=== PATIENT | female | born 1990 | race Caucasian/White ===

== ENCOUNTER 2017-01-16 13:59 | Emergency (ER) | payer SELFPAY ==
[2017-01-16] MEDS ORDERED: NORMAL SALINE 1000 ML 1,000 ML IV PRN (14:22)
--- NOTE | 2017-01-16 14:24 | ER Document Report ---
ED Medical Screen (RME) - General Chief Complaint: Abdominal Pain Stated Complaint: ABDOMINAL PAIN,VOMITING Time Seen by Provider: 01/16/17 14:22 Notes: Patient has 3-4 days of right lower quadrant pain. She states she has had ovarian cyst and kidney stones before but this pain is not like those pains. She states she has had to have multiple lithotripsies and ureteral stents for her kidney stones. She also states she has had a colonoscopy in the past and was diagnosed with Crohn's but this is now in remission. She states she is not currently on any Crohn's medications. Patient states she has had decreased appetite and vomiting. She states she is noticed some blood in her urine. However she has no dysuria or frequency. No vaginal bleeding or discharge. TRAVEL OUTSIDE OF THE [place] IN LAST 30 DAYS: No - Related Data Allergies/Adverse Reactions: acetaminophen [From Fioricet] Allergy (Verified 01/16/17 14:21) butalbital [From Fioricet] Allergy (Verified 01/16/17 14:21) caffeine [From Fioricet] Allergy (Verified 01/16/17 14:21) codeine [Codeine] Allergy (Verified 01/16/17 14:05) Difficulty breathing haloperidol [From Haldol] Allergy (Verified 01/16/17 14:05) haloperidol lactate [From Haldol] Allergy (Verified 01/16/17 14:05) magnesium sulfate [Magnesium Sulfate] Allergy (Verified 01/16/17 14:05) hydromorphone HCl [From Dilaudid] Adverse Reaction (Verified 01/16/17 14:05) Renal failure ketorolac tromethamine [From Toradol] Adverse Reaction (Verified 01/16/17 14:05) metoclopramide HCl [From Reglan] Adverse Reaction (Verified 01/16/17 14:05) Anxiety tramadol [Tramadol] Adverse Reaction (Verified 01/16/17 14:05) Past Medical History - Past Medical History Cardiac Medical History: Reports: Hx Hypertension - PRECLAMPSIA Denies: Hx Coronary Artery Disease, Hx Heart Attack Pulmonary Medical History: Denies: Hx Asthma, Hx Bronchitis, Hx COPD, Hx Pneumonia, Hx Tuberculosis Neurological Medical History: Reports: Hx Migraine. Denies: Hx Cerebrovascular Accident, Hx Seizures Renal/ Medical History: Reports: Hx Kidney Stones, Hx Renal Insufficiency. Denies: Hx Peritoneal Dialysis GI Medical History: Reports: Hx Crohn's Disease, Hx Irritable Bowel Musculoskeltal Medical History: Reports Hx Arthritis Past Surgical History: Reports: Hx Cholecystectomy, Hx Dilation and Curettage - x2, Hx Gynecologic Surgery - D&C x's2, Hx Kidney (Renal Surgery) - Ureteral stent, lithotripsy x7. Denies: Hx Hysterectomy, Hx Pacemaker - Immunizations Immunizations up to date: Yes Hx Diphtheria, Pertussis, Tetanus Vaccination: Yes Physical Exam - Vital signs Vitals: Temp Pulse Resp BP Pulse Ox 98.6 F 89 16 145/94 H 98 01/16/17 14:03 01/16/17 14:03 01/16/17 14:03 01/16/17 14:03 01/16/17 14:03 Course - Vital Signs Vital signs: Temp Pulse Resp BP Pulse Ox 98.6 F 89 16 145/94 H 98 01/16/17 14:03 01/16/17 14:03 01/16/17 14:03 01/16/17 14:03 01/16/17 14:03
[2017-01-16 14:52] LABS: APPEARANCE,URINE CLEAR; BILIRUBIN,URINE NEGATIVE (NEGATIVE); GLUCOSE, URINE NEGATIVE (NEGATIVE); KETONES,URINE NEGATIVE (NEGATIVE); LEUKOCYTE ESTERASE,URINE NEGATIVE (NEGATIVE); NITRITE,URINE NEGATIVE (NEGATIVE); PROTEIN,URINE NEGATIVE (NEGATIVE); URINE SPECIFIC GRAVITY 1.009; UROBILINOGEN,URINE NEGATIVE mg/dL (<2.0)
[2017-01-16 15:34] LABS: ABSOLUTE LYMPHOCYTES (AUTO) 1.5 10^3/uL (0.5-4.7); ABSOLUTE MONOCYTES (AUTO) 0.3 10^3/uL (0.1-1.4); ABSOLUTE NEUT (AUTO) 5.2 10^3/uL (1.7-8.2); BASOPHILS % (AUTO) 0.7 % (0-2); EOSINOPHILS % (AUTO) 0.7 % (0-6); HEMATOCRIT 43.7 % (36.0-47.0); HEMOGLOBIN 14.8 g/dL (12.0-15.5); HGB HCT DIFFERENCE 0.7; LYMPHOCYTES % (AUTO) 20.7 % (13-45); MEAN CORPUSCULAR HEMOGLOBIN 30.4 pg (27.0-33.4); MEAN CORPUSCULAR HGB CONC 33.9 g/dL (32.0-36.0); MEAN CORPUSCULAR VOLUME 89 fl (80-97); MONOCYTES % (AUTO) 4.1 % (3-13); RED BLOOD COUNT 4.89 10^6/uL (3.72-5.28); SEGMENTED NEUTROPHILS % (AUTO) 73.8 % (42-78); WHITE BLOOD COUNT 7.1 10^3/uL (4.0-10.5)
[2017-01-16 15:52] LABS: ALANINE AMINOTRANSFERASE 19 U/L (9-52); ALBUMIN 5.2 g/dL (3.5-5.0); ALKALINE PHOSPHATASE 64 U/L (38-126); ANION GAP 13 (5-19); ASPARTATE AMINO TRANSFERASE 18 U/L (14-36); BILIRUBIN,DIRECT 0.4 mg/dL (0.0-0.4); BILIRUBIN,TOTAL 0.5 mg/dL (0.2-1.3); BLOOD UREA NITROGEN 7 mg/dL (7-20); CALCIUM 10.1 mg/dL (8.4-10.2); CARBON DIOXIDE 25 mmol/L (22-30); CHLORIDE 104 mmol/L (98-107); CREATININE RESULT 0.73 mg/dL (0.52-1.25); GLUCOSE 83 mg/dL (75-110); POTASSIUM 4.5 mmol/L (3.6-5.0); SODIUM 142.4 mmol/L (137-145); TOTAL PROTEIN 8.7 g/dL (6.3-8.2)
--- NOTE | 2017-01-16 16:36 | RADIOLOGY REPORT (SQ) ---
EXAM DESCRIPTION: CT ABD/PELVIS WITH IV ONLY COMPLETED DATE/TIME: 01/16/2017 4:07 pm REASON FOR STUDY: rlq pain COMPARISON: [address] abdomen and pelvis exams since 2008, most recently 03/18/2016 TECHNIQUE: CT scan of the abdomen and pelvis performed using helical scanning technique with dynamic intravenous contrast injection. No oral contrast. Images reviewed with lung, soft tissue, and bone windows. Reconstructed coronal and sagittal MPR images reviewed. Delayed images for evaluation of the urinary system also acquired. All images stored on PACS. All CT scanners at this facility use dose modulation, iterative reconstruction, and/or weight based d osing when appropriate to reduce radiation dose to as low as reasonably achievable (ALARA). [facility]: Dose Right [facility]: CareDose [facility]: Dose Right [facility]: Teradose 4D [facility]: Videdressing CONTRAST TYPE AND DOSE: contrast/concentration: Isovue 370.00 mg/ml; Total Contrast Delivered: 71.0 ml; Total Saline Delivered: 66.1 ml RENAL FUNCTION: Creatinine 0.73 RADIATION DOSE: Up-to-date CT equipment and radiation dose reduction techniques were employed. CTDIv ol: 5.4 - 7.2 mGy. DLP: 690 mGy-cm.. LIMITATIONS: None. FINDINGS: Large amount of stool in the ascending colon. No CT signs of appendicitis. No right lowe r quadrant free fluid. LOWER CHEST: No significant findings. No nodules or infiltrates. LIVER: Normal size. No masses. No dilated ducts. SPLEEN: Normal size. No focal lesions. PANCREAS: No masses. No significant calcifications. No adjacent inflammation or peripancreatic fluid collections. Pancreatic duct not dilated. GALLBLADDER: Surgically absent ADRENAL GLANDS: No significant masses or asymmetry. RIGHT KIDNEY AND URETER: No solid masses. Multiple right renal cortical cysts, the largest is in the right mid-pole kidney 1.7 cm in diameter. 6 mm right midpole intrarenal nonobstructive calculus bes t shown on coronal image 37. No hydronephrosis or hydroureter. LEFT KIDNEY AND URETER: No solid masses. Less than 1 cm left midpole renal cortical cyst. 3 mm left lower pole intrarenal nonobstructive stone, coronal image 39. No hydronephrosis or hydroureter. AORTA AND VESSELS: No aneurysm. No dissection. Renal arteries, SMA, celiac without stenosis. RETROPERITONEUM: No retroperitoneal adenopathy, hemorrhage or masses. BOWEL AND PERITONEAL CAVITY: No masses or inflammatory changes. No free fluid or peritoneal masses. Large amount of stool in the ascending colon. APPENDIX: Normal. Best shown on coronal reconstruction images 26 and 27. PELVIS: No mass. No free fluid. Normal bladder. Normal size female pelvic organs. ABDOMINAL WALL: No masses. No hernias. BONES: No significant or acute findings. OTHER: No other significant finding. IMPRESSION: Large amount of stool in the ascending colon. No CT evidence of acute appendicitis or right lower quadrant inflammatory change. Bilateral intrarenal nonobstructive stones. No hydronephrosis or hydroureter. TECHNICAL DOCUMENTATION: JOB ID: [id number] Quality ID # [id number]: Final reports with documentation of one or more dose reduction techniques (e.g., Au tomated exposure control, adjustment of the mA and/or kV according to patient size, use of iterative reconstruction technique) 2010 [employer]- All Rights Reserved
--- NOTE | 2017-01-16 16:39 | ER Document Report ---
ED GI/ <SOLANGE SNOWDEN - Last Filed: 01/16/17 16:45> - General Mode of Arrival: Ambulatory Information source: Patient TRAVEL OUTSIDE OF THE [place] IN LAST 30 DAYS: No - HPI Patient complains to provider of: Abdominal pain, Flank pain Onset: Other - x4 days Timing/Duration: Persistent Associated symptoms: None Similar symptoms previously: Yes <CINDY MESA - Last Filed: 01/16/17 17:01> - General Chief Complaint: Abdominal Pain Stated Complaint: ABDOMINAL PAIN,VOMITING Time Seen by Provider: 01/16/17 14:22 Notes: Patient is a 26 year old female who visits this emergency department quite often for painful complaints that presents to the emergency department today with complaints of right sided abdominal pain that has moved from the right upper quadrant radiating down to her right lower quadrant. Patient states she has a history of kidney stones and her pain today feels similar to her previous kidney stones. Patient states she has been having this pain for approximately four days. (CINDY MESA) - Related Data Allergies/Adverse Reactions: acetaminophen [From Fioricet] Allergy (Verified 01/16/17 14:21) butalbital [From Fioricet] Allergy (Verified 01/16/17 14:21) caffeine [From Fioricet] Allergy (Verified 01/16/17 14:21) codeine [Codeine] Allergy (Verified 01/16/17 14:05) Difficulty breathing haloperidol [From Haldol] Allergy (Verified 01/16/17 14:05) haloperidol lactate [From Haldol] Allergy (Verified 01/16/17 14:05) magnesium sulfate [Magnesium Sulfate] Allergy (Verified 01/16/17 14:05) hydromorphone HCl [From Dilaudid] Adverse Reaction (Verified 01/16/17 14:05) Renal failure ketorolac tromethamine [From Toradol] Adverse Reaction (Verified 01/16/17 14:05) metoclopramide HCl [From Reglan] Adverse Reaction (Verified 01/16/17 14:05) Anxiety tramadol [Tramadol] Adverse Reaction (Verified 01/16/17 14:05) Home Medications: Current Home Medications No Home Medications 01/16/17 [History] Past Medical History - General Information source: Patient - Social History Smoking Status: Current Every Day Smoker Cigarette use (# per day): Yes Frequency of alcohol use: None Drug Abuse: None Lives with: Family Family History: Reviewed & Not Pertinent, CAD, Hypertension, Other - Lung cancer , breast cancer, renal calculi Patient has suicidal ideation: No Patient has homicidal ideation: No - Past Medical History Cardiac Medical History: Reports: Hx Hypertension - PRECLAMPSIA Neurological Medical History: Reports: Hx Migraine Renal/ Medical History: Reports: Hx Kidney Stones, Hx Renal Insufficiency GI Medical History: Reports: Hx Crohn's Disease, Hx Irritable Bowel Musculoskeltal Medical History: Reports Hx Arthritis Past Surgical History: Reports: Hx Cholecystectomy, Hx Dilation and Curettage - x2, Hx Gynecologic Surgery - D&C x's2, Hx Kidney (Renal Surgery) - Ureteral stent, lithotripsy x7 - Immunizations Immunizations up to date: Yes Hx Diphtheria, Pertussis, Tetanus Vaccination: Yes Hx Pneumococcal Vaccination: 07/18/12 <CINDY MESA - Last Filed: 01/16/17 17:01> Review of Systems - Review of Systems Constitutional: No symptoms reported EENT: No symptoms reported Cardiovascular: No symptoms reported Respiratory: No symptoms reported Gastrointestinal: See HPI, Abdominal pain Genitourinary: See HPI, Other - RLQ pain, feels like kidney stone according to patient Female Genitourinary: No symptoms reported Musculoskeletal: No symptoms reported Skin: No symptoms reported Hematologic/Lymphatic: No symptoms reported Neurological/Psychological: No symptoms reported -: Yes All other systems reviewed and negative <CINDY MESA - Last Filed: 01/16/17 17:01> Physical Exam <SOLANGE SNOWDEN - Last Filed: 01/16/17 16:45> <CINDY MESA - Last Filed: 01/16/17 17:01> - Vital signs Vitals: Temp Pulse Resp BP Pulse Ox 98.6 F 89 16 145/94 H 98 01/16/17 14:03 01/16/17 14:03 01/16/17 14:03 01/16/17 14:03 01/16/17 14:03 - Notes Notes: Physical Exam: General: Alert, appears well. HEENT: Normocephalic. Atraumatic. PERRL. Extraocular movements intact. Oropharynx clear. Neck: Supple. Non-tender. Respiratory: No respiratory distress. Clear and equal breath sounds bilaterally. Cardiovascular: Regular rate and rhythm. Abdominal: Mild RLQ tenderness with palpation. No distension. Normal Bowel Sounds. Back: Claims there is pain with percussion of right flank. No deformity or step off. Extremities: Moves all four extremities. Upper extremities: Normal inspection. Normal ROM. Lower extremities: Normal inspection. No edema. Normal ROM. Neurological: Normal cognition. AAOx4. Normal speech. Psychological: Normal affect. Normal Mood. Skin: Warm. Dry. Normal color. (CINDY MESA) Course - Laboratory Result Diagrams: 01/16/17 15:10 01/16/17 15:10 - Diagnostic Test Radiology reviewed: Image reviewed, Reports reviewed - CT scan abdomen pelvis with IV contrast shows intrarenal stones, no ureteral stones, no obstruction, no hydronephrosis or hydroureter. There is constipation. The entire right colon appears quite loaded with stool. <SOLANGE SNOWDEN - Last Filed: 01/16/17 16:45> - Laboratory Result Diagrams: 01/16/17 15:10 01/16/17 15:10 <CINDY MESA - Last Filed: 01/16/17 17:01> - Vital Signs Vital signs: Temp Pulse Resp BP Pulse Ox 98.6 F 89 16 145/94 H 98 01/16/17 14:03 01/16/17 14:03 01/16/17 14:03 01/16/17 14:03 01/16/17 14:03 - Laboratory Laboratory results interpreted by me: 01/16/17 01/16/17 15:10 15:10 RDW 15.0 H Total Protein 8.7 H Albumin 5.2 H Discharge <SOLANGE SNOWDEN - Last Filed: 01/16/17 16:45> <CINDY MESA - Last Filed: 01/16/17 17:01> - Discharge Clinical Impression: Flank pain Constipation Qualifiers: Constipation type: unspecified constipation type Qualified Code(s): K59.00 - Constipation, unspecified Abdominal pain Qualifiers: Abdominal location: right lower quadrant Qualified Code(s): R10.31 - Right lower quadrant pain Condition: Stable Disposition: HOME, SELF-CARE Additional Instructions: Flank Pain: We weren't able to prove an exact cause for your flank pain. Pain in the flank can be caused by a muscle strain or spasm. Sometimes a kidney stone causes pain, but can't be found on our tests. Infection in the kidney should be evident on a urine test. Early shingles can occasionally cause flank pain, without the rash that proves the diagnosis. On rare occasions, disease of the pancreas, aorta, spleen, or colon can create pain in the flank. At this time, there's no evidence of a dangerous condition, and it seems safe for you to be at home. If the pain goes away and does not come back, no further testing will be needed. If pain persists, or becomes more severe, we may need to repeat some tests or order additional new testing. Blood in the urine, urgency to urinate frequently, and pain that radiates to the groin can indicate a kidney stone. Fever may mean that the pain is due to infection, either of the kidney or the colon (diverticulitis). If your pain is early shingles, you should develop an eruption of blisters in the painful area within a few days. Call the doctor or return if you have pain that is spreading or becoming more severe, pain that does not resolve with time, fever, or any other new symptoms. Constipation: Constipation is a common problem. It is especially likely as you get older. Constipation is a common cause of abdominal pain, but sometimes causes no symptoms at all. Causes of constipation include certain medications, dehydration, diets, inactivity, and low-fiber intake. Rarely, it can be a symptom of underlying disease. The physician has evaluated you for this. Avoid constipation by eating a diet high in fiber, fruits, and vegetables. Drink plenty of liquids. Get regular exercise. If possible, avoid constipating medicines like narcotic pain medication. Some vitamin tablets can cause constipation. Stool softeners may be needed for difficult cases. An excellent stool softener is Konsyl which is available at [employer], and [employer] drug store. Just add a teaspoon to a glass of pineapple or orange juice daily or twice a day if needed. Laxatives are useful for occasional constipation. You should use them only when necessary. Too-frequent use can make your bowels dependent on them. Some over the counter laxatives available without prescription are: Milk of Magnesia, 1-2 tablespoons twice a day Dulcolax, 5 mg pill or 10 mg suppository. Citrate of Magnesia, 4-5 ounces a day for a day or two For acute constipation, Fleet's Enemas and Dulcolax suppositories are helpful. Chronic, tank terminal gauger use of laxatives or enemas is not a good idea. Your bowel may become dependant on them. You do not need to have a bowel movement every day. Many people do fine with a bowel movement every three or four days. You should call your doctor or return for re-evaluation if you pass blood in the stool, or if you develop fever or increasing abdominal pain. //////////////////////////////////////////////////////////////////////////////// //////////////////////////////////////////////////////////////////////////////// /////////////////// The CT scan does not show stones in the ureters and does not show any hydroureter or hydronephrosis. There is considerable stool in the right colon consistent with constipation. Your pain follows the course of the right colon and is most likely related to the constipation. Narcotic pain medication will make this problem worse. Try drinking a bottle of mag citrate today and start taking MiraLAX. You should start taking MiraLAX every day and drink plenty of fluids. Follow-up with a local medical doctor if not improving. RETURN TO THE EMERGENCY ROOM IF ANY NEW OR WORSENING SYMPTOMS. An Attestation: 01/16/17 16:51 I personally performed the services described in the documentation, reviewed and edited the documentation which was dictated to the scribe in my presence, and it accurately records my words and actions. (SOLANGE SNOWDEN) Araceliibbartolo Documentation - Scribe Written by An:: An Blakely, 01/16/2017 1656 acting as scribe for :: Aleksandar <CINDY MESA - Last Filed: 01/16/17 17:01>
[2017-01-16 17:05] VITALS: BP 141/103
== END 2017-01-16 17:08 | disposition home or self-care (01) ==
LOC: ER 13:59
DX: K59.00 Constipation, unspecified (principal); R10.31 Right lower quadrant pain; F17.210 Nicotine dependence, cigarettes, uncomplicated; Z87.442 Personal history of urinary calculi; Z88.6 Allergy status to analgesic agent; Z90.49 Acquired absence of other specified parts of digestive tract
CPT/HCPCS: 99284; 96360; 36415; 85025; 81025; 80053; 81001; 74177; J7030

== ENCOUNTER 2017-01-20 22:09 | Emergency (ER) | payer SELFPAY ==
[2017-01-20] MEDS ORDERED: HYDROMORPHONE HCL INJ/PF 2 MG/ML AMPULE IV ONE (23:01)
[2017-01-20] MEDS ORDERED: NORMAL SALINE 1000 ML 1,000 ML IV ONE (23:01)
[2017-01-20] MEDS ORDERED: ONDANSETRON HCL INJ/PF 4 MG/2 ML SDV IV ONE (23:01)
[2017-01-20 23:05] LABS: AMORPHOUS SEDIMENT,URINE TRACE /HPF; APPEARANCE,URINE SLIGHTLY-CLOUDY; BILIRUBIN,URINE NEGATIVE (NEGATIVE); GLUCOSE, URINE NEGATIVE (NEGATIVE); KETONES,URINE NEGATIVE (NEGATIVE); LEUKOCYTE ESTERASE,URINE TRACE (NEGATIVE); NITRITE,URINE NEGATIVE (NEGATIVE); PROTEIN,URINE 30 mg/dL (NEGATIVE); URINE SPECIFIC GRAVITY 1.021; UROBILINOGEN,URINE NEGATIVE mg/dL (<2.0)
--- NOTE | 2017-01-20 23:05 | ER Document Report ---
ED GI/ - General Chief Complaint: Urinary Problem Stated Complaint: BACK PAIN Time Seen by Provider: 01/20/17 22:49 Mode of Arrival: Ambulatory Information source: Patient TRAVEL OUTSIDE OF THE [place] IN LAST 30 DAYS: No - HPI Patient complains to provider of: Flank pain - RIGHT Onset: This afternoon Timing/Duration: Sudden Quality of pain: Dull - MOSTLY, Other - OCCAS. TEARING Severity at maximum: Severe Severity in ED: Moderate Context: Other - KNOWN H/O "KIDNEY STONES" Location: Right flank Vaginal bleeding (Compared to normal period): None Associated symptoms: Dysuria, Hematuria, Nausea, Urinary frequency, Urinary urgency. denies: Chills, Fever Exacerbated by: Denies Relieved by: Denies Similar symptoms previously: Yes - W/ PASSAGE OF STONE Recently seen / treated by doctor: No Notes: 01/21/17 02:36 Patient passed a moderately sized kidney stone when obtaining urine specimen for lab and emergency department. Review of imaging studies from 4 days ago reveals that there was one 6 mm stone in the right kidney at that time. - Related Data Allergies/Adverse Reactions: acetaminophen [From Fioricet] Allergy (Verified 01/20/17 22:38) butalbital [From Fioricet] Allergy (Verified 01/20/17 22:38) caffeine [From Fioricet] Allergy (Verified 01/20/17 22:38) codeine [Codeine] Allergy (Verified 01/20/17 22:38) Difficulty breathing haloperidol [From Haldol] Allergy (Verified 01/20/17 22:38) haloperidol lactate [From Haldol] Allergy (Verified 01/20/17 22:38) magnesium sulfate [Magnesium Sulfate] Allergy (Verified 01/20/17 22:38) hydromorphone HCl [From Dilaudid] Adverse Reaction (Verified 01/20/17 22:38) Renal failure ketorolac tromethamine [From Toradol] Adverse Reaction (Verified 01/20/17 22:38) metoclopramide HCl [From Reglan] Adverse Reaction (Verified 01/20/17 22:38) Anxiety tramadol [Tramadol] Adverse Reaction (Verified 01/20/17 22:38) Past Medical History - General Information source: Patient - Social History Smoking Status: Unknown if Ever Smoked Frequency of alcohol use: Occasional Drug Abuse: None Lives with: Spouse/Significant other Family History: Reviewed & Not Pertinent, CAD, Hypertension, Other - Lung cancer , breast cancer, renal calculi - Past Medical History Cardiac Medical History: Reports: Hx Hypertension - PRECLAMPSIA Denies: Hx Coronary Artery Disease, Hx Heart Attack Pulmonary Medical History: Denies: Hx Asthma, Hx Bronchitis, Hx COPD, Hx Pneumonia, Hx Tuberculosis Neurological Medical History: Reports: Hx Migraine. Denies: Hx Cerebrovascular Accident, Hx Seizures Renal/ Medical History: Reports: Hx Kidney Stones, Hx Peritoneal Dialysis, Hx Renal Insufficiency GI Medical History: Reports: Hx Crohn's Disease, Hx Irritable Bowel Musculoskeltal Medical History: Reports Hx Arthritis Past Surgical History: Reports: Hx Cholecystectomy, Hx Dilation and Curettage - x2, Hx Gynecologic Surgery - D&C x's2, Hx Kidney (Renal Surgery) - Ureteral stent, lithotripsy x7. Denies: Hx Hysterectomy, Hx Pacemaker - Immunizations Immunizations up to date: Yes Hx Diphtheria, Pertussis, Tetanus Vaccination: Yes Hx Pneumococcal Vaccination: 07/18/12 Review of Systems - Review of Systems Constitutional: No symptoms reported. denies: Chills, Fever EENT: No symptoms reported Cardiovascular: No symptoms reported Respiratory: No symptoms reported Gastrointestinal: See HPI Genitourinary: See HPI Female Genitourinary: No symptoms reported Musculoskeletal: No symptoms reported Skin: No symptoms reported Neurological/Psychological: No symptoms reported Physical Exam - Vital signs Vitals: Temp Resp BP Pulse Ox 98.7 F 14 122/85 98 01/20/17 22:40 01/20/17 22:40 01/20/17 22:40 01/20/17 22:40 Interpretation: Normal. No: Tachycardic, Tachypneic, Febrile - General General appearance: Appears well, Alert In distress: None - HEENT Head: Normocephalic Eyes: Normal Conjunctiva: Normal Ears: Normal Nasal: Normal Mouth/Lips: Normal Mucous membranes: Normal - Respiratory Respiratory status: No respiratory distress - Cardiovascular Rhythm: Regular - Abdominal Inspection: Normal Distension: No distension - Back Back: Normal, CVA tenderness - RIGHT - Extremities General upper extremity: Normal inspection General lower extremity: Normal inspection - Neurological Neuro grossly intact: Yes Cognition: Normal Orientation: AAOx4 - Psychological Associated symptoms: Normal affect, Normal mood - Skin Skin Temperature: Warm Skin Moisture: Dry Skin Color: Normal Skin Turgor: Elastic Course - Vital Signs Vital signs: Temp Pulse Resp BP Pulse Ox 97.8 F 80 18 131/93 H 96 01/21/17 01:36 01/21/17 01:36 01/21/17 01:36 01/21/17 01:36 01/21/17 01:36 - Laboratory Laboratory results interpreted by me: 01/20/17 22:48 Urine Protein 30 H Urine Blood LARGE H Ur Leukocyte Esterase TRACE H Urine Ascorbic Acid 20 H Discharge - Discharge Clinical Impression: Flank pain, History of nephrolithiasis Condition: Stable Disposition: HOME, SELF-CARE Instructions: Pain Medication Injection ([facility]), Kidney Stone ([facility]) Additional Instructions: REST, DRINK PLENTY OF FLUIDS. MEDS DIRECTED. FOLLOW UP WITH UROLOGIST NEEDED. RETURN TO E.R. IF YOU GET WORSE, ANY TIME. Prescriptions: Nitrofurantoin/Nitrofuran Mac [Macrobid 100 mg Capsule] 100 mg PO BID #20 capsule Tolterodine Tartrate [Detrol] 1 mg PO BID #7 tablet Referrals: TAMMY GARCIA MD [NO LOCAL MD] - Follow up as needed
[2017-01-20] MEDS ORDERED: MORPHINE SULFATE 10 MG/ML INJ IV ONE (23:29)
[2017-01-20] MEDS ORDERED: MORPHINE SULFATE 10 MG/ML INJ ONE (23:34)
[2017-01-21] MEDS ORDERED: DIPHENHYDRAMINE HCL 50 MG/ML VIAL IV ONE (00:03)
[2017-01-21] MEDS ORDERED: PROMETHAZINE HCL 25 MG TABLET PO ONE (00:03)
[2017-01-21] MEDS ORDERED: MORPHINE SULFATE 10 MG/ML INJ IV ONE ×2 (00:03→01:42)
[2017-01-21 01:37] VITALS: BP 131/93
[2017-01-21] MEDS ORDERED: TOLTERODINE TARTRATE 1 MG TABLET PO ONE (01:40)
[2017-01-21] MEDS ORDERED: CEFTRIAXONE 1 GM/D5W RTU 1 GM/50 ML RTUPB IV ONE (01:40)
[2017-01-21] MEDS ORDERED: TOLTERODINE TARTRATE 1 MG TABLET ONE (02:01)
== END 2017-01-21 02:55 | disposition home or self-care (01) ==
LOC: ER 22:09
DX: N20.0 Calculus of kidney (principal); R10.9 Unspecified abdominal pain; R30.0 Dysuria; R31.9 Hematuria, unspecified; R11.0 Nausea; R39.15 Urgency of urination; R35.0 Frequency of micturition; Z88.5 Allergy status to narcotic agent; Z88.8 Allergy status to other drugs, medicaments and biological substances; Z88.6 Allergy status to analgesic agent; Z98.890 Other specified postprocedural states
CPT/HCPCS: 96376; 99283; 96375; 96365; 81025; 81001; J1200; J2270 ×2; J2405; J7030; J0696

== ENCOUNTER 2017-02-17 15:25 | Emergency (ER) | payer SELFPAY ==
--- NOTE | 2017-02-17 16:35 | ER Document Report ---
ED Medical Screen (RME) - General Chief Complaint: Headache Stated Complaint: HEAD PRESSURE DIFFICULTY TALKING Time Seen by Provider: 02/17/17 16:09 Information source: Patient Notes: Patient presents complaining of left-sided headache pain that started this morning. Patient has taken Tylenol 730 and Excedrin at 1130 without improvement of her symptoms. Patient describes the pain as a pressure with nausea and vomiting 3 episodes. Patient states that an hour prior to her arrival to the ER she started to have difficulty saying the words that are coming into her head. Patient denies any head injury. Patient states that this headache is different from her usual migraines. Patient denies any drug use or recent illness. TRAVEL OUTSIDE OF THE [place] IN LAST 30 DAYS: No - Related Data Allergies/Adverse Reactions: acetaminophen [From Fioricet] Allergy (Verified 01/20/17 22:38) butalbital [From Fioricet] Allergy (Verified 01/20/17 22:38) caffeine [From Fioricet] Allergy (Verified 01/20/17 22:38) codeine [Codeine] Allergy (Verified 01/20/17 22:38) Difficulty breathing haloperidol [From Haldol] Allergy (Verified 01/20/17 22:38) haloperidol lactate [From Haldol] Allergy (Verified 01/20/17 22:38) magnesium sulfate [Magnesium Sulfate] Allergy (Verified 01/20/17 22:38) hydromorphone HCl [From Dilaudid] Adverse Reaction (Verified 01/20/17 22:38) Renal failure ketorolac tromethamine [From Toradol] Adverse Reaction (Verified 01/20/17 22:38) metoclopramide HCl [From Reglan] Adverse Reaction (Verified 01/20/17 22:38) Anxiety tramadol [Tramadol] Adverse Reaction (Verified 01/20/17 22:38) Past Medical History - Social History Chew tobacco use (# tins/day): No Frequency of alcohol use: None Drug Abuse: None - Past Medical History Cardiac Medical History: Reports: Hx Hypertension - PRECLAMPSIA Denies: Hx Coronary Artery Disease, Hx Heart Attack Pulmonary Medical History: Denies: Hx Asthma, Hx Bronchitis, Hx COPD, Hx Pneumonia, Hx Tuberculosis Neurological Medical History: Reports: Hx Migraine. Denies: Hx Cerebrovascular Accident, Hx Seizures Renal/ Medical History: Reports: Hx Kidney Stones, Hx Renal Insufficiency. Denies: Hx Peritoneal Dialysis GI Medical History: Reports: Hx Crohn's Disease, Hx Irritable Bowel Musculoskeltal Medical History: Reports Hx Arthritis Past Surgical History: Reports: Hx Cholecystectomy, Hx Dilation and Curettage - x2, Hx Gynecologic Surgery - D&C x's2, Hx Kidney (Renal Surgery) - Ureteral stent, lithotripsy x7. Denies: Hx Hysterectomy, Hx Pacemaker - Immunizations Immunizations up to date: Yes Hx Diphtheria, Pertussis, Tetanus Vaccination: Yes Physical Exam - Vital signs Vitals: Temp Pulse BP Pulse Ox 98.8 F 99 150/92 H 98 02/17/17 16:03 02/17/17 16:03 02/17/17 16:03 02/17/17 16:03 - Neurological Orientation: AAOx4 [place] Coma Scale Eye Opening: Spontaneous [place] Coma Scale Verbal: Oriented [place] Coma Scale Motor: Obeys Commands Chai Coma Scale Total: 15 Speech: Expressive aphasia Cerebellar coordination: No: Finger-nose rhombey - Abnormal finger-nose testing Notes: Patient with unsteady gait and unable to ambulate while walking on [facility] Course - Re-evaluation Re-evalutation: 02/17/17 16:35 business and services instructor advised the patient's status - Vital Signs Vital signs: Temp Pulse Resp BP Pulse Ox 98.8 F 99 150/92 H 98 02/17/17 16:03 02/17/17 16:03 02/17/17 16:03 02/17/17 16:03
[2017-02-17 16:50] LABS: ABSOLUTE BASOPHILS # (AUTO) 0.1 10^3/uL (0.0-0.2); ABSOLUTE LYMPHOCYTES (AUTO) 1.7 10^3/uL (0.5-4.7); ABSOLUTE MONOCYTES (AUTO) 0.3 10^3/uL (0.1-1.4); ABSOLUTE NEUT (AUTO) 4.6 10^3/uL (1.7-8.2); BASOPHILS % (AUTO) 0.8 % (0-2); EOSINOPHILS % (AUTO) 0.7 % (0-6); HEMATOCRIT 40.1 % (36.0-47.0); HEMOGLOBIN 13.9 g/dL (12.0-15.5); HGB HCT DIFFERENCE 1.6; LYMPHOCYTES % (AUTO) 24.9 % (13-45); MEAN CORPUSCULAR HEMOGLOBIN 30.9 pg (27.0-33.4); MEAN CORPUSCULAR HGB CONC 34.5 g/dL (32.0-36.0); MEAN CORPUSCULAR VOLUME 89 fl (80-97); MONOCYTES % (AUTO) 4.6 % (3-13); RED BLOOD COUNT 4.49 10^6/uL (3.72-5.28); RED CELL DISTRIBUTION WIDTH 14.5 % (11.5-14.0); WHITE BLOOD COUNT 6.7 10^3/uL (4.0-10.5)
--- NOTE | 2017-02-17 17:03 | RADIOLOGY REPORT (SQ) ---
EXAM DESCRIPTION: CT HEAD WITHOUT COMPLETED DATE/TIME: 02/17/2017 4:51 pm REASON FOR STUDY: WINTER COMPARISON: 05/01/2016 TECHNIQUE: Axial images acquired through the brain without intravenous contrast. Images reviewed wi th bone, brain and subdural windows. Images stored on PACS. All CT scanners at this facility use dose modulation, iterative reconstruction, and/or weight based d osing when appropriate to reduce radiation dose to as low as reasonably achievable (ALARA). [facility]: Dose Right [facility]: CareDose [facility]: Dose Right [facility]: Teradose 4D [facility]: [employer] RADIATION DOSE: Up-to-date CT equipment and radiation dose reduction techniques were employed. CTDIv ol: 64.6 mGy. DLP: 1163 mGy-cm. mGy. LIMITATIONS: None. FINDINGS: VENTRICLES: Normal size and contour. CEREBRUM: No masses. No hemorrhage. No midline shift. No evidence for acute infarction. Normal gra y/white matter differentiation. No areas of low density in the white matter. CEREBELLUM: No masses. No hemorrhage. No alteration of density. No evidence for acute infarction. EXTRAAXIAL SPACES: No fluid collections. No masses. ORBITS AND GLOBE: No intra- or extraconal masses. Normal contour of globe without masses. CALVARIUM: No fracture. PARANASAL SINUSES: No fluid or mucosal thickening. SOFT TISSUES: No mass or hematoma. OTHER: No other significant finding. IMPRESSION: No acute intracranial findings. EVIDENCE OF ACUTE STROKE: NO. COMMENT: Quality ID # [id number]: Final reports with documentation of one or more dose reduction techniques (e.g., Automated exposure control, adjustment of the mA and/or kV according to patient size, use of iterative reconstruction technique) TECHNICAL DOCUMENTATION: JOB ID: [id number]- All Rights Reserved
[2017-02-17 17:04] LABS: ALANINE AMINOTRANSFERASE 27 U/L (9-52); ALBUMIN 4.6 g/dL (3.5-5.0); ALKALINE PHOSPHATASE 64 U/L (38-126); ANION GAP 9 (5-19); ASPARTATE AMINO TRANSFERASE 15 U/L (14-36); BILIRUBIN,DIRECT 0.4 mg/dL (0.0-0.4); BILIRUBIN,TOTAL 0.4 mg/dL (0.2-1.3); BLOOD UREA NITROGEN 10 mg/dL (7-20); CALCIUM 10.2 mg/dL (8.4-10.2); CARBON DIOXIDE 27 mmol/L (22-30); CHLORIDE 106 mmol/L (98-107); CREATININE RESULT 0.74 mg/dL (0.52-1.25); GLUCOSE 95 mg/dL (75-110); POTASSIUM 3.9 mmol/L (3.6-5.0); SODIUM 142.1 mmol/L (137-145); TOTAL PROTEIN 7.4 g/dL (6.3-8.2)
[2017-02-17 17:05] LABS: ALCOHOL < 10 mg/dL (NONE DETECTED)
[2017-02-17 17:05] LABS: APPEARANCE,URINE SLIGHTLY-CLOUDY; BILIRUBIN,URINE NEGATIVE (NEGATIVE); GLUCOSE, URINE NEGATIVE (NEGATIVE); KETONES,URINE NEGATIVE (NEGATIVE); LEUKOCYTE ESTERASE,URINE NEGATIVE (NEGATIVE); NITRITE,URINE NEGATIVE (NEGATIVE); PROTEIN,URINE NEGATIVE (NEGATIVE); UROBILINOGEN,URINE NEGATIVE mg/dL (<2.0)
[2017-02-17 17:11] LABS: RBC,URINE 0-1 /HPF; WBC,URINE 0-1 /HPF
--- NOTE | 2017-02-17 17:13 | ER Document Report ---
ED General - General Chief Complaint: Headache Stated Complaint: HEAD PRESSURE DIFFICULTY TALKING Time Seen by Provider: 02/17/17 16:09 TRAVEL OUTSIDE OF THE [place] IN LAST 30 DAYS: No - HPI Notes: Patient is a 26-year-old female with a history of crohn's, renal stones, and migraines who presents the ED complaining of a left-sided headache started yesterday evening. Patient states that her typical medications have not helped for her headache. Patient states that she has been having trouble saying what she means, occasional blurry vision, balance issues as well, and left-sided facial pressure/tingling since then. Patient states that she is still eating and drinking without any difficulties. She still urinating and having normal bowel movements otherwise. She denies any recent illness or fever. Patient states that on occasion she will get a spasming type pain that radiates from the back of her head down into her neck. Denies any fever, head injury, neck pain, URI, sore throat, chest pain, palpitations, syncope, cough, shortness of breath, wheeze, dyspnea, abdominal pain, nausea/vomiting/diarrhea, urinary retention, dysuria, hematuria, loss of control of bowel or bladder, numbness/ tingling, saddle anesthesia, muscle paralysis/weakness, or rash. Patient denies any drug use. Denies any other significant past medical history. - Related Data Allergies/Adverse Reactions: acetaminophen [From Fioricet] Allergy (Verified 01/20/17 22:38) butalbital [From Fioricet] Allergy (Verified 01/20/17 22:38) caffeine [From Fioricet] Allergy (Verified 01/20/17 22:38) codeine [Codeine] Allergy (Verified 01/20/17 22:38) Difficulty breathing haloperidol [From Haldol] Allergy (Verified 01/20/17 22:38) haloperidol lactate [From Haldol] Allergy (Verified 01/20/17 22:38) magnesium sulfate [Magnesium Sulfate] Allergy (Verified 01/20/17 22:38) hydromorphone HCl [From Dilaudid] Adverse Reaction (Verified 01/20/17 22:38) Renal failure ketorolac tromethamine [From Toradol] Adverse Reaction (Verified 01/20/17 22:38) metoclopramide HCl [From Reglan] Adverse Reaction (Verified 01/20/17 22:38) Anxiety tramadol [Tramadol] Adverse Reaction (Verified 01/20/17 22:38) Past Medical History - General Information source: Patient - Social History Smoking Status: Current Every Day Smoker Chew tobacco use (# tins/day): No Frequency of alcohol use: None Drug Abuse: None Family History: Reviewed & Not Pertinent, CAD, Hypertension, Other - Lung cancer , breast cancer, renal calculi Patient has suicidal ideation: No Patient has homicidal ideation: No - Past Medical History Cardiac Medical History: Reports: Hx Hypertension - PRECLAMPSIA Denies: Hx Coronary Artery Disease, Hx Heart Attack Pulmonary Medical History: Denies: Hx Asthma, Hx Bronchitis, Hx COPD, Hx Pneumonia, Hx Tuberculosis Neurological Medical History: Reports: Hx Migraine. Denies: Hx Cerebrovascular Accident, Hx Seizures Renal/ Medical History: Reports: Hx Kidney Stones, Hx Renal Insufficiency. Denies: Hx Peritoneal Dialysis GI Medical History: Reports: Hx Crohn's Disease, Hx Irritable Bowel Musculoskeltal Medical History: Reports Hx Arthritis Past Surgical History: Reports: Hx Cholecystectomy, Hx Dilation and Curettage - x2, Hx Gynecologic Surgery - D&C x's2, Hx Kidney (Renal Surgery) - Ureteral stent, lithotripsy x7. Denies: Hx Hysterectomy, Hx Pacemaker - Immunizations Immunizations up to date: Yes Hx Diphtheria, Pertussis, Tetanus Vaccination: Yes Hx Pneumococcal Vaccination: 07/18/12 Review of Systems - Review of Systems Notes: REVIEW OF SYSTEMS: CONSTITUTIONAL : Denies fever, chills, or sweats. Denies recent illness. EENT: see hpi. Denies eye, ear, throat, or mouth pain or symptoms. Denies nasal or sinus congestion or discharge. Denies throat, tongue, or mouth swelling or difficulty swallowing. CARDIOVASCULAR: Denies chest pain. Denies palpitations or racing or irregular heart beat. Denies ankle edema. RESPIRATORY: Denies cough, cold, or chest congestion. Denies shortness of breath, difficulty breathing, or wheezing. GASTROINTESTINAL: Denies abdominal pain or distention. Denies nausea, vomiting , or diarrhea. Denies blood in vomitus, stools, or per rectum. Denies black, tarry stools. Denies constipation. GENITOURINARY: Denies difficulty urinating, painful urination, burning, frequency, blood in urine, or discharge. FEMALE GENITOURINARY: Denies vaginal bleeding, heavy or abnormal periods, irregular periods. Denies vaginal discharge or odor. MUSCULOSKELETAL: Denies back or neck pain or stiffness. Denies joint pain or swelling. SKIN: Denies rash, lesions or sores. NEUROLOGICAL: see hpi. Denies confusion or altered mental status. Denies passing out or loss of consciousness. Denies dizziness or lightheadedness. Denies weakness or paralysis or loss of use of either side. Denies seizures. PSYCHIATRIC: Denies anxiety or stress. Denies depression, suicidal ideation, or homicidal ideation. ALL OTHER SYSTEMS REVIEWED AND NEGATIVE. Dictation was performed using [employer] voice recognition software Physical Exam - Vital signs Vitals: Temp Pulse BP Pulse Ox 98.8 F 99 150/92 H 98 02/17/17 16:03 02/17/17 16:03 02/17/17 16:03 02/17/17 16:03 Notes: PHYSICAL EXAMINATION: GENERAL: Well-appearing, well-nourished and in no acute distress. A&Ox4 HEAD: Atraumatic, normocephalic. Non-tender. No loco sign EYES: Pupils equal round and reactive to light, extraocular movements intact, sclera anicteric, conjunctiva are normal. No raccoon eyes/entrapment ENT: EAC clear b/l. TM's intact b/l without erythema, fluid, or perforation. Nares patent and without discharge. oropharynx clear without exudates. No tonsilar hypertrophy or erythema. Moist mucous membranes. No sinus tenderness. No hemotympanum/CSF discharge. NECK: Normal range of motion, supple without lymphadenopathy. No rigidity. No midline tenderness. Spurling negative. NEXUS negative. Chest: No flail chest. equal rise/fall. Non-tender LUNGS: Breath sounds clear to auscultation bilaterally and equal. No wheezes rales or rhonchi. HEART: Regular rate and rhythm without murmurs, rubs, gallops. ABDOMEN: Soft, nontender, nondistended abdomen. No guarding, no rebound. No masses appreciated. Normal bowel sounds present. No CVA tenderness bilaterally. Musculoskeletal: Ext b/l: FROM to passive/active. Strength 5+/5. No deficits noted. No bony tenderness of extremities. Back: FROM to passive/active. Strength 5+/5. No vertebral point tenderness, stepoffs, or deformities. No other bony tenderness or ecchymosis. SLR negative b/l. Extremities: No cyanosis, clubbing, or edema b/l. Peripheral pulses 2+. Capillary refill less than 2 seconds. NEUROLOGICAL: NIH score of 0. MMSE intact. Cranial nerves grossly intact. Normal speech, normal gait. Normal sensory, motor exams. Reflexes 2+ b/l. ZELALEM' s negative. Pronator drift negative. Rhomberg negative. Heel/davis wnl. Finger :nose acceptable, missed 1-2x, but was able to accomplish thereafter. PSYCH: Normal mood, normal affect. SKIN: Warm, Dry, normal turgor, no rashes or lesions noted. Course - Re-evaluation Re-evalutation: 02/17/17 17:16 NIH score of 0 MMSE intact No focal neurological deficits Pt has an interesting history and ROS. Everything is left sided on her from her WINTER to the facial pressure. Pt unable to tell me what an object (ang, hammock, feather, etc) on a large notecard is, but can easily tell me a small object that I am holding in my hand and tell me what it is used for. Pt is able to articulate and speak in sound sentences. A&O x4. Labs pending CT scan of the head negative 02/17/17 18:[address] Huertas who is in agreement with discharge/plan: Patient is an afebrile, well-hydrated, 26-year-old female who presents the ED with headache, suspect migrainous. Vitals are stable. PE otherwise unremarkable for any focal neurological deficits. Pt's symptomatology and PE do not correlate for focal deficit. CT scan unremarkable. CBC, CMP, UA, urine drug screen, , etoh are all unremarkable for any acute pathology. Low suspicion for any acute glaucoma, temporal arteritis, meningitis, intracranial hemorrhage, ischemic stroke, or fracture at this time. Patient is aware that her condition can change from initial presentation and that she needs to monitor symptoms closely for any acute changes. Decadron 10 mg, Compazine 10 mg , Benadryl 50 mg, and zofran 4mg given IV today. After medication, pt reports complete resolution of her symptoms and WINTER. Recommend conservative measures for symptoms otherwise. Recheck with your PCM in 2-3 days. Consider consult with neurologist for ongoing/worsening symptoms. Return to the ED with any worsening/concerning symptoms otherwise as reviewed in discharge. Patient is in agreement. - Vital Signs Vital signs: Temp Pulse Resp BP Pulse Ox 98.8 F 99 150/92 H 98 02/17/17 16:03 02/17/17 16:03 02/17/17 16:03 02/17/17 16:03 - Laboratory Result Diagrams: 02/17/17 16:40 02/17/17 16:40 Laboratory results interpreted by me: 02/17/17 16:40 RDW 14.5 H Discharge - Discharge Clinical Impression: Headache Qualifiers: Headache type: unspecified Headache chronicity pattern: acute headache Intractability: not intractable Qualified Code(s): R51 - Headache Condition: Stable Disposition: HOME, SELF-CARE Instructions: Antinausea Medication ([facility]), Intravenous Compazine for Headaches ([facility]), Use of Diphenhydramine, Headache ([facility]), Follow-Up Care ([facility]) Additional Instructions: Maintain adequate fluid and food intake Take [id number]-highqld medicines as needed You may take Zofran as needed for any development of nausea Warm compresses and cool compresses may help Light structures and exercises daily work on de-stressing techniques eat a healthy diet Massage may help Recheck with your PCM in 2-3 days* Consider consult with a neurologist Return to the ED with any worsening symptoms and/or development of fever, worsening headache, changes in speech/vision/mentation/behavior, chest pain, palpitations, syncope, shortness of breath, trouble breathing, abdominal pain, n /v/d, blood in stool/urine, loss of control of bowel/bladder, urinary retention , muscle weakness/paralysis, numbness/tingling, or other worsening symptoms that are concerning to you. Prescriptions: Ondansetron [Zofran Odt 4 mg Tablet] 1 - 2 tab PO Q4H PRN #15 tab.rapdis PRN Reason: For Nausea/Vomiting Forms: Elevated Blood Pressure Referrals: [facility] [Provider Group] - Follow up as needed [facility] [Provider Group] - Follow up as needed [facility] [Provider Group] - Follow up as needed
[2017-02-17 17:19] LABS: URINE BARBITURATES SCREEN NEGATIVE; URINE METHADONE SCREEN NEGATIVE; URINE OPIATES LOW NEGATIVE; URINE PHENCYCLIDINE SCREEN NEGATIVE
[2017-02-17] MEDS ORDERED: PROCHLORPERAZINE EDISYLATE INJ 10 MG/2 ML VIAL IV ONE (17:41)
[2017-02-17] MEDS ORDERED: DEXAMETHASONE SOD PHOS INJ 10 MG/1 ML VIAL IV ONE (17:41)
[2017-02-17] MEDS ORDERED: DIPHENHYDRAMINE HCL 50 MG/ML VIAL IV ONE (17:41)
[2017-02-17] MEDS ORDERED: ONDANSETRON HCL INJ/PF 4 MG/2 ML SDV IV ONE (18:21)
[2017-02-17 19:11] VITALS: BP 133/93
== END 2017-02-17 19:10 | disposition home or self-care (01) ==
LOC: ER 15:25
DX: R51 Headache (principal); F17.200 Nicotine dependence, unspecified, uncomplicated
CPT/HCPCS: 99284; 96374; 96375; 36415; 80307 ×2; 84703; 85025; 80053; 81001; 70450; J1200; J0780; J2405; J1100

== ENCOUNTER 2017-03-19 18:10 | Emergency (ER) | payer SELFPAY ==
[2017-03-19] MEDS ORDERED: ONDANSETRON 4 MG TAB.RAPDIS PO ONE (18:49)
--- NOTE | 2017-03-19 18:50 | ER Document Report ---
ED Medical Screen (RME) - General Chief Complaint: Flank Pain Stated Complaint: LEFT FLANK PAIN,VOMITING,BLOOD IN URINE Time Seen by Provider: 03/19/17 18:47 Notes: Patient states she has a history of frequent kidney stones. She states she has had multiple operative procedures for the stones. This year she states she was admitted to the hospital for sepsis from a kidney stone. She also states she has had 5 CT scans at least this year already. She states they have tried ultrasound before but can never see the stones. She states currently she is having left flank pain that feels similar to previous stone pain. TRAVEL OUTSIDE OF THE [place] IN LAST 30 DAYS: No - Related Data Allergies/Adverse Reactions: acetaminophen [From Fioricet] Allergy (Verified 03/19/17 18:14) butalbital [From Fioricet] Allergy (Verified 03/19/17 18:14) caffeine [From Fioricet] Allergy (Verified 03/19/17 18:14) codeine [Codeine] Allergy (Verified 03/19/17 18:14) Difficulty breathing haloperidol [From Haldol] Allergy (Verified 03/19/17 18:14) haloperidol lactate [From Haldol] Allergy (Verified 03/19/17 18:14) magnesium sulfate [Magnesium Sulfate] Allergy (Verified 03/19/17 18:14) hydromorphone HCl [From Dilaudid] Adverse Reaction (Verified 03/19/17 18:14) Renal failure ketorolac tromethamine [From Toradol] Adverse Reaction (Verified 03/19/17 18:14) metoclopramide HCl [From Reglan] Adverse Reaction (Verified 03/19/17 18:14) Anxiety tramadol [Tramadol] Adverse Reaction (Verified 03/19/17 18:14) Past Medical History - Social History Chew tobacco use (# tins/day): No Frequency of alcohol use: None Drug Abuse: None - Past Medical History Cardiac Medical History: Reports: Hx Hypertension - PRECLAMPSIA Denies: Hx Coronary Artery Disease, Hx Heart Attack Pulmonary Medical History: Denies: Hx Asthma, Hx Bronchitis, Hx COPD, Hx Pneumonia, Hx Tuberculosis Neurological Medical History: Reports: Hx Migraine. Denies: Hx Cerebrovascular Accident, Hx Seizures Renal/ Medical History: Reports: Hx Kidney Stones, Hx Renal Insufficiency. Denies: Hx Peritoneal Dialysis GI Medical History: Reports: Hx Crohn's Disease, Hx Irritable Bowel Musculoskeltal Medical History: Reports Hx Arthritis Past Surgical History: Reports: Hx Cholecystectomy, Hx Dilation and Curettage - x2, Hx Gynecologic Surgery - D&C x's2, Hx Kidney (Renal Surgery) - Ureteral stent, lithotripsy x7. Denies: Hx Hysterectomy, Hx Pacemaker - Immunizations Immunizations up to date: Yes Hx Diphtheria, Pertussis, Tetanus Vaccination: Yes History of Influenza Vaccine for 02/2017 - 07/2017 Season: No Physical Exam - Vital signs Vitals: Temp Pulse Resp BP Pulse Ox 98.5 F 106 H 16 135/92 H 99 03/19/17 18:13 03/19/17 18:13 03/19/17 18:13 03/19/17 18:13 03/19/17 18:13 Course - Vital Signs Vital signs: Temp Pulse Resp BP Pulse Ox 98.5 F 106 H 16 135/92 H 99 03/19/17 18:13 03/19/17 18:13 03/19/17 18:13 03/19/17 18:13 03/19/17 18:13
[2017-03-19 19:07] LABS: ABSOLUTE EOSINOPHILS # (AUTO) 0.1 10^3/uL (0.0-0.6); ABSOLUTE MONOCYTES (AUTO) 0.4 10^3/uL (0.1-1.4); ABSOLUTE NEUT (AUTO) 5.3 10^3/uL (1.7-8.2); BASOPHILS % (AUTO) 0.6 % (0-2); EOSINOPHILS % (AUTO) 0.8 % (0-6); HEMATOCRIT 40.5 % (36.0-47.0); HGB HCT DIFFERENCE 1.5; LYMPHOCYTES % (AUTO) 25.3 % (13-45); MEAN CORPUSCULAR HEMOGLOBIN 31.1 pg (27.0-33.4); MEAN CORPUSCULAR HGB CONC 34.6 g/dL (32.0-36.0); MEAN CORPUSCULAR VOLUME 90 fl (80-97); MONOCYTES % (AUTO) 5.4 % (3-13); RED BLOOD COUNT 4.51 10^6/uL (3.72-5.28); RED CELL DISTRIBUTION WIDTH 13.8 % (11.5-14.0); SEGMENTED NEUTROPHILS % (AUTO) 67.9 % (42-78); WHITE BLOOD COUNT 7.9 10^3/uL (4.0-10.5)
[2017-03-19 19:28] LABS: ALANINE AMINOTRANSFERASE 26 U/L (9-52); ALBUMIN 4.9 g/dL (3.5-5.0); ALKALINE PHOSPHATASE 68 U/L (38-126); ANION GAP 12 (5-19); ASPARTATE AMINO TRANSFERASE 15 U/L (14-36); BILIRUBIN,DIRECT 0.4 mg/dL (0.0-0.4); BILIRUBIN,TOTAL 0.4 mg/dL (0.2-1.3); BLOOD UREA NITROGEN 9 mg/dL (7-20); CALCIUM 9.5 mg/dL (8.4-10.2); CARBON DIOXIDE 26 mmol/L (22-30); CHLORIDE 105 mmol/L (98-107); CREATININE RESULT 0.75 mg/dL (0.52-1.25); GLUCOSE 93 mg/dL (75-110); POTASSIUM 4.1 mmol/L (3.6-5.0); SODIUM 142.9 mmol/L (137-145); TOTAL PROTEIN 7.7 g/dL (6.3-8.2)
[2017-03-19] MEDS ORDERED: PROMETHAZINE HCL 25 MG TABLET PO ONE (20:13)
--- NOTE | 2017-03-19 20:15 | ER Document Report ---
ED GI/ - General Chief Complaint: Flank Pain Stated Complaint: LEFT FLANK PAIN,VOMITING,BLOOD IN URINE Time Seen by Provider: 03/19/17 18:47 Mode of Arrival: Ambulatory Information source: Patient Notes: Patient presents complaining of left sided abdominal pain that started yesterday. Patient states that he occasionally will go to her left flank area. Patient does report nausea and vomiting 4 episodes today. Patient denies any diarrhea. Last bowel movement was today. Patient does report some decreased urine output. Patient has a history of kidney stones and is concerned about this today. TRAVEL OUTSIDE OF THE [place] IN LAST 30 DAYS: No - HPI Patient complains to provider of: Abdominal pain, Flank pain, Vomiting Onset: Yesterday Timing/Duration: Persistent Quality of pain: Sharp Pain Level: 4 Location: LUQ, Left flank Vaginal bleeding (Compared to normal period): None Sexual history: Active Associated symptoms: Loss of appetite, Nausea, Vomiting. denies: Diarrhea, Dysuria, Fever, Urinary hesitancy, Urinary frequency, Urinary retention, Urinary urgency Exacerbated by: Denies Relieved by: Denies Similar symptoms previously: Yes Recently seen / treated by doctor: No - Related Data Allergies/Adverse Reactions: acetaminophen [From Fioricet] Allergy (Verified 03/19/17 18:14) butalbital [From Fioricet] Allergy (Verified 03/19/17 18:14) caffeine [From Fioricet] Allergy (Verified 03/19/17 18:14) codeine [Codeine] Allergy (Verified 03/19/17 18:14) Difficulty breathing haloperidol [From Haldol] Allergy (Verified 03/19/17 18:14) haloperidol lactate [From Haldol] Allergy (Verified 03/19/17 18:14) magnesium sulfate [Magnesium Sulfate] Allergy (Verified 03/19/17 18:14) hydromorphone HCl [From Dilaudid] Adverse Reaction (Verified 03/19/17 18:14) Renal failure ketorolac tromethamine [From Toradol] Adverse Reaction (Verified 03/19/17 18:14) metoclopramide HCl [From Reglan] Adverse Reaction (Verified 03/19/17 18:14) Anxiety tramadol [Tramadol] Adverse Reaction (Verified 03/19/17 18:14) Past Medical History - General Information source: Patient - Social History Smoking Status: Current Every Day Smoker Chew tobacco use (# tins/day): No Frequency of alcohol use: None Drug Abuse: None Occupation: None Lives with: Spouse/Significant other Family History: Reviewed & Not Pertinent, CAD, Hypertension, Other - Lung cancer , breast cancer, renal calculi Patient has suicidal ideation: No Patient has homicidal ideation: No - Past Medical History Cardiac Medical History: Reports: Hx Hypertension - PRECLAMPSIA Denies: Hx Coronary Artery Disease, Hx Heart Attack Pulmonary Medical History: Denies: Hx Asthma, Hx Bronchitis, Hx COPD, Hx Pneumonia, Hx Tuberculosis Neurological Medical History: Reports: Hx Migraine. Denies: Hx Cerebrovascular Accident, Hx Seizures Renal/ Medical History: Reports: Hx Kidney Stones, Hx Renal Insufficiency. Denies: Hx Peritoneal Dialysis GI Medical History: Reports: Hx Crohn's Disease, Hx Irritable Bowel Musculoskeltal Medical History: Reports Hx Arthritis Past Surgical History: Reports: Hx Cholecystectomy, Hx Dilation and Curettage - x2, Hx Gynecologic Surgery - D&C x's2, Hx Kidney (Renal Surgery) - Ureteral stent, lithotripsy x7. Denies: Hx Hysterectomy, Hx Pacemaker - Immunizations Immunizations up to date: Yes Hx Diphtheria, Pertussis, Tetanus Vaccination: Yes Hx Pneumococcal Vaccination: 07/18/12 Review of Systems - Review of Systems Constitutional: No symptoms reported. denies: Fever, Recent illness EENT: No symptoms reported Cardiovascular: No symptoms reported. denies: Chest pain Respiratory: No symptoms reported. denies: Cough, Short of breath Gastrointestinal: Abdominal pain, Nausea, Vomiting. denies: Diarrhea Genitourinary: Flank pain. denies: Dysuria Female Genitourinary: No symptoms reported. denies: Vaginal discharge, Vaginal bleeding Musculoskeletal: No symptoms reported Skin: No symptoms reported Hematologic/Lymphatic: No symptoms reported Neurological/Psychological: No symptoms reported Physical Exam - Vital signs Vitals: Temp Pulse Resp BP Pulse Ox 98.5 F 106 H 16 135/92 H 99 03/19/17 18:13 03/19/17 18:13 03/19/17 18:13 03/19/17 18:13 03/19/17 18:13 - General General appearance: Appears well, Alert In distress: None - HEENT Head: Normocephalic, Atraumatic Eyes: Normal Conjunctiva: Normal Nasal: Normal Mouth/Lips: Normal Mucous membranes: Normal Neck: Normal, Supple. No: Lymphadenopathy - Respiratory Respiratory status: No respiratory distress Chest status: Nontender Breath sounds: Normal. No: Rales, Rhonchi, Stridor, Wheezing Chest palpation: Normal - Cardiovascular Rhythm: Regular Heart sounds: S1 appreciated, S2 appreciated Murmur: No - Abdominal Inspection: Normal Distension: No distension Bowel sounds: Normal Tenderness: Tender - LUQ tenderness Organomegaly: No organomegaly - Back Back: CVA tenderness - mild L flank - Extremities General upper extremity: Normal inspection, Normal strength General lower extremity: Normal inspection, Normal strength - Neurological Neuro grossly intact: Yes Cognition: Normal Chai Coma Scale Eye Opening: Spontaneous Chai Coma Scale Verbal: Oriented Chai Coma Scale Motor: Obeys Commands Chai Coma Scale Total: 15 - Psychological Associated symptoms: Normal affect, Normal mood - Skin Skin Temperature: Warm Skin Moisture: Dry Skin Color: Normal Course - Re-evaluation Re-evalutation: 03/19/17 21:01 Patient states that she vomited after coming back from ultrasound after taking the Zofran. Patient is requesting intramuscular Phenergan. No emesis noted in room. Patient advised that Phenergan can be given orally or rectally, patient states she can take rectal Phenergan because she has a history of Crohn's and that this causes her Crohn's to flareup. 03/19/17 22:46 Patient reports that nausea symptoms are modestly improved after the Benadryl. Offered patient another trial of Zofran. Patient states she does not like to take Zofran because of the sugary taste of the medication. Patient states that she would just like a prescription for Phenergan and to be discharged home. Consulted with Dr. Sprague regarding patient presentation and diagnostic test results. No additional testing advised, agrees with discharge plan. Patient does have a history of visits in the past for chronic painful conditions. Patient without any concerning symptoms for ureteral stone, urinary tract infection, obstruction or other concerning pathology at this time. Patient nontoxic in appearance. Patient encouraged to follow-up with a primary doctor or her urologist for further evaluation of her kidney stones as well as pain management - Vital Signs Vital signs: Temp Pulse Resp BP Pulse Ox 98.5 F 74 19 121/74 98 03/19/17 18:13 03/19/17 23:15 03/19/17 23:15 03/19/17 23:15 03/19/17 23:15 - Laboratory Result Diagrams: 03/19/17 18:56 03/19/17 18:56 Laboratory results interpreted by me: Labs- Entire Visit 03/19/17 03/19/17 03/19/17 18:56 18:56 20:50 WBC 7.9 RBC 4.51 Hgb 14.0 Hct 40.5 MCV 90 MCH 31.1 MCHC 34.6 RDW 13.8 Plt Count 287 Seg Neutrophils % 67.9 Lymphocytes % 25.3 Monocytes % 5.4 Eosinophils % 0.8 Basophils % 0.6 Absolute Neutrophils 5.3 Absolute Lymphocytes 2.0 Absolute Monocytes 0.4 Absolute Eosinophils 0.1 Absolute Basophils 0.0 Sodium 142.9 Potassium 4.1 Chloride 105 Carbon Dioxide 26 Anion Gap 12 BUN 9 Creatinine 0.75 Est GFR ( Amer) > 60 Est GFR (Non-Af Amer) > 60 Glucose 93 Calcium 9.5 Total Bilirubin 0.4 Direct Bilirubin 0.4 Indirect Bilirubin Not Reportable Neonat Total Bilirubin Not Reportable AST 15 ALT 26 Alkaline Phosphatase 68 Total Protein 7.7 Albumin 4.9 Urine Color YELLOW Urine Appearance CLOUDY Urine pH 8.0 Ur Specific [place] 1.020 Urine Protein NEGATIVE Urine Glucose (UA) NEGATIVE Urine Ketones NEGATIVE Urine Blood NEGATIVE Urine Nitrite NEGATIVE Urine Bilirubin NEGATIVE Urine Urobilinogen NEGATIVE Ur Leukocyte Esterase NEGATIVE Urine RBC (Auto) 9 Amorphous Sediment Auto TRACE Urine Mucus (Auto) RARE Urine Ascorbic Acid NEGATIVE Urine HCG, Qual NEGATIVE - Diagnostic Test Radiology reviewed: Reports reviewed Discharge - Discharge Clinical Impression: Renal stones, Side pain Nausea & vomiting Qualifiers: Vomiting type: unspecified Vomiting Intractability: non-intractable Qualified Code(s): R11.2 - Nausea with vomiting, unspecified Condition: Stable Disposition: HOME, SELF-CARE Instructions: Acetaminophen, Antinausea Medication ([facility]), Vomiting ([facility]) Additional Instructions: Return immediately for any new or worsening symptoms Followup with your primary care provider, call tomorrow to make a followup appointment Follow-up with your urologist for further management of your renal stones Prescriptions: Promethazine HCl [Phenergan 25 mg Tablet] 25 mg PO Q6H PRN #12 tablet PRN Reason: Referrals: TAMMY GARCIA MD [NO LOCAL MD] - Follow up tomorrow
--- NOTE | 2017-03-19 21:03 | RADIOLOGY REPORT (SQ) ---
EXAM DESCRIPTION: U/S RETROPERITON (RENAL/AORTA) COMPLETED DATE/TIME: 03/19/2017 8:51 pm REASON FOR STUDY: L side abd/flank pain, hx kidney stones COMPARISON: 2014. CT from 2016. TECHNIQUE: Dynamic and static grayscale images acquired of the kidneys and bladder and recorded on P ACS. Additional selected color Doppler and spectral images recorded. LIMITATIONS: None. FINDINGS: RIGHT KIDNEY: Normal size. Normal echogenicity. No solid or suspicious masses. No hydronep hrosis. Echogenic foci suggest nephrolithiasis. LEFT KIDNEY: Normal size. Normal echogenicity. No solid or suspicious masses. No hydronephrosis. Ec hogenic foci suggest nephrolithiasis. BLADDER: No masses. OTHER FINDINGS: No other significant finding. IMPRESSION: Bilateral nonobstructive nephrolithiasis is suggested. TECHNICAL DOCUMENTATION: JOB ID: [id number] [employer]- All Rights Reserved
[2017-03-19] MEDS ORDERED: DIPHENHYDRAMINE HCL 50 MG/ML VIAL IM ONE (21:38)
[2017-03-19 21:59] LABS: AMORPHOUS SEDIMENT,URINE TRACE /HPF; APPEARANCE,URINE CLOUDY; BILIRUBIN,URINE NEGATIVE (NEGATIVE); GLUCOSE, URINE NEGATIVE (NEGATIVE); KETONES,URINE NEGATIVE (NEGATIVE); LEUKOCYTE ESTERASE,URINE NEGATIVE (NEGATIVE); NITRITE,URINE NEGATIVE (NEGATIVE); PROTEIN,URINE NEGATIVE (NEGATIVE); UROBILINOGEN,URINE NEGATIVE mg/dL (<2.0)
[2017-03-19 23:15] VITALS: BP 121/74
== END 2017-03-19 23:14 | disposition home or self-care (01) ==
LOC: ER 18:10
DX: N20.0 Calculus of kidney (principal); R10.9 Unspecified abdominal pain; R31.9 Hematuria, unspecified; F17.200 Nicotine dependence, unspecified, uncomplicated; Z88.6 Allergy status to analgesic agent; Z87.442 Personal history of urinary calculi; Z90.49 Acquired absence of other specified parts of digestive tract
CPT/HCPCS: 99284; 96372; 36415; 85025; 81025; 80053; 81001; 76770; J1200; S0119

== ENCOUNTER 2017-04-20 15:38 | Emergency (ER) | payer SELFPAY ==
[2017-04-20] MEDS ORDERED: ONDANSETRON HCL INJ/PF 4 MG/2 ML SDV IV ONE (16:19)
[2017-04-20] MEDS ORDERED: NORMAL SALINE 1000 ML 1,000 ML IV ONE (16:19)
[2017-04-20] MEDS ORDERED: MORPHINE SULFATE 10 MG/ML INJ IV ONE ×2 (16:19→18:21)
--- NOTE | 2017-04-20 16:22 | ER Document Report ---
ED GI/ - General Chief Complaint: Possible Kidney Stone Stated Complaint: FLANK PAIN VOMITING Time Seen by Provider: 04/20/17 16:19 Mode of Arrival: Ambulatory Information source: Patient TRAVEL OUTSIDE OF THE [place] IN LAST 30 DAYS: No - HPI Patient complains to provider of: Flank pain - pt with onset of R flank pain yesterday (has h/o kidney stones) with vomiting and decreased urine output - Related Data Allergies/Adverse Reactions: acetaminophen [From Fioricet] Allergy (Verified 04/20/17 15:39) butalbital [From Fioricet] Allergy (Verified 04/20/17 15:39) caffeine [From Fioricet] Allergy (Verified 04/20/17 15:39) codeine [Codeine] Allergy (Verified 04/20/17 15:39) Difficulty breathing haloperidol [From Haldol] Allergy (Verified 04/20/17 15:39) haloperidol lactate [From Haldol] Allergy (Verified 04/20/17 15:39) magnesium sulfate [Magnesium Sulfate] Allergy (Verified 04/20/17 15:39) hydromorphone HCl [From Dilaudid] Adverse Reaction (Verified 04/20/17 15:39) Renal failure ketorolac tromethamine [From Toradol] Adverse Reaction (Verified 04/20/17 15:39) metoclopramide HCl [From Reglan] Adverse Reaction (Verified 04/20/17 15:39) Anxiety tramadol [Tramadol] Adverse Reaction (Verified 04/20/17 15:39) Home Medications: Current Home Medications No Home Medications 04/20/17 [History] Past Medical History - Social History Smoking Status: Current Every Day Smoker Chew tobacco use (# tins/day): No Frequency of alcohol use: None Drug Abuse: None Family History: Reviewed & Not Pertinent, CAD, Hypertension, Other - Lung cancer , breast cancer, renal calculi Patient has suicidal ideation: No Patient has homicidal ideation: No - Past Medical History Cardiac Medical History: Reports: Hx Hypertension - PRECLAMPSIA Denies: Hx Coronary Artery Disease, Hx Heart Attack Pulmonary Medical History: Denies: Hx Asthma, Hx Bronchitis, Hx COPD, Hx Pneumonia, Hx Tuberculosis Neurological Medical History: Reports: Hx Migraine. Denies: Hx Cerebrovascular Accident, Hx Seizures Renal/ Medical History: Reports: Hx Kidney Stones, Hx Renal Insufficiency. Denies: Hx Peritoneal Dialysis GI Medical History: Reports: Hx Crohn's Disease, Hx Irritable Bowel Musculoskeltal Medical History: Reports Hx Arthritis Past Surgical History: Reports: Hx Cholecystectomy, Hx Dilation and Curettage - x2, Hx Gynecologic Surgery - D&C x's2, Hx Kidney (Renal Surgery) - Ureteral stent, lithotripsy x7. Denies: Hx Hysterectomy, Hx Pacemaker - Immunizations Immunizations up to date: Yes Hx Diphtheria, Pertussis, Tetanus Vaccination: Yes Hx Pneumococcal Vaccination: 07/18/12
[2017-04-20 18:28] LABS: APPEARANCE,URINE SLIGHTLY-CLOUDY; BILIRUBIN,URINE NEGATIVE (NEGATIVE); GLUCOSE, URINE NEGATIVE (NEGATIVE); KETONES,URINE NEGATIVE (NEGATIVE); LEUKOCYTE ESTERASE,URINE NEGATIVE (NEGATIVE); NITRITE,URINE NEGATIVE (NEGATIVE); PROTEIN,URINE NEGATIVE (NEGATIVE); UROBILINOGEN,URINE NEGATIVE mg/dL (<2.0)
--- NOTE | 2017-04-20 18:39 | RADIOLOGY REPORT (SQ) ---
EXAM DESCRIPTION: CT LTD RENAL STONE PROTOCOL ON COMPLETED DATE/TIME: 04/20/2017 6:22 pm REASON FOR STUDY: flank pain COMPARISON: 03/18/2016 TECHNIQUE: CT scan of the abdomen and pelvis performed without intravenous or oral contrast. Images reviewed with lung, soft tissue, and bone windows. Reconstructed coronal and sagittal MPR images revi ewed. All images stored on PACS. All CT scanners at this facility use dose modulation, iterative reconstruction, and/or weight based d osing when appropriate to reduce radiation dose to as low as reasonably achievable (ALARA). [facility]: Dose Right [facility]: CareDose [facility]: Dose Right [facility]: Teradose 4D [facility]: [employer] RADIATION DOSE: mGy. LIMITATIONS: None. FINDINGS: LOWER CHEST: No significant findings. No nodules or infiltrates. NON-CONTRASTED LIVER, SPLEEN, ADRENALS: Evaluation limited by lack of IV contrast. No identified sign ificant masses. PANCREAS: No masses. No peripancreatic inflammatory changes. GALLBLADDER: Surgically absent. RIGHT KIDNEY AND URETER: No suspicious masses. Assessment limited by lack of IV contrast. Few punct ate nonobstructing nephroliths. No hydronephrosis or hydroureter. LEFT KIDNEY AND URETER: No suspicious masses. Assessment limited by lack of IV contrast. A single p unctate nonobstructing nephrolith is present. No hydronephrosis or hydroureter. AORTA AND RETROPERITONEUM: No aneurysm. No retroperitoneal masses or adenopathy. BOWEL AND PERITONEAL CAVITY: No obvious masses or inflammatory changes. No free fluid. APPENDIX: Normal. PELVIS, BLADDER, AND ABDOMINAL WALL:No abnormal masses. No free fluid. Bladder normal. BONES: No significant findings. OTHER: No other significant finding. IMPRESSION: NO SIGNIFICANT OR ACUTE PROCESS IN THE ABDOMEN OR PELVIS. COMMENT: Please note that this patient has undergone 18 CT examinations of the abdomen and pelvis si hie 05/11/2009. Quality ID # [id number]: Final reports with documentation of one or more dose reduction techniques (e.g., Au tomated exposure control, adjustment of the mA and/or kV according to patient size, use of iterative reconstruction technique) TECHNICAL DOCUMENTATION: JOB ID: [id number]- All Rights Reserved
[2017-04-20] MEDS ORDERED: PROMETHAZINE HCL INJ 25 MG/1 ML VIAL IV ONE (20:53)
--- NOTE | 2017-04-20 21:48 | ER Document Report ---
ED General - General Chief Complaint: Possible Kidney Stone Stated Complaint: FLANK PAIN VOMITING Time Seen by Provider: 04/20/17 16:19 Mode of Arrival: Ambulatory TRAVEL OUTSIDE OF THE [place] IN LAST 30 DAYS: No - HPI Notes: Patient presents emergency department with complaints of left upper quadrant abdominal pain. She states she thinks she may have a kidney stone. He denies any symptoms of upper respiratory infection. She states she did have diarrhea for the past 2 days. She has also had decreased p.o. intake. - Related Data Allergies/Adverse Reactions: acetaminophen [From Fioricet] Allergy (Verified 04/20/17 15:39) butalbital [From Fioricet] Allergy (Verified 04/20/17 15:39) caffeine [From Fioricet] Allergy (Verified 04/20/17 15:39) codeine [Codeine] Allergy (Verified 04/20/17 15:39) Difficulty breathing haloperidol [From Haldol] Allergy (Verified 04/20/17 15:39) haloperidol lactate [From Haldol] Allergy (Verified 04/20/17 15:39) magnesium sulfate [Magnesium Sulfate] Allergy (Verified 04/20/17 15:39) hydromorphone HCl [From Dilaudid] Adverse Reaction (Verified 04/20/17 15:39) Renal failure ketorolac tromethamine [From Toradol] Adverse Reaction (Verified 04/20/17 15:39) metoclopramide HCl [From Reglan] Adverse Reaction (Verified 04/20/17 15:39) Anxiety tramadol [Tramadol] Adverse Reaction (Verified 04/20/17 15:39) Home Medications: Current Home Medications No Home Medications 04/20/17 [History] Past Medical History - General Information source: Patient - Social History Smoking Status: Current Every Day Smoker Chew tobacco use (# tins/day): No Frequency of alcohol use: None Drug Abuse: None Family History: Reviewed & Not Pertinent, CAD, Hypertension, Other - Lung cancer , breast cancer, renal calculi Patient has suicidal ideation: No Patient has homicidal ideation: No - Past Medical History Cardiac Medical History: Reports: Hx Hypertension - PRECLAMPSIA Denies: Hx Coronary Artery Disease, Hx Heart Attack Pulmonary Medical History: Denies: Hx Asthma, Hx Bronchitis, Hx COPD, Hx Pneumonia, Hx Tuberculosis Neurological Medical History: Reports: Hx Migraine. Denies: Hx Cerebrovascular Accident, Hx Seizures Renal/ Medical History: Reports: Hx Kidney Stones, Hx Renal Insufficiency. Denies: Hx Peritoneal Dialysis GI Medical History: Reports: Hx Crohn's Disease, Hx Irritable Bowel. Denies: Hx Ulcer Musculoskeltal Medical History: Reports Hx Arthritis Past Surgical History: Reports: Hx Cholecystectomy, Hx Dilation and Curettage - x2, Hx Gynecologic Surgery - D&C x's2, Hx Kidney (Renal Surgery) - Ureteral stent, lithotripsy x7. Denies: Hx Hysterectomy, Hx Pacemaker - Immunizations Immunizations up to date: Yes Hx Diphtheria, Pertussis, Tetanus Vaccination: Yes Hx Pneumococcal Vaccination: 07/18/12 Review of Systems - Review of Systems Constitutional: Weakness EENT: No symptoms reported Cardiovascular: No symptoms reported Respiratory: No symptoms reported Gastrointestinal: Abdominal pain, Diarrhea, Nausea Genitourinary: Hematuria Female Genitourinary: No symptoms reported Musculoskeletal: No symptoms reported Skin: No symptoms reported Hematologic/Lymphatic: No symptoms reported Neurological/Psychological: No symptoms reported Physical Exam - Vital signs Vitals: Temp Pulse Resp BP Pulse Ox 98.1 F 82 15 115/74 100 04/20/17 18:54 04/20/17 18:54 04/20/17 18:54 04/20/17 18:54 04/20/17 18:54 - Notes Notes: PHYSICAL EXAMINATION: GENERAL: Well-appearing, well-nourished and in no acute distress. HEAD: Atraumatic, normocephalic. EYES: Pupils equal round and reactive to light, extraocular movements intact, conjunctiva are normal. ENT: Nares patent, oropharynx clear without exudates. Moist mucous membranes. NECK: Normal range of motion, supple without lymphadenopathy LUNGS: Breath sounds clear to auscultation bilaterally and equal. No wheezes rales or rhonchi. HEART: Regular rate and rhythm without murmurs ABDOMEN: Soft, patient does exert signs of discomfort with palpation of her left flank while using my hands. Upon palpation with the stethoscope patient elicits no signs of pain or discomfort, nondistended abdomen. No guarding, no rebound. No masses appreciated. Female : deferred Musculoskeletal: Normal range of motion, no pitting or edema. No cyanosis. NEUROLOGICAL: Cranial nerves grossly intact. Normal speech, normal gait. Normal sensory, motor exams PSYCH: Normal mood, normal affect. SKIN: Warm, Dry, normal turgor, no rashes or lesions noted. Course - Vital Signs Vital signs: Temp Pulse Resp BP Pulse Ox 98.1 F 82 15 115/74 100 04/20/17 18:54 04/20/17 18:54 04/20/17 18:54 04/20/17 18:54 04/20/17 18:54 - Diagnostic Test Radiology results interpreted by me: 04/20/17 21:46 U negative urinalysis within normal limits including specific gravity 04/20/17 21:47 Discharge - Discharge Clinical Impression: Left flank pain Disposition: HOME, SELF-CARE Instructions: Flank Pain ([facility]) Referrals: [facility] [Provider Group] - Follow up in 3-5 days
[2017-04-20 22:06] VITALS: BP 122/87
== END 2017-04-20 22:06 | disposition home or self-care (01) ==
LOC: ER 15:38
DX: R10.9 Unspecified abdominal pain (principal); R19.7 Diarrhea, unspecified; R31.9 Hematuria, unspecified; R11.0 Nausea; F17.200 Nicotine dependence, unspecified, uncomplicated; Z88.8 Allergy status to other drugs, medicaments and biological substances; Z88.6 Allergy status to analgesic agent; Z88.5 Allergy status to narcotic agent; Z87.442 Personal history of urinary calculi; Z90.49 Acquired absence of other specified parts of digestive tract; Z98.890 Other specified postprocedural states
CPT/HCPCS: 96376; 99284; 96361; 96374; 96375; 36415; 84703; 81001; 76380; J2270; J2550; J2405; J7030

== ENCOUNTER 2017-05-12 10:49 | Emergency (ER) | payer SELFPAY ==
[2017-05-12] MEDS ORDERED: DIPHENHYDRAMINE HCL 50 MG/ML VIAL IV ONE (11:44)
[2017-05-12] MEDS ORDERED: NORMAL SALINE 1000 ML 1,000 ML IV PRN (11:44)
[2017-05-12] MEDS ORDERED: PROCHLORPERAZINE EDISYLATE INJ 10 MG/2 ML VIAL IV ONE (11:44)
[2017-05-12] MEDS ORDERED: DEXAMETHASONE SOD PHOS INJ 10 MG/1 ML VIAL IV ONE (11:45)
--- NOTE | 2017-05-12 11:45 | ER Document Report ---
ED General - General Chief Complaint: Headache >24 hrs old Stated Complaint: HEADACHE Time Seen by Provider: 05/12/17 11:40 Mode of Arrival: Ambulatory Information source: Patient Notes: 26-year-old female presents with complaints of migraine headache. Patient notes she has 3 migraine headaches a month, this 1 has been ongoing for 3 days initially improved yesterday but came back today. She denies any neurological deficits denies a fevers or chills admits to nausea vomiting TRAVEL OUTSIDE OF THE [place] IN LAST 30 DAYS: No - HPI Onset: Other - 3 day duration Onset/Duration: Persistent Quality of pain: Achy Severity: Mild Pain Level: 1 Associated symptoms: Headache, Nausea, Vomiting Exacerbated by: Other - lite noise Relieved by: Denies Similar symptoms previously: Yes Recently seen / treated by doctor: Yes - Related Data Allergies/Adverse Reactions: acetaminophen [From Fioricet] Allergy (Verified 05/12/17 10:54) butalbital [From Fioricet] Allergy (Verified 05/12/17 10:54) caffeine [From Fioricet] Allergy (Verified 05/12/17 10:54) codeine [Codeine] Allergy (Verified 05/12/17 10:54) Difficulty breathing haloperidol [From Haldol] Allergy (Verified 05/12/17 10:54) haloperidol lactate [From Haldol] Allergy (Verified 05/12/17 10:54) magnesium sulfate [Magnesium Sulfate] Allergy (Verified 05/12/17 10:54) hydromorphone HCl [From Dilaudid] Adverse Reaction (Verified 05/12/17 10:54) Renal failure ketorolac tromethamine [From Toradol] Adverse Reaction (Verified 05/12/17 10:54) metoclopramide HCl [From Reglan] Adverse Reaction (Verified 05/12/17 10:54) Anxiety tramadol [Tramadol] Adverse Reaction (Verified 05/12/17 10:54) Past Medical History - Social History Smoking Status: Current Every Day Smoker Cigarette use (# per day): Yes Chew tobacco use (# tins/day): No Smoking Education Provided: No Frequency of alcohol use: None Drug Abuse: None Family History: Reviewed & Not Pertinent, CAD, Hypertension, Other - Lung cancer , breast cancer, renal calculi Patient has suicidal ideation: No Patient has homicidal ideation: No - Past Medical History Cardiac Medical History: Reports: Hx Hypertension - PRECLAMPSIA Denies: Hx Coronary Artery Disease, Hx Heart Attack Pulmonary Medical History: Denies: Hx Asthma, Hx Bronchitis, Hx COPD, Hx Pneumonia, Hx Tuberculosis Neurological Medical History: Reports: Hx Migraine. Denies: Hx Cerebrovascular Accident, Hx Seizures Renal/ Medical History: Reports: Hx Kidney Stones, Hx Renal Insufficiency. Denies: Hx Peritoneal Dialysis GI Medical History: Reports: Hx Crohn's Disease, Hx Irritable Bowel. Denies: Hx Ulcer Musculoskeltal Medical History: Reports Hx Arthritis Past Surgical History: Reports: Hx Cholecystectomy, Hx Dilation and Curettage - x2, Hx Gynecologic Surgery - D&C x's2, Hx Kidney (Renal Surgery) - Ureteral stent, lithotripsy x7. Denies: Hx Hysterectomy, Hx Pacemaker - Immunizations Immunizations up to date: Yes Hx Diphtheria, Pertussis, Tetanus Vaccination: Yes Hx Pneumococcal Vaccination: 07/18/12 Review of Systems - Review of Systems Notes: REVIEW OF SYSTEMS: CONSTITUTIONAL : Denies fever, chills, or sweats. Denies recent illness. EENT: Denies eye, ear, throat, or mouth pain or symptoms. Denies nasal or sinus congestion or discharge. Denies throat, tongue, or mouth swelling or difficulty swallowing. CARDIOVASCULAR: Denies chest pain. Denies palpitations or racing or irregular heart beat. Denies ankle edema. RESPIRATORY: Denies cough, cold, or chest congestion. Denies shortness of breath, difficulty breathing, or wheezing. GASTROINTESTINAL: Admits to nausea vomiting GENITOURINARY: Denies difficulty urinating, painful urination, burning, frequency, blood in urine, or discharge. FEMALE GENITOURINARY: Denies vaginal bleeding, heavy or abnormal periods, irregular periods. Denies vaginal discharge or odor. MUSCULOSKELETAL: Denies back or neck pain or stiffness. Denies joint pain or swelling. SKIN: Denies rash, lesions or sores. HEMATOLOGIC : Denies easy bruising or bleeding. LYMPHATIC: Denies swollen, enlarged glands. NEUROLOGICAL: Admits to headache PSYCHIATRIC: Denies anxiety or stress. Denies depression, suicidal ideation, or homicidal ideation. ALL OTHER SYSTEMS REVIEWED AND NEGATIVE. PHYSICAL EXAMINATION: GENERAL: Well-appearing, well-nourished and in no acute distress. HEAD: Atraumatic, normocephalic. EYES: Pupils equal round and reactive to light, extraocular movements intact, conjunctiva are normal. ENT: Nares patent, oropharynx clear without exudates. Moist mucous membranes. NECK: Normal range of motion, supple without lymphadenopathy LUNGS: Breath sounds clear to auscultation bilaterally and equal. No wheezes rales or rhonchi. HEART: Regular rate and rhythm without murmurs ABDOMEN: Soft, nontender, nondistended abdomen. No guarding, no rebound. No masses appreciated. Female : deferred Musculoskeletal: Normal range of motion, no pitting or edema. No cyanosis. NEUROLOGICAL: Cranial nerves grossly intact. Normal speech, normal gait. Normal sensory, motor exams PSYCH: Normal mood, normal affect. SKIN: Warm, Dry, normal turgor, no rashes or lesions noted. Dictation was performed using [employer] voice recognition software Physical Exam - Vital signs Vitals: Temp Pulse Resp BP Pulse Ox 97.9 F 97 22 H 140/91 H 100 05/12/17 10:59 05/12/17 10:59 05/12/17 10:59 05/12/17 10:59 05/12/17 10:59 Course - Re-evaluation Re-evalutation: 05/12/17 13:03 Patient's examination was quite benign, these are chronic headaches for her there is no new symptoms, patient was treated with Benadryl Compazine and Decadron. Patient was given a bag of IV fluids. She notes complete resolution of her headache wishes to be discharged home. I will discharge her at this time given that she looks well is in no distress After performing a Medical Screening Examination, I estimate there is LOW risk for ACUTE GLAUCOMA, TEMPORAL ARTERITIS, MENINGITIS, INCRANIAL HEMORRHAGE, or ISCHEMIC STROKE thus I consider the discharge disposition reasonable. I have reevaluated this patient multiple times and no significant life threatening changes are noted. The patient and I have discussed the diagnosis and risks, and we agree with discharging home with close follow-up with the understanding that symptoms and presentations can change. We also discussed returning to the Emergency Department immediately if new or worsening symptoms occur. We have discussed the symptoms which are most concerning (e.g., changing or worsening symptoms, new numbness or weakness, vomiting, fever) that necessitate immediate return. - Vital Signs Vital signs: Temp Pulse Resp BP Pulse Ox 97.9 F 97 22 H 140/91 H 100 05/12/17 10:59 05/12/17 10:59 05/12/17 10:59 05/12/17 10:59 05/12/17 10:59 Discharge - Discharge Clinical Impression: Migraine Qualifiers: Migraine type: unspecified Status migrainosus presence: without status migrainosus Intractability: not intractable Qualified Code(s): G43.909 - Migraine, unspecified, not intractable, without status migrainosus Nausea & vomiting Qualifiers: Vomiting type: unspecified Vomiting Intractability: non-intractable Qualified Code(s): R11.2 - Nausea with vomiting, unspecified Condition: Stable Disposition: HOME, SELF-CARE Instructions: Migraine Headache ([facility]) Prescriptions: Promethazine HCl [Phenergan 25 mg Tablet] 1 - 2 tab PO Q6H PRN #15 tablet PRN Reason: Referrals: JOAQUIN ART MD [ACTIVE STAFF] - Follow up in 3-5 days
[2017-05-12 13:13] VITALS: BP 131/83
== END 2017-05-12 13:05 | disposition home or self-care (01) ==
LOC: ER 10:49
DX: G43.909 Migraine, unspecified, not intractable, without status migrainosus (principal); R11.2 Nausea with vomiting, unspecified; F17.210 Nicotine dependence, cigarettes, uncomplicated; Z88.6 Allergy status to analgesic agent; Z87.442 Personal history of urinary calculi; Z90.49 Acquired absence of other specified parts of digestive tract
CPT/HCPCS: 99283; 96361; 96374; 96375; J1200; J0780; J7030; J1100

== ENCOUNTER 2017-06-12 18:20 | Emergency (ER) | payer SELFPAY ==
[2017-06-12] MEDS ORDERED: ONDANSETRON 4 MG TAB.RAPDIS PO ONE (20:05)
--- NOTE | 2017-06-12 20:07 | ER Document Report ---
ED Medical Screen (RME) - General Chief Complaint: Flank Pain Stated Complaint: LEFT FLANK PAIN,FEVER,VOMITING Time Seen by Provider: 06/12/17 20:03 Notes: 26 yo female c/o left flank pain, fever x 1 week. + hx/o kidney stones. + hematuria. + dysuria. + n/v Pt was seen on 04/[address] Note: pt has had 19 CT scans since [address] ordered in RME. TRAVEL OUTSIDE OF THE [place] IN LAST 30 DAYS: No - Related Data Allergies/Adverse Reactions: acetaminophen [From Fioricet] Allergy (Verified 06/12/17 18:29) butalbital [From Fioricet] Allergy (Verified 06/12/17 18:29) caffeine [From Fioricet] Allergy (Verified 06/12/17 18:29) codeine [Codeine] Allergy (Verified 06/12/17 18:29) Difficulty breathing haloperidol [From Haldol] Allergy (Verified 06/12/17 18:29) haloperidol lactate [From Haldol] Allergy (Verified 06/12/17 18:29) magnesium sulfate [Magnesium Sulfate] Allergy (Verified 06/12/17 18:29) hydromorphone HCl [From Dilaudid] Adverse Reaction (Verified 06/12/17 18:29) Renal failure ketorolac tromethamine [From Toradol] Adverse Reaction (Verified 06/12/17 18:29) metoclopramide HCl [From Reglan] Adverse Reaction (Verified 06/12/17 18:29) Anxiety tramadol [Tramadol] Adverse Reaction (Verified 06/12/17 18:29) Past Medical History - Past Medical History Cardiac Medical History: Reports: Hx Hypertension - PRECLAMPSIA Denies: Hx Coronary Artery Disease, Hx Heart Attack Pulmonary Medical History: Denies: Hx Asthma, Hx Bronchitis, Hx COPD, Hx Pneumonia, Hx Tuberculosis Neurological Medical History: Reports: Hx Migraine. Denies: Hx Cerebrovascular Accident, Hx Seizures Renal/ Medical History: Reports: Hx Kidney Stones, Hx Renal Insufficiency. Denies: Hx Peritoneal Dialysis GI Medical History: Reports: Hx Crohn's Disease, Hx Irritable Bowel. Denies: Hx Ulcer Musculoskeltal Medical History: Reports Hx Arthritis Past Surgical History: Reports: Hx Cholecystectomy, Hx Dilation and Curettage - x2, Hx Gynecologic Surgery - D&C x's2, Hx Kidney (Renal Surgery) - Ureteral stent, lithotripsy x7. Denies: Hx Hysterectomy, Hx Pacemaker - Immunizations Immunizations up to date: Yes Hx Diphtheria, Pertussis, Tetanus Vaccination: Yes History of Influenza Vaccine for 02/2017 - 07/2017 Season: No Physical Exam - Vital signs Vitals: Temp Pulse Resp BP Pulse Ox 97.9 F 95 15 134/94 H 99 06/12/17 18:43 06/12/17 18:43 06/12/17 18:43 06/12/17 18:43 06/12/17 18:43 Course - Vital Signs Vital signs: Temp Pulse Resp BP Pulse Ox 97.9 F 95 15 134/94 H 99 06/12/17 18:43 06/12/17 18:43 06/12/17 18:43 06/12/17 18:43 06/12/17 18:43
[2017-06-12 21:48] LABS: ABSOLUTE BASOPHILS # (AUTO) 0.1 10^3/uL (0.0-0.2); ABSOLUTE LYMPHOCYTES (AUTO) 2.1 10^3/uL (0.5-4.7); ABSOLUTE MONOCYTES (AUTO) 0.3 10^3/uL (0.1-1.4); ABSOLUTE NEUT (AUTO) 3.9 10^3/uL (1.7-8.2); BASOPHILS % (AUTO) 1.1 % (0-2); EOSINOPHILS % (AUTO) 0.5 % (0-6); HEMATOCRIT 40.6 % (36.0-47.0); HEMOGLOBIN 13.9 g/dL (12.0-15.5); LYMPHOCYTES % (AUTO) 32.6 % (13-45); MEAN CORPUSCULAR HEMOGLOBIN 31.6 pg (27.0-33.4); MEAN CORPUSCULAR HGB CONC 34.3 g/dL (32.0-36.0); MEAN CORPUSCULAR VOLUME 92 fl (80-97); MONOCYTES % (AUTO) 4.7 % (3-13); PLATELET COUNT 258 10^3/uL (150-450); RED CELL DISTRIBUTION WIDTH 13.7 % (11.5-14.0); SEGMENTED NEUTROPHILS % (AUTO) 61.1 % (42-78); TOTAL CELLS COUNTED % (AUTO) 100 %; WHITE BLOOD COUNT 6.5 10^3/uL (4.0-10.5)
[2017-06-12 21:55] LABS: APPEARANCE,URINE CLEAR; BILIRUBIN,URINE NEGATIVE (NEGATIVE); COLOR,URINE YELLOW; GLUCOSE, URINE NEGATIVE (NEGATIVE); KETONES,URINE NEGATIVE (NEGATIVE); LEUKOCYTE ESTERASE,URINE NEGATIVE (NEGATIVE); NITRITE,URINE NEGATIVE (NEGATIVE); PROTEIN,URINE NEGATIVE (NEGATIVE); URINE SPECIFIC GRAVITY 1.041; UROBILINOGEN,URINE NEGATIVE mg/dL (<2.0)
[2017-06-12 22:19] LABS: ALANINE AMINOTRANSFERASE 18 U/L (9-52); ALBUMIN 5.1 g/dL (3.5-5.0); ALKALINE PHOSPHATASE 52 U/L (38-126); ANION GAP 11 (5-19); ASPARTATE AMINO TRANSFERASE 32 U/L (14-36); BILIRUBIN,DIRECT 0.3 mg/dL (0.0-0.4); BILIRUBIN,TOTAL 0.3 mg/dL (0.2-1.3); BLOOD UREA NITROGEN 7 mg/dL (7-20); CALCIUM 9.9 mg/dL (8.4-10.2); CARBON DIOXIDE 26 mmol/L (22-30); CHLORIDE 106 mmol/L (98-107); GLUCOSE 88 mg/dL (75-110); TOTAL PROTEIN 8.2 g/dL (6.3-8.2)
[2017-06-12] MEDS ORDERED: MORPHINE SULFATE 10 MG/ML INJ IM ONE ×2 (22:44→23:00)
[2017-06-12] MEDS ORDERED: ONDANSETRON HCL INJ/PF 4 MG/2 ML SDV IM ONE (22:44)
--- NOTE | 2017-06-12 22:49 | ER Document Report ---
ED General - General Chief Complaint: Flank Pain Stated Complaint: LEFT FLANK PAIN,FEVER,VOMITING Time Seen by Provider: 06/12/17 20:03 Notes: Patient is a 26-year-old female presents with complaint of left-sided pelvic pain. She says she has had fevers of just over 100 at home. She said symptoms been ongoing for 3 days. She does have a history of kidney stones. Her urologist is Dr. Quispe. She has had some nausea. No diarrhea. No abnormal vaginal discharge. She is currently on her menstrual period. She has multiple medical allergies. 1 of the allergies listed as acetaminophen the patient says is not true. She says she is just allergic to codeine. She says she is only allergic to codeine and the liquid cough syrup form. She also says she cannot take any form of NSAIDs because her urologist told her she should make she has had kidney failure with a kidney stones in the past. She has allergic reaction to Toradol. She also is allergic to Dilaudid but says she can take morphine. TRAVEL OUTSIDE OF THE [place] IN LAST 30 DAYS: No - Related Data Allergies/Adverse Reactions: acetaminophen [From Fioricet] Allergy (Verified 06/12/17 18:29) butalbital [From Fioricet] Allergy (Verified 06/12/17 18:29) caffeine [From Fioricet] Allergy (Verified 06/12/17 18:29) codeine [Codeine] Allergy (Verified 06/12/17 18:29) Difficulty breathing haloperidol [From Haldol] Allergy (Verified 06/12/17 18:29) haloperidol lactate [From Haldol] Allergy (Verified 06/12/17 18:29) magnesium sulfate [Magnesium Sulfate] Allergy (Verified 06/12/17 18:29) hydromorphone HCl [From Dilaudid] Adverse Reaction (Verified 06/12/17 18:29) Renal failure ketorolac tromethamine [From Toradol] Adverse Reaction (Verified 06/12/17 18:29) metoclopramide HCl [From Reglan] Adverse Reaction (Verified 06/12/17 18:29) Anxiety tramadol [Tramadol] Adverse Reaction (Verified 06/12/17 18:29) Past Medical History - Social History Smoking Status: Current Every Day Smoker Frequency of alcohol use: None Drug Abuse: None Family History: Reviewed & Not Pertinent, CAD, Hypertension, Other - Lung cancer , breast cancer, renal calculi Patient has suicidal ideation: No Patient has homicidal ideation: No - Past Medical History Cardiac Medical History: Reports: Hx Hypertension - PRECLAMPSIA Denies: Hx Coronary Artery Disease, Hx Heart Attack Pulmonary Medical History: Denies: Hx Asthma, Hx Bronchitis, Hx COPD, Hx Pneumonia, Hx Tuberculosis Neurological Medical History: Reports: Hx Migraine. Denies: Hx Cerebrovascular Accident, Hx Seizures Renal/ Medical History: Reports: Hx Kidney Stones, Hx Renal Insufficiency. Denies: Hx Peritoneal Dialysis GI Medical History: Reports: Hx Crohn's Disease, Hx Irritable Bowel. Denies: Hx Ulcer Musculoskeltal Medical History: Reports Hx Arthritis Past Surgical History: Reports: Hx Cholecystectomy, Hx Dilation and Curettage - x2, Hx Gynecologic Surgery - D&C x's2, Hx Kidney (Renal Surgery) - Ureteral stent, lithotripsy x7. Denies: Hx Hysterectomy, Hx Pacemaker - Immunizations Immunizations up to date: Yes Hx Diphtheria, Pertussis, Tetanus Vaccination: Yes Hx Pneumococcal Vaccination: 07/18/12 Review of Systems - Review of Systems Notes: My Normal Review Basic REVIEW OF SYSTEMS: CONSTITUTIONAL : Denies fever, chills, or sweats. Denies recent illness. RESPIRATORY: Denies cough, cold, or chest congestion. Denies shortness of breath, difficulty breathing, or wheezing. GASTROINTESTINAL: Denies abdominal pain. Denies nausea, vomiting, or diarrhea. GENITOURINARY: No dysuria. Some blood with urination but she is also on her menstrual period. FEMALE GENITOURINARY: Denies vaginal bleeding, abnormal or irregular periods. LMP: Currently on menstrual period. MUSCULOSKELETAL: Denies neck or back pain or joint pain or swelling. SKIN: Denies rash or skin lesions. NEUROLOGICAL: Denies altered mental status or loss of consciousness. Denies headache. Denies weakness or paralysis or loss of use of either side. Denies problems with gait or speech. Denies sensory or motor loss. ALL OTHER SYSTEMS REVIEWED AND NEGATIVE. Physical Exam - Vital signs Vitals: Temp Pulse Resp BP Pulse Ox 97.9 F 95 15 134/94 H 99 06/12/17 18:43 06/12/17 18:43 06/12/17 18:43 06/12/17 18:43 06/12/17 18:43 - Notes Notes: General Appearance: Well nourished, alert, cooperative, no acute distress, no obvious discomfort. Well-appearing. Vitals: reviewed, See vital signs table. Head: no swelling or tenderness to the head Eyes: PERRL, EOMI, Conjuctiva clear Mouth: No decreasd moisture Lungs: No wheezing, No rales, No rhonci, No accessory muscle use, good air exchange bilaterally. Heart: Normal rate, Regular rythm, No murmur, no rub Abdomen: Normal BS, soft, No rigidity, mild left lower quadrant and left pelvic tenderness, No guarding, no rebound, Extremities: strength 5/5 in all extremities, good pulses in all extremities, no swelling or tenderness in the extremities, no edema. Skin: warm, dry, appropriate color, no rash Neuro: speech clear, oriented x 3, normal affect, responds appropriately to questions. Course - Re-evaluation Re-evalutation: 06/13/17 06:28 Patient ultrasounds and pelvic exam are negative for any signs of infection. Her renal ultrasound shows no evidence of intraureteral stone. Her urine is completely negative for UTI. She says she has had fevers at home however she has no fever here and she has no leukocytosis. I do not have a source to be place her on antibiotics for. I informed her we will treat her symptomatically for next 24-48 hours and then she must follow-up closely with her primary care doctor for reevaluation. Informed her she cannot get into her primary care doctor within 2 days she should return to the ER for evaluation. She does have multiple drug allergies. I will treat her briefly with opiate pain medicine for her pain due to her multiple drug allergies. I did look her up on the [id number] controlled substance database before prescribing these medications. She has only had one prescription last 6 months and that was back in December. Patient encouraged to return to ER immediately if she has severe worsening pain , recurrent vomiting, fevers, or feels that she is worsening in any way. Patient agrees with plan will be discharged home. Dictation of this chart was performed using voice recognition software; therefore, there may be some unintended grammatical errors. - Vital Signs Vital signs: Temp Pulse Resp BP Pulse Ox 97.8 F 71 16 130/87 H 99 06/13/17 03:07 06/13/17 03:07 06/13/17 03:07 06/13/17 03:07 06/13/17 03:07 - Laboratory Result Diagrams: 06/12/17 21:15 06/12/17 21:15 Laboratory results interpreted by me: 06/12/17 06/12/17 21:15 21:20 Albumin 5.1 H Urine Blood MODERATE H Discharge - Discharge Clinical Impression: Abdominal pain Qualifiers: Abdominal location: left lower quadrant Qualified Code(s): R10.32 - Left lower quadrant pain Vomiting Qualifiers: Vomiting type: unspecified Vomiting Intractability: non-intractable Nausea presence: with nausea Qualified Code(s): R11.2 - Nausea with vomiting, unspecified Condition: Good Disposition: HOME, SELF-CARE Additional Instructions: Please take the medications as prescribed to help with your pain and nausea. Please follow up with your doctor today or Saturday for reevaluation. Please return to the ER for reevaluation if you are unable to see your doctor by Saturday. Please return to the ER immediately if you have intractable vomiting, worsening pain, or increasing fevers. Prescriptions: Oxycodone HCl/Acetaminophen [Percocet 5-325 mg Tablet] 1 tab PO Q4H PRN #12 tablet PRN Reason: Promethazine HCl [Phenergan 25 mg Tablet] 1 tab PO Q6H PRN #15 tablet PRN Reason:
[2017-06-13] MEDS ORDERED: MORPHINE SULFATE 10 MG/ML INJ IM ONE (01:45)
[2017-06-13] MEDS ORDERED: PROMETHAZINE HCL INJ 25 MG/1 ML VIAL IM ONE (01:45)
--- NOTE | 2017-06-13 01:50 | RADIOLOGY REPORT (SQ) ---
EXAM DESCRIPTION: U/S NON OB PEL TV W/DOPPLER CLINICAL HISTORY: 26 years Female, LLQ pain COMPARISON: CT 04/20/2017 TECHNIQUE: Complete pelvic ultrasound with transvaginal imaging. Limited color and spectral Doppler imaging of the ovaries. FINDINGS: The uterus measures 8.3 x 5.7 x 4.8 cm. Endometrial thickness of 0.5 cm. Cervical length of 2.2 cm. Nabothian cysts identified. No myometrial masses identified. No free pelvic fluid. The right ovary measures 3.8 x 1.9 x 2.7 cm. The left ovary measures 2.4 x 2.5 x 2.0 cm. Limited color and spectral Doppler images demonstrate flow within the ovaries bilaterally. IMPRESSION: 1. No sonographic abnormality identified in the pelvis.
--- NOTE | 2017-06-13 01:57 | RADIOLOGY REPORT (SQ) ---
EXAM DESCRIPTION: U/S RETROPERITON (RENAL/AORTA) CLINICAL HISTORY: LLQ pain, HX of kidney stones COMPARISON: 04/20/2017 TECHNIQUE: Real-time sonographic images of the retroperitoneum were obtained using a curved multihertz transducer. FINDINGS: The visualized portions of the aorta and IVC are unremarkable. The right kidney measures 8.6 cm in length. The left kidney measures 9.0 cm in length. There is a 1.3 cm interpolar right renal cyst. Echogenic focus involving the inferior pole of the left kidney measuring 0.8 cm in greatest dimension. No hydronephrosis. No solid mass. The urinary bladder is nondistended. IMPRESSION: 1. There is a 0.8 cm calculus involving the inferior pole of the left kidney. No hydronephrosis identified bilaterally.
[2017-06-13 02:27] LABS: WBCS (WET MOUNT) RARE WBCS SEEN
[2017-06-13 03:08] VITALS: BP 130/87
[2017-06-13 03:51] LABS: CHLAM PCR NOT DETECTED (NOT DETECT); GON PCR NOT DETECTED (NOT DETECT)
== END 2017-06-13 03:08 | disposition home or self-care (01) ==
LOC: ER 18:20
DX: R10.32 Left lower quadrant pain (principal); R11.2 Nausea with vomiting, unspecified; F17.200 Nicotine dependence, unspecified, uncomplicated; Z88.5 Allergy status to narcotic agent; Z88.6 Allergy status to analgesic agent; Z88.8 Allergy status to other drugs, medicaments and biological substances; Z90.49 Acquired absence of other specified parts of digestive tract; Z87.442 Personal history of urinary calculi
CPT/HCPCS: 99284; 96372; 36415; 87210; 85025; 81025; 80053; 81001; 87491; 87591; 76770; 76830; 93976; J2270 ×2; J2550; J2405

== ENCOUNTER 2017-08-04 20:30 | Emergency (ER) | payer SELFPAY ==
[2017-08-04] MEDS ORDERED: ALBUTEROL SULFATE 0.083% NEB 2.5 MG/3 ML AMPUL NEB ONE (21:40)
--- NOTE | 2017-08-04 21:40 | ER Document Report ---
ED General - General Chief Complaint: Pelvic Pain Stated Complaint: PELVIC AND CHEST PAIN Time Seen by Provider: 08/04/17 21:37 Notes: Patient is a 26-year-old female who presents emergency department with multiple complaints but a chief concern of shortness of breath and cough. Patient states this is been going on for a couple of days but got worse today. She denies any past history of lung disease or asthma. She denies any fevers at home. She also admits to abdominal discomfort and right flank pain. She states she is concerned that it is another kidney stone. She states that she has recurrent kidney stones and follows with Dr. Quispe out [facility]. Otherwise she denies any pyuria, hematuria, urinary frequency, urgency, decreased urine output. TRAVEL OUTSIDE OF THE [place] IN LAST 30 DAYS: No - Related Data Allergies/Adverse Reactions: acetaminophen [From Fioricet] Allergy (Verified 06/12/17 18:29) butalbital [From Fioricet] Allergy (Verified 06/12/17 18:29) caffeine [From Fioricet] Allergy (Verified 06/12/17 18:29) codeine [Codeine] Allergy (Verified 06/12/17 18:29) Difficulty breathing haloperidol [From Haldol] Allergy (Verified 06/12/17 18:29) haloperidol lactate [From Haldol] Allergy (Verified 06/12/17 18:29) magnesium sulfate [Magnesium Sulfate] Allergy (Verified 06/12/17 18:29) hydromorphone HCl [From Dilaudid] Adverse Reaction (Verified 06/12/17 18:29) Renal failure ketorolac tromethamine [From Toradol] Adverse Reaction (Verified 06/12/17 18:29) metoclopramide HCl [From Reglan] Adverse Reaction (Verified 06/12/17 18:29) Anxiety tramadol [Tramadol] Adverse Reaction (Verified 06/12/17 18:29) Past Medical History - Social History Smoking Status: Current Every Day Smoker Family History: Reviewed & Not Pertinent, CAD, Hypertension, Other - Lung cancer , breast cancer, renal calculi - Past Medical History Cardiac Medical History: Reports: Hx Hypertension - PRECLAMPSIA Denies: Hx Coronary Artery Disease, Hx Heart Attack Pulmonary Medical History: Denies: Hx Asthma, Hx Bronchitis, Hx COPD, Hx Pneumonia, Hx Tuberculosis Neurological Medical History: Reports: Hx Migraine. Denies: Hx Cerebrovascular Accident, Hx Seizures Renal/ Medical History: Reports: Hx Kidney Stones, Hx Renal Insufficiency. Denies: Hx Peritoneal Dialysis GI Medical History: Reports: Hx Crohn's Disease, Hx Irritable Bowel. Denies: Hx Ulcer Musculoskeltal Medical History: Reports Hx Arthritis Past Surgical History: Reports: Hx Cholecystectomy, Hx Dilation and Curettage - x2, Hx Gynecologic Surgery - D&C x's2, Hx Kidney (Renal Surgery) - Ureteral stent, lithotripsy x7. Denies: Hx Hysterectomy, Hx Pacemaker - Immunizations Immunizations up to date: Yes Hx Diphtheria, Pertussis, Tetanus Vaccination: Yes Hx Pneumococcal Vaccination: 07/18/12 Review of Systems - Review of Systems Constitutional: No symptoms reported. denies: Chills, Diaphoresis, Fever EENT: No symptoms reported Cardiovascular: No symptoms reported. denies: Chest pain, Palpitations, Heart racing, Dizziness Respiratory: Cough, Short of breath, Wheezing Gastrointestinal: No symptoms reported Genitourinary: No symptoms reported Female Genitourinary: No symptoms reported Musculoskeletal: Back pain -: Yes All other systems reviewed and negative Physical Exam - Vital signs Vitals: Temp Pulse Resp BP Pulse Ox 98.8 F 92 18 130/86 H 98 08/04/17 20:52 08/04/17 20:52 08/04/17 20:52 08/04/17 20:52 08/04/17 20:52 - Notes Notes: PHYSICAL EXAM GENERAL: Alert, interacts well. HEAD: Normocephalic, atraumatic. EYES: Pupils equal, round, and reactive to light. Extraocular movements intact. ENT: Oral mucosa moist, tongue midline. NECK: Full range of motion. Supple. Trachea midline. LUNGS: expiratory wheezes noted throughout without, rales, or rhonchi. No respiratory distress. HEART: Regular rate and rhythm. No murmurs, gallops, or rubs. ABDOMEN: Soft, nondistended, nontender. No guarding, rebound, or rigidity.. Bowel sounds present in all 4 quadrants. EXTREMITIES: Moves all 4 extremities spontaneously. No edema, radial and dorsalis pedis pulses 2/4 bilaterally. No cyanosis. Back: Negative for CVA tenderness bilaterally. No evidence of paralumbar muscular tenderness, spinous process deformities or tenderness. NEUROLOGICAL: Alert and oriented x4. Normal speech. PSYCH: Normal affect, normal mood. SKIN: Warm, dry, normal turgor. No rashes or lesions noted. Course - Re-evaluation Re-evalutation: 08/05/17 01:48 Patient is a 26-year-old female is hemodynamically stable, no acute distress and afebrile. No evidence of hematuria noted on urinalysis but evidence of a urinary tract infection sent for culture. Will start on p.o. antibiotics with strict return precautions. Acute abdomen series done to evaluate for chest and any evidence of a stone. Given patient has had multiple CT scans and low suspicion at this time did not feel this is necessary this evening. No evidence of a right stone but evidence of constipation. Regarding her chest no evidence of an acute cardiopulmonary process or concern for pneumonia. Patient states she feels much better after nebulizer treatment. Will discharge home with inhaler and steroids strict return precautions otherwise to follow-up with primary care. Patient agrees with plan and is stable for discharge home - Vital Signs Vital signs: Temp Pulse Resp BP Pulse Ox 97.8 F 97 16 127/85 H 98 08/05/17 01:38 08/05/17 01:38 08/05/17 01:38 08/05/17 01:38 08/05/17 01:38 - Laboratory Laboratory results interpreted by me: 08/04/17 22:25 Ur Leukocyte Esterase LARGE H - Diagnostic Test Radiology reviewed: Image reviewed, Reports reviewed Discharge - Discharge Clinical Impression: Cough UTI (urinary tract infection) Qualifiers: Urinary tract infection type: acute cystitis Hematuria presence: without hematuria Qualified Code(s): N30.00 - Acute cystitis without hematuria Condition: Good Disposition: HOME, SELF-CARE Instructions: Urinary Tract Infection ([facility]) Additional Instructions: BRONCHITIS: You have acute bronchitis. This disease is an infection or inflammation of the air passageways in your lungs. Symptoms usually include cough, low grade fever, shortness of breath, and wheezing. The cough usually persists for a couple of weeks. Most cases of bronchitis get better without antibiotics. We prescribe antibiotics when we believe bacteria are damaging your airways, or if there's high risk the bronchitis will worsen into pneumonia. Increase your fluid intake. A cool mist humidifier may make your lungs more comfortable. An expectorant (cough medicine that loosens phlegm) can help. If you smoke, STOP!!! Recovery from bronchitis can be somewhat slow, but you should see improvement within a day or two. Repeated episodes of bronchitis may result in lung damage -- for example, chronic bronchitis, recurrent pneumonias, or emphysema. Call the doctor if you develop increasing fever, shortness of breath, chest pain, bloody sputum, or otherwise worsen. If you have not improved at all after several days, contact the physician. DECONGESTANT MEDICATION: A decongestant medicine has been prescribed. Often this medicine is combined in the same tablet with an antihistamine or expectorant. This type of medicine is helpful in treating a bad cold or sinus condition, as well as in treatment of the nasal congestion of hay fever. It is not of much benefit for lung infections. Decongestant medicines are related to stimulants. They can cause an increase in blood pressure and heart rate. Persons with heart disease and high blood pressure should not take decongestants without discussing this with the physician. If you develop palpitations, chest pain, headache, or tremors, stop the medicine and consult your physician. COUGH-SUPPRESSANT & EXPECTORANT MEDICATION: You are to use a cough medication as needed for relief of symptoms. This medicine is a combination of an expectorant (to make the mucous thinner and more easily "coughed up") and a cough suppressant (to reduce the frequency of coughing). The cough-suppressant medicine is related to narcotics. You may experience mild nausea and sleepiness. Some patients who are very sensitive to narcotics may have stomach pain from this medicine. Taking the medicine with food reduces these side effects. Do not drive or work with machinery until you know how this medicine affects you. The expectorant should have no side effects. Iodine-containing expectorants (such as organidin) should not be taken by persons with active thyroid disease unless approved by your doctor. Call the doctor if you develop shortness of breath, hives, rash, itching, lightheadedness, or severe nausea and vomiting. INHALED BRONCHODILATORS: You have received a treatment of and/or prescription for an inhaled bronchodilator -- a medication which stimulates the airways in the lung to dilate. This improves the flow of air in asthma, bronchitis, and emphysema. These medicines have some similarity to adrenaline, and can cause similar side effects: shakiness, racing heart, and a sense of nervousness. These side effects decrease with time. Contact your doctor if these side effects are severe. Do not over-use the medicine. Too-frequent use of the inhaler may make it ineffective. Call your doctor if the inhaler is not controlling your symptoms at the prescribed doses. STEROID MEDICATION: You have been given an injection of or oral medicine of the cortisone/ steroid class. This medication is used to control inflammation or allergy. Jaya t is usually only given for a short period of time, until the acute process subsides. There are usually no side effects from short-term use of cortisone-like medications. Some persons feel an increased sense of well-being and are not sleepy at bedtime. Long-term use of cortisone medications is best avoided, unless required for a severe condition. If your condition does not remit, or relapses after the course of corticosteroid medication, you should consult your physician. USE OF ACETAMINOPHEN (Tylenol): Acetaminophen may be taken for pain relief or fever control. It's much safer than aspirin, offering a wider range of "safe" dosages. It is safe during . Some brand names are Tylenol, Panadol, Datril, Anacin 3, Tempra, and Liquiprin. Acetaminophen can be repeated every four hours. The following are maximum recommended dosages: >89 pounds or adults 650 mg to 900 mg Acetaminophen can be repeated every four hours. Maximum dose not to exceed 4000 mg a day. SMOKING: If you smoke, you should stop smoking. The tar and chemicals in cigarette smoke are harmful. Smoking has been shown to cause: emphysema chronic bronchitis lung cancer mouth and throat cancer stomach and pancreas cancer premature aging defects In addition, smoking increases ear and lung infections in children of smokers. FOLLOW-UP CARE: If you have been referred to a physician for follow-up care, call the physician s office for an appointment as you were instructed or within the next two days. If you experience worsening or a significant change in your symptoms, notify the physician immediately or return to the Emergency Department at any time for re-evaluation. Prescriptions: Albuterol Sulfate [Proair HFA Inhalation Aerosol 8.5 gm MDI] 1 - 2 puff IH Q4 PRN #1 mdi PRN Reason: Cephalexin Monohydrate [Keflex 500 mg Capsule] 500 mg PO BID 5 Days #10 capsule Prednisone 20 mg PO DAILY 5 Days #15 tablet Referrals: ALVAREZ REYES MD [ACTIVE STAFF] - Follow up in 1 week TAMMY QUISPE MD [NO LOCAL MD] - Follow up in 1 week
[2017-08-04] MEDS ORDERED: ONDANSETRON 4 MG TAB.RAPDIS PO ONE (21:59)
[2017-08-04 23:14] LABS: APPEARANCE,URINE CLOUDY; BILIRUBIN,URINE NEGATIVE (NEGATIVE); COLOR,URINE YELLOW; GLUCOSE, URINE NEGATIVE (NEGATIVE); KETONES,URINE NEGATIVE (NEGATIVE); LEUKOCYTE ESTERASE,URINE LARGE (NEGATIVE); NITRITE,URINE NEGATIVE (NEGATIVE); PROTEIN,URINE NEGATIVE (NEGATIVE); URINE SPECIFIC GRAVITY 1.019; UROBILINOGEN,URINE NEGATIVE mg/dL (<2.0)
[2017-08-05] MEDS ORDERED: PREDNISONE 20 MG TABLET PO ONE (00:40)
[2017-08-05] MEDS ORDERED: ALBUTEROL SULFATE 0.083% NEB 2.5 MG/3 ML AMPUL NEB ONE (00:40)
--- NOTE | 2017-08-05 00:50 | RADIOLOGY REPORT (SQ) ---
EXAM DESCRIPTION: ACUTE ABDOMEN SERIES CLINICAL HISTORY: 26 years, Female, wheezing, cough, right flank pain h/o stones COMPARISON: CT, -. TECHNIQUE: Four views LIMITATIONS: None. FINDINGS: Intestinal gas pattern is within normal limits. No suspicious calcification. Grossly intact skeletal structures. No acute cardiopulmonary findings. Right upper abdominal clips. Moderate colonic stool retention. Punctate calcification at the left renal silhouette consistent with prior CT, 04/20/2017. IMPRESSION: No acute findings. Punctate left nephrolithiasis.
[2017-08-05 01:39] VITALS: BP 127/85
== END 2017-08-05 01:39 | disposition home or self-care (01) ==
LOC: ER 20:30
DX: N30.00 Acute cystitis without hematuria (principal); R05 Cough; R10.2 Pelvic and perineal pain; R06.02 Shortness of breath; F17.200 Nicotine dependence, unspecified, uncomplicated; Z87.442 Personal history of urinary calculi; Z88.6 Allergy status to analgesic agent; Z90.49 Acquired absence of other specified parts of digestive tract
CPT/HCPCS: 94640; 99284; 87086; 81025; 81001; 74022; S0119; J7512

== ENCOUNTER 2017-08-10 19:00 | Emergency (ER) | payer SELFPAY ==
--- NOTE | 2017-08-10 20:00 | ER Document Report ---
ED GI/ - General Chief Complaint: Pelvic Pain Stated Complaint: PELVIC PAIN Time Seen by Provider: 08/10/17 19:39 Mode of Arrival: Ambulatory Information source: Patient Notes: 26-year-old female presents to ED for complaint of left-sided pelvic pain. She states she has a previous diagnosis of ovarian cyst on the left side. She states she is also had some urine test that were positive and some that were negative. She states she thought she it was about to get her period but it has not yet started, now she is concerned with her pelvic pain. TRAVEL OUTSIDE OF THE [place] IN LAST 30 DAYS: No - HPI Patient complains to provider of: Missed/Late menses, Pelvic pain Onset: Last week Timing/Duration: Intermittent Quality of pain: Sharp Severity at maximum: Moderate Severity in ED: Moderate Pain Level: 3 Location: Pelvis - Left and mid Vaginal bleeding (Compared to normal period): None Associated symptoms: Nausea, Other - Left pelvic pain late menstrual period and positive urine 's Exacerbated by: Movement Relieved by: Denies Similar symptoms previously: Yes Recently seen / treated by doctor: Yes - Related Data Allergies/Adverse Reactions: butalbital [From Fioricet] Allergy (Verified 08/10/17 19:00) caffeine [From Fioricet] Allergy (Verified 08/10/17 19:00) codeine [Codeine] Allergy (Verified 08/10/17 19:00) Difficulty breathing haloperidol [From Haldol] Allergy (Verified 08/10/17 19:00) haloperidol lactate [From Haldol] Allergy (Verified 08/10/17 19:00) magnesium sulfate [Magnesium Sulfate] Allergy (Verified 08/10/17 19:00) hydromorphone HCl [From Dilaudid] Adverse Reaction (Verified 08/10/17 19:00) Renal failure ketorolac tromethamine [From Toradol] Adverse Reaction (Verified 08/10/17 19:00) metoclopramide HCl [From Reglan] Adverse Reaction (Verified 08/10/17 19:00) Anxiety tramadol [Tramadol] Adverse Reaction (Verified 08/10/17 19:00) Past Medical History - General Information source: Patient - Social History Smoking Status: Current Every Day Smoker Cigarette use (# per day): Yes - 5-6 cigarettes a day Chew tobacco use (# tins/day): No Smoking Education Provided: Yes - 4 minutes Frequency of alcohol use: None Drug Abuse: None Occupation: None Lives with: Spouse/Significant other Family History: CAD, Hyperlipidemia, Hypertension, Malignancy, Other - breast cancer, renal calculi. denies: Arthritis, COPD, CVA, DM Patient has suicidal ideation: No Patient has homicidal ideation: No - Past Medical History Cardiac Medical History: Reports: Hx Hypertension - PRECLAMPSIA Pulmonary Medical History: Reports: None EENT Medical History: Reports: None Neurological Medical History: Reports: Hx Migraine Endocrine Medical History: Reports: None Renal/ Medical History: Reports: Hx Kidney Stones, Hx Renal Insufficiency Malignancy Medical History: Reports: None GI Medical History: Reports: Hx Crohn's Disease, Hx Irritable Bowel, Hx Colonoscopy, Hx Endoscopy Musculoskeltal Medical History: Reports Hx Arthritis, Reports Hx Musculoskeletal Trauma Skin Medical History: Reports None Psychiatric Medical History: Reports: None Traumatic Medical History: Reports: Hx Fractures Infectious Medical History: Reports: None Past Surgical History: Reports: Hx Cholecystectomy, Hx Dilation and Curettage - x2, Hx Gynecologic Surgery - D&C x's2, Hx Kidney (Renal Surgery) - Ureteral stent, lithotripsy x7, Hx Orthopedic Surgery - Foot surgery - Immunizations Immunizations up to date: Yes Hx Diphtheria, Pertussis, Tetanus Vaccination: Yes Hx Pneumococcal Vaccination: 07/18/12 Review of Systems - Review of Systems Constitutional: No symptoms reported EENT: No symptoms reported Cardiovascular: No symptoms reported Respiratory: No symptoms reported Gastrointestinal: No symptoms reported Genitourinary: No symptoms reported Female Genitourinary: , Other - Left and mid pelvic pain Musculoskeletal: No symptoms reported Skin: No symptoms reported Hematologic/Lymphatic: No symptoms reported Neurological/Psychological: No symptoms reported -: Yes All other systems reviewed and negative Physical Exam - Vital signs Vitals: Temp Pulse Resp BP Pulse Ox 98.5 F 106 H 16 140/104 H 99 08/10/17 19:04 08/10/17 19:04 08/10/17 19:04 08/10/17 19:04 08/10/17 19:04 Interpretation: Normal - General General appearance: Appears well, Alert - HEENT Head: Normocephalic, Atraumatic Eyes: Normal Pupils: PERRL - Respiratory Respiratory status: No respiratory distress Chest status: Nontender Breath sounds: Normal Chest palpation: Normal - Cardiovascular Rhythm: Regular Heart sounds: Normal auscultation Murmur: No - Abdominal Inspection: Normal Distension: No distension Bowel sounds: Normal Tenderness: Tender - Left mid and suprapubic pain Organomegaly: No organomegaly - Back Back: Normal, Nontender - Extremities General upper extremity: Normal inspection, Nontender, Normal color, Normal ROM , Normal temperature General lower extremity: Normal inspection, Nontender, Normal color, Normal ROM , Normal temperature, Normal weight bearing. No: Chapis's sign - Neurological Neuro grossly intact: Yes Cognition: Normal Orientation: AAOx4 Chai Coma Scale Eye Opening: Spontaneous [place] Coma Scale Verbal: Oriented [place] Coma Scale Motor: Obeys Commands Chai Coma Scale Total: 15 Speech: Normal Motor strength normal: LUE, RUE, LLE, RLE Sensory: Normal - Psychological Associated symptoms: Normal affect, Normal mood - Skin Skin Temperature: Warm Skin Moisture: Dry Skin Color: Normal Course - Re-evaluation Re-evalutation: 08/11/17 01:53 Patient presented with left pelvic pain states she has had positive test at home. Patient states she has a history of left ovarian cyst. test was positive ultrasound did not show any ovarian cyst or any . Her hCG was only 148. Patient does have a UTI and she was treated with Keflex and IV fluids. Patient was discharged home with prescription for Keflex. Patient to follow-up with the health department [employer] or her primary doctor. - Vital Signs Vital signs: Temp Pulse Resp BP Pulse Ox 97.4 F 69 16 128/83 H 100 08/11/17 00:31 08/11/17 00:31 08/10/17 19:04 08/11/17 00:31 08/11/17 00:31 - Laboratory Result Diagrams: 08/10/17 20:40 08/10/17 21:00 Laboratory results interpreted by me: 08/10/17 08/10/17 20:10 21:00 Carbon Dioxide 20 L Albumin 5.1 H Beta HCG, Quant 146.61 H Urine Ketones 20 H Urine Blood SMALL H Ur Leukocyte Esterase SMALL H - Diagnostic Test Radiology reviewed: Image reviewed, Reports reviewed Discharge - Discharge Clinical Impression: UTI (urinary tract infection) during Qualifiers: Trimester: first trimester Qualified Code(s): O23.41 - Unspecified infection of urinary tract in , first trimester Condition: Stable Disposition: HOME, SELF-CARE Instructions: [facility] Additional Instructions: URINARY TRACT INFECTION: Your evaluation indicates that you have a urinary tract infection. This is due to germs growing in the bladder. This is a common problem. This infection usually responds quickly to antibiotics. Your antibiotic should be taken exactly as prescribed. Drink plenty of fluids -- three to four quarts a day. Occasionally, a bladder anesthetic will be prescribed to help stop the feeling of urgency until the antibiotic has a chance to clear the infection. This may cause your urine to be dark orange. Certain urine infections require a culture. If the doctor obtained a culture, the results will be back in two days. You should call to see if a change in treatment is needed. A repeat urinalysis after you finish treatment is often recommended. The physician will let you know if further testing is required. Call the doctor if you develop fever, chills, flank pain, inability to urinate, or blood in the urine. You are . care is best started as early in as possible. If you're unsure about continuing this , you should discuss this with your physician or with administrative support technician at [facility]. You should take only medications approved by your physician. Acetaminophen can safely be taken for minor pains. As a rule, medication for chronic conditions such as asthma or seizures can safely be continued. You should discuss with the physician every medicine you take. Any regular exercise program can be continued. Talk to your physician, however, before engaging in competitive or demanding sports. Alcohol, smoking, and "street drugs" are dangerous to your baby. Cocaine is especially dangerous. Don't use any illicit drugs! CEPHALEXIN: The antibiotic you've been prescribed is a member of the cephalosporin class. This type of antibiotic covers a wide variety of infections, including those of the skin, lungs, and urinary tract. It's useful for staph infections. This antibiotic is slightly similar to the penicillin family. In rare cases , a person who is allergic to penicillin will also be allergic to this medication. If you have had a severe allergic reaction to penicillin, and have not taken this antibiotic since that time, notify your doctor. Antibiotics which cover many germs ("broad spectrum" antibiotics) are more likely to cause diarrhea or "yeast" infections. Women prone to vaginal yeast problems may suffer an attack after taking this antibiotic. In infants, oral thrush (white spots "stuck" on the cheek) or yeast diaper rash may result. See your doctor if these problems occur. Call at once if you develop itching, hives , shortness of breath, or lightheadedness. FOLLOW-UP CARE: If you have been referred to a physician for follow-up care, call the physician s office for an appointment as you were instructed or within the next two days. If you experience worsening or a significant change in your symptoms, notify the physician immediately or return to the Emergency Department at any time for re-evaluation. Prescriptions: Cephalexin Monohydrate [Keflex 500 mg Capsule] 500 mg PO QID #20 capsule Forms: Elevated Blood Pressure Referrals: [facility] [Provider Group] - Follow up as needed
[2017-08-10 20:39] LABS: APPEARANCE,URINE SLIGHTLY-CLOUDY; BILIRUBIN,URINE NEGATIVE (NEGATIVE); COLOR,URINE YELLOW; GLUCOSE, URINE NEGATIVE (NEGATIVE); KETONES,URINE 20 mg/dL (NEGATIVE); LEUKOCYTE ESTERASE,URINE SMALL (NEGATIVE); NITRITE,URINE NEGATIVE (NEGATIVE); PROTEIN,URINE NEGATIVE (NEGATIVE); URINE SPECIFIC GRAVITY 1.012; UROBILINOGEN,URINE NEGATIVE mg/dL (<2.0)
[2017-08-10 21:15] LABS: ABSOLUTE BASOPHILS # (AUTO) 0.1 10^3/uL (0.0-0.2); ABSOLUTE EOSINOPHILS # (AUTO) 0.1 10^3/uL (0.0-0.6); ABSOLUTE LYMPHOCYTES (AUTO) 2.4 10^3/uL (0.5-4.7); ABSOLUTE MONOCYTES (AUTO) 0.4 10^3/uL (0.1-1.4); ABSOLUTE NEUT (AUTO) 5.8 10^3/uL (1.7-8.2); BASOPHILS % (AUTO) 1.3 % (0-2); EOSINOPHILS % (AUTO) 0.8 % (0-6); HEMATOCRIT 43.8 % (36.0-47.0); HEMOGLOBIN 15.1 g/dL (12.0-15.5); MEAN CORPUSCULAR HEMOGLOBIN 31.1 pg (27.0-33.4); MEAN CORPUSCULAR HGB CONC 34.4 g/dL (32.0-36.0); MEAN CORPUSCULAR VOLUME 91 fl (80-97); PLATELET COUNT 256 10^3/uL (150-450); RED BLOOD COUNT 4.84 10^6/uL (3.72-5.28); RED CELL DISTRIBUTION WIDTH 13.6 % (11.5-14.0); SEGMENTED NEUTROPHILS % (AUTO) 65.9 % (42-78); TOTAL CELLS COUNTED % (AUTO) 100 %; WHITE BLOOD COUNT 8.7 10^3/uL (4.0-10.5)
[2017-08-10 21:31] LABS: ALANINE AMINOTRANSFERASE 32 U/L (9-52); ALBUMIN 5.1 g/dL (3.5-5.0); ALKALINE PHOSPHATASE 50 U/L (38-126); ANION GAP 15 (5-19); ASPARTATE AMINO TRANSFERASE 16 U/L (14-36); BILIRUBIN,DIRECT 0.2 mg/dL (0.0-0.4); BILIRUBIN,TOTAL 0.4 mg/dL (0.2-1.3); BLOOD UREA NITROGEN 7 mg/dL (7-20); CALCIUM 10.2 mg/dL (8.4-10.2); CARBON DIOXIDE 20 mmol/L (22-30); CHLORIDE 105 mmol/L (98-107); GLUCOSE 79 mg/dL (75-110); POTASSIUM 3.9 mmol/L (3.6-5.0); SODIUM 139.9 mmol/L (137-145); TOTAL PROTEIN 7.6 g/dL (6.3-8.2)
[2017-08-10] MEDS ORDERED: NORMAL SALINE 1000 ML 1,000 ML IV ONE (22:43)
--- NOTE | 2017-08-10 23:27 | RADIOLOGY REPORT (SQ) ---
EXAM DESCRIPTION: U/S OB TRANSVAG W/DOPPLER COMPLETED DATE/TIME: 08/10/2017 11:13 pm REASON FOR STUDY: Left pelvic pain with positive hCG of 146 COMPARISON: None. TECHNIQUE: Transvaginal static and realtime grayscale images acquired of the pelvis. Additional paulino cted spectral and color Doppler images recorded. All images stored on PACs. [facility] LIMITATIONS: None. FINDINGS: UTERUS: No visualized intrauterine . RIGHT ADNEXA: Normal ovary with normal vascular flow. No adnexal free fluid. No adnexal masses. LEFT ADNEXA: Ovary not identified. No adnexal free fluid. No adnexal masses. FREE FLUID: None. OTHER: No other significant finding. IMPRESSION: NO VISUALIZED INTRA- OR EXTRAUTERINE . bHCG LEVEL TOO LOW TO EXPECT VISUALIZATION OF . ECTOPIC CANNOT BE EXCLUDED. FOLLOW-UP ULTRASOUND AND SERIAL BHCG LEVELS STRONGLY RECOMMENDED TO ACCURATELY ASSESS STATU S. TECHNICAL DOCUMENTATION: JOB ID: [id number] 2007 [employer]- All Rights Reserved Reading location - IP/workstation name: [email or web address]
[2017-08-10] MEDS ORDERED: ACETAMINOPHEN 325 MG TABLET PO ONE (23:49)
[2017-08-10] MEDS ORDERED: CEPHALEXIN 500 MG CAPSULE PO ONE (23:50)
[2017-08-11 00:32] VITALS: BP 128/83
== END 2017-08-11 00:32 | disposition home or self-care (01) ==
LOC: ER 19:00
DX: O23.41 Unspecified infection of urinary tract in pregnancy, first trimester (principal); O26.891 Other specified pregnancy related conditions, first trimester; R10.2 Pelvic and perineal pain; O99.331 Smoking (tobacco) complicating pregnancy, first trimester; F17.210 Nicotine dependence, cigarettes, uncomplicated; Z3A.00 Weeks of gestation of pregnancy not specified; Z87.42 Personal history of other diseases of the female genital tract; Z88.5 Allergy status to narcotic agent; Z88.8 Allergy status to other drugs, medicaments and biological substances
CPT/HCPCS: 99406; 99284; 96360; 36415; 87086; 84702; 85025; 80053; 81001; 76817; 93976; J7030

== ENCOUNTER 2017-08-17 12:22 | Emergency (ER) | payer SELFPAY ==
[2017-08-17] MEDS ORDERED: DIPHENHYDRAMINE HCL 50 MG CAPSULE PO ONE (12:57)
[2017-08-17] MEDS ORDERED: PROMETHAZINE HCL 25 MG TABLET PO ONE (12:57)
--- NOTE | 2017-08-17 13:01 | ER Document Report ---
ED General - General Chief Complaint: Headache Stated Complaint: HEADACHE Time Seen by Provider: 08/17/17 12:42 Mode of Arrival: Ambulatory Information source: Patient Notes: 26-year-old female presents with concerns of migraine headache. Patient notes she has a history of migraines states this is similar to previous migraines, she took Tylenol with no improvement, she denies any fevers or chills, patient does note that she also was noted to be last week with hCG count was too low and patient was told to follow-up in a week TRAVEL OUTSIDE OF THE [place] IN LAST 30 DAYS: No - HPI Onset: Last week Onset/Duration: Intermittent Quality of pain: Cramping Severity: Mild Pain Level: 1 Associated symptoms: Other Exacerbated by: Denies Relieved by: Denies Similar symptoms previously: No Recently seen / treated by doctor: No - Related Data Allergies/Adverse Reactions: butalbital [From Fioricet] Allergy (Verified 08/17/17 12:24) caffeine [From Fioricet] Allergy (Verified 08/17/17 12:24) codeine [Codeine] Allergy (Verified 08/17/17 12:24) Difficulty breathing haloperidol [From Haldol] Allergy (Verified 08/17/17 12:24) haloperidol lactate [From Haldol] Allergy (Verified 08/17/17 12:24) magnesium sulfate [Magnesium Sulfate] Allergy (Verified 08/17/17 12:24) hydromorphone HCl [From Dilaudid] Adverse Reaction (Verified 08/17/17 12:24) Renal failure ketorolac tromethamine [From Toradol] Adverse Reaction (Verified 08/17/17 12:24) metoclopramide HCl [From Reglan] Adverse Reaction (Verified 08/17/17 12:24) Anxiety tramadol [Tramadol] Adverse Reaction (Verified 08/17/17 12:24) Past Medical History - Social History Smoking Status: Never Smoker Cigarette use (# per day): No Chew tobacco use (# tins/day): No Smoking Education Provided: No Family History: CAD, Hyperlipidemia, Hypertension, Malignancy, Other - breast cancer, renal calculi. denies: Arthritis, COPD, CVA, DM Patient has suicidal ideation: No Patient has homicidal ideation: No - Past Medical History Cardiac Medical History: Reports: Hx Hypertension - PRECLAMPSIA Denies: Hx Coronary Artery Disease, Hx Heart Attack Pulmonary Medical History: Denies: Hx Asthma, Hx Bronchitis, Hx COPD, Hx Pneumonia, Hx Tuberculosis Neurological Medical History: Reports: Hx Migraine. Denies: Hx Cerebrovascular Accident, Hx Seizures Renal/ Medical History: Reports: Hx Kidney Stones, Hx Renal Insufficiency. Denies: Hx Peritoneal Dialysis GI Medical History: Reports: Hx Crohn's Disease, Hx Irritable Bowel, Hx Colonoscopy, Hx Endoscopy. Denies: Hx Ulcer Musculoskeltal Medical History: Reports Hx Arthritis, Reports Hx Musculoskeletal Trauma Traumatic Medical History: Reports: Hx Fractures Past Surgical History: Reports: Hx Cholecystectomy, Hx Dilation and Curettage - x2, Hx Gynecologic Surgery - D&C x's2, Hx Kidney (Renal Surgery) - Ureteral stent, lithotripsy x7, Hx Orthopedic Surgery - Foot surgery. Denies: Hx Hysterectomy, Hx Pacemaker - Immunizations Immunizations up to date: Yes Hx Diphtheria, Pertussis, Tetanus Vaccination: Yes Hx Pneumococcal Vaccination: 07/18/12 Review of Systems - Review of Systems Notes: REVIEW OF SYSTEMS: CONSTITUTIONAL : Denies fever, chills, or sweats. Denies recent illness. EENT: Denies eye, ear, throat, or mouth pain or symptoms. Denies nasal or sinus congestion or discharge. Denies throat, tongue, or mouth swelling or difficulty swallowing. CARDIOVASCULAR: Denies chest pain. Denies palpitations or racing or irregular heart beat. Denies ankle edema. RESPIRATORY: Denies cough, cold, or chest congestion. Denies shortness of breath, difficulty breathing, or wheezing. GASTROINTESTINAL: Admits to nausea GENITOURINARY: Admits difficulty urinating FEMALE GENITOURINARY: Denies vaginal bleeding, heavy or abnormal periods, irregular periods. Denies vaginal discharge or odor. MUSCULOSKELETAL: Denies back or neck pain or stiffness. Denies joint pain or swelling. SKIN: Denies rash, lesions or sores. HEMATOLOGIC : Denies easy bruising or bleeding. LYMPHATIC: Denies swollen, enlarged glands. NEUROLOGICAL: Admits migraine headache PSYCHIATRIC: Denies anxiety or stress. Denies depression, suicidal ideation, or homicidal ideation. ALL OTHER SYSTEMS REVIEWED AND NEGATIVE. PHYSICAL EXAMINATION: GENERAL: Well-appearing, well-nourished and in no acute distress. HEAD: Atraumatic, normocephalic. EYES: Pupils equal round and reactive to light, extraocular movements intact, conjunctiva are normal. ENT: Nares patent, oropharynx clear without exudates. Moist mucous membranes. NECK: Normal range of motion, supple without lymphadenopathy LUNGS: Breath sounds clear to auscultation bilaterally and equal. No wheezes rales or rhonchi. HEART: Regular rate and rhythm without murmurs ABDOMEN: Soft, nontender, nondistended abdomen. No guarding, no rebound. No masses appreciated. Female : deferred Musculoskeletal: Normal range of motion, no pitting or edema. No cyanosis. NEUROLOGICAL: Cranial nerves grossly intact. Normal speech, normal gait. Normal sensory, motor exams PSYCH: Normal mood, normal affect. SKIN: Warm, Dry, normal turgor, no rashes or lesions noted. Dictation was performed using [email or web address] voice recognition software Physical Exam - Vital signs Vitals: Temp Pulse Resp BP Pulse Ox 98.7 F 115 H 20 141/94 H 98 08/17/17 12:26 08/17/17 12:26 08/17/17 12:26 08/17/17 12:26 08/17/17 12:26 Course - Re-evaluation Re-evalutation: 08/17/17 13:00 Patient is not having any vaginal bleeding, she overall looks well, she will be treated for migraine headache with Benadryl and Compazine, hCG quant and urinalysis pending but the patient's previous urinalysis note urogenital omar and patient has been treated with Keflex and Macrobid for UTI symptoms 08/17/17 16:48 Patient's hCG quant has increased appropriately, ultrasound was ordered 08/17/17 17:07 Ultrasound is consistent with a 5 week 2 day report is given to the patient, I have explained the findings, she does note that she continues to have a headache but states she has had migraines since she was 4 years old so this is not new to her. Unfortunately given her status it limits how we can treat her appropriately. She otherwise is well-appearing no distress will be discharged home with close follow-up After performing a Medical Screening Examination, I estimate there is LOW risk for ACUTE APPENDICITIS, BOWEL OBSTRUCTION, ACUTE CHOLECYSTITIS, PERFORATED DIVERTICULITIS, INCARCERATED HERNIA, PANCREATITIS, PELVIC INFLAMMATORY DISEASE, PERFORATED ULCER, ECTOPIC , or TUBO-OVARIAN ABSCESS, thus I consider the discharge disposition reasonable. Also, there is no evidence or peritonitis , sepsis, or toxicity. I have reevaluated this patient multiple times and no significant life threatening changes are noted. The patient and I have discussed the diagnosis and risks, and we agree with discharging home with close follow-up with the understanding that symptoms and presentations can change. We also discussed returning to the Emergency Department immediately if new or worsening symptoms occur. We have discussed the symptoms which are most concerning (e.g., bloody stool, fever, changing or worsening pain, vomiting) that necessitate immediate return. - Vital Signs Vital signs: Temp Pulse Resp BP Pulse Ox 98.7 F 115 H 20 141/94 H 98 08/17/17 12:26 08/17/17 12:26 08/17/17 12:26 08/17/17 12:26 08/17/17 12:26 - Laboratory Laboratory results interpreted by me: 08/17/17 08/17/17 13:15 13:15 Beta HCG, Quant 2552.30 H Ur Leukocyte Esterase TRACE H - Diagnostic Test Radiology reviewed: Image reviewed - 5 week , Reports reviewed Discharge - Discharge Clinical Impression: Pelvic pain affecting Qualifiers: Trimester: first trimester Qualified Code(s): O26.891 - Other specified related conditions, first trimester; R10.2 - Pelvic and perineal pain ; R10.2 - Pelvic and perineal pain Headache Qualifiers: Headache type: unspecified Headache chronicity pattern: acute headache Intractability: not intractable Qualified Code(s): R51 - Headache Condition: Stable Disposition: HOME, SELF-CARE Instructions: Headache ([facility]) Additional Instructions: Follow up with your physician tomorrow for further care or return to the ED IMMEDIATELY if symptoms worsen or new concerns occur. If you cannot afford to follow up with your primary care physician a list of low cost clinics have been provided at the end of your discharge papers as well. Prescriptions: Promethazine HCl [Phenergan 25 mg Tablet] 1 - 2 tab PO Q6H PRN #15 tablet PRN Reason:
[2017-08-17 13:51] LABS: APPEARANCE,URINE CLEAR; BILIRUBIN,URINE NEGATIVE (NEGATIVE); COLOR,URINE YELLOW; GLUCOSE, URINE NEGATIVE (NEGATIVE); KETONES,URINE NEGATIVE (NEGATIVE); LEUKOCYTE ESTERASE,URINE TRACE (NEGATIVE); NITRITE,URINE NEGATIVE (NEGATIVE); PROTEIN,URINE NEGATIVE (NEGATIVE); URINE SPECIFIC GRAVITY 1.023; UROBILINOGEN,URINE NEGATIVE mg/dL (<2.0)
--- NOTE | 2017-08-17 17:00 | RADIOLOGY REPORT (SQ) ---
EXAM DESCRIPTION: U/S OB TRANSVAGINAL W/O DOP COMPLETED DATE/TIME: 08/17/2017 4:27 pm REASON FOR STUDY: LLQ pain, Positive preg COMPARISON: None. TECHNIQUE: static and realtime grayscale images acquired of the pelvis. Additional selected spectra l and color Doppler images recorded. All images stored on PACs. [facility], [place].3. Beta HCG on 146.7 LIMITATIONS: None. FINDINGS: . EGA: 5 weeks 2 days. LAST: 04/17/2018. FHR: Nonvisualized. SUBCHORIONIC BLEED: None seen. UTERUS: The uterus measures 8.7 x 6.4 x 5.2 cm. There are dense endometrial canal echoes has can be seen in early measuring 1.3 cm. Within the endometrial canal there is a sac measuri ng 0.34 cm. The findings could represent early IUP. CERVICAL LENGTH: 3.1 cm Closed. Nabothian cysts of the cervix. RIGHT ADNEXA: Normal ovary with normal vascular flow. The right ovary measures 3.1 x 2.7 x 1.6 cm. There is a focal area of heterogeneous echogenicity within the right ovary measuring 1.7 x 2 x 1.6 cm . The possibility of a hemorrhagic cyst cannot be excluded. LEFT ADNEXA: Left ovary nonvisualized. IMPRESSION: Findings which could represent early IUP of approximately 5 weeks 2 days. Continued sol veillance with beta HCG and/or ultrasound in 5-7 days could be obtained as further evaluation TECHNICAL DOCUMENTATION: JOB ID: [id number] [employer]-[id number] 2010 [employer]- All Rights Reserved Reading location - IP/workstation name: [email or web address]
[2017-08-17 17:14] VITALS: BP 115/82
== END 2017-08-17 17:13 | disposition home or self-care (01) ==
LOC: ER 12:22
DX: O99.351 Diseases of the nervous system complicating pregnancy, first trimester (principal); G43.909 Migraine, unspecified, not intractable, without status migrainosus; O26.891 Other specified pregnancy related conditions, first trimester; R10.2 Pelvic and perineal pain; R11.0 Nausea; R39.9 Unspecified symptoms and signs involving the genitourinary system; Z3A.01 Less than 8 weeks gestation of pregnancy; Z88.6 Allergy status to analgesic agent; Z88.5 Allergy status to narcotic agent; Z88.8 Allergy status to other drugs, medicaments and biological substances; Z87.442 Personal history of urinary calculi; Z87.440 Personal history of urinary (tract) infections
CPT/HCPCS: 36415; 76817; 81001; 84702; 99284

== ENCOUNTER 2017-08-28 20:31 | Emergency (ER) | payer SELFPAY ==
[2017-08-28 20:58] VITALS: BP 125/87
[2017-08-28 21:41] LABS: ABSOLUTE BASOPHILS # (AUTO) 0.1 10^3/uL (0.0-0.2); ABSOLUTE EOSINOPHILS # (AUTO) 0.1 10^3/uL (0.0-0.6); ABSOLUTE LYMPHOCYTES (AUTO) 1.7 10^3/uL (0.5-4.7); ABSOLUTE MONOCYTES (AUTO) 0.4 10^3/uL (0.1-1.4); BASOPHILS % (AUTO) 1.3 % (0-2); EOSINOPHILS % (AUTO) 1.3 % (0-6); HEMATOCRIT 41.8 % (36.0-47.0); HEMOGLOBIN 14.2 g/dL (12.0-15.5); LYMPHOCYTES % (AUTO) 32.9 % (13-45); MEAN CORPUSCULAR HEMOGLOBIN 31.2 pg (27.0-33.4); MEAN CORPUSCULAR VOLUME 92 fl (80-97); MONOCYTES % (AUTO) 7.8 % (3-13); PLATELET COUNT 258 10^3/uL (150-450); RED BLOOD COUNT 4.56 10^6/uL (3.72-5.28); RED CELL DISTRIBUTION WIDTH 13.2 % (11.5-14.0); SEGMENTED NEUTROPHILS % (AUTO) 56.7 % (42-78); TOTAL CELLS COUNTED % (AUTO) 100 %; WHITE BLOOD COUNT 5.3 10^3/uL (4.0-10.5)
[2017-08-28 21:51] LABS: APPEARANCE,URINE TURBID; BILIRUBIN,URINE NEGATIVE (NEGATIVE); COLOR,URINE YELLOW; GLUCOSE, URINE NEGATIVE (NEGATIVE); KETONES,URINE NEGATIVE (NEGATIVE); LEUKOCYTE ESTERASE,URINE LARGE (NEGATIVE); NITRITE,URINE NEGATIVE (NEGATIVE); PROTEIN,URINE 100 mg/dL (NEGATIVE); URINE SPECIFIC GRAVITY 1.027
[2017-08-28] MEDS ORDERED: ACETAMINOPHEN 325 MG TABLET PO ONE (23:58)
[2017-08-28] MEDS ORDERED: PROMETHAZINE HCL INJ 25 MG/1 ML VIAL IM ONE (23:58)
[2017-08-29 01:42] LABS: APPEARANCE,URINE CLOUDY; BILIRUBIN,URINE NEGATIVE (NEGATIVE); CALCIUM OXALATE CRYSTALS,URINE FEW /HPF; COLOR,URINE AMBER; GLUCOSE, URINE NEGATIVE (NEGATIVE); KETONES,URINE NEGATIVE (NEGATIVE); LEUKOCYTE ESTERASE,URINE TRACE (NEGATIVE); NITRITE,URINE NEGATIVE (NEGATIVE); PROTEIN,URINE 30 mg/dL (NEGATIVE); UROBILINOGEN,URINE NEGATIVE mg/dL (<2.0)
--- NOTE | 2017-08-29 03:41 | RADIOLOGY REPORT (SQ) ---
EXAM DESCRIPTION: U/S OB TRANSVAG W/DOPPLER CLINICAL HISTORY: 27 years, Female, vag bleeding COMPARISON: 08/26/2017. TECHNIQUE: Transvaginal. LIMITATIONS: None. FINDINGS: Living intrauterine fetus measures 6w0d with LAST of 04/24/18 and cardiac activity of 77-bpm. [facility]-rump length is 0.3 cm. Subchorionic hemorrhage measures 2.5 x 2.0 x 0.9 cm. 3.2 cm right ovary and left ovarian fossa appear unremarkable. Left ovary is not directly visualized. 2.4 cm cervical length. Nabothian cysts. No significant free fluid. IMPRESSION: Living intrauterine fetus measures 6w0d with LAST of 04/24/18. 2.5 cm perigestational hemorrhage.
--- NOTE | 2017-08-29 04:48 | ER Document Report ---
ED General - General Chief Complaint: Vag Bleeding, +preg <12wks Stated Complaint: HEADACHE Time Seen by Provider: 08/28/17 23:48 TRAVEL OUTSIDE OF THE [place] IN LAST 30 DAYS: No - HPI Patient complains to provider of: Vaginal bleeding positive Notes: Patient has been seen multiple times for the above-stated complaint. Patient states she was seen approximate 48 hours ago were told to return to the bleeding worsened. Patient states she is now passing clots. Patient denies any abdominal pain. Denies any fevers chills vomiting diarrhea. Patient does state that she is nauseous along with a migraine headache ongoing for the last few days as well patient denies any relief of her symptoms with Tylenol and Phenergan. - Related Data Allergies/Adverse Reactions: butalbital [From Fioricet] Allergy (Verified 08/28/17 20:49) caffeine [From Fioricet] Allergy (Verified 08/28/17 20:49) codeine [Codeine] Allergy (Verified 08/28/17 20:49) Difficulty breathing haloperidol [From Haldol] Allergy (Verified 08/28/17 20:49) haloperidol lactate [From Haldol] Allergy (Verified 08/28/17 20:49) magnesium sulfate [Magnesium Sulfate] Allergy (Verified 08/28/17 20:49) hydromorphone HCl [From Dilaudid] Adverse Reaction (Verified 08/28/17 20:49) Renal failure ketorolac tromethamine [From Toradol] Adverse Reaction (Verified 08/28/17 20:49) metoclopramide HCl [From Reglan] Adverse Reaction (Verified 08/28/17 20:49) Anxiety tramadol [Tramadol] Adverse Reaction (Verified 08/28/17 20:49) Past Medical History - Social History Smoking Status: Never Smoker Family History: CAD, Hyperlipidemia, Hypertension, Malignancy, Other - breast cancer, renal calculi. denies: Arthritis, COPD, CVA, DM Patient has suicidal ideation: No Patient has homicidal ideation: No - Past Medical History Cardiac Medical History: Reports: Hx Hypertension - PRECLAMPSIA Denies: Hx Coronary Artery Disease, Hx Heart Attack Pulmonary Medical History: Denies: Hx Asthma, Hx Bronchitis, Hx COPD, Hx Pneumonia, Hx Tuberculosis Neurological Medical History: Reports: Hx Migraine. Denies: Hx Cerebrovascular Accident, Hx Seizures Renal/ Medical History: Reports: Hx Kidney Stones, Hx Renal Insufficiency. Denies: Hx Peritoneal Dialysis GI Medical History: Reports: Hx Crohn's Disease, Hx Irritable Bowel, Hx Colonoscopy, Hx Endoscopy. Denies: Hx Ulcer Musculoskeltal Medical History: Reports Hx Arthritis, Reports Hx Musculoskeletal Trauma Traumatic Medical History: Reports: Hx Fractures Past Surgical History: Reports: Hx Cholecystectomy, Hx Dilation and Curettage - x2, Hx Gynecologic Surgery - D&C x's2, Hx Kidney (Renal Surgery) - Ureteral stent, lithotripsy x7, Hx Orthopedic Surgery - Foot surgery. Denies: Hx Hysterectomy, Hx Pacemaker - Immunizations Immunizations up to date: Yes Hx Diphtheria, Pertussis, Tetanus Vaccination: Yes Hx Pneumococcal Vaccination: 07/18/12 Review of Systems - Review of Systems Constitutional: No symptoms reported EENT: No symptoms reported Cardiovascular: No symptoms reported Respiratory: No symptoms reported Gastrointestinal: No symptoms reported Genitourinary: No symptoms reported Female Genitourinary: Vaginal bleeding Musculoskeletal: No symptoms reported Skin: No symptoms reported Hematologic/Lymphatic: No symptoms reported Neurological/Psychological: No symptoms reported -: Yes All other systems reviewed and negative Physical Exam - Vital signs Vitals: Temp Pulse Resp BP Pulse Ox 98.3 F 97 16 125/87 H 100 08/28/17 20:56 08/28/17 20:56 08/28/17 20:56 08/28/17 20:56 08/28/17 20:56 Interpretation: Normal - General General appearance: Appears well, Alert - HEENT Head: Normocephalic, Atraumatic Eyes: Normal Pupils: PERRL - Respiratory Respiratory status: No respiratory distress Chest status: Nontender Breath sounds: Normal Chest palpation: Normal - Cardiovascular Rhythm: Regular Heart sounds: Normal auscultation Murmur: No - Abdominal Inspection: Normal Distension: No distension Bowel sounds: Normal Tenderness: Nontender Organomegaly: No organomegaly - Back Back: Normal, Nontender - Extremities General upper extremity: Normal inspection, Nontender, Normal color, Normal ROM , Normal temperature General lower extremity: Normal inspection, Nontender, Normal color, Normal ROM , Normal temperature, Normal weight bearing. No: Chapis's sign - Neurological Neuro grossly intact: Yes Cognition: Normal Orientation: AAOx4 Chai Coma Scale Eye Opening: Spontaneous [place] Coma Scale Verbal: Oriented Chai Coma Scale Motor: Obeys Commands [place] Coma Scale Total: 15 Speech: Normal Motor strength normal: LUE, RUE, LLE, RLE Sensory: Normal - Psychological Associated symptoms: Normal affect, Normal mood - Skin Skin Temperature: Warm Skin Moisture: Dry Skin Color: Normal Course - Re-evaluation Re-evalutation: 08/29/17 05:33 Patient's previous visits were reviewed patient is beta-hCG increased. Did explain to the patient this is a good sign that her was otherwise healthy however patient is very insistent that we obtain a another pelvic ultrasound. This was done showing IUP at 6 weeks. Patient does have a small subchorionic bleed as well. Did educate patient on subchorionic bleed. Patient states understanding will give the patient a prescription for vitamins patient was encouraged follow-up with health department or [facility] in 1 week. - Vital Signs Vital signs: Temp Pulse Resp BP Pulse Ox 98.3 F 97 16 125/87 H 100 08/28/17 20:56 08/28/17 20:56 08/28/17 20:56 08/28/17 20:56 08/28/17 20:56 - Laboratory Result Diagrams: 08/28/17 21:20 Laboratory results interpreted by me: 08/28/17 08/28/17 08/29/17 21:20 21:20 00:23 Beta HCG, Quant 65631.00 H Urine Protein 100 H 30 H Urine Blood LARGE H SMALL H Urine Urobilinogen 2.0 H Ur Leukocyte Esterase LARGE H TRACE H Urine Ascorbic Acid 20 H Discharge - Discharge Clinical Impression: Vaginal bleeding during Subchorionic bleed Qualifiers: Fetus number: single or unspecified fetus Trimester: first trimester Qualified Code(s): O41.8X10 - Other specified disorders of amniotic fluid and membranes, first trimester, not applicable or unspecified Condition: Stable Disposition: HOME, SELF-CARE Instructions: Bleeding During Early ([facility]) Additional Instructions: Your ultrasound and laboratory studies tonight confirm that you have a viable . Please make sure she follow-up with [facility] in approximately 1 week for further blood testing. Return to the ER if symptoms worsen. Please take vitamins as prescribed. Below you will find a list of over-the- counter medications for nausea vomiting. Congratulations on your . For nausea and vomiting during I recomment: Start with 10-12.5 mg of pyridoxine (vitamin B6) three times a day for 2 days. If not fully effective, Increase to 12.5 mg of pyridoxine four times a day for 2 days. If not fully effective, Increase to 25 mg of pyridoxine three times a day for 2 days. If not fully effective, Continue 25 mg pyridoxine 3 times a day, and add 12.5 mg of doxylamine before bedtime each day for 2 days. If not fully effective, Continue 25 mg pyridoxine 3 times a day, and take 12.5 mg of doxylamine twice a day. If not fully effective, Continue 25 mg pyridoxine 3 times a day, and take 12.5 mg of doxylamine three times a day. If not fully effective, Continue 25 mg pyridoxine 3 times a day, and 12.5 mg of doxylamine 3 times a day , while adding Emetrol, one to two tablespoons (15-30 cc) taken once or twice a day as needed. (Emetrol is an [id number] mixture of sugar syrups and phosphoric acid [phosphorylated carbohydrate solution]) that acts by soothing the actual wall of the gastrointestinal tract). If not fully effective, Consult with your doctor. Prescriptions: Prenat 115/Iron Fum/Folic/Dss [ 19 Tablet] 1 each PO DAILY #30 tablet
== END 2017-08-29 05:04 | disposition home or self-care (01) ==
LOC: ER 20:31
DX: O20.8 Other hemorrhage in early pregnancy (principal); O99.351 Diseases of the nervous system complicating pregnancy, first trimester; G43.909 Migraine, unspecified, not intractable, without status migrainosus; O26.891 Other specified pregnancy related conditions, first trimester; R11.0 Nausea; Z3A.01 Less than 8 weeks gestation of pregnancy; Z88.5 Allergy status to narcotic agent; Z88.8 Allergy status to other drugs, medicaments and biological substances
CPT/HCPCS: 99284; 96372; 51701; 36415; 84702; 85025; 81001; 76817; 93976; J2550; 80048

== ENCOUNTER 2017-09-06 12:04 | Emergency (ER) | payer MEDICAID ==
[2017-09-06 12:21] VITALS: BP 131/89
--- NOTE | 2017-09-06 12:34 | ER Document Report ---
ED GI/ - General Mode of Arrival: Ambulatory Information source: Patient TRAVEL OUTSIDE OF THE [place] IN LAST 30 DAYS: No - General Chief Complaint: Vaginal Bleeding Stated Complaint: VAGINAL BLEEDING Time Seen by Provider: 09/06/17 12:20 Notes: Patient is a 27-year-old female presents to the emergency department today with complaints of vaginal bleeding. Patient is approximately 6 weeks AND was told 9 days ago that she had a subchorionic hemorrhage. Patient states bleeding has continued. Patient is with one ectopic . Patient is B+ blood type. Patient denies any fevers or dysuria. (CINDY MESA) - Related Data Allergies/Adverse Reactions: butalbital [From Fioricet] Allergy (Verified 09/06/17 12:21) caffeine [From Fioricet] Allergy (Verified 09/06/17 12:21) codeine [Codeine] Allergy (Verified 09/06/17 12:21) Difficulty breathing haloperidol [From Haldol] Allergy (Verified 09/06/17 12:21) haloperidol lactate [From Haldol] Allergy (Verified 09/06/17 12:21) magnesium sulfate [Magnesium Sulfate] Allergy (Verified 09/06/17 12:21) hydromorphone HCl [From Dilaudid] Adverse Reaction (Verified 09/06/17 12:21) Renal failure ketorolac tromethamine [From Toradol] Adverse Reaction (Verified 09/06/17 12:21) metoclopramide HCl [From Reglan] Adverse Reaction (Verified 09/06/17 12:21) Anxiety tramadol [Tramadol] Adverse Reaction (Verified 09/06/17 12:21) Past Medical History - General Information source: Patient - Social History Smoking Status: Current Every Day Smoker Cigarette use (# per day): Yes Chew tobacco use (# tins/day): No Frequency of alcohol use: None Drug Abuse: None Lives with: Family Family History: Reviewed & Not Pertinent, CAD, Hyperlipidemia, Hypertension, Malignancy, Other - breast cancer, renal calculi Patient has suicidal ideation: No Patient has homicidal ideation: No - Past Medical History Cardiac Medical History: Reports: Hx Hypertension - PRECLAMPSIA Neurological Medical History: Reports: Hx Migraine Renal/ Medical History: Reports: Hx Kidney Stones, Hx Renal Insufficiency GI Medical History: Reports: Hx Crohn's Disease, Hx Irritable Bowel, Hx Colonoscopy, Hx Endoscopy Musculoskeltal Medical History: Reports Hx Arthritis, Reports Hx Musculoskeletal Trauma Traumatic Medical History: Reports: Hx Fractures Past Surgical History: Reports: Hx Cholecystectomy, Hx Dilation and Curettage - x2, Hx Gynecologic Surgery - D&C x's2, Hx Kidney (Renal Surgery) - Ureteral stent, lithotripsy x7, Hx Orthopedic Surgery - Foot surgery - Immunizations Immunizations up to date: Yes Hx Diphtheria, Pertussis, Tetanus Vaccination: Yes Hx Pneumococcal Vaccination: 07/18/12 Review of Systems - Review of Systems Constitutional: No symptoms reported EENT: No symptoms reported Cardiovascular: No symptoms reported Respiratory: No symptoms reported Gastrointestinal: No symptoms reported Genitourinary: No symptoms reported Female Genitourinary: See HPI, , Vaginal bleeding Musculoskeletal: No symptoms reported Skin: No symptoms reported Hematologic/Lymphatic: No symptoms reported Neurological/Psychological: No symptoms reported -: Yes All other systems reviewed and negative Physical Exam - Vital signs Vitals: Temp Pulse Resp BP Pulse Ox 98.6 F 97 16 131/89 H 98 09/06/17 12:13 09/06/17 12:13 09/06/17 12:13 09/06/17 12:13 09/06/17 12:13 - Notes Notes: Physical Exam: General: Alert, appears well. HEENT: Normocephalic. Atraumatic. PERRL. Extraocular movements intact. Oropharynx clear. Neck: Supple. Non-tender. Respiratory: No respiratory distress. Clear and equal breath sounds bilaterally. Cardiovascular: Regular rate and rhythm. Abdominal: Normal Inspection. Non-tender. No distension. Normal Bowel Sounds. Back: Non-tender. No deformity or step off. Extremities: Moves all four extremities. Upper extremities: Normal inspection. Normal ROM. Lower extremities: Normal inspection. No edema. Normal ROM. Neurological: Normal cognition. AAOx4. Normal speech. Psychological: Normal affect. Normal Mood. Skin: Warm. Dry. Normal color. (CINDY MESA) Course - Re-evaluation Re-evalutation: 09/06/17 13:08 Patient returns to emergency department for concern of vaginal bleeding. Ultrasound earlier this month shows small subchorionic hemorrhage with valid intrauterine . Patient denies any dysuria at this time and urine does not show any overt signs of infection. Will send urine off for culture and if positive patient will be called prescription of antibiotics. Otherwise, do not feel like any further imaging or workup needs to be done at this time. Patient is positive no RhoGam indicated at this time. Due to gestational age there is nothing that can be done at this time or intervention for subchorionic hemorrhage. Discussed with patient if she were to have more than 1 maxi pad filled per hour for 6 hours to return for reevaluation otherwise no intervention was discussed. She is to follow-up with him next previously scheduled visit with health services clinic. OB GEN referral was also provided to patient. (ARSALAN IRVIN) - Vital Signs Vital signs: Temp Pulse Resp BP Pulse Ox 98.6 F 97 16 131/89 H 98 09/06/17 12:13 09/06/17 12:13 09/06/17 12:13 09/06/17 12:13 09/06/17 12:13 - Laboratory Laboratory results interpreted by me: 09/06/17 12:30 Ur Leukocyte Esterase TRACE H Urine Ascorbic Acid 20 H Discharge - Discharge Clinical Impression: Vagina bleeding Subchorionic bleed Qualifiers: Fetus number: single or unspecified fetus Trimester: first trimester Qualified Code(s): O41.8X10 - Other specified disorders of amniotic fluid and membranes, first trimester, not applicable or unspecified Condition: Good Disposition: HOME, SELF-CARE Instructions: ([facility]), Vaginal Bleeding ([facility]) Additional Instructions: You have been provided OB GEN referral if needed. Otherwise, please follow-up with health services for your next scheduled appointment. If you begin to have heavy bleeding until more than 1 maxi pad per hour for 6 hours then please return for reevaluation. Your urine has been cultured and if it comes back positive show infection will be called in an antibiotic prescription Referrals: KRUPA WHITAKER MD [ACTIVE STAFF] - Follow up as needed Scribe Attestation: 09/08/17 11:17 I personally performed the services described in the documentation, reviewed and edited the documentation which was dictated to the scribe in my presence, and it accurately records my words and actions. (ARSALAN IRVIN) Scribe Documentation - Scribe Written by An:: An Blakely, 09/06/2017 [id number] acting as scribe for :: Ashok
[2017-09-06 12:52] LABS: AMORPHOUS SEDIMENT,URINE TRACE /HPF; APPEARANCE,URINE CLOUDY; BILIRUBIN,URINE NEGATIVE (NEGATIVE); COLOR,URINE YELLOW; GLUCOSE, URINE NEGATIVE (NEGATIVE); KETONES,URINE NEGATIVE (NEGATIVE); LEUKOCYTE ESTERASE,URINE TRACE (NEGATIVE); NITRITE,URINE NEGATIVE (NEGATIVE); PROTEIN,URINE NEGATIVE (NEGATIVE); URINE SPECIFIC GRAVITY 1.016; UROBILINOGEN,URINE NEGATIVE mg/dL (<2.0)
== END 2017-09-06 13:23 | disposition home or self-care (01) ==
LOC: ER 12:04
DX: O41.8X10 Other specified disorders of amniotic fluid and membranes, first trimester, not applicable or unspecified (principal); O99.331 Smoking (tobacco) complicating pregnancy, first trimester; F17.210 Nicotine dependence, cigarettes, uncomplicated; Z3A.01 Less than 8 weeks gestation of pregnancy; Z87.442 Personal history of urinary calculi; Z90.49 Acquired absence of other specified parts of digestive tract
CPT/HCPCS: 81001; 99284

== ENCOUNTER 2017-09-14 11:53 | Emergency (ER) | payer MEDICAID ==
--- NOTE | 2017-09-14 12:20 | ER Document Report ---
ED Medical Screen (RME) - General Chief Complaint: OB Problem (<20wks) Stated Complaint: URINARY RETENTION Time Seen by Provider: 09/14/17 12:17 Notes: Patient is complaining of severe lower mid abdominal pains. She had a D and E procedure at [facility], , for a failed at 8 weeks gestation. She was having some lower abdominal soreness yesterday, but today, she is having severe pains. She is having only light vaginal bleeding. She has vomited 4 times. Says she is barely able to urinate and has only done so, small amount, twice today, each time requiring her to strain very hard. Last bowel movement was last night. Has not had any fever. PMH: Cholecystectomy, lithotripsy for stones. Patient has been diagnosed with Crohn's disease, but has never had a surgical procedure for this condition. Patient appears to be in severe pain, tearful and only standing up because it is too painful for her to sit down. TRAVEL OUTSIDE OF THE [place] IN LAST 30 DAYS: No - Related Data Allergies/Adverse Reactions: butalbital [From Fioricet] Allergy (Verified 09/14/17 11:54) caffeine [From Fioricet] Allergy (Verified 09/14/17 11:54) codeine [Codeine] Allergy (Verified 09/14/17 11:54) Difficulty breathing haloperidol [From Haldol] Allergy (Verified 09/14/17 11:54) haloperidol lactate [From Haldol] Allergy (Verified 09/14/17 11:54) magnesium sulfate [Magnesium Sulfate] Allergy (Verified 09/14/17 11:54) hydromorphone HCl [From Dilaudid] Adverse Reaction (Verified 09/14/17 11:54) Renal failure ketorolac tromethamine [From Toradol] Adverse Reaction (Verified 09/14/17 11:54) metoclopramide HCl [From Reglan] Adverse Reaction (Verified 09/14/17 11:54) Anxiety tramadol [Tramadol] Adverse Reaction (Verified 09/14/17 11:54) Past Medical History - Past Medical History Cardiac Medical History: Reports: Hx Hypertension - PRECLAMPSIA Denies: Hx Coronary Artery Disease, Hx Heart Attack Pulmonary Medical History: Denies: Hx Asthma, Hx Bronchitis, Hx COPD, Hx Pneumonia, Hx Tuberculosis Neurological Medical History: Reports: Hx Migraine. Denies: Hx Cerebrovascular Accident, Hx Seizures Renal/ Medical History: Reports: Hx Kidney Stones, Hx Renal Insufficiency. Denies: Hx Peritoneal Dialysis GI Medical History: Reports: Hx Crohn's Disease, Hx Irritable Bowel, Hx Colonoscopy, Hx Endoscopy. Denies: Hx Ulcer Musculoskeltal Medical History: Reports Hx Arthritis, Reports Hx Musculoskeletal Trauma Traumatic Medical History: Reports: Hx Fractures Past Surgical History: Reports: Hx Cholecystectomy, Hx Dilation and Curettage - x2, Hx Gynecologic Surgery - D&C x's2, Hx Kidney (Renal Surgery) - Ureteral stent, lithotripsy x7, Hx Orthopedic Surgery - Foot surgery. Denies: Hx Hysterectomy, Hx Pacemaker - Immunizations Immunizations up to date: Yes Hx Diphtheria, Pertussis, Tetanus Vaccination: Yes History of Influenza Vaccine for 02/2017 - 07/2017 Season: No Physical Exam - Vital signs Vitals: Temp Pulse Resp BP Pulse Ox 98.6 F 105 H 20 141/83 H 100 09/14/17 12:10 09/14/17 12:10 09/14/17 12:10 09/14/17 12:10 09/14/17 12:10 Course - Vital Signs Vital signs: Temp Pulse Resp BP Pulse Ox 98.6 F 105 H 20 141/83 H 100 09/14/17 12:10 09/14/17 12:10 09/14/17 12:10 09/14/17 12:10 09/14/17 12:10
[2017-09-14] MEDS ORDERED: FENTANYL CITRATE INJ/PF 100 MCG/2 ML AMPUL IV ONE (12:21)
[2017-09-14 12:59] LABS: AMORPHOUS SEDIMENT,URINE TRACE /HPF; APPEARANCE,URINE CLOUDY; BILIRUBIN,URINE NEGATIVE (NEGATIVE); COLOR,URINE YELLOW; GLUCOSE, URINE NEGATIVE (NEGATIVE); KETONES,URINE NEGATIVE (NEGATIVE); LEUKOCYTE ESTERASE,URINE NEGATIVE (NEGATIVE); NITRITE,URINE NEGATIVE (NEGATIVE); PROTEIN,URINE NEGATIVE (NEGATIVE); URINE SPECIFIC GRAVITY 1.023
[2017-09-14] MEDS ORDERED: PROMETHAZINE HCL INJ 50 MG/1 ML VIAL IM PRN (13:39)
--- NOTE | 2017-09-14 13:39 | ER Document Report ---
ED GI/ - General Chief Complaint: OB Problem (<20wks) Stated Complaint: URINARY RETENTION Time Seen by Provider: 09/14/17 12:17 Mode of Arrival: Ambulatory Notes: History of complain:Patient is complaining of severe lower mid abdominal pains. She had a D and E procedure at [facility], , for a failed at 8 weeks gestation. She was having some lower abdominal soreness yesterday, but today, she is having severe pains. She is having only light vaginal bleeding. She has vomited 4 times. Says she is barely able to urinate and has only done so, small amount, twice today, each time requiring her to strain very hard. Last bowel movement was last night. Has not had any fever. REVIEW OF SYSTEMS: CONSTITUTIONAL : Denies fever, chills, or sweats. Denies recent illness. EENT: Denies eye, ear, throat, or mouth pain or symptoms. Denies nasal or sinus congestion or discharge. Denies throat, tongue, or mouth swelling or difficulty swallowing. CARDIOVASCULAR: Denies chest pain. Denies palpitations or racing or irregular heart beat. Denies ankle edema. RESPIRATORY: Denies cough, cold, or chest congestion. Denies shortness of breath, difficulty breathing, or wheezing. GASTROINTESTINAL: Denies abdominal pain or distention. Denies nausea, vomiting , or diarrhea. Denies blood in vomitus, stools, or per rectum. Denies black, tarry stools. Denies constipation. GENITOURINARY: Denies difficulty urinating, painful urination, burning, frequency, blood in urine, or discharge. FEMALE GENITOURINARY: Denies vaginal bleeding, heavy or abnormal periods, irregular periods. Denies vaginal discharge or odor. MUSCULOSKELETAL: Denies back or neck pain or stiffness. Denies joint pain or swelling. SKIN: Denies rash, lesions or sores. HEMATOLOGIC : Denies easy bruising or bleeding. LYMPHATIC: Denies swollen, enlarged glands. NEUROLOGICAL: Denies confusion or altered mental status. Denies passing out or loss of consciousness. Denies dizziness or lightheadedness. Denies headache. Denies weakness or paralysis or loss of use of either side. Denies problems with gait or speech. Denies sensory loss, numbness, or tingling. Denies seizures. PSYCHIATRIC: Denies anxiety or stress. Denies depression, suicidal ideation, or homicidal ideation. ALL OTHER SYSTEMS REVIEWED AND NEGATIVE. PHYSICAL EXAMINATION: GENERAL: Well-appearing, well-nourished and seems to be in acute discomfort HEAD: Atraumatic, normocephalic. EYES: Pupils equal round and reactive to light, extraocular movements intact, conjunctiva are normal. ENT: Nares patent, oropharynx clear without exudates. Moist mucous membranes. NECK: Normal range of motion, supple without lymphadenopathy LUNGS: Breath sounds clear to auscultation bilaterally and equal. No wheezes rales or rhonchi. HEART: Regular rate and rhythm without murmurs ABDOMEN: Soft, sharply tender over the suprapubic tenderness abdomen. No guarding, no rebound. No masses appreciated. Female : deferred Musculoskeletal: Normal range of motion, no pitting or edema. No cyanosis. NEUROLOGICAL: Cranial nerves grossly intact. Normal speech, normal gait. Normal sensory, motor exams PSYCH: Normal mood, normal affect. SKIN: Warm, Dry, normal turgor, no rashes or lesions noted. Dictation was performed using [employer] voice recognition software TRAVEL OUTSIDE OF THE [place] IN LAST 30 DAYS: No - HPI Patient complains to provider of: Abdominal pain Onset: Yesterday Timing/Duration: Gradual Quality of pain: Sharp Severity at maximum: Moderate Severity in ED: Moderate Pain Level: 2 Location: Suprapubic Vaginal bleeding (Compared to normal period): denies: None, Spotting, Records Management Coordinator, Similar, Heavier, Severe, Bright red, Dark brown, Passing clots, Passing tissue Menstrual period history: denies: Abnormal, Irregular, Missed, , S/P menopausal, Post-menopausal - Related Data Allergies/Adverse Reactions: butalbital [From Fioricet] Allergy (Verified 09/14/17 11:54) caffeine [From Fioricet] Allergy (Verified 09/14/17 11:54) codeine [Codeine] Allergy (Verified 09/14/17 11:54) Difficulty breathing haloperidol [From Haldol] Allergy (Verified 09/14/17 11:54) haloperidol lactate [From Haldol] Allergy (Verified 09/14/17 11:54) magnesium sulfate [Magnesium Sulfate] Allergy (Verified 09/14/17 11:54) hydromorphone HCl [From Dilaudid] Adverse Reaction (Verified 09/14/17 11:54) Renal failure ketorolac tromethamine [From Toradol] Adverse Reaction (Verified 09/14/17 11:54) metoclopramide HCl [From Reglan] Adverse Reaction (Verified 09/14/17 11:54) Anxiety tramadol [Tramadol] Adverse Reaction (Verified 09/14/17 11:54) Past Medical History - Social History Smoking Status: Current Every Day Smoker Chew tobacco use (# tins/day): No Frequency of alcohol use: None Drug Abuse: None Family History: Reviewed & Not Pertinent, CAD, Hyperlipidemia, Hypertension, Malignancy, Other - breast cancer, renal calculi Patient has suicidal ideation: No Patient has homicidal ideation: No - Past Medical History Cardiac Medical History: Reports: Hx Hypertension - PRECLAMPSIA Denies: Hx Coronary Artery Disease, Hx Heart Attack Pulmonary Medical History: Denies: Hx Asthma, Hx Bronchitis, Hx COPD, Hx Pneumonia, Hx Tuberculosis Neurological Medical History: Reports: Hx Migraine. Denies: Hx Cerebrovascular Accident, Hx Seizures Renal/ Medical History: Reports: Hx Kidney Stones, Hx Renal Insufficiency. Denies: Hx Peritoneal Dialysis GI Medical History: Reports: Hx Crohn's Disease, Hx Irritable Bowel, Hx Colonoscopy, Hx Endoscopy. Denies: Hx Ulcer Musculoskeltal Medical History: Reports Hx Arthritis, Reports Hx Musculoskeletal Trauma Traumatic Medical History: Reports: Hx Fractures Past Surgical History: Reports: Hx Cholecystectomy, Hx Dilation and Curettage - x2, Hx Gynecologic Surgery - D&C x's2, Hx Kidney (Renal Surgery) - Ureteral stent, lithotripsy x7, Hx Orthopedic Surgery - Foot surgery. Denies: Hx Hysterectomy, Hx Pacemaker - Immunizations Immunizations up to date: Yes Hx Diphtheria, Pertussis, Tetanus Vaccination: Yes Hx Pneumococcal Vaccination: 07/18/12 Review of Systems - Review of Systems Constitutional: denies: No symptoms reported, See HPI, Chills, Diaphoresis, Fever, Malaise, Weakness, Other, Weight gain, Weight loss, Recent illness EENT: denies: No symptoms reported, See HPI, Eye pain, Eye discharge, Blurred vision, Tearing, Double vision, Ear pain, Ear discharge, Nose pain, Nose congestion, Nose discharge, Sinus pressure, Sinus discharge, Throat pain, Difficulty swallowing, Throat swelling, Mouth pain, Mouth swelling, Dental problem, Vertigo, Other Cardiovascular: denies: No symptoms reported, See HPI, Chest pain, Palpitations , Heart racing, Orthopnea, Dyspnea, Syncope, Dizziness, Lightheaded, Edema, Other, Paroxysmal Nocturnal Dysp Respiratory: denies: No symptoms reported, See HPI, Cough, Hurts to breathe, Hemoptysis, Short of breath, Sputum, Stridor, Wheezing, Other Gastrointestinal: denies: No symptoms reported, See HPI, Abdomen distended, Abdominal pain, Diarrhea, Nausea, Vomiting, Constipation, Blood streaked bowels , Poor appetite, Poor fluid intake, Blood in vomit, Black stools, Rectal bleeding, Last bowel movement, Fecal incontinence, Other Genitourinary: denies: No symptoms reported, See HPI, Burning, Dysuria, Discharge, Frequency, Flank pain, Hematuria, Incontinence, Pain, Urgency, Retention, Other Female Genitourinary: denies: No symptoms reported, See HPI, Last menstrual period, , Post menopausal, Heavy/abnormal periods, Irregular period, Vaginal bleeding, Vaginal discharge, Vaginal odor, Painful intercourse, Other Musculoskeletal: denies: No symptoms reported, See HPI, Back pain, Gout, Joint pain, Joint swelling, Muscle pain, Muscle stiffness, Neck pain, Deformity, Leg swelling, Ankle swelling, Other Physical Exam - Vital signs Vitals: Temp Pulse Resp BP Pulse Ox 98.6 F 105 H 20 141/83 H 100 09/14/17 12:10 09/14/17 12:10 09/14/17 12:10 09/14/17 12:10 09/14/17 12:10 - Notes Notes: Dictated Course - Re-evaluation Re-evalutation: 09/14/17 15:09 Patient is pain free, all the lab reports were reviewed with her. She has agreed to go home. - Vital Signs Vital signs: Temp Pulse Resp BP Pulse Ox 98 F 105 H 20 141/83 H 100 09/14/17 13:58 09/14/17 12:10 09/14/17 12:10 09/14/17 12:10 09/14/17 12:10 - Laboratory Result Diagrams: 09/14/17 13:10 09/14/17 13:10 Laboratory results interpreted by me: 09/14/17 09/14/17 09/14/17 12:27 13:10 13:10 Seg Neutrophils % 78.6 H Lymphocytes % 12.8 L AST 46 H ALT 84 H Beta HCG, Quant 6877.30 H Urine Blood SMALL H Urine Urobilinogen 2.0 H - Diagnostic Test Radiology reviewed: Reports reviewed Discharge - Discharge Clinical Impression: Postoperative pain, Urinary retention Condition: Fair Disposition: HOME, SELF-CARE Instructions: Urinary Retention ([facility]) Prescriptions: Oxycodone HCl/Acetaminophen [Percocet 5-325 mg Tablet] 1 - 2 tab PO ASDIR PRN # 15 tablet PRN Reason: Promethazine HCl 25 mg PO QID #30 tablet
[2017-09-14 13:46] LABS: ABSOLUTE EOSINOPHILS # (AUTO) 0.1 10^3/uL (0.0-0.6); ABSOLUTE LYMPHOCYTES (AUTO) 0.9 10^3/uL (0.5-4.7); ABSOLUTE MONOCYTES (AUTO) 0.5 10^3/uL (0.1-1.4); ABSOLUTE NEUT (AUTO) 5.6 10^3/uL (1.7-8.2); BASOPHILS % (AUTO) 0.4 % (0-2); HEMATOCRIT 37.7 % (36.0-47.0); LYMPHOCYTES % (AUTO) 12.8 % (13-45); MEAN CORPUSCULAR HEMOGLOBIN 31.2 pg (27.0-33.4); MEAN CORPUSCULAR HGB CONC 34.4 g/dL (32.0-36.0); MEAN CORPUSCULAR VOLUME 91 fl (80-97); MONOCYTES % (AUTO) 7.2 % (3-13); PLATELET COUNT 243 10^3/uL (150-450); RED BLOOD COUNT 4.15 10^6/uL (3.72-5.28); SEGMENTED NEUTROPHILS % (AUTO) 78.6 % (42-78); TOTAL CELLS COUNTED % (AUTO) 100 %; WHITE BLOOD COUNT 7.1 10^3/uL (4.0-10.5)
[2017-09-14 14:03] LABS: ALANINE AMINOTRANSFERASE 84 U/L (9-52); ALBUMIN 4.3 g/dL (3.5-5.0); ALKALINE PHOSPHATASE 67 U/L (38-126); ANION GAP 10 (5-19); ASPARTATE AMINO TRANSFERASE 46 U/L (14-36); BILIRUBIN,DIRECT 0.3 mg/dL (0.0-0.4); BILIRUBIN,TOTAL 0.3 mg/dL (0.2-1.3); BLOOD UREA NITROGEN 7 mg/dL (7-20); CALCIUM 9.4 mg/dL (8.4-10.2); CARBON DIOXIDE 26 mmol/L (22-30); CHLORIDE 107 mmol/L (98-107); GLUCOSE 83 mg/dL (75-110); LIPASE 36.7 U/L (23-300); POTASSIUM 3.7 mmol/L (3.6-5.0); SODIUM 142.6 mmol/L (137-145); TOTAL PROTEIN 7.1 g/dL (6.3-8.2)
[2017-09-14] MEDS ORDERED: MORPHINE SULFATE 10 MG/ML INJ IV ONE ×2 (15:23→19:25)
[2017-09-14 19:59] VITALS: BP 121/96
== END 2017-09-14 19:59 | disposition home or self-care (01) ==
LOC: ER 11:53
DX: G89.18 Other acute postprocedural pain (principal); R10.30 Lower abdominal pain, unspecified; R33.9 Retention of urine, unspecified; R11.10 Vomiting, unspecified; F17.200 Nicotine dependence, unspecified, uncomplicated; Z88.5 Allergy status to narcotic agent; Z88.8 Allergy status to other drugs, medicaments and biological substances
CPT/HCPCS: 96376; 99284; 96372; 96374; 96375; 36415; 84702; 83690; 85025; 80053; 81001; J3010; J2270; J2550

== ENCOUNTER 2017-10-21 16:13 | Emergency (ER) | payer MEDICAID ==
[2017-10-21] MEDS ORDERED: ACETAMINOPHEN 325 MG TABLET PO ONE (17:09)
--- NOTE | 2017-10-21 17:09 | ER Document Report ---
ED Medical Screen (RME) - General Chief Complaint: Possible Kidney Stone Stated Complaint: FLANK PAIN Time Seen by Provider: 10/21/17 17:05 Mode of Arrival: Ambulatory Information source: Patient Notes: Patient states that she is here in the hospital as her child was recently admitted. Patient complains of right flank pain since yesterday and is concerned about possible kidney stone. Patient reports nausea and hematuria. Patient has a extensive history of kidney stones and suspects the same. Patient denies any fever. hx: Kidney stones, Crohn's, migraines, cystectomy, lithotripsy I have greeted and performed a rapid initial assessment of this patient. A comprehensive ED assessment and evaluation of the patient, analysis of test results and completion of the medical decision making process will be conducted by additional ED providers. TRAVEL OUTSIDE OF THE [place] IN LAST 30 DAYS: No - Related Data Allergies/Adverse Reactions: butalbital [From Fioricet] Allergy (Verified 09/14/17 11:54) caffeine [From Fioricet] Allergy (Verified 09/14/17 11:54) codeine [Codeine] Allergy (Verified 09/14/17 11:54) Difficulty breathing haloperidol [From Haldol] Allergy (Verified 09/14/17 11:54) haloperidol lactate [From Haldol] Allergy (Verified 09/14/17 11:54) magnesium sulfate [Magnesium Sulfate] Allergy (Verified 09/14/17 11:54) hydromorphone HCl [From Dilaudid] Adverse Reaction (Verified 09/14/17 11:54) Renal failure ketorolac tromethamine [From Toradol] Adverse Reaction (Verified 09/14/17 11:54) metoclopramide HCl [From Reglan] Adverse Reaction (Verified 09/14/17 11:54) Anxiety tramadol [Tramadol] Adverse Reaction (Verified 09/14/17 11:54) Past Medical History - Past Medical History Cardiac Medical History: Reports: Hx Hypertension - PRECLAMPSIA Denies: Hx Coronary Artery Disease, Hx Heart Attack Pulmonary Medical History: Denies: Hx Asthma, Hx Bronchitis, Hx COPD, Hx Pneumonia, Hx Tuberculosis Neurological Medical History: Reports: Hx Migraine. Denies: Hx Cerebrovascular Accident, Hx Seizures Renal/ Medical History: Reports: Hx Kidney Stones, Hx Renal Insufficiency. Denies: Hx Peritoneal Dialysis GI Medical History: Reports: Hx Crohn's Disease, Hx Irritable Bowel, Hx Colonoscopy, Hx Endoscopy. Denies: Hx Ulcer Musculoskeltal Medical History: Reports Hx Arthritis, Reports Hx Musculoskeletal Trauma Traumatic Medical History: Reports: Hx Fractures Past Surgical History: Reports: Hx Cholecystectomy, Hx Dilation and Curettage - x2, Hx Gynecologic Surgery - D&C x's2, Hx Kidney (Renal Surgery) - Ureteral stent, lithotripsy x7, Hx Orthopedic Surgery - Foot surgery. Denies: Hx Hysterectomy, Hx Pacemaker - Immunizations Immunizations up to date: Yes Hx Diphtheria, Pertussis, Tetanus Vaccination: Yes History of Influenza Vaccine for 02/2017 - 07/2017 Season: No Physical Exam - Vital signs Vitals: Temp Pulse Resp BP Pulse Ox 98.5 F 88 18 143/90 H 99 10/21/17 16:19 10/21/17 16:19 10/21/17 16:19 10/21/17 16:19 10/21/17 16:19 - Back Back: CVA tenderness - Right Course - Vital Signs Vital signs: Temp Pulse Resp BP Pulse Ox 98.5 F 88 18 143/90 H 99 10/21/17 16:19 10/21/17 16:19 10/21/17 16:19 10/21/17 16:19 10/21/17 16:19
[2017-10-21 17:23] LABS: AMORPHOUS SEDIMENT,URINE TRACE /HPF; APPEARANCE,URINE TURBID; BILIRUBIN,URINE NEGATIVE (NEGATIVE); COLOR,URINE AMBER; GLUCOSE, URINE NEGATIVE (NEGATIVE); KETONES,URINE TRACE mg/dL (NEGATIVE); LEUKOCYTE ESTERASE,URINE LARGE (NEGATIVE); NITRITE,URINE NEGATIVE (NEGATIVE); PROTEIN,URINE 30 mg/dL (NEGATIVE); URINE SPECIFIC GRAVITY 1.025
--- NOTE | 2017-10-21 17:53 | RADIOLOGY REPORT (SQ) ---
EXAM DESCRIPTION: U/S RETROPERITON (RENAL/AORTA) COMPLETED DATE/TIME: 10/21/2017 5:46 pm REASON FOR STUDY: r flank pain COMPARISON: 06/13/2017 TECHNIQUE: Dynamic and static grayscale images acquired of the kidneys and bladder and recorded on P ACS. Additional selected color Doppler and spectral images recorded. LIMITATIONS: None. FINDINGS: RIGHT KIDNEY: Normal size. Normal echogenicity. No solid or suspicious masses. No hydronep hrosis. No calcifications. LEFT KIDNEY: Normal size. Normal echogenicity. No solid or suspicious masses. No hydronephrosis. No calcifications. BLADDER: No masses. OTHER FINDINGS: No other significant finding. IMPRESSION: NORMAL RENAL AND BLADDER ULTRASOUND. TECHNICAL DOCUMENTATION: JOB ID: [id number] [employer]- All Rights Reserved Reading location - IP/workstation name: [email or web address]
[2017-10-21 18:15] LABS: ABSOLUTE BASOPHILS # (AUTO) 0.1 10^3/uL (0.0-0.2); ABSOLUTE EOSINOPHILS # (AUTO) 0.1 10^3/uL (0.0-0.6); ABSOLUTE LYMPHOCYTES (AUTO) 2.2 10^3/uL (0.5-4.7); ABSOLUTE MONOCYTES (AUTO) 0.4 10^3/uL (0.1-1.4); ABSOLUTE NEUT (AUTO) 5.1 10^3/uL (1.7-8.2); BASOPHILS % (AUTO) 1.1 % (0-2); EOSINOPHILS % (AUTO) 0.8 % (0-6); HEMATOCRIT 41.5 % (36.0-47.0); HEMOGLOBIN 14.3 g/dL (12.0-15.5); LYMPHOCYTES % (AUTO) 27.8 % (13-45); MEAN CORPUSCULAR HEMOGLOBIN 31.1 pg (27.0-33.4); MEAN CORPUSCULAR HGB CONC 34.5 g/dL (32.0-36.0); MEAN CORPUSCULAR VOLUME 90 fl (80-97); PLATELET COUNT 281 10^3/uL (150-450); RED BLOOD COUNT 4.59 10^6/uL (3.72-5.28); RED CELL DISTRIBUTION WIDTH 13.4 % (11.5-14.0); SEGMENTED NEUTROPHILS % (AUTO) 65.3 % (42-78); TOTAL CELLS COUNTED % (AUTO) 100 %; WHITE BLOOD COUNT 7.8 10^3/uL (4.0-10.5)
--- NOTE | 2017-10-21 18:21 | ER Document Report ---
ED General - General Chief Complaint: Possible Kidney Stone Stated Complaint: FLANK PAIN Time Seen by Provider: 10/21/17 17:05 Mode of Arrival: Ambulatory Information source: Patient Notes: 27-year-old female history of kidney stones presents with complaints of flank pain. Patient denies any fevers or chills notes the pain worsens when she urinates only. She notes it is in the right flank. TRAVEL OUTSIDE OF THE [place] IN LAST 30 DAYS: No - HPI Onset: Other - 3 day duration Onset/Duration: Persistent Quality of pain: Achy Severity: Mild Pain Level: 1 Associated symptoms: Other Exacerbated by: Other - Urination Relieved by: Denies Similar symptoms previously: No Recently seen / treated by doctor: No - Related Data Allergies/Adverse Reactions: butalbital [From Fioricet] Allergy (Verified 09/14/17 11:54) caffeine [From Fioricet] Allergy (Verified 09/14/17 11:54) codeine [Codeine] Allergy (Verified 09/14/17 11:54) Difficulty breathing haloperidol [From Haldol] Allergy (Verified 09/14/17 11:54) haloperidol lactate [From Haldol] Allergy (Verified 09/14/17 11:54) magnesium sulfate [Magnesium Sulfate] Allergy (Verified 09/14/17 11:54) hydromorphone HCl [From Dilaudid] Adverse Reaction (Verified 09/14/17 11:54) Renal failure ketorolac tromethamine [From Toradol] Adverse Reaction (Verified 09/14/17 11:54) metoclopramide HCl [From Reglan] Adverse Reaction (Verified 09/14/17 11:54) Anxiety tramadol [Tramadol] Adverse Reaction (Verified 09/14/17 11:54) Past Medical History - General Information source: Patient - Social History Smoking Status: Current Some Day Smoker Cigarette use (# per day): Yes Chew tobacco use (# tins/day): No Smoking Education Provided: No Family History: Reviewed & Not Pertinent, CAD, Hyperlipidemia, Hypertension, Malignancy, Other - breast cancer, renal calculi Patient has suicidal ideation: No Patient has homicidal ideation: No - Past Medical History Cardiac Medical History: Reports: Hx Hypertension - PRECLAMPSIA Denies: Hx Coronary Artery Disease, Hx Heart Attack Pulmonary Medical History: Denies: Hx Asthma, Hx Bronchitis, Hx COPD, Hx Pneumonia, Hx Tuberculosis Neurological Medical History: Reports: Hx Migraine. Denies: Hx Cerebrovascular Accident, Hx Seizures Renal/ Medical History: Reports: Hx Kidney Stones, Hx Renal Insufficiency. Denies: Hx Peritoneal Dialysis GI Medical History: Reports: Hx Crohn's Disease, Hx Irritable Bowel, Hx Colonoscopy, Hx Endoscopy. Denies: Hx Ulcer Musculoskeltal Medical History: Reports Hx Arthritis, Reports Hx Musculoskeletal Trauma Traumatic Medical History: Reports: Hx Fractures Past Surgical History: Reports: Hx Cholecystectomy, Hx Dilation and Curettage - x2, Hx Gynecologic Surgery - D&C x's2, Hx Kidney (Renal Surgery) - Ureteral stent, lithotripsy x7, Hx Orthopedic Surgery - Foot surgery. Denies: Hx Hysterectomy, Hx Pacemaker - Immunizations Immunizations up to date: Yes Hx Diphtheria, Pertussis, Tetanus Vaccination: Yes Hx Pneumococcal Vaccination: 07/18/12 Review of Systems - Review of Systems Notes: REVIEW OF SYSTEMS: CONSTITUTIONAL : Denies fever, chills, or sweats. Denies recent illness. EENT: Denies eye, ear, throat, or mouth pain or symptoms. Denies nasal or sinus congestion or discharge. Denies throat, tongue, or mouth swelling or difficulty swallowing. CARDIOVASCULAR: Denies chest pain. Denies palpitations or racing or irregular heart beat. Denies ankle edema. RESPIRATORY: Denies cough, cold, or chest congestion. Denies shortness of breath, difficulty breathing, or wheezing. GASTROINTESTINAL: Admits to right flank pain GENITOURINARY: Admits to pain with urination. FEMALE GENITOURINARY: Denies vaginal bleeding, heavy or abnormal periods, irregular periods. Denies vaginal discharge or odor. MUSCULOSKELETAL: Denies back or neck pain or stiffness. Denies joint pain or swelling. SKIN: Denies rash, lesions or sores. HEMATOLOGIC : Denies easy bruising or bleeding. LYMPHATIC: Denies swollen, enlarged glands. NEUROLOGICAL: Denies confusion or altered mental status. Denies passing out or loss of consciousness. Denies dizziness or lightheadedness. Denies headache. Denies weakness or paralysis or loss of use of either side. Denies problems with gait or speech. Denies sensory loss, numbness, or tingling. Denies seizures. PSYCHIATRIC: Denies anxiety or stress. Denies depression, suicidal ideation, or homicidal ideation. ALL OTHER SYSTEMS REVIEWED AND NEGATIVE. PHYSICAL EXAMINATION: GENERAL: Well-appearing, well-nourished and in no acute distress. HEAD: Atraumatic, normocephalic. EYES: Pupils equal round and reactive to light, extraocular movements intact, conjunctiva are normal. ENT: Nares patent, oropharynx clear without exudates. Moist mucous membranes. NECK: Normal range of motion, supple without lymphadenopathy LUNGS: Breath sounds clear to auscultation bilaterally and equal. No wheezes rales or rhonchi. HEART: Regular rate and rhythm without murmurs ABDOMEN: Soft, nontender, nondistended abdomen. No guarding, no rebound. No masses appreciated. Right CVA tenderness Female : deferred Musculoskeletal: Normal range of motion, no pitting or edema. No cyanosis. NEUROLOGICAL: Cranial nerves grossly intact. Normal speech, normal gait. Normal sensory, motor exams PSYCH: Normal mood, normal affect. SKIN: Warm, Dry, normal turgor, no rashes or lesions noted. Dictation was performed using [employer] voice recognition software Physical Exam - Vital signs Vitals: Temp Pulse Resp BP Pulse Ox 98.5 F 88 18 143/90 H 99 10/21/17 16:19 10/21/17 16:19 10/21/17 16:19 10/21/17 16:19 10/21/17 16:19 Course - Re-evaluation Re-evalutation: 10/21/17 20:15 Patient's presentation most consistent with pyelonephritis, patient will be started on antibiotics, she is otherwise well-appearing, ultrasound there are no significant abnormality, lab work did not show any signs concerning for sepsis After performing a Medical Screening Examination, I estimate there is LOW risk for ACUTE APPENDICITIS, BOWEL OBSTRUCTION, ACUTE CHOLECYSTITIS, PERFORATED DIVERTICULITIS, INCARCERATED HERNIA, PANCREATITIS, PELVIC INFLAMMATORY DISEASE, PERFORATED ULCER, ECTOPIC , or TUBO-OVARIAN ABSCESS, thus I consider the discharge disposition reasonable. Also, there is no evidence or peritonitis , sepsis, or toxicity. I have reevaluated this patient multiple times and no significant life threatening changes are noted. The patient and I have discussed the diagnosis and risks, and we agree with discharging home with close follow-up with the understanding that symptoms and presentations can change. We also discussed returning to the Emergency Department immediately if new or worsening symptoms occur. We have discussed the symptoms which are most concerning (e.g., bloody stool, fever, changing or worsening pain, vomiting) that necessitate immediate return. - Vital Signs Vital signs: Temp Pulse Resp BP Pulse Ox 97.7 F 66 20 122/84 100 10/21/17 18:51 10/21/17 18:51 10/21/17 18:51 10/21/17 18:51 10/21/17 18:51 - Laboratory Result Diagrams: 10/21/17 18:04 10/21/17 18:04 Laboratory results interpreted by me: 10/21/17 16:20 Urine Protein 30 H Urine Ketones TRACE H Urine Blood SMALL H Urine Urobilinogen 2.0 H Ur Leukocyte Esterase LARGE H - Diagnostic Test Radiology reviewed: Image reviewed - Ultrasound renal notes no acute abnormality , Reports reviewed Discharge - Discharge Clinical Impression: Kidney infection Condition: Stable Disposition: HOME, SELF-CARE Instructions: Pyelonephritis ([facility]) Additional Instructions: Follow up with your physician tomorrow for further care or return to the ED IMMEDIATELY if symptoms worsen or new concerns occur. If you cannot afford to follow up with your primary care physician a list of low cost clinics have been provided at the end of your discharge papers as well. Prescriptions: Cephalexin Monohydrate [Keflex 500 mg Capsule] 500 mg PO BID 10 Days capsule Hydrocodone/Acetaminophen [[place] 5-325 mg Tablet] 1 tab PO Q6 #10 tablet
[2017-10-21] MEDS ORDERED: CEPHALEXIN 500 MG CAPSULE PO ONE (18:26)
[2017-10-21] MEDS ORDERED: OXYCODONE HCL IR 5 MG TABLET PO ONE (18:27)
[2017-10-21 18:43] LABS: ALANINE AMINOTRANSFERASE 23 U/L (9-52); ALBUMIN 4.7 g/dL (3.5-5.0); ALKALINE PHOSPHATASE 58 U/L (38-126); ANION GAP 11 (5-19); ASPARTATE AMINO TRANSFERASE 17 U/L (14-36); BILIRUBIN,DIRECT 0.3 mg/dL (0.0-0.4); BILIRUBIN,TOTAL 0.3 mg/dL (0.2-1.3); BLOOD UREA NITROGEN 10 mg/dL (7-20); CALCIUM 10.2 mg/dL (8.4-10.2); CARBON DIOXIDE 25 mmol/L (22-30); CHLORIDE 107 mmol/L (98-107); GLUCOSE 87 mg/dL (75-110); POTASSIUM 4.1 mmol/L (3.6-5.0); SODIUM 142.8 mmol/L (137-145); TOTAL PROTEIN 7.5 g/dL (6.3-8.2)
[2017-10-21 18:57] VITALS: BP 122/84
== END 2017-10-21 18:55 | disposition home or self-care (01) ==
LOC: ER 16:13
DX: N28.9 Disorder of kidney and ureter, unspecified (principal); R10.9 Unspecified abdominal pain; R30.9 Painful micturition, unspecified; I10 Essential (primary) hypertension; F17.210 Nicotine dependence, cigarettes, uncomplicated
CPT/HCPCS: 99284; 36415; 84703; 85025; 80053; 81001; 76770; J3490

== ENCOUNTER 2017-10-24 11:54 | Emergency (ER) | payer MEDICAID ==
[2017-10-24] MEDS ORDERED: NORMAL SALINE 1000 ML 1,000 ML IV ONE ×2 (12:21→14:47)
[2017-10-24] MEDS ORDERED: PIPERACILLIN/TAZOBACTAM 4.5 GM VIAL IV ONE (12:21)
[2017-10-24] MEDS ORDERED: MORPHINE SULFATE 10 MG/ML INJ IV ONE ×2 (12:21→15:07)
--- NOTE | 2017-10-24 12:22 | ER Document Report ---
ED Medical Screen (RME) - General Mode of Arrival: Ambulatory Information source: Patient TRAVEL OUTSIDE OF THE [place] IN LAST 30 DAYS: No <CINDY MESA - Last Filed: 10/24/17 15:16> <BRISEYDA CRUZ - Last Filed: 10/24/17 17:12> <PRESTON MARCIAL - Last Filed: 10/24/17 21:41> - General Chief Complaint: Flank Pain Stated Complaint: RIGHT SIDE FLANK PAIN Time Seen by Provider: 10/24/17 12:16 Notes: Patient is a 27-year-old female that presents to the emergency department today with complaints of bilateral flank pain, right greater than left. Patient has an extensive history of kidney stones. Patient states she was started on Keflex 3 days ago for a urinary tract infection but she states the pain has progressed since then. Patient states at that time she only had right-sided flank pain however she has bilateral flank pain currently. Patient has noticed hematuria as well. Patient has been febrile and has vomited along with this flank pain. I have greeted and performed a rapid initial assessment of this patient. A comprehensive ED assessment and evaluation of the patient, analysis of test results, and completion of the medical decision making process will be conducted by additional ED providers. Review of systems: Constitutional: Fevers. EENT: No symptoms reported Cardiovascular: No symptoms reported Respiratory: No symptoms reported Gastrointestinal: Nausea. Vomiting. Genitourinary: Hematuria. Bilateral flank pain. Musculoskeletal: No symptoms reported Skin: No symptoms reported Hematologic/Lymphatic: No symptoms reported Neurological/Psychological: No symptoms reported Yes All other systems reviewed and negative PHYSICAL EXAM GENERAL: Alert, interacts well. No acute distress. HEAD: Normocephalic, atraumatic. EYES: Pupils equal, round, and reactive to light. Extraocular movements intact. ENT: Oral mucosa moist, tongue midline. NECK: Full range of motion. Supple. Trachea midline. LUNGS: Clear to auscultation bilaterally, no wheezes, rales, or rhonchi. No respiratory distress. HEART: Regular rate and rhythm. No murmurs, gallops, or rubs. ABDOMEN: Soft, non-tender. Non-distended. Bowel sounds present in all 4 quadrants. No guarding, rigidity, or rebound. BACK: Left CVA tenderness to percussion. EXTREMITIES: Moves all 4 extremities spontaneously. NEUROLOGICAL: Alert and oriented x3. Normal speech. PSYCH: Normal affect, normal mood. SKIN: Warm, dry, normal turgor. No rashes or lesions noted. (CINDY MESA) - Related Data Allergies/Adverse Reactions: butalbital [From Fioricet] Allergy (Verified 10/24/17 11:55) caffeine [From Fioricet] Allergy (Verified 10/24/17 11:55) codeine [Codeine] Allergy (Verified 10/24/17 11:55) Difficulty breathing haloperidol [From Haldol] Allergy (Verified 10/24/17 11:55) haloperidol lactate [From Haldol] Allergy (Verified 10/24/17 11:55) magnesium sulfate [Magnesium Sulfate] Allergy (Verified 10/24/17 11:55) hydromorphone HCl [From Dilaudid] Adverse Reaction (Verified 10/24/17 11:55) Renal failure ketorolac tromethamine [From Toradol] Adverse Reaction (Verified 10/24/17 11:55) metoclopramide HCl [From Reglan] Adverse Reaction (Verified 10/24/17 11:55) Anxiety tramadol [Tramadol] Adverse Reaction (Verified 10/24/17 11:55) Past Medical History - Social History Chew tobacco use (# tins/day): No Frequency of alcohol use: None Drug Abuse: None - Past Medical History Cardiac Medical History: Reports: Hx Hypertension - PRECLAMPSIA Denies: Hx Coronary Artery Disease, Hx Heart Attack Pulmonary Medical History: Denies: Hx Asthma, Hx Bronchitis, Hx COPD, Hx Pneumonia, Hx Tuberculosis Neurological Medical History: Reports: Hx Migraine. Denies: Hx Cerebrovascular Accident, Hx Seizures Renal/ Medical History: Reports: Hx Kidney Stones, Hx Renal Insufficiency. Denies: Hx Peritoneal Dialysis GI Medical History: Reports: Hx Crohn's Disease, Hx Irritable Bowel, Hx Colonoscopy, Hx Endoscopy. Denies: Hx Ulcer Musculoskeltal Medical History: Reports Hx Arthritis, Reports Hx Musculoskeletal Trauma Traumatic Medical History: Reports: Hx Fractures Past Surgical History: Reports: Hx Cholecystectomy, Hx Dilation and Curettage - x2, Hx Gynecologic Surgery - D&C x's2, Hx Kidney (Renal Surgery) - Ureteral stent, lithotripsy x7, Hx Orthopedic Surgery - Foot surgery. Denies: Hx Hysterectomy, Hx Pacemaker - Immunizations Immunizations up to date: Yes Hx Diphtheria, Pertussis, Tetanus Vaccination: Yes History of Influenza Vaccine for 02/2017 - 07/2017 Season: No <CINDY MESA - Last Filed: 10/24/17 15:16> - Vital signs Vitals: Temp Pulse Resp BP Pulse Ox 98.5 F 101 H 20 132/95 H 100 10/24/17 11:57 10/24/17 11:57 10/24/17 11:57 10/24/17 11:57 10/24/17 11:57 Course - Laboratory Result Diagrams: 10/24/17 13:07 10/24/17 14:19 <CINDY MESA - Last Filed: 10/24/17 15:16> - Laboratory Result Diagrams: 10/24/17 13:07 10/24/17 14:19 <BRISEYDA CRUZ - Last Filed: 10/24/17 17:12> - Laboratory Result Diagrams: 10/24/17 13:07 10/24/17 14:19 <PRESTON MARCIAL - Last Filed: 10/24/17 21:41> - Vital Signs Vital signs: Temp Pulse Resp BP Pulse Ox 97.4 F 60 16 135/98 H 100 10/24/17 17:01 10/24/17 17:01 10/24/17 17:01 10/24/17 17:01 10/24/17 17:01 - Laboratory Laboratory results interpreted by me: 10/24/17 10/24/17 13:07 14:19 Seg Neutrophils % 79.0 H Chloride 110 H Carbon Dioxide 20 L Doctor's Discharge <CINDY MESA - Last Filed: 10/24/17 15:16> <BRISEYDA CRUZ - Last Filed: 10/24/17 17:12> <PRESTON MARCIAL - Last Filed: 10/24/17 21:41> - Discharge Clinical Impression: Flank pain Vomiting Qualifiers: Vomiting type: unspecified Vomiting Intractability: non-intractable Nausea presence: with nausea Qualified Code(s): R11.2 - Nausea with vomiting, unspecified Condition: Good Disposition: HOME, SELF-CARE Additional Instructions: Come back immediately for any increased pain, change in location or quality of pain, fevers, return of vomiting persistently, or any other acute problems. Please follow-up with your primary care physician as we have discussed. Prescriptions: Metoclopramide HCl [Reglan 10 mg Tablet] 1 tab PO ASDIR PRN #12 tablet PRN Reason: Ondansetron [Zofran Odt 4 mg Tablet] 1 tab PO Q6H #15 [email or web address] Nolan Documentation - Scribe Written by An:: An Blakely, 10/24/2017 1522 acting as scribe for :: Gustavo <CINDY MESA - Last Filed: 10/24/17 15:16>
[2017-10-24 13:25] LABS: ABSOLUTE LYMPHOCYTES (AUTO) 1.3 10^3/uL (0.5-4.7); ABSOLUTE MONOCYTES (AUTO) 0.3 10^3/uL (0.1-1.4); ABSOLUTE NEUT (AUTO) 6.2 10^3/uL (1.7-8.2); BASOPHILS % (AUTO) 0.4 % (0-2); EOSINOPHILS % (AUTO) 0.2 % (0-6); HEMATOCRIT 44.7 % (36.0-47.0); HEMOGLOBIN 15.2 g/dL (12.0-15.5); LYMPHOCYTES % (AUTO) 16.6 % (13-45); MEAN CORPUSCULAR HEMOGLOBIN 30.8 pg (27.0-33.4); MEAN CORPUSCULAR HGB CONC 34.1 g/dL (32.0-36.0); MEAN CORPUSCULAR VOLUME 90 fl (80-97); MONOCYTES % (AUTO) 3.8 % (3-13); PLATELET COUNT 291 10^3/uL (150-450); RED BLOOD COUNT 4.95 10^6/uL (3.72-5.28); RED CELL DISTRIBUTION WIDTH 13.5 % (11.5-14.0); TOTAL CELLS COUNTED % (AUTO) 100 %; WHITE BLOOD COUNT 7.9 10^3/uL (4.0-10.5)
[2017-10-24 14:31] LABS: VENOUS BLOOD BASE EXCESS -3.8 mmol/L; VENOUS BLOOD PCO2 42.8 mmHg (35-63); VENOUS BLOOD PH 7.33 (7.30-7.42)
[2017-10-24 14:38] LABS: INTERNATIONAL RATION (INR) 1.01; PROTHROMBIN TIME 13.8 SEC (11.4-15.4)
[2017-10-24 14:54] LABS: ALANINE AMINOTRANSFERASE 29 U/L (9-52); ALBUMIN 4.6 g/dL (3.5-5.0); ALKALINE PHOSPHATASE 54 U/L (38-126); ANION GAP 13 (5-19); ASPARTATE AMINO TRANSFERASE 20 U/L (14-36); BILIRUBIN,DIRECT 0.4 mg/dL (0.0-0.4); BILIRUBIN,TOTAL 0.6 mg/dL (0.2-1.3); BLOOD UREA NITROGEN 7 mg/dL (7-20); CALCIUM 9.7 mg/dL (8.4-10.2); CARBON DIOXIDE 20 mmol/L (22-30); CHLORIDE 110 mmol/L (98-107); GLUCOSE 87 mg/dL (75-110); POTASSIUM 4.3 mmol/L (3.6-5.0); SODIUM 142.5 mmol/L (137-145); TOTAL PROTEIN 7.3 g/dL (6.3-8.2)
[2017-10-24] MEDS ORDERED: ONDANSETRON HCL INJ/PF 4 MG/2 ML SDV IV ONE (15:08)
[2017-10-24 15:12] LABS: APPEARANCE,URINE CLEAR; BILIRUBIN,URINE NEGATIVE (NEGATIVE); COLOR,URINE YELLOW; GLUCOSE, URINE NEGATIVE (NEGATIVE); KETONES,URINE NEGATIVE (NEGATIVE); LEUKOCYTE ESTERASE,URINE NEGATIVE (NEGATIVE); NITRITE,URINE NEGATIVE (NEGATIVE); PROTEIN,URINE NEGATIVE (NEGATIVE); URINE SPECIFIC GRAVITY 1.025; UROBILINOGEN,URINE NEGATIVE mg/dL (<2.0)
--- NOTE | 2017-10-24 15:12 | RADIOLOGY REPORT (SQ) ---
EXAM DESCRIPTION: CT LTD RENAL STONE PROTOCOL ON COMPLETED DATE/TIME: 10/24/2017 2:55 pm REASON FOR STUDY: flank pain, fever, h/o stones COMPARISON: 04/20/2017. TECHNIQUE: CT scan of the abdomen and pelvis performed without intravenous or oral contrast. Images reviewed with lung, soft tissue, and bone windows. Reconstructed coronal and sagittal MPR images revi ewed. All images stored on PACS. All CT scanners at this facility use dose modulation, iterative reconstruction, and/or weight based d osing when appropriate to reduce radiation dose to as low as reasonably achievable (ALARA). [facility]: Dose Right [facility]: CareDose [facility]: Dose Right [facility]: Teradose 4D [facility]: [employer] RADIATION DOSE: CT Rad equipment meets quality standard of care and radiation dose reduction techniq ues were employed. CTDIvol: 6.9 mGy. DLP: 392 mGy-cm.mGy. LIMITATIONS: None. FINDINGS: LOWER CHEST: No significant findings. No nodules or infiltrates. NON-CONTRASTED LIVER, SPLEEN, ADRENALS: Evaluation limited by lack of IV contrast. No identified sign ificant masses. PANCREAS: No masses. No peripancreatic inflammatory changes. GALLBLADDER: No identified stones by CT criteria. No inflammatory changes to suggest cholecystitis. RIGHT KIDNEY AND URETER: No suspicious masses. Assessment limited by lack of IV contrast. Small juana yceal calculi. No hydronephrosis or hydroureter. LEFT KIDNEY AND URETER: No suspicious masses. Assessment limited by lack of IV contrast. Small joyce ceal calculus. No hydronephrosis or hydroureter. AORTA AND RETROPERITONEUM: No aneurysm. No retroperitoneal masses or adenopathy. BOWEL AND PERITONEAL CAVITY: No obvious masses or inflammatory changes. No free fluid. APPENDIX: Normal. PELVIS, BLADDER, AND ABDOMINAL WALL:No abnormal masses. No free fluid. Bladder normal. BONES: No significant findings. OTHER: No other significant finding. IMPRESSION: 1. SMALL NONOBSTRUCTING CALYCEAL CALCULI IN BOTH KIDNEYS. NO URETERAL CALCULI. 2. NO OTHER SIGNIFICANT OR ACUTE PROCESS IN THE ABDOMEN OR PELVIS. COMMENT: Quality ID # [id number]: Final reports with documentation of one or more dose reduction techniques (e.g., Automated exposure control, adjustment of the mA and/or kV according to patient size, use of iterative reconstruction technique) TECHNICAL DOCUMENTATION: JOB ID: [id number] [employer]- All Rights Reserved Reading location - IP/workstation name: [email or web address]
--- NOTE | 2017-10-24 15:14 | ER Document Report ---
ED GI/ - General Chief Complaint: Flank Pain Stated Complaint: RIGHT SIDE FLANK PAIN Time Seen by Provider: 10/24/17 12:16 Information source: Patient Notes: 27-year-old female with past medical history that is quite extensive as recorded with multiple kidney stones requiring lithotripsy who presents today stating the onset around 5 days ago of some right-sided flank pain. She also stated some dysuria. She stated some nausea and vomiting. She was seen here 4 days ago and was diagnosed with a possible kidney infection and started on antibiotics at home. No urine culture was done. She had a renal ultrasound. Patient states at home she has had some continued dysuria spiking a fever of 101. She states some persistent vomiting. She denies any change in location or quality of pain. She denies any headache, neck pain, sore throat, cough, or redness or swelling to the extremities. TRAVEL OUTSIDE OF THE [place] IN LAST 30 DAYS: No - HPI Patient complains to provider of: Other - See above Onset: Other - See above Timing/Duration: Gradual Quality of pain: Achy Severity at maximum: Moderate Severity in ED: Moderate Pain Level: 2 Context: Other - See above Location: Other Vaginal bleeding (Compared to normal period): None Associated symptoms: Other - See above Exacerbated by: Denies Relieved by: Denies Similar symptoms previously: No Recently seen / treated by doctor: No - Related Data Allergies/Adverse Reactions: butalbital [From Fioricet] Allergy (Verified 10/24/17 11:55) caffeine [From Fioricet] Allergy (Verified 10/24/17 11:55) codeine [Codeine] Allergy (Verified 10/24/17 11:55) Difficulty breathing haloperidol [From Haldol] Allergy (Verified 10/24/17 11:55) haloperidol lactate [From Haldol] Allergy (Verified 10/24/17 11:55) magnesium sulfate [Magnesium Sulfate] Allergy (Verified 10/24/17 11:55) hydromorphone HCl [From Dilaudid] Adverse Reaction (Verified 10/24/17 11:55) Renal failure ketorolac tromethamine [From Toradol] Adverse Reaction (Verified 10/24/17 11:55) metoclopramide HCl [From Reglan] Adverse Reaction (Verified 10/24/17 11:55) Anxiety tramadol [Tramadol] Adverse Reaction (Verified 10/24/17 11:55) Past Medical History - General Information source: Patient - Social History Smoking Status: Current Every Day Smoker Cigarette use (# per day): No Chew tobacco use (# tins/day): No Smoking Education Provided: No Frequency of alcohol use: None Drug Abuse: None Family History: Reviewed & Not Pertinent, CAD, Hyperlipidemia, Hypertension, Malignancy, Other - breast cancer, renal calculi Patient has suicidal ideation: No Patient has homicidal ideation: No - Past Medical History Cardiac Medical History: Reports: Hx Hypertension - PRECLAMPSIA Denies: Hx Coronary Artery Disease, Hx Heart Attack Pulmonary Medical History: Denies: Hx Asthma, Hx Bronchitis, Hx COPD, Hx Pneumonia, Hx Tuberculosis Neurological Medical History: Reports: Hx Migraine. Denies: Hx Cerebrovascular Accident, Hx Seizures Renal/ Medical History: Reports: Hx Kidney Stones, Hx Renal Insufficiency. Denies: Hx Peritoneal Dialysis GI Medical History: Reports: Hx Crohn's Disease, Hx Irritable Bowel, Hx Colonoscopy, Hx Endoscopy. Denies: Hx Ulcer Musculoskeltal Medical History: Reports Hx Arthritis, Reports Hx Musculoskeletal Trauma Traumatic Medical History: Reports: Hx Fractures Past Surgical History: Reports: Hx Cholecystectomy, Hx Dilation and Curettage - x2, Hx Gynecologic Surgery - D&C x's2, Hx Kidney (Renal Surgery) - Ureteral stent, lithotripsy x7, Hx Orthopedic Surgery - Foot surgery. Denies: Hx Hysterectomy, Hx Pacemaker - Immunizations Immunizations up to date: Yes Hx Diphtheria, Pertussis, Tetanus Vaccination: Yes Hx Pneumococcal Vaccination: 07/18/12 Review of Systems - Review of Systems Constitutional: Fever EENT: denies: Eye discharge, Nose discharge Cardiovascular: denies: Chest pain Respiratory: denies: Short of breath Gastrointestinal: Vomiting Genitourinary: Dysuria Musculoskeletal: denies: Leg swelling Skin: Other - no hives. denies: Rash Neurological/Psychological: Other - no slurred speech -: Yes All other systems reviewed and negative Physical Exam - Vital signs Vitals: Temp Pulse Resp BP Pulse Ox 98.5 F 101 H 20 132/95 H 100 10/24/17 11:57 10/24/17 11:57 10/24/17 11:57 10/24/17 11:57 10/24/17 11:57 Notes: Reviewed vital signs and nursing note as charted by RN. CONSTITUTIONAL: Alert and oriented and responds appropriately to questions. Well -appearing; well-nourished HEAD: Normocephalic; atraumatic EYES: PERRL NECK: Supple without meningismus; non-tender CARD: Regular rate and rhythm; no murmurs RESP: Normal chest excursion without splinting or tachypnea; breath sounds clear and equal bilaterally ABD/GI: Normal bowel sounds; non-distended; soft, minimal tender to palpation of the right flank/mid abdomen BACK: The back appears normal and is non-tender to palpation, right-sided CVA tenderness without any swelling or erythema noted EXT: Normal ROM in all joints; non-tender to palpation; no edema SKIN: Normal color for age and race; no acute lesions noted NEURO: Moves all extremities equally; Motor and sensory function intact PSYCH: The patient's mood and manner are appropriate. Grooming and personal hygiene are appropriate. Course - Re-evaluation Re-evalutation: Given the above history and physical examination we will order urine analysis, urine culture, renal colic CT scan, basic labs, and repeat urine analysis. I am concerned about possible failed outpatient therapy. Fluids and nausea medications have been given. 10/24/17 15:47 Labs as recorded. Urine analysis as recorded. CT scan is recorded. Patient does not appear to have any kidney stones in the ureters bilaterally. Unfortunately, the patient does have a very long history of possible drug- seeking behavior as recorded in our emergency department. I have provided pain medications 1. I explained to the patient that I would not be able to provide any more narcotic medications while she is here. I have explained that I am extremely eager and willing to help by providing any non-narcotic medications that the patient may need. 10/24/17 16:39 Patient states she feels "much better". She has had no vomiting. Abdomen is soft and nontender. CT and labs as recorded. Urine culture has been sent. Patient is still taking antibiotics at home. Patient will be discharged home with a prescription for Zofran and strict return precautions. Patient is very comfortable with this plan. - Vital Signs Vital signs: Temp Pulse Resp BP Pulse Ox 98.5 F 101 H 20 132/95 H 100 10/24/17 11:57 10/24/17 11:57 10/24/17 11:57 10/24/17 11:57 10/24/17 11:57 - Laboratory Result Diagrams: 10/24/17 13:07 10/24/17 14:19 Laboratory results interpreted by me: 10/24/17 10/24/17 13:07 14:19 Seg Neutrophils % 79.0 H Chloride 110 H Carbon Dioxide 20 L Discharge - Discharge Clinical Impression: Flank pain Vomiting Qualifiers: Vomiting type: unspecified Vomiting Intractability: non-intractable Nausea presence: with nausea Qualified Code(s): R11.2 - Nausea with vomiting, unspecified Condition: Good Disposition: HOME, SELF-CARE Additional Instructions: Come back immediately for any increased pain, change in location or quality of pain, fevers, return of vomiting persistently, or any other acute problems. Please follow-up with your primary care physician as we have discussed. Prescriptions: Ondansetron [Zofran Odt 4 mg Tablet] 1 tab PO Q6H #15 tab.[email or web address]
[2017-10-24 17:18] VITALS: BP 135/98
--- NOTE | 2017-10-24 22:54 | EKG REPORT ---
SEVERITY:- BORDERLINE ECG - SINUS RHYTHM BORDERLINE T ABNORMALITIES, ANTERIOR LEADS : Confirmed by: Azra Denney MD 24-Oct-2017 22:53:21
== END 2017-10-24 17:18 | disposition home or self-care (01) ==
LOC: ER 11:54
DX: R11.2 Nausea with vomiting, unspecified (principal); R10.9 Unspecified abdominal pain; R30.0 Dysuria; F17.200 Nicotine dependence, unspecified, uncomplicated; I10 Essential (primary) hypertension
CPT/HCPCS: 93005; 96376; 99284; 96361; 96375; 96365; 36415; 87040; 87086; 82962; 84703; 85025; 85610; 80053; 81001; 82803; 83605; 76380; 93010; J2270; J2405; J7030; J2543

== ENCOUNTER 2018-01-02 16:57 | Emergency (ER) | payer MEDICAID ==
[2018-01-02] MEDS ORDERED: NORMAL SALINE 1000 ML 1,000 ML IV ONE (17:25)
--- NOTE | 2018-01-02 17:28 | ER Document Report ---
ED Medical Screen (RME) - General Chief Complaint: Flank Pain Stated Complaint: L FLANK PAIN/ BLOOD IN URINE Time Seen by Provider: 01/02/18 17:15 Notes: 27 years old female presents today with left flank pain and left groin pain, a 1 day duration. Questionable hematuria. No fever chills but nauseous. She claims multiple allergies. Also claimed that she was diagnosed with Crohn' s disease and in remission therefore cannot take anti-inflammatory agents. Claims that she had multiple kidney stone in 16 lithotripsies. Her last visit a CT scan showed only a small stone in the calluses. But she claims she has multiple stones in the kidney. TRAVEL OUTSIDE OF THE [place] IN LAST 30 DAYS: No - Related Data Allergies/Adverse Reactions: butalbital [From Fioricet] Allergy (Verified 01/02/18 17:05) caffeine [From Fioricet] Allergy (Verified 01/02/18 17:05) codeine [Codeine] Allergy (Verified 01/02/18 17:05) Difficulty breathing haloperidol [From Haldol] Allergy (Verified 01/02/18 17:05) haloperidol lactate [From Haldol] Allergy (Verified 01/02/18 17:05) magnesium sulfate [Magnesium Sulfate] Allergy (Verified 01/02/18 17:05) hydromorphone HCl [From Dilaudid] Adverse Reaction (Verified 01/02/18 17:05) Renal failure ketorolac tromethamine [From Toradol] Adverse Reaction (Verified 01/02/18 17:05) metoclopramide HCl [From Reglan] Adverse Reaction (Verified 01/02/18 17:05) Anxiety tramadol [Tramadol] Adverse Reaction (Verified 01/02/18 17:05) Past Medical History - Social History Chew tobacco use (# tins/day): No Frequency of alcohol use: None - Past Medical History Cardiac Medical History: Reports: Hx Hypertension - PRECLAMPSIA Denies: Hx Coronary Artery Disease, Hx Heart Attack Pulmonary Medical History: Denies: Hx Asthma, Hx Bronchitis, Hx COPD, Hx Pneumonia, Hx Tuberculosis Neurological Medical History: Reports: Hx Migraine. Denies: Hx Cerebrovascular Accident, Hx Seizures Renal/ Medical History: Reports: Hx Kidney Stones, Hx Renal Insufficiency. Denies: Hx Peritoneal Dialysis GI Medical History: Reports: Hx Crohn's Disease, Hx Irritable Bowel, Hx Colonoscopy, Hx Endoscopy. Denies: Hx Ulcer Musculoskeltal Medical History: Reports Hx Arthritis, Reports Hx Musculoskeletal Trauma Traumatic Medical History: Reports: Hx Fractures Past Surgical History: Reports: Hx Cholecystectomy, Hx Dilation and Curettage - x2, Hx Gynecologic Surgery - D&C x's2, Hx Kidney (Renal Surgery) - Ureteral stent, lithotripsy x7, Hx Orthopedic Surgery - Foot surgery. Denies: Hx Hysterectomy, Hx Pacemaker - Immunizations Immunizations up to date: Yes Hx Diphtheria, Pertussis, Tetanus Vaccination: Yes History of Influenza Vaccine for 02/2017 - 07/2017 Season: No Physical Exam - Vital signs Vitals: Temp Pulse Resp BP Pulse Ox 98.6 F 92 20 142/101 H 100 01/02/18 17:02 01/02/18 17:02 01/02/18 17:02 01/02/18 17:02 01/02/18 17:02 Course - Vital Signs Vital signs: Temp Pulse Resp BP Pulse Ox 98.6 F 92 20 142/101 H 100 01/02/18 17:03 01/02/18 17:03 01/02/18 17:03 01/02/18 17:03 01/02/18 17:03
[2018-01-02 18:39] LABS: ABSOLUTE LYMPHOCYTES (AUTO) 1.6 10^3/uL (0.5-4.7); ABSOLUTE MONOCYTES (AUTO) 0.4 10^3/uL (0.1-1.4); ABSOLUTE NEUT (AUTO) 5.6 10^3/uL (1.7-8.2); BASOPHILS % (AUTO) 0.5 % (0-2); EOSINOPHILS % (AUTO) 0.5 % (0-6); HEMOGLOBIN 14.7 g/dL (12.0-15.5); LYMPHOCYTES % (AUTO) 21.3 % (13-45); MEAN CORPUSCULAR HEMOGLOBIN 31.4 pg (27.0-33.4); MEAN CORPUSCULAR HGB CONC 34.2 g/dL (32.0-36.0); MEAN CORPUSCULAR VOLUME 92 fl (80-97); MONOCYTES % (AUTO) 4.8 % (3-13); PLATELET COUNT 220 10^3/uL (150-450); RED BLOOD COUNT 4.69 10^6/uL (3.72-5.28); RED CELL DISTRIBUTION WIDTH 13.3 % (11.5-14.0); SEGMENTED NEUTROPHILS % (AUTO) 72.9 % (42-78); TOTAL CELLS COUNTED % (AUTO) 100 %; WHITE BLOOD COUNT 7.7 10^3/uL (4.0-10.5)
[2018-01-02 18:40] LABS: APPEARANCE,URINE SLIGHTLY-CLOUDY; BILIRUBIN,URINE NEGATIVE (NEGATIVE); COLOR,URINE YELLOW; GLUCOSE, URINE NEGATIVE (NEGATIVE); KETONES,URINE TRACE mg/dL (NEGATIVE); LEUKOCYTE ESTERASE,URINE MODERATE (NEGATIVE); NITRITE,URINE NEGATIVE (NEGATIVE); PROTEIN,URINE NEGATIVE (NEGATIVE); URINE SPECIFIC GRAVITY 1.018; UROBILINOGEN,URINE NEGATIVE mg/dL (<2.0)
[2018-01-02 18:47] LABS: URINE AMPHETAMINES SCREEN NEGATIVE; URINE BARBITURATES SCREEN NEGATIVE; URINE COCAINE SCREEN NEGATIVE; URINE MARIJUANA (THC) SCREEN NEGATIVE; URINE METHADONE SCREEN NEGATIVE; URINE PHENCYCLIDINE SCREEN NEGATIVE
[2018-01-02 18:53] LABS: URINE BENZODIAZEPINES SCREEN NEGATIVE
[2018-01-02] MEDS ORDERED: PROMETHAZINE HCL INJ 25 MG/1 ML VIAL IV ONE ×2 (19:13→21:09)
[2018-01-02] MEDS ORDERED: MORPHINE SULFATE 10 MG/ML INJ IV PRN (19:13)
[2018-01-02] MEDS ORDERED: TAMSULOSIN HCL 0.4 MG CAP.SR.24H PO ONE (19:21)
--- NOTE | 2018-01-02 19:23 | ER Document Report ---
ED General - General Chief Complaint: Flank Pain Stated Complaint: L FLANK PAIN/ BLOOD IN URINE Time Seen by Provider: 01/02/18 17:15 Notes: Patient is a 27 year old female with a past medical history of recurrent kidney stones with multiple stones in the past that have necessitated lithotripsy who presents with left flank pain that started several hours prior to arrival and has become progressively worse since that time. She describes the pain as a severe, constant, stabbing pain to the affected area. Nothing improves or worsens that pain. States this feels very similar to when she has had kidney stones in the past. She denies any associated fever or constitutional symptoms but notes that she has had associated nausea and vomiting today. She has not seen her urologist or general doctor regarding today's concerns. TRAVEL OUTSIDE OF THE [place] IN LAST 30 DAYS: No - Related Data Allergies/Adverse Reactions: butalbital [From Fioricet] Allergy (Verified 01/02/18 17:05) caffeine [From Fioricet] Allergy (Verified 01/02/18 17:05) codeine [Codeine] Allergy (Verified 01/02/18 17:05) Difficulty breathing haloperidol [From Haldol] Allergy (Verified 01/02/18 17:05) haloperidol lactate [From Haldol] Allergy (Verified 01/02/18 17:05) magnesium sulfate [Magnesium Sulfate] Allergy (Verified 01/02/18 17:05) hydromorphone HCl [From Dilaudid] Adverse Reaction (Verified 01/02/18 17:05) Renal failure ketorolac tromethamine [From Toradol] Adverse Reaction (Verified 01/02/18 17:05) metoclopramide HCl [From Reglan] Adverse Reaction (Verified 01/02/18 17:05) Anxiety tramadol [Tramadol] Adverse Reaction (Verified 01/02/18 17:05) Past Medical History - General Information source: Patient - Social History Smoking Status: Never Smoker Chew tobacco use (# tins/day): No Frequency of alcohol use: None Drug Abuse: None Lives with: Family Family History: Reviewed & Not Pertinent, CAD, Hyperlipidemia, Hypertension, Malignancy, Other - breast cancer, renal calculi Patient has suicidal ideation: No Patient has homicidal ideation: No - Past Medical History Cardiac Medical History: Reports: Hx Hypertension - PRECLAMPSIA Denies: Hx Coronary Artery Disease, Hx Heart Attack Pulmonary Medical History: Denies: Hx Asthma, Hx Bronchitis, Hx COPD, Hx Pneumonia, Hx Tuberculosis Neurological Medical History: Reports: Hx Migraine. Denies: Hx Cerebrovascular Accident, Hx Seizures Renal/ Medical History: Reports: Hx Kidney Stones, Hx Renal Insufficiency. Denies: Hx Peritoneal Dialysis GI Medical History: Reports: Hx Crohn's Disease, Hx Irritable Bowel, Hx Colonoscopy, Hx Endoscopy. Denies: Hx Ulcer Musculoskeletal Medical History: Reports Hx Arthritis, Reports Hx Musculoskeletal Trauma Traumatic Medical History: Reports: Hx Fractures Past Surgical History: Reports: Hx Cholecystectomy, Hx Dilation and Curettage - x2, Hx Gynecologic Surgery - D&C x's2, Hx Kidney (Renal Surgery) - Ureteral stent, lithotripsy x7, Hx Orthopedic Surgery - Foot surgery. Denies: Hx Hysterectomy, Hx Pacemaker - Immunizations Immunizations up to date: Yes Hx Diphtheria, Pertussis, Tetanus Vaccination: Yes Hx Pneumococcal Vaccination: 07/18/12 Review of Systems - Review of Systems Notes: Constitutional: Negative for fever. HENT: Negative for sore throat. Eyes: Negative for visual changes. Cardiovascular: Negative for chest pain. Respiratory: Negative for shortness of breath. Gastrointestinal: Positive for flank and abdominal pain. Positive for vomiting. Genitourinary: Positive for hematuria Musculoskeletal: Negative for back pain. Skin: Negative for rash. Neurological: Negative for headaches, weakness or numbness. 10 point ROS negative except as marked above and in HPI. Physical Exam - Vital signs Vitals: Temp Pulse Resp BP Pulse Ox 98.6 F 92 20 142/101 H 100 01/02/18 17:02 01/02/18 17:02 01/02/18 17:02 01/02/18 17:02 01/02/18 17:02 Interpretation: Hypertensive Notes: PHYSICAL EXAMINATION: GENERAL: Well-appearing, well-nourished and in no acute distress. HEAD: Atraumatic, normocephalic. EYES: Pupils equal round and reactive to light, extraocular movements intact, sclera anicteric, conjunctiva are normal. ENT: nares patent, oropharynx clear without exudates. Mildly dry mucous membranes. NECK: Normal range of motion, supple without lymphadenopathy LUNGS: Breath sounds clear to auscultation bilaterally and equal. No wheezes rales or rhonchi. HEART: Regular rate and rhythm without murmurs ABDOMEN: Soft, mild left CVA tenderness to palpation otherwise nontender, normoactive bowel sounds. No guarding, no rebound. No masses appreciated. EXTREMITIES: Normal range of motion, no pitting or edema. No cyanosis. NEUROLOGICAL: No focal neurological deficits. Moves all extremities spontaneously and on command. PSYCH: Normal mood, normal affect. SKIN: Warm, Dry, normal turgor, no rashes or lesions noted. Course - Re-evaluation Re-evalutation: 01/02/18 19:19 Presents with findings consistent with acute nephrolithiasis. Urinalysis does show hematuria. Laboratory otherwise unremarkable. Pain was able to be controlled here in the emergency department. Patient is tolerating oral intake. Clinical history is not consistent with an acute abdominal aneurysm or dissection, [place], or pulmonary embolus. Urinalysis does not show findings consistent with an infected stone. Vitals have remained within normal limits. Patient has been instructed to follow-up closely with her urologist ideally within the next 24-48 hours. We have also reviewed avoiding CT imaging during initial presentations for her kidney stones with absence of septic features. The patient has had 13 CT scans of her abdomen and pelvis since 2011. She has also had 5 CTs of her head making a total of 18 CT scans in the past 7 years in a woman who is only 27 years of age. This is a remarkably concerning frequency of CT imaging and places the patient at a dramatically elevated risk of malignancy. I have encouraged the patient to continue to avoid CT imaging unless there is a pressing, emergent need for this imaging modality which we agree is not the case today. At this time will discharge with return precautions and follow-up recommendations. Verbal discharge instructions given a the bedside and opportunity for questions given. Medication warnings reviewed. Patient is in agreement with this plan and has verbalized understanding of return precautions and the need for primary care follow-up in the next 24-72 hours. - Vital Signs Vital signs: Temp Pulse Resp BP Pulse Ox 98.8 F 68 18 119/82 99 01/02/18 22:28 01/02/18 22:28 01/02/18 22:28 01/02/18 22:28 01/02/18 22:28 - Laboratory Result Diagrams: 01/02/18 17:35 01/02/18 20:50 Laboratory results interpreted by me: 01/02/18 01/02/18 17:35 20:50 Chloride 109 H Glucose 69 L Urine Ketones TRACE H Urine Blood SMALL H Ur Leukocyte Esterase MODERATE H - Diagnostic Test Radiology reviewed: Reports reviewed Discharge - Discharge Clinical Impression: Left flank pain, Nephrolithiasis Nausea and vomiting Qualifiers: Vomiting type: unspecified Vomiting Intractability: non-intractable Qualified Code(s): R11.2 - Nausea with vomiting, unspecified Condition: Good Disposition: HOME, SELF-CARE Additional Instructions: Your symptoms should improve over the course of the next one week. If you continue to have pain for greater than one week or your pain is not controlled with the pain medications that you have been sent home with you need to return to the emergency department. Please also return if you develop fever, persistent vomiting, severe pain, or any other symptoms that are concerning to you. Use the oral morphine as prescribed only for pain not controlled by Tylenol. You are also been sent home with a medication called Flomax to help pass the stone. You've been given Phenergan to assist with nausea and vomiting. Please follow-up with your urologist within the next 24-48 hours. Prescriptions: Morphine Sulfate [Morphine Ir 15 mg Tablet] 15 mg PO Q6HP PRN #6 tablet PRN Reason: Promethazine HCl [Phenergan 25 mg Tablet] 1 - 2 tab PO Q6H PRN #15 tablet PRN Reason: Tamsulosin HCl [Flomax 0.4 mg Cap.sr] 0.4 mg PO DAILY #7 cap.sr.24h
--- NOTE | 2018-01-02 19:52 | RADIOLOGY REPORT (SQ) ---
EXAM DESCRIPTION: KUB/ABDOMEN (SINGLE VIEW) COMPLETED DATE/TIME: 01/02/2018 6:55 pm REASON FOR STUDY: Flank pain COMPARISON: None. NUMBER OF VIEWS: One view. TECHNIQUE: Supine radiographic image of the abdomen acquired. LIMITATIONS: None. FINDINGS: BOWEL GAS PATTERN: Normal bowel gas pattern. No dilated loops. CALCIFICATIONS: No suspicious calcifications. SOFT TISSUES: No gross mass or suggestion of organomegaly. HARDWARE: None in the abdomen. BONES: No acute fracture. No worrisome bone lesions. OTHER: No other significant finding. IMPRESSION: NO RADIOGRAPHIC EVIDENCE FOR ACUTE ABDOMINAL DISEASE. TECHNICAL DOCUMENTATION: JOB ID: [id number] [employer]- All Rights Reserved Reading location - IP/workstation name: [email or web address]
[2018-01-02] MEDS ORDERED: ACETAMINOPHEN 325 MG TABLET PO ONE (20:43)
[2018-01-02 21:13] LABS: ALANINE AMINOTRANSFERASE 17 U/L (9-52); ALBUMIN 4.8 g/dL (3.5-5.0); ALKALINE PHOSPHATASE 53 U/L (38-126); ANION GAP 14 (5-19); ASPARTATE AMINO TRANSFERASE 20 U/L (14-36); BILIRUBIN,DIRECT 0.3 mg/dL (0.0-0.4); BILIRUBIN,TOTAL 0.5 mg/dL (0.2-1.3); BLOOD UREA NITROGEN 7 mg/dL (7-20); CALCIUM 9.5 mg/dL (8.4-10.2); CARBON DIOXIDE 22 mmol/L (22-30); CHLORIDE 109 mmol/L (98-107); GLUCOSE 69 mg/dL (75-110); POTASSIUM 4.1 mmol/L (3.6-5.0); SODIUM 144.6 mmol/L (137-145); TOTAL PROTEIN 7.9 g/dL (6.3-8.2)
[2018-01-02 22:29] VITALS: BP 119/82
== END 2018-01-02 22:29 | disposition home or self-care (01) ==
LOC: ER 16:57
DX: N20.0 Calculus of kidney (principal); R11.2 Nausea with vomiting, unspecified; R31.9 Hematuria, unspecified; R10.9 Unspecified abdominal pain; Z88.6 Allergy status to analgesic agent; Z87.442 Personal history of urinary calculi; Z90.49 Acquired absence of other specified parts of digestive tract
CPT/HCPCS: 96376; 99284; 96361; 96374; 96375; 36415; 85025; 81025; 80053; 81001; 80307; 74018; J2270; J3490; J2550; J7030

== ENCOUNTER 2018-02-13 14:16 | Emergency (ER) | payer MEDICAID ==
[2018-02-13] MEDS ORDERED: NORMAL SALINE 1000 ML 1,000 ML IV ONE (14:58)
--- NOTE | 2018-02-13 15:01 | ER Document Report ---
ED GI/ - General Chief Complaint: Flank Pain Stated Complaint: FLANK PAIN,BLOOD IN URNIE Time Seen by Provider: 02/13/18 14:56 Notes: 27 years old female claims that she has a history of kidney stones migraines, Crohn's disease, cannot take nonsteroidal anti-inflammatory drugs because of past kidney failure. She states she was told by the urologist not to take it. Presents today with right flank pain radiated to the groin since last Saturday. She appears very comfortable, normal exam TRAVEL OUTSIDE OF THE [place] IN LAST 30 DAYS: No - Related Data Allergies/Adverse Reactions: butalbital [From Fioricet] Allergy (Verified 02/13/18 14:19) caffeine [From Fioricet] Allergy (Verified 02/13/18 14:19) codeine [Codeine] Allergy (Verified 02/13/18 14:19) Difficulty breathing haloperidol [From Haldol] Allergy (Verified 02/13/18 14:19) haloperidol lactate [From Haldol] Allergy (Verified 02/13/18 14:19) magnesium sulfate [Magnesium Sulfate] Allergy (Verified 02/13/18 14:19) hydromorphone HCl [From Dilaudid] Adverse Reaction (Verified 02/13/18 14:19) Renal failure ketorolac tromethamine [From Toradol] Adverse Reaction (Verified 02/13/18 14:19) metoclopramide HCl [From Reglan] Adverse Reaction (Verified 02/13/18 14:19) Anxiety tramadol [Tramadol] Adverse Reaction (Verified 02/13/18 14:19) Past Medical History - Social History Smoking Status: Current Every Day Smoker Chew tobacco use (# tins/day): No Frequency of alcohol use: None Drug Abuse: None Family History: Reviewed & Not Pertinent, CAD, Hyperlipidemia, Hypertension, Malignancy, Other - breast cancer, renal calculi Patient has suicidal ideation: No Patient has homicidal ideation: No - Past Medical History Cardiac Medical History: Reports: Hx Hypertension - PRECLAMPSIA Denies: Hx Coronary Artery Disease, Hx Heart Attack Pulmonary Medical History: Denies: Hx Asthma, Hx Bronchitis, Hx COPD, Hx Pneumonia, Hx Tuberculosis Neurological Medical History: Reports: Hx Migraine. Denies: Hx Cerebrovascular Accident, Hx Seizures Renal/ Medical History: Reports: Hx Kidney Stones, Hx Renal Insufficiency. Denies: Hx Peritoneal Dialysis GI Medical History: Reports: Hx Crohn's Disease, Hx Irritable Bowel, Hx Colonoscopy, Hx Endoscopy. Denies: Hx Ulcer Musculoskeletal Medical History: Reports Hx Arthritis, Reports Hx Musculoskeletal Trauma Traumatic Medical History: Reports: Hx Fractures Past Surgical History: Reports: Hx Cholecystectomy, Hx Dilation and Curettage - x2, Hx Gynecologic Surgery - D&C x's2, Hx Kidney (Renal Surgery) - Ureteral stent, lithotripsy x7, Hx Orthopedic Surgery - Foot surgery. Denies: Hx Hysterectomy, Hx Pacemaker - Immunizations Immunizations up to date: Yes Hx Diphtheria, Pertussis, Tetanus Vaccination: Yes Hx Pneumococcal Vaccination: 07/18/12 Physical Exam - Vital signs Vitals: Temp Pulse Resp BP Pulse Ox 98.6 F 95 16 127/92 H 98 02/13/18 14:27 02/13/18 14:27 02/13/18 14:27 02/13/18 14:02/13/18 14:27 Course - Vital Signs Vital signs: Temp Pulse Resp BP Pulse Ox 98.6 F 95 16 127/92 H 98 02/13/18 14:27 02/13/18 14:27 02/13/18 14:27 02/13/18 14:27 02/13/18 14:27
--- NOTE | 2018-02-13 15:31 | RADIOLOGY REPORT (SQ) ---
EXAM DESCRIPTION: KUB/ABDOMEN (SINGLE VIEW) COMPLETED DATE/TIME: 02/13/2018 3:21 pm REASON FOR STUDY: Possible stone COMPARISON: 01/02/2018 NUMBER OF VIEWS: One view. TECHNIQUE: Supine radiographic image of the abdomen acquired. LIMITATIONS: None. FINDINGS: BOWEL GAS PATTERN: Normal bowel gas pattern. No dilated loops. CALCIFICATIONS: No suspicious calcifications. SOFT TISSUES: No gross mass or suggestion of organomegaly. HARDWARE: Surgical clips are identified in the right upper quadrant. BONES: No acute fracture. No worrisome bone lesions. OTHER: No other significant finding. IMPRESSION: NO RADIOGRAPHIC EVIDENCE FOR ACUTE ABDOMINAL DISEASE. TECHNICAL DOCUMENTATION: JOB ID: [id number] [employer]- All Rights Reserved Reading location - IP/workstation name: [email or web address]
[2018-02-13 15:41] LABS: AMORPHOUS SEDIMENT,URINE 1+ /HPF; APPEARANCE,URINE TURBID; BILIRUBIN,URINE NEGATIVE (NEGATIVE); COLOR,URINE YELLOW; GLUCOSE, URINE NEGATIVE (NEGATIVE); KETONES,URINE NEGATIVE (NEGATIVE); LEUKOCYTE ESTERASE,URINE NEGATIVE (NEGATIVE); NITRITE,URINE NEGATIVE (NEGATIVE); PROTEIN,URINE NEGATIVE (NEGATIVE); URINE SPECIFIC GRAVITY 1.017; UROBILINOGEN,URINE NEGATIVE mg/dL (<2.0)
--- NOTE | 2018-02-13 15:47 | ER Document Report ---
ED General - General Chief Complaint: Flank Pain Stated Complaint: FLANK PAIN,BLOOD IN URNIE Time Seen by Provider: 02/13/18 14:56 Notes: Patient is a 27 year old female that presents to the emergency department for chief complaint of right flank pain. Patient states that she has a long history of multiple kidney stones, requiring lithotripsy, and her pain on her right flank that started 2 days ago has progressed to the point where it is similar to her prior kidney stones. With pain from the right flank that radiates towards her groin that she describes as a sharp, aching sensation, that is constant at this time. She currently rates it as an 8 out of 10. She had associated nausea but no vomiting. Denies any fevers, chills, night sweats , chest pain, shortness of breath, diarrhea. She does admit to having some hematuria today, but denies having any dysuria. Past Medical History: Kidney stones, Crohn's disease, migraines Past Surgical History: Multiple lithotripsies Social History: Occasional ETOH use, denies tobacco or drug use. Family History: Reviewed and noncontributory for presenting illness Allergies: Reviewed, see documented allergy list. REVIEW OF SYSTEMS: Unless otherwise stated in this report the patient's positive and negative responses for review of systems for constitutional, eyes, ENT, cardiovascular, respiratory, gastrointestinal, neurological, genitourinary, musculoskeletal, and integumentary systems and related systems to the presenting problem are either as stated in the HPI or were not pertinent or were negative for the symptoms and/or complaints related to the presenting medical problem. PHYSICAL EXAMINATION: Vital signs reviewed, nursing noted reviewed. GENERAL: Well-appearing, well-nourished and in no acute distress. HEAD: Atraumatic, normocephalic. EYES: Eyes appear normal, extraocular movements intact, sclera anicteric, conjunctiva are normal. ENT: nares patent, oropharynx clear without exudates. Moist mucous membranes. NECK: Normal range of motion, supple without lymphadenopathy LUNGS: Breath sounds clear to auscultation bilaterally and equal. No wheezes rales or rhonchi. HEART: Regular rate and rhythm without murmurs ABDOMEN: Right flank tenderness with palpation, soft, normoactive bowel sounds. No rebound, guarding, or rigidity. No masses appreciated. EXTREMITIES: Nontender, good range of motion, no pitting or edema. NEUROLOGICAL: No focal neurological deficits. Moves all extremities spontaneously Motor and sensory grossly intact on exam. PSYCH: Normal mood, normal affect. SKIN: Warm, Dry, normal turgor, no rashes or lesions noted on exposed skin TRAVEL OUTSIDE OF THE [place] IN LAST 30 DAYS: No - Related Data Allergies/Adverse Reactions: butalbital [From Fioricet] Allergy (Verified 02/13/18 14:19) caffeine [From Fioricet] Allergy (Verified 02/13/18 14:19) codeine [Codeine] Allergy (Verified 02/13/18 14:19) Difficulty breathing haloperidol [From Haldol] Allergy (Verified 02/13/18 14:19) haloperidol lactate [From Haldol] Allergy (Verified 02/13/18 14:19) magnesium sulfate [Magnesium Sulfate] Allergy (Verified 02/13/18 14:19) hydromorphone HCl [From Dilaudid] Adverse Reaction (Verified 02/13/18 14:19) Renal failure ketorolac tromethamine [From Toradol] Adverse Reaction (Verified 02/13/18 14:19) metoclopramide HCl [From Reglan] Adverse Reaction (Verified 02/13/18 14:19) Anxiety tramadol [Tramadol] Adverse Reaction (Verified 02/13/18 14:19) Past Medical History - Social History Smoking Status: Current Every Day Smoker Chew tobacco use (# tins/day): No Frequency of alcohol use: None Drug Abuse: None Family History: Reviewed & Not Pertinent, CAD, Hyperlipidemia, Hypertension, Malignancy, Other - breast cancer, renal calculi Patient has suicidal ideation: No Patient has homicidal ideation: No - Past Medical History Cardiac Medical History: Reports: Hx Hypertension - PRECLAMPSIA Denies: Hx Coronary Artery Disease, Hx Heart Attack Pulmonary Medical History: Denies: Hx Asthma, Hx Bronchitis, Hx COPD, Hx Pneumonia, Hx Tuberculosis Neurological Medical History: Reports: Hx Migraine. Denies: Hx Cerebrovascular Accident, Hx Seizures Renal/ Medical History: Reports: Hx Kidney Stones, Hx Renal Insufficiency. Denies: Hx Peritoneal Dialysis GI Medical History: Reports: Hx Crohn's Disease, Hx Irritable Bowel, Hx Colonoscopy, Hx Endoscopy. Denies: Hx Ulcer Musculoskeletal Medical History: Reports Hx Arthritis, Reports Hx Musculoskeletal Trauma Traumatic Medical History: Reports: Hx Fractures Past Surgical History: Reports: Hx Cholecystectomy, Hx Dilation and Curettage - x2, Hx Gynecologic Surgery - D&C x's2, Hx Kidney (Renal Surgery) - Ureteral stent, lithotripsy x7, Hx Orthopedic Surgery - Foot surgery. Denies: Hx Hysterectomy, Hx Pacemaker - Immunizations Immunizations up to date: Yes Hx Diphtheria, Pertussis, Tetanus Vaccination: Yes Hx Pneumococcal Vaccination: 07/18/12 Physical Exam - Vital signs Vitals: Temp Pulse Resp BP Pulse Ox 98.6 F 95 16 127/92 H 98 02/13/18 14:27 02/13/18 14:27 02/13/18 14:27 02/13/18 14:02/13/18 14:27 Course - Re-evaluation Re-evalutation: Patient seen and examined vital signs reviewed. Laboratory data and imaging were ordered as appropriate for the patient's presenting symptoms and complaint, with consideration of any critical or life threatening conditions that may be associated with their obtained history and exam as noted above. Patient was treated with IV fluids, morphine and Zofran Results were reviewed when available and demonstrated hematuria and her urinalysis, bedside renal ultrasound was negative for hydronephrosis, KUB was ordered, and was negative for evidence of renal stone, given the patient's significant history for recurrent renal stones, and needing stenting, we will treat the patient as if she has one currently, we will not CT image or has she has had multiple CT images, and has been exposed to significant radiation amounts in the past. Her urine did demonstrate trace bacteria, therefore we will treat her with antibiotic as outpatient, not convinced she does have a significant urinary tract infection, however given that she may have a renal stone, will start her on antibiotics. The patient was re-evaluated and was improved Evaluation was most consistent with renal colic, will discharge the patient home on Flomax, Percocet, and cefdinir. Results were discussed with the patient at this point, after careful consideration I feel that that patient can be discharged from the emergency department, the patient was educated treatments and reasons to return to the emergency department based on their presumed diagnosis as noted above, they were advised to followup with a primary care physician in 2-3 days. Patient was agreeable to plan of care. *Note is created using voice recognition software and may contain spelling, syntax or grammatical errors. Laboratory 02/13/18 02/13/18 02/13/18 14:30 14:30 14:30 WBC RBC Hgb Hct MCV MCH MCHC RDW Plt Count Seg Neutrophils % Lymphocytes % Monocytes % Eosinophils % Basophils % Absolute Neutrophils Absolute Lymphocytes Absolute Monocytes Absolute Eosinophils Absolute Basophils Sodium Potassium Chloride Carbon Dioxide Anion Gap BUN Creatinine Est GFR ( Amer) Est GFR (Non-Af Amer) Glucose Calcium Total Bilirubin Direct Bilirubin Neonat Total Bilirubin Neonat Direct Bilirubin Neonat Indirect Bili AST ALT Alkaline Phosphatase Total Protein Albumin Urine Color YELLOW Urine Appearance TURBID Urine pH 8.0 Ur Specific Morven 1.017 Urine Protein NEGATIVE Urine Glucose (UA) NEGATIVE Urine Ketones NEGATIVE Urine Blood SMALL H Urine Nitrite NEGATIVE Urine Bilirubin NEGATIVE Urine Urobilinogen NEGATIVE Ur Leukocyte Esterase NEGATIVE Urine WBC (Auto) 2 Urine RBC (Auto) 42 Urine Bacteria (Auto) TRACE Squamous Epi Cells Auto <1 Amorphous Sediment Auto 1+ Urine Mucus (Auto) OCC Urine Ascorbic Acid NEGATIVE Urine HCG, Qual NEGATIVE Urine Opiates Screen UNCONFIRMED POSITIVE Urine Methadone Screen NEGATIVE Ur Barbiturates Screen NEGATIVE Ur Phencyclidine Scrn NEGATIVE Ur Amphetamines Screen NEGATIVE U Benzodiazepines Scrn NEGATIVE Urine Cocaine Screen NEGATIVE U Marijuana (THC) Screen NEGATIVE 02/13/18 02/13/18 16:45 16:45 WBC 5.0 RBC 4.44 Hgb 13.8 Hct 40.3 MCV 91 MCH 31.1 MCHC 34.3 RDW 13.6 Plt Count 270 Seg Neutrophils % 57.0 Lymphocytes % 34.4 Monocytes % 5.8 Eosinophils % 1.7 Basophils % 1.1 Absolute Neutrophils 2.9 Absolute Lymphocytes 1.7 Absolute Monocytes 0.3 Absolute Eosinophils 0.1 Absolute Basophils 0.1 Sodium 140.7 Potassium 4.3 Chloride 106 Carbon Dioxide 26 Anion Gap 9 BUN 8 Creatinine 0.68 Est GFR ( Amer) > 60 Est GFR (Non-Af Amer) > 60 Glucose 79 Calcium 9.4 Total Bilirubin 0.4 Direct Bilirubin 0.3 Neonat Total Bilirubin Not Reportable Neonat Direct Bilirubin Not Reportable Neonat Indirect Bili Not Reportable AST 16 ALT 23 Alkaline Phosphatase 69 Total Protein 7.5 Albumin 4.6 Urine Color Urine Appearance Urine pH Ur Specific Morven Urine Protein Urine Glucose (UA) Urine Ketones Urine Blood Urine Nitrite Urine Bilirubin Urine Urobilinogen Ur Leukocyte Esterase Urine WBC (Auto) Urine RBC (Auto) Urine Bacteria (Auto) Squamous Epi Cells Auto Amorphous Sediment Auto Urine Mucus (Auto) Urine Ascorbic Acid Urine HCG, Qual Urine Opiates Screen Urine Methadone Screen Ur Barbiturates Screen Ur Phencyclidine Scrn Ur Amphetamines Screen U Benzodiazepines Scrn Urine Cocaine Screen U Marijuana (THC) Screen KUB X-Ray 02/13/18 14:59 IMPRESSION: NO RADIOGRAPHIC EVIDENCE FOR ACUTE ABDOMINAL DISEASE. - Vital Signs Vital signs: Temp Pulse Resp BP Pulse Ox 98.2 F 69 16 118/88 H 100 02/13/18 18:20 02/13/18 18:20 02/13/18 14:27 02/13/18 18:20 02/13/18 18:20 - Laboratory Result Diagrams: 02/13/18 16:45 02/13/18 16:45 Laboratory results interpreted by me: 02/13/18 14:30 Urine Blood SMALL H Discharge - Discharge Clinical Impression: Renal stone, Renal colic on right side UTI (urinary tract infection) Qualifiers: Urinary tract infection type: site unspecified Hematuria presence: with hematuria Qualified Code(s): N39.0 - Urinary tract infection, site not specified ; R31.9 - Hematuria, unspecified; R31.9 - Hematuria, unspecified Condition: Stable Disposition: HOME, SELF-CARE Instructions: Kidney Stone ([facility]) Additional Instructions: These follow-up with urologist, take antibiotics, and pain medication as needed , and also take the Flomax. Prescriptions: Cefdinir [Omnicef 300 mg Capsule] 1 cap PO BID #10 capsule Oxycodone HCl/Acetaminophen [Percocet 5-325 mg Tablet] 1 tab PO Q8H PRN #15 tab PRN Reason: general pain Tamsulosin HCl [Flomax] 0.4 mg PO DAILY #7 capsule Referrals: TAMMY GARCIA MD [NO LOCAL MD] - Follow up tomorrow (urology )
[2018-02-13 15:55] LABS: URINE AMPHETAMINES SCREEN NEGATIVE; URINE BARBITURATES SCREEN NEGATIVE; URINE BENZODIAZEPINES SCREEN NEGATIVE; URINE COCAINE SCREEN NEGATIVE; URINE MARIJUANA (THC) SCREEN NEGATIVE; URINE METHADONE SCREEN NEGATIVE; URINE PHENCYCLIDINE SCREEN NEGATIVE
[2018-02-13] MEDS ORDERED: ONDANSETRON HCL INJ/PF 4 MG/2 ML SDV IV ONE ×2 (16:25→18:02)
[2018-02-13 16:55] LABS: ABSOLUTE BASOPHILS # (AUTO) 0.1 10^3/uL (0.0-0.2); ABSOLUTE EOSINOPHILS # (AUTO) 0.1 10^3/uL (0.0-0.6); ABSOLUTE LYMPHOCYTES (AUTO) 1.7 10^3/uL (0.5-4.7); ABSOLUTE MONOCYTES (AUTO) 0.3 10^3/uL (0.1-1.4); ABSOLUTE NEUT (AUTO) 2.9 10^3/uL (1.7-8.2); BASOPHILS % (AUTO) 1.1 % (0-2); EOSINOPHILS % (AUTO) 1.7 % (0-6); HEMATOCRIT 40.3 % (36.0-47.0); HEMOGLOBIN 13.8 g/dL (12.0-15.5); LYMPHOCYTES % (AUTO) 34.4 % (13-45); MEAN CORPUSCULAR HEMOGLOBIN 31.1 pg (27.0-33.4); MEAN CORPUSCULAR HGB CONC 34.3 g/dL (32.0-36.0); MEAN CORPUSCULAR VOLUME 91 fl (80-97); MONOCYTES % (AUTO) 5.8 % (3-13); PLATELET COUNT 270 10^3/uL (150-450); RED BLOOD COUNT 4.44 10^6/uL (3.72-5.28); RED CELL DISTRIBUTION WIDTH 13.6 % (11.5-14.0); TOTAL CELLS COUNTED % (AUTO) 100 %
[2018-02-13 17:09] LABS: ALANINE AMINOTRANSFERASE 23 U/L (9-52); ALBUMIN 4.6 g/dL (3.5-5.0); ALKALINE PHOSPHATASE 69 U/L (38-126); ANION GAP 9 (5-19); ASPARTATE AMINO TRANSFERASE 16 U/L (14-36); BILIRUBIN,DIRECT 0.3 mg/dL (0.0-0.4); BILIRUBIN,TOTAL 0.4 mg/dL (0.2-1.3); BLOOD UREA NITROGEN 8 mg/dL (7-20); CALCIUM 9.4 mg/dL (8.4-10.2); CARBON DIOXIDE 26 mmol/L (22-30); CHLORIDE 106 mmol/L (98-107); GLUCOSE 79 mg/dL (75-110); POTASSIUM 4.3 mmol/L (3.6-5.0); SODIUM 140.7 mmol/L (137-145); TOTAL PROTEIN 7.5 g/dL (6.3-8.2)
[2018-02-13] MEDS ORDERED: MORPHINE SULFATE 10 MG/ML INJ IV ONE (17:31)
[2018-02-13 18:23] VITALS: BP 118/88
== END 2018-02-13 18:23 | disposition home or self-care (01) ==
LOC: ER 14:16
DX: N20.0 Calculus of kidney (principal); N39.0 Urinary tract infection, site not specified; R31.9 Hematuria, unspecified; R11.0 Nausea; F17.200 Nicotine dependence, unspecified, uncomplicated; J44.9 Chronic obstructive pulmonary disease, unspecified; Z88.5 Allergy status to narcotic agent; Z88.8 Allergy status to other drugs, medicaments and biological substances
CPT/HCPCS: 96376; 99284; 96361; 96374; 96375; 36415; 85025; 81025; 80053; 81001; 80307; 74018; J2270; J2405

== ENCOUNTER 2018-03-29 18:19 | Emergency (ER) | payer MEDICAID ==
--- NOTE | 2018-03-29 18:40 | ER Document Report ---
ED Medical Screen (RME) - General Chief Complaint: Flank Pain Stated Complaint: ABDOMINAL PAIN Time Seen by Provider: 03/29/18 18:40 Notes: This 27-year-old female patient with a history of kidney stones reports onset this morning of left upper side and flank pain. About 11 AM it was going down into the left abdomen. At 1 PM she began having pain in the right kidney. She thinks she is passing stones on both sides. She reports she has had chills without fever and has had nausea and vomiting. Last menstrual period was 2017. She has been seen and evaluated many times for kidney stones. On one occasion in 12/02/[address] scan to know the size of the stone, despite the PA trying to convince her about the unwise choice of the unnecessary radiation. He eventually relented, did a CT scan and there was no stone. I have greeted and performed a rapid initial assessment of this patient. A comprehensive ED assessment and evaluation of the patient, analysis of test results and completion of the medical decision making process will be conducted by additional ED providers. TRAVEL OUTSIDE OF THE [place] IN LAST 30 DAYS: No - Related Data Allergies/Adverse Reactions: butalbital [From Fioricet] Allergy (Verified 03/29/18 18:23) caffeine [From Fioricet] Allergy (Verified 03/29/18 18:23) codeine [Codeine] Allergy (Verified 03/29/18 18:23) Difficulty breathing haloperidol [From Haldol] Allergy (Verified 03/29/18 18:23) haloperidol lactate [From Haldol] Allergy (Verified 03/29/18 18:23) magnesium sulfate [Magnesium Sulfate] Allergy (Verified 03/29/18 18:23) hydromorphone HCl [From Dilaudid] Adverse Reaction (Verified 03/29/18 18:23) Renal failure ketorolac tromethamine [From Toradol] Adverse Reaction (Verified 03/29/18 18:23) metoclopramide HCl [From Reglan] Adverse Reaction (Verified 03/29/18 18:23) Anxiety tramadol [Tramadol] Adverse Reaction (Verified 03/29/18 18:23) Past Medical History - Social History Frequency of alcohol use: None Drug Abuse: None - Past Medical History Cardiac Medical History: Reports: Hx Hypertension - PRECLAMPSIA Denies: Hx Coronary Artery Disease, Hx Heart Attack Pulmonary Medical History: Denies: Hx Asthma, Hx Bronchitis, Hx COPD, Hx Pneumonia, Hx Tuberculosis Neurological Medical History: Reports: Hx Migraine. Denies: Hx Cerebrovascular Accident, Hx Seizures Renal/ Medical History: Reports: Hx Kidney Stones, Hx Renal Insufficiency. Denies: Hx Peritoneal Dialysis GI Medical History: Reports: Hx Crohn's Disease, Hx Irritable Bowel, Hx Colonoscopy, Hx Endoscopy. Denies: Hx Ulcer Musculoskeltal Medical History: Reports Hx Arthritis, Reports Hx Musculoskeletal Trauma Traumatic Medical History: Reports: Hx Fractures Past Surgical History: Reports: Hx Cholecystectomy, Hx Dilation and Curettage - x2, Hx Gynecologic Surgery - D&C x's2, Hx Kidney (Renal Surgery) - Ureteral stent, lithotripsy x7, Hx Orthopedic Surgery - Foot surgery. Denies: Hx Hysterectomy, Hx Pacemaker - Immunizations Immunizations up to date: Yes Hx Diphtheria, Pertussis, Tetanus Vaccination: Yes History of Influenza Vaccine for 02/2017 - 07/2017 Season: No Physical Exam - Vital signs Vitals: Temp Pulse Resp BP Pulse Ox 98.9 F 92 14 136/99 H 100 03/29/18 18:25 03/29/18 18:25 03/29/18 18:25 03/29/18 18:25 03/29/18 18:25 Course - Vital Signs Vital signs: Temp Pulse Resp BP Pulse Ox 98.9 F 92 14 136/99 H 100 03/29/18 18:25 03/29/18 18:25 03/29/18 18:25 03/29/18 18:25 03/29/18 18:25 - Laboratory Laboratory results interpreted by me: 03/29/18 18:48 Urine Blood SMALL H Ur Leukocyte Esterase SMALL H Doctor's Discharge - Discharge Referrals: LOCALMD,NO [Primary Care Provider] - Follow up as needed
[2018-03-29 18:59] LABS: AMORPHOUS SEDIMENT,URINE TRACE /HPF; APPEARANCE,URINE CLOUDY; BILIRUBIN,URINE NEGATIVE (NEGATIVE); COLOR,URINE YELLOW; GLUCOSE, URINE NEGATIVE (NEGATIVE); KETONES,URINE NEGATIVE (NEGATIVE); LEUKOCYTE ESTERASE,URINE SMALL (NEGATIVE); NITRITE,URINE NEGATIVE (NEGATIVE); PROTEIN,URINE NEGATIVE (NEGATIVE); URINE SPECIFIC GRAVITY 1.015; UROBILINOGEN,URINE NEGATIVE mg/dL (<2.0)
[2018-03-29] MEDS ORDERED: OXYCODONE-ACETAMINOPHEN 5-325 MG TABLET PO ONE (19:56)
[2018-03-29] MEDS ORDERED: PROMETHAZINE HCL 25 MG TABLET PO ONE (19:56)
--- NOTE | 2018-03-29 19:59 | ER Document Report ---
ED GI/ - General Chief Complaint: Flank Pain Stated Complaint: ABDOMINAL PAIN Time Seen by Provider: 03/29/18 18:40 Notes: Patient is a 27-year-old female that comes to the emergency department for chief complaint of possible passing a kidney stone. She states she has pain in her right flank, she threw up earlier, pain radiates around to her right abdomen. She states earlier she had left flank pain in the claims agent right of way but this resolved. She denies dysuria. She states she thinks she felt like she was running a fever earlier but she is unsure. Past medical history of multiple kidney stones, multiple lithotripsies, follows with Dr. Quispe urology. She denies any daily medications. Denies any other medical history. TRAVEL OUTSIDE OF THE [place] IN LAST 30 DAYS: No - Related Data Allergies/Adverse Reactions: butalbital [From Fioricet] Allergy (Verified 03/29/18 18:23) caffeine [From Fioricet] Allergy (Verified 03/29/18 18:23) codeine [Codeine] Allergy (Verified 03/29/18 18:23) Difficulty breathing haloperidol [From Haldol] Allergy (Verified 03/29/18 18:23) haloperidol lactate [From Haldol] Allergy (Verified 03/29/18 18:23) magnesium sulfate [Magnesium Sulfate] Allergy (Verified 03/29/18 18:23) hydromorphone HCl [From Dilaudid] Adverse Reaction (Verified 03/29/18 18:23) Renal failure ketorolac tromethamine [From Toradol] Adverse Reaction (Verified 03/29/18 18:23) metoclopramide HCl [From Reglan] Adverse Reaction (Verified 03/29/18 18:23) Anxiety tramadol [Tramadol] Adverse Reaction (Verified 03/29/18 18:23) Past Medical History - General Information source: Patient - Social History Smoking Status: Current Every Day Smoker Frequency of alcohol use: None Drug Abuse: None Lives with: Family Family History: Reviewed & Not Pertinent, CAD, Hyperlipidemia, Hypertension, Malignancy, Other - breast cancer, renal calculi Patient has suicidal ideation: No Patient has homicidal ideation: No - Past Medical History Cardiac Medical History: Reports: Hx Hypertension - PRECLAMPSIA Denies: Hx Coronary Artery Disease, Hx Heart Attack Pulmonary Medical History: Denies: Hx Asthma, Hx Bronchitis, Hx COPD, Hx Pneumonia, Hx Tuberculosis Neurological Medical History: Reports: Hx Migraine. Denies: Hx Cerebrovascular Accident, Hx Seizures Renal/ Medical History: Reports: Hx Kidney Stones, Hx Renal Insufficiency. Denies: Hx Peritoneal Dialysis GI Medical History: Reports: Hx Crohn's Disease, Hx Irritable Bowel, Hx Colonoscopy, Hx Endoscopy. Denies: Hx Ulcer Musculoskeletal Medical History: Reports Hx Arthritis, Reports Hx Musculoskeletal Trauma Traumatic Medical History: Reports: Hx Fractures Past Surgical History: Reports: Hx Cholecystectomy, Hx Dilation and Curettage - x2, Hx Gynecologic Surgery - D&C x's2, Hx Kidney (Renal Surgery) - Ureteral stent, lithotripsy x7, Hx Orthopedic Surgery - Foot surgery. Denies: Hx Hysterectomy, Hx Pacemaker - Immunizations Immunizations up to date: Yes Hx Diphtheria, Pertussis, Tetanus Vaccination: Yes Hx Pneumococcal Vaccination: 07/18/12 Review of Systems - Review of Systems Constitutional: No symptoms reported EENT: No symptoms reported Cardiovascular: No symptoms reported Respiratory: No symptoms reported Gastrointestinal: See HPI Genitourinary: See HPI Female Genitourinary: No symptoms reported Musculoskeletal: No symptoms reported Skin: No symptoms reported Hematologic/Lymphatic: No symptoms reported Neurological/Psychological: No symptoms reported Physical Exam - Vital signs Vitals: Temp Pulse Resp BP Pulse Ox 98.9 F 92 14 136/99 H 100 03/29/18 18:25 03/29/18 18:25 03/29/18 18:25 03/29/18 18:25 03/29/18 18:25 - Notes Notes: GENERAL: Alert, interacts well. No acute distress. HEAD: Normocephalic, atraumatic. EYES: Pupils equal, round, and reactive to light. Extraocular movements intact. ENT: Oral mucosa moist, tongue midline. Oropharynx unremarkable. Airway patent. Nares patent, no nasal septal hematoma, TM's intact. NECK: Full range of motion. Supple. Trachea midline. LUNGS: Clear to auscultation bilaterally, no wheezes, rales, or rhonchi. No respiratory distress. HEART: Regular rate and rhythm. No murmur ABDOMEN: Soft, non-tender. Non-distended. Bowel sounds present in all 4 quadrants. GENITOURINARY: Deferred EXTREMITIES: Moves all 4 extremities spontaneously. No edema, normal radial and dorsalis pedis pulses bilaterally. No cyanosis. BACK: no cervical, thoracic, lumbar midline tenderness. No saddle anesthesia, normal distal neurovascular exam. NEUROLOGICAL: Alert and oriented x3. Normal speech. [cranial nerves II through XII grossly intact]. PSYCH: Normal affect, normal mood. SKIN: Warm, dry, normal turgor. No rashes or lesions noted. Course - Re-evaluation Re-evalutation: CBC unremarkable. Chemistry hemolyzed twice unfortunately. Urinalysis shows a little bit of hematuria, no overt infection. Patient afebrile, well-appearing. No CVA tenderness or noted abdominal tenderness on my examination. Vitals unremarkable. Ultrasound shows left sided nephrolithiasis, no hydronephrosis on either side. Patient urinated without any difficulty. No dysuria. Discussed results with patient. It is possible she passed a stone earlier, uncertain at this time. I do not suspect current ureterolithiasis or infection based on her evaluation. Patient already has urology follow-up. Discussed recommendations, follow-up, return precautions with patient, patient and significant other state understanding and agreement. - Vital Signs Vital signs: Temp Pulse Resp BP Pulse Ox 98.8 F 54 L 19 129/79 H 99 03/29/18 22:51 03/29/18 22:51 03/29/18 22:51 03/29/18 22:51 03/29/18 22:51 - Laboratory Result Diagrams: 03/29/18 21:15 03/29/18 21:15 Laboratory results interpreted by me: 03/29/18 03/29/18 18:48 21:15 RDW 14.1 H Urine Blood SMALL H Ur Leukocyte Esterase SMALL H Discharge - Discharge Clinical Impression: Flank pain, Kidney stones Condition: Stable Disposition: HOME, SELF-CARE Additional Instructions: You have multiple kidney stones in the left kidney, the largest is 8 mm. Follow-up with your urologist for close management for this. Return if you worsen including fever of 100.4 or greater, severe pain, persistent vomiting, or any other concerning or worsening symptoms.
[2018-03-29 21:24] LABS: ABSOLUTE BASOPHILS # (AUTO) 0.1 10^3/uL (0.0-0.2); ABSOLUTE EOSINOPHILS # (AUTO) 0.1 10^3/uL (0.0-0.6); ABSOLUTE LYMPHOCYTES (AUTO) 2.6 10^3/uL (0.5-4.7); ABSOLUTE MONOCYTES (AUTO) 0.4 10^3/uL (0.1-1.4); ABSOLUTE NEUT (AUTO) 5.3 10^3/uL (1.7-8.2); BASOPHILS % (AUTO) 1.1 % (0-2); EOSINOPHILS % (AUTO) 0.8 % (0-6); HEMOGLOBIN 14.6 g/dL (12.0-15.5); LYMPHOCYTES % (AUTO) 30.2 % (13-45); MEAN CORPUSCULAR HGB CONC 33.9 g/dL (32.0-36.0); MEAN CORPUSCULAR VOLUME 92 fl (80-97); PLATELET COUNT 254 10^3/uL (150-450); RED BLOOD COUNT 4.69 10^6/uL (3.72-5.28); RED CELL DISTRIBUTION WIDTH 14.1 % (11.5-14.0); SEGMENTED NEUTROPHILS % (AUTO) 62.9 % (42-78); TOTAL CELLS COUNTED % (AUTO) 100 %; WHITE BLOOD COUNT 8.5 10^3/uL (4.0-10.5)
--- NOTE | 2018-03-29 21:37 | RADIOLOGY REPORT (SQ) ---
EXAM DESCRIPTION: US RETROPERITONEUM LIMITED COMPLETED DATE/TME: 03/29/2018 19:56 CLINICAL HISTORY: 27 years, Female, flank pain; stones? hydronephrosis? COMPARISON: None. TECHNIQUE: LIMITATIONS: None. FINDINGS: There are stones in the left kidney, the largest measuring 8 mm. There is no hydronephrosis. No hydronephrosis or stone on the right side. The kidneys are normal in size. IMPRESSION: Left renal stones without hydronephrosis. 2010 [employer]- All Rights Reserved
[2018-03-29] MEDS ORDERED: HYDROCODONE/ACETAMINOPHEN 5-325 MG (6 TAB/ER DISP) PO PRN (22:33)
[2018-03-29] MEDS ORDERED: ONDANSETRON ODT 4 MG TAB (6 TAB/ER DISP) PO PRN (22:33)
[2018-03-29 22:52] VITALS: BP 129/79
== END 2018-03-29 22:52 | disposition home or self-care (01) ==
LOC: ER 18:19
DX: N20.0 Calculus of kidney (principal); R10.9 Unspecified abdominal pain; F17.200 Nicotine dependence, unspecified, uncomplicated; Z88.6 Allergy status to analgesic agent; Z87.442 Personal history of urinary calculi; Z90.49 Acquired absence of other specified parts of digestive tract
CPT/HCPCS: 99284; 36415; 85025; 81025; 81001; 76775; J3490

== ENCOUNTER 2018-04-04 15:48 | Emergency (ER) | payer MEDICAID ==
[2018-04-04] MEDS ORDERED: NORMAL SALINE 1000 ML 1,000 ML IV ONE (16:52)
--- NOTE | 2018-04-04 16:56 | ER Document Report ---
ED Medical Screen (RME) - General Chief Complaint: Possible Kidney Stone Stated Complaint: FLANK PAIN Time Seen by Provider: 04/04/18 16:42 Notes: Patient with multiple kidney stones. Over 10 lithotripsies. Followed by urology as well as nephrology. States that she has a kidney stone. Was told to come here if she develops fever. States that she had a fever of 101 and left flank pain. Currently on Levaquin at this time. I have greeted and performed a rapid initial assessment of this patient. A comprehensive ED assessment and evaluation of the patient, analysis of test results and completion of the medical decision making process will be conducted by additional ED providers. TRAVEL OUTSIDE OF THE [place] IN LAST 30 DAYS: No - Related Data Allergies/Adverse Reactions: butalbital [From Fioricet] Allergy (Verified 03/29/18 18:23) caffeine [From Fioricet] Allergy (Verified 03/29/18 18:23) codeine [Codeine] Allergy (Verified 03/29/18 18:23) Difficulty breathing haloperidol [From Haldol] Allergy (Verified 03/29/18 18:23) haloperidol lactate [From Haldol] Allergy (Verified 03/29/18 18:23) magnesium sulfate [Magnesium Sulfate] Allergy (Verified 03/29/18 18:23) hydromorphone HCl [From Dilaudid] Adverse Reaction (Verified 03/29/18 18:23) Renal failure ketorolac tromethamine [From Toradol] Adverse Reaction (Verified 03/29/18 18:23) metoclopramide HCl [From Reglan] Adverse Reaction (Verified 03/29/18 18:23) Anxiety tramadol [Tramadol] Adverse Reaction (Verified 03/29/18 18:23) Past Medical History - Social History Chew tobacco use (# tins/day): No Frequency of alcohol use: None Drug Abuse: None - Past Medical History Cardiac Medical History: Reports: Hx Hypertension - PRECLAMPSIA Denies: Hx Coronary Artery Disease, Hx Heart Attack Pulmonary Medical History: Denies: Hx Asthma, Hx Bronchitis, Hx COPD, Hx Pneumonia, Hx Tuberculosis Neurological Medical History: Reports: Hx Migraine. Denies: Hx Cerebrovascular Accident, Hx Seizures Renal/ Medical History: Reports: Hx Kidney Stones, Hx Renal Insufficiency. Denies: Hx Peritoneal Dialysis GI Medical History: Reports: Hx Crohn's Disease, Hx Irritable Bowel, Hx Colonoscopy, Hx Endoscopy. Denies: Hx Ulcer Musculoskeltal Medical History: Reports Hx Arthritis, Reports Hx Musculoskeletal Trauma Traumatic Medical History: Reports: Hx Fractures Past Surgical History: Reports: Hx Cholecystectomy, Hx Dilation and Curettage - x2, Hx Gynecologic Surgery - D&C x's2, Hx Kidney (Renal Surgery) - Ureteral stent, lithotripsy x7, Hx Orthopedic Surgery - Foot surgery. Denies: Hx Hysterectomy, Hx Pacemaker - Immunizations Immunizations up to date: Yes Hx Diphtheria, Pertussis, Tetanus Vaccination: Yes History of Influenza Vaccine for 02/2017 - 07/2017 Season: No Review of Systems - Review of Systems Notes: Review of systems positive for the following: Left flank pain, dysuria, fever Physical Exam - Vital signs Vitals: Temp Pulse Resp BP Pulse Ox 98.4 F 103 H 16 139/94 H 99 04/04/18 15:52 04/04/18 15:52 04/04/18 15:52 04/04/18 15:52 04/04/18 15:52 - Back Back: CVA tenderness - The left side has mild flank pain Course - Vital Signs Vital signs: Temp Pulse Resp BP Pulse Ox 98.4 F 103 H 16 139/94 H 99 04/04/18 15:52 04/04/18 15:52 04/04/18 15:52 04/04/18 15:52 04/04/18 15:52 Doctor's Discharge - Discharge Referrals: LOCALMD,NO [Primary Care Provider] - Follow up as needed
[2018-04-04 17:51] LABS: APPEARANCE,URINE SLIGHTLY-CLOUDY; BILIRUBIN,URINE NEGATIVE (NEGATIVE); COLOR,URINE YELLOW; GLUCOSE, URINE NEGATIVE (NEGATIVE); KETONES,URINE NEGATIVE (NEGATIVE); LEUKOCYTE ESTERASE,URINE LARGE (NEGATIVE); NITRITE,URINE NEGATIVE (NEGATIVE); PROTEIN,URINE NEGATIVE (NEGATIVE); URINE SPECIFIC GRAVITY 1.011; UROBILINOGEN,URINE NEGATIVE mg/dL (<2.0)
[2018-04-04] MEDS ORDERED: FENTANYL CITRATE INJ/PF 100 MCG/2 ML AMPUL IV ONE (18:04)
--- NOTE | 2018-04-04 18:15 | RADIOLOGY REPORT (SQ) ---
EXAM DESCRIPTION: [facility] COMPLETED DATE/TIME: 04/04/2018 6:05 pm REASON FOR STUDY: lft flk pain, hx of stones COMPARISON: Multiple prior ultrasounds and CTs. TECHNIQUE: Dynamic and static grayscale images acquired of the kidneys and bladder and recorded on P ACS. Additional selected color Doppler and spectral images recorded. LIMITATIONS: None. FINDINGS: RIGHT KIDNEY: Normal size. Normal echogenicity. Cysts present. Seen on prior CTs. No hydronephrosis. No calcifications. LEFT KIDNEY: Normal size. Normal echogenicity. No solid or suspicious masses. No hydronephrosi s. No calcifications. BLADDER: No masses. OTHER FINDINGS: No other significant finding. IMPRESSION: No hydronephrosis. TECHNICAL DOCUMENTATION: JOB ID: [id number] [employer]- All Rights Reserved Reading location - IP/workstation name: [email or web address]
[2018-04-04 18:55] LABS: ABSOLUTE LYMPHOCYTES (AUTO) 2.2 10^3/uL (0.5-4.7); ABSOLUTE MONOCYTES (AUTO) 0.4 10^3/uL (0.1-1.4); ABSOLUTE NEUT (AUTO) 6.9 10^3/uL (1.7-8.2); BASOPHILS % (AUTO) 0.5 % (0-2); EOSINOPHILS % (AUTO) 0.4 % (0-6); HEMATOCRIT 43.7 % (36.0-47.0); LYMPHOCYTES % (AUTO) 22.9 % (13-45); MEAN CORPUSCULAR HGB CONC 34.3 g/dL (32.0-36.0); MEAN CORPUSCULAR VOLUME 90 fl (80-97); PLATELET COUNT 303 10^3/uL (150-450); RED BLOOD COUNT 4.84 10^6/uL (3.72-5.28); RED CELL DISTRIBUTION WIDTH 13.9 % (11.5-14.0); SEGMENTED NEUTROPHILS % (AUTO) 72.2 % (42-78); TOTAL CELLS COUNTED % (AUTO) 100 %; WHITE BLOOD COUNT 9.5 10^3/uL (4.0-10.5)
[2018-04-04] MEDS ORDERED: PROMETHAZINE HCL INJ 25 MG/1 ML VIAL IV ONE (20:09)
[2018-04-04] MEDS ORDERED: MORPHINE SULFATE 10 MG/ML INJ IV ONE (20:09)
--- NOTE | 2018-04-04 20:10 | ER Document Report ---
ED GI/ - General Chief Complaint: Possible Kidney Stone Stated Complaint: FLANK PAIN Time Seen by Provider: 04/04/18 16:42 Mode of Arrival: Ambulatory Information source: Patient Notes: Patient presents with a one-week history of left flank pain dysuria and fever off and on since yesterday. Patient reports that this morning her temperature was 101. Patient took Tylenol at 9 AM and has not taken any antipyretic medication since that time. Patient states that she was here last week for the same complaint and was told that she had left intrarenal stones the largest measuring 8 mm. Patient did see her urologist 5 days ago and was placed on Levaquin for a 7-day course. Patient has taken 5 days worth of the antibiotic at this time. Patient denies any dysuria symptoms. Patient does complain of nausea and vomiting. TRAVEL OUTSIDE OF THE [place] IN LAST 30 DAYS: No - HPI Patient complains to provider of: Flank pain, Vomiting. No: Pelvic pain Onset: Last week Timing/Duration: Persistent Quality of pain: Sharp Pain Level: 4 Location: Left flank Vaginal bleeding (Compared to normal period): None Menstrual period history: denies: Associated symptoms: Fever, Nausea, Vomiting. denies: Diarrhea, Dizzy, Dysuria , Urinary hesitancy, Urinary frequency, Urinary retention Exacerbated by: Denies Relieved by: Denies Similar symptoms previously: Yes Recently seen / treated by doctor: Yes - Related Data Allergies/Adverse Reactions: butalbital [From Fioricet] Allergy (Verified 03/29/18 18:23) caffeine [From Fioricet] Allergy (Verified 03/29/18 18:23) codeine [Codeine] Allergy (Verified 03/29/18 18:23) Difficulty breathing haloperidol [From Haldol] Allergy (Verified 03/29/18 18:23) haloperidol lactate [From Haldol] Allergy (Verified 03/29/18 18:23) magnesium sulfate [Magnesium Sulfate] Allergy (Verified 03/29/18 18:23) hydromorphone HCl [From Dilaudid] Adverse Reaction (Verified 03/29/18 18:23) Renal failure ketorolac tromethamine [From Toradol] Adverse Reaction (Verified 03/29/18 18:23) metoclopramide HCl [From Reglan] Adverse Reaction (Verified 03/29/18 18:23) Anxiety tramadol [Tramadol] Adverse Reaction (Verified 03/29/18 18:23) Past Medical History - General Information source: Patient - Social History Smoking Status: Current Every Day Smoker Chew tobacco use (# tins/day): No Frequency of alcohol use: None Drug Abuse: None Occupation: None Lives with: Family Family History: Reviewed & Not Pertinent, CAD, Hyperlipidemia, Hypertension, Malignancy, Other - breast cancer, renal calculi Patient has suicidal ideation: No Patient has homicidal ideation: No - Past Medical History Cardiac Medical History: Reports: Hx Hypertension - PRECLAMPSIA Neurological Medical History: Reports: Hx Migraine. Denies: Hx Cerebrovascular Accident, Hx Seizures Renal/ Medical History: Reports: Hx Kidney Stones, Hx Renal Insufficiency. Denies: Hx Peritoneal Dialysis GI Medical History: Reports: Hx Crohn's Disease, Hx Irritable Bowel, Hx Colonoscopy, Hx Endoscopy. Denies: Hx Ulcer Musculoskeletal Medical History: Reports Hx Arthritis, Reports Hx Musculoskeletal Trauma Traumatic Medical History: Reports: Hx Fractures Past Surgical History: Reports: Hx Cholecystectomy, Hx Dilation and Curettage - x2, Hx Gynecologic Surgery - D&C x's2, Hx Kidney (Renal Surgery) - Ureteral stent, lithotripsy x7, Hx Orthopedic Surgery - Foot surgery - Immunizations Immunizations up to date: Yes Hx Diphtheria, Pertussis, Tetanus Vaccination: Yes Hx Pneumococcal Vaccination: 07/18/12 Review of Systems - Review of Systems Constitutional: Fever. denies: Recent illness EENT: No symptoms reported Cardiovascular: No symptoms reported. denies: Chest pain Respiratory: No symptoms reported. denies: Cough, Short of breath Gastrointestinal: Abdominal pain - Left lower pelvic, Nausea, Vomiting Genitourinary: Flank pain. denies: Dysuria Female Genitourinary: No symptoms reported. denies: Vaginal discharge, Vaginal bleeding Musculoskeletal: No symptoms reported Skin: No symptoms reported Hematologic/Lymphatic: No symptoms reported Neurological/Psychological: No symptoms reported Physical Exam - Vital signs Vitals: Temp Pulse Resp BP Pulse Ox 98.4 F 103 H 16 139/94 H 99 04/04/18 15:52 04/04/18 15:52 04/04/18 15:52 04/04/18 15:52 04/04/18 15:52 - General General appearance: Appears well, Alert In distress: None - HEENT Head: Normocephalic, Atraumatic Eyes: Normal Conjunctiva: Normal Nasal: Normal Mouth/Lips: Normal Mucous membranes: Normal Neck: Normal, Supple. No: Lymphadenopathy - Respiratory Respiratory status: No respiratory distress Chest status: Nontender Breath sounds: Normal. No: Rales, Rhonchi, Stridor, Wheezing Chest palpation: Normal - Cardiovascular Rhythm: Regular Heart sounds: S1 appreciated, S2 appreciated Murmur: No - Abdominal Inspection: Normal Distension: No distension Bowel sounds: Normal Tenderness: Tender - Left lower pelvic - Back Back: CVA tenderness - left - Extremities General upper extremity: Normal inspection, Normal strength General lower extremity: Normal inspection, Normal strength - Neurological Neuro grossly intact: Yes Cognition: Normal Orientation: AAOx4 Chai Coma Scale Eye Opening: Spontaneous [place] Coma Scale Verbal: Oriented [place] Coma Scale Motor: Obeys Commands Chai Coma Scale Total: 15 - Psychological Associated symptoms: Normal affect, Normal mood - Skin Skin Temperature: Warm Skin Moisture: Dry Skin Color: Normal Course - Re-evaluation Re-evalutation: 04/04/18 21:00 Patient has a history of numerous kidney stones in the past as well as multiple lithotripsy procedures and ureteral stenting. Patient states pain is typical of when she has had kidney stones in the past. Patient without any objective fever, leukocytosis or impaired renal function at this time. Patient nontoxic in appearance. consulted with dr Coates regarding pt presentation and diagnostic evaluation. Agrees with plan to wait for results of chemistry panel prior to discharge. Recommends giving patient a short course of pain medication and encouraging follow-up with urology. Pt without any evidence of definite ureteral obstruction at this time, no hydronephrosis or obvious calcifications on ultrasound. No concern for pyelonephritis at this time. Urine culture is pending. 04/04/18 23:31 - Vital Signs Vital signs: Temp Pulse Resp BP Pulse Ox 99.0 F 79 16 133/91 H 99 04/04/18 22:23 04/04/18 22:23 04/04/18 15:52 04/04/18 22:23 04/04/18 22:23 - Laboratory Result Diagrams: 04/04/18 18:31 04/04/18 20:40 Laboratory results interpreted by me: 04/04/18 04/04/18 16:25 20:40 Chloride 109 H Carbon Dioxide 20 L BUN 6 L Urine Blood SMALL H Ur Leukocyte Esterase LARGE H 04/04/18 22:01 Labs- Entire Visit 04/04/18 04/04/18 04/04/18 16:25 18:31 18:31 WBC 9.5 RBC 4.84 Hgb 15.0 Hct 43.7 MCV 90 MCH 31.0 MCHC 34.3 RDW 13.9 Plt Count 303 Seg Neutrophils % 72.2 Lymphocytes % 22.9 Monocytes % 4.0 Eosinophils % 0.4 Basophils % 0.5 Absolute Neutrophils 6.9 Absolute Lymphocytes 2.2 Absolute Monocytes 0.4 Absolute Eosinophils 0.0 Absolute Basophils 0.0 Sodium Cancelled Potassium Cancelled Chloride Cancelled Carbon Dioxide Cancelled Anion Gap Cancelled BUN Cancelled Creatinine Cancelled Est GFR ( Amer) Cancelled Est GFR (Non-Af Amer) Cancelled Glucose Cancelled Calcium Cancelled Total Bilirubin Cancelled Direct Bilirubin Cancelled Neonat Total Bilirubin Cancelled Neonat Direct Bilirubin Cancelled Neonat Indirect Bili Cancelled AST Cancelled ALT Cancelled Alkaline Phosphatase Cancelled Total Protein Cancelled Albumin Cancelled Urine Color YELLOW Urine Appearance SLIGHTLY-CLOUDY Urine pH 7.0 Ur Specific [place] 1.011 Urine Protein NEGATIVE Urine Glucose (UA) NEGATIVE Urine Ketones NEGATIVE Urine Blood SMALL H Urine Nitrite NEGATIVE Urine Bilirubin NEGATIVE Urine Urobilinogen NEGATIVE Ur Leukocyte Esterase LARGE H Urine WBC (Auto) 7 Urine RBC (Auto) 2 U Hyaline Cast (Auto) 1 Urine Bacteria (Auto) TRACE Squamous Epi Cells Auto 6 Urine Mucus (Auto) RARE Urine Ascorbic Acid NEGATIVE Urine HCG, Qual NEGATIVE 04/04/18 04/04/18 19:50 20:40 WBC RBC Hgb Hct MCV MCH MCHC RDW Plt Count Seg Neutrophils % Lymphocytes % Monocytes % Eosinophils % Basophils % Absolute Neutrophils Absolute Lymphocytes Absolute Monocytes Absolute Eosinophils Absolute Basophils Sodium Cancelled 141.9 Potassium Cancelled 4.0 Chloride Cancelled 109 H Carbon Dioxide Cancelled 20 L Anion Gap Cancelled 13 BUN Cancelled 6 L Creatinine Cancelled 0.62 Est GFR ( Amer) Cancelled > 60 Est GFR (Non-Af Amer) Cancelled > 60 Glucose Cancelled 75 Calcium Cancelled 9.0 Total Bilirubin Cancelled 0.3 Direct Bilirubin Cancelled 0.2 Neonat Total Bilirubin Cancelled Not Reportable Neonat Direct Bilirubin Cancelled Not Reportable Neonat Indirect Bili Cancelled Not Reportable AST Cancelled 15 ALT Cancelled 20 Alkaline Phosphatase Cancelled 59 Total Protein Cancelled 7.3 Albumin Cancelled 4.5 Urine Color Urine Appearance Urine pH Ur Specific [place] Urine Protein Urine Glucose (UA) Urine Ketones Urine Blood Urine Nitrite Urine Bilirubin Urine Urobilinogen Ur Leukocyte Esterase Urine WBC (Auto) Urine RBC (Auto) U Hyaline Cast (Auto) Urine Bacteria (Auto) Squamous Epi Cells Auto Urine Mucus (Auto) Urine Ascorbic Acid Urine HCG, Qual - Diagnostic Test Radiology reviewed: Reports reviewed Discharge - Discharge Clinical Impression: Flank pain Nausea & vomiting Qualifiers: Vomiting type: unspecified Vomiting Intractability: non-intractable Qualified Code(s): R11.2 - Nausea with vomiting, unspecified Condition: Stable Disposition: HOME, SELF-CARE Instructions: Intravenous (IV) Fluids ([facility]), Kidney Stone ([facility]), Vomiting ([facility]) Additional Instructions: Return immediately for any new or worsening symptoms Followup with your primary care provider, call tomorrow to make a followup appointment Follow-up with your urologist for further evaluation, call their office on Saturday for an appointment Urine culture is pending, we will call if you need any different treatment. Continue to take your antibiotics as previously prescribed Prescriptions: Morphine Sulfate [Morphine Ir 15 Mg Tablet] 15 mg PO Q6 PRN #4 tablet PRN Reason: Promethazine HCl [Phenergan 25 mg Tablet] 25 mg PO Q6H PRN #8 tablet PRN Reason: Forms: Smoking Cessation Education, Return to Work Referrals: TAMMY GARCIA MD [NO LOCAL MD] - 04/07/18
[2018-04-04 21:06] LABS: ALANINE AMINOTRANSFERASE 20 U/L (9-52); ALBUMIN 4.5 g/dL (3.5-5.0); ALKALINE PHOSPHATASE 59 U/L (38-126); ANION GAP 13 (5-19); ASPARTATE AMINO TRANSFERASE 15 U/L (14-36); BILIRUBIN,DIRECT 0.2 mg/dL (0.0-0.4); BILIRUBIN,TOTAL 0.3 mg/dL (0.2-1.3); BLOOD UREA NITROGEN 6 mg/dL (7-20); CARBON DIOXIDE 20 mmol/L (22-30); CHLORIDE 109 mmol/L (98-107); GLUCOSE 75 mg/dL (75-110); SODIUM 141.9 mmol/L (137-145); TOTAL PROTEIN 7.3 g/dL (6.3-8.2)
[2018-04-04 22:26] VITALS: BP 133/91
== END 2018-04-04 22:26 | disposition home or self-care (01) ==
LOC: ER 15:48
DX: R10.9 Unspecified abdominal pain (principal); R10.2 Pelvic and perineal pain; R11.2 Nausea with vomiting, unspecified; F17.200 Nicotine dependence, unspecified, uncomplicated; Z87.442 Personal history of urinary calculi; Z87.19 Personal history of other diseases of the digestive system; Z90.49 Acquired absence of other specified parts of digestive tract; Z88.5 Allergy status to narcotic agent; Z88.8 Allergy status to other drugs, medicaments and biological substances
CPT/HCPCS: 99284; 96361; 96374; 96375; 36415; 87086; 85025; 81025; 80053; 81001; 76775; J3010; J2270; J2550; J7030

== ENCOUNTER 2018-05-08 14:10 | Emergency (ER) | payer MEDICAID ==
--- NOTE | 2018-05-08 14:47 | ER Document Report ---
ED Medical Screen (RME) - General Chief Complaint: Nausea/Vomiting/Diarrhea Stated Complaint: VOMITING Time Seen by Provider: 05/08/18 14:41 Notes: 19-year-old female patient past history of multiple kidney stones, and Crohn's disease. Last Crohn's episode was a year ago. She has a 3-day history of starting off just feeling poorly, loss of appetite, diarrhea, then nausea and vomiting. Later she developed left flank pain. She reports she has possibly had fevers off and on. LMP was 05/05/2018. I have greeted and performed a rapid initial assessment of this patient. A comprehensive ED assessment and evaluation of the patient, analysis of test results and completion of the medical decision making process will be conducted by additional ED providers. TRAVEL OUTSIDE OF THE [place] IN LAST 30 DAYS: No - Related Data Allergies/Adverse Reactions: butalbital [From Fioricet] Allergy (Verified 03/29/18 18:23) caffeine [From Fioricet] Allergy (Verified 03/29/18 18:23) codeine [Codeine] Allergy (Verified 03/29/18 18:23) Difficulty breathing haloperidol [From Haldol] Allergy (Verified 03/29/18 18:23) haloperidol lactate [From Haldol] Allergy (Verified 03/29/18 18:23) magnesium sulfate [Magnesium Sulfate] Allergy (Verified 03/29/18 18:23) hydromorphone HCl [From Dilaudid] Adverse Reaction (Verified 03/29/18 18:23) Renal failure ketorolac tromethamine [From Toradol] Adverse Reaction (Verified 03/29/18 18:23) metoclopramide HCl [From Reglan] Adverse Reaction (Verified 03/29/18 18:23) Anxiety tramadol [Tramadol] Adverse Reaction (Verified 03/29/18 18:23) Past Medical History - Past Medical History Cardiac Medical History: Reports: Hx Hypertension - PRECLAMPSIA Denies: Hx Coronary Artery Disease, Hx Heart Attack Pulmonary Medical History: Denies: Hx Asthma, Hx Bronchitis, Hx COPD, Hx Pneumonia, Hx Tuberculosis Neurological Medical History: Reports: Hx Migraine. Denies: Hx Cerebrovascular Accident, Hx Seizures Renal/ Medical History: Reports: Hx Kidney Stones, Hx Renal Insufficiency. D enies: Hx Peritoneal Dialysis GI Medical History: Reports: Hx Crohn's Disease, Hx Irritable Bowel, Hx Colonoscopy, Hx Endoscopy. Denies: Hx Ulcer Musculoskeltal Medical History: Reports Hx Arthritis, Reports Hx Musculoskeletal Trauma Traumatic Medical History: Reports: Hx Fractures Past Surgical History: Reports: Hx Cholecystectomy, Hx Dilation and Curettage - x2, Hx Gynecologic Surgery - D&C x's2, Hx Kidney (Renal Surgery) - Ureteral stent, lithotripsy x7, Hx Orthopedic Surgery - Foot surgery. Denies: Hx Hysterectomy, Hx Pacemaker - Immunizations Immunizations up to date: Yes Hx Diphtheria, Pertussis, Tetanus Vaccination: Yes History of Influenza Vaccine for 02/2017 - 07/2017 Season: No Physical Exam - Vital signs Vitals: Temp Pulse Resp BP Pulse Ox 98.7 F 101 H 14 137/95 H 98 05/08/18 14:23 05/08/18 14:23 05/08/18 14:23 05/08/18 14:23 05/08/18 14:23 Course - Vital Signs Vital signs: Temp Pulse Resp BP Pulse Ox 98.7 F 101 H 14 137/95 H 98 05/08/18 14:23 05/08/18 14:23 05/08/18 14:23 05/08/18 14:23 05/08/18 14:23
[2018-05-08 15:09] LABS: ABSOLUTE EOSINOPHILS # (AUTO) 0.1 10^3/uL (0.0-0.6); ABSOLUTE LYMPHOCYTES (AUTO) 1.6 10^3/uL (0.5-4.7); ABSOLUTE MONOCYTES (AUTO) 0.3 10^3/uL (0.1-1.4); ABSOLUTE NEUT (AUTO) 4.1 10^3/uL (1.7-8.2); BASOPHILS % (AUTO) 0.5 % (0-2); EOSINOPHILS % (AUTO) 1.2 % (0-6); HEMATOCRIT 42.9 % (36.0-47.0); HEMOGLOBIN 14.8 g/dL (12.0-15.5); LYMPHOCYTES % (AUTO) 26.2 % (13-45); MEAN CORPUSCULAR HEMOGLOBIN 31.1 pg (27.0-33.4); MEAN CORPUSCULAR HGB CONC 34.5 g/dL (32.0-36.0); MEAN CORPUSCULAR VOLUME 90 fl (80-97); MONOCYTES % (AUTO) 5.4 % (3-13); PLATELET COUNT 289 10^3/uL (150-450); RED BLOOD COUNT 4.76 10^6/uL (3.72-5.28); RED CELL DISTRIBUTION WIDTH 13.8 % (11.5-14.0); SEGMENTED NEUTROPHILS % (AUTO) 66.7 % (42-78); TOTAL CELLS COUNTED % (AUTO) 100 %; WHITE BLOOD COUNT 6.1 10^3/uL (4.0-10.5)
[2018-05-08 15:14] LABS: APPEARANCE,URINE CLOUDY; BILIRUBIN,URINE NEGATIVE (NEGATIVE); COLOR,URINE RED; GLUCOSE, URINE NEGATIVE (NEGATIVE); KETONES,URINE NEGATIVE (NEGATIVE); LEUKOCYTE ESTERASE,URINE TRACE (NEGATIVE); NITRITE,URINE NEGATIVE (NEGATIVE); PROTEIN,URINE 100 mg/dL (NEGATIVE); URINE SPECIFIC GRAVITY 1.019
[2018-05-08] MEDS ORDERED: NORMAL SALINE 1000 ML 1,000 ML IV ONE (15:34)
[2018-05-08] MEDS ORDERED: DIPHENHYDRAMINE HCL 50 MG/ML VIAL IV ONE (15:34)
[2018-05-08] MEDS ORDERED: MORPHINE SULFATE 10 MG/ML INJ IV ONE (15:35)
--- NOTE | 2018-05-08 15:44 | ER Document Report ---
ED GI/ - General Chief Complaint: Nausea/Vomiting/Diarrhea Stated Complaint: VOMITING Time Seen by Provider: 05/08/18 14:41 Mode of Arrival: Ambulatory Information source: Patient Notes: Patient is a 19-year-old female comes into the emergency room today with a 3-day onset of just feeling poorly then has had 7 bouts of diarrhea in the past 2 days which is watery in nature. And she is vomited 2 times today but anything she attempts to eat. She also states that she is not sure whether she is having a stone or whether she is having a Crohn's flareup or some kind of a viral gastroenteritis. Her last diarrhea movement was just prior to coming back into the emergency room. Her last menstrual period was on May 05, 2018. She states her temperatures been running a little on the low side 96.8 but is run as high as 99.5. She has concerns that this may be the Crohn's flareup but it does not present 100% like her normal flare. She had a little left lower quadrant pain which was about midway between the upper and the lower quads on the left side. Which is a little higher presentation than her normal stones. She has had a cholecystectomy in the past and she has had in the neighborhood of 15 lithotripsies. She is also had a colonoscopy and endoscopy. She continues to smoke about half pack cigarettes a day. TRAVEL OUTSIDE OF THE [place] IN LAST 30 DAYS: No - HPI Patient complains to provider of: Abdominal pain, Diarrhea, Flank pain. No: Dysuria Onset: Other - 3-day onset worse the past 2 days. Timing/Duration: Gradual Quality of pain: Cramping, Sharp, Throbbing Severity at maximum: Moderate Severity in ED: Moderate Pain Level: 3 Location: LLQ, Left flank Vaginal bleeding (Compared to normal period): None LMP: May 05, 2018 : 4 Para: 2 Abortions: 2 Sexual history: Active, Unprotected intercourse. denies: New partner, Multiple partners, STD exposure, control pills Associated symptoms: Diarrhea Exacerbated by: Denies Relieved by: Denies Similar symptoms previously: Yes Recently seen / treated by doctor: No - Related Data Allergies/Adverse Reactions: butalbital [From Fioricet] Allergy (Verified 03/29/18 18:23) caffeine [From Fioricet] Allergy (Verified 03/29/18 18:23) codeine [Codeine] Allergy (Verified 03/29/18 18:23) Difficulty breathing haloperidol [From Haldol] Allergy (Verified 03/29/18 18:23) haloperidol lactate [From Haldol] Allergy (Verified 03/29/18 18:23) magnesium sulfate [Magnesium Sulfate] Allergy (Verified 03/29/18 18:23) hydromorphone HCl [From Dilaudid] Adverse Reaction (Verified 03/29/18 18:23) Renal failure ketorolac tromethamine [From Toradol] Adverse Reaction (Verified 03/29/18 18:23) metoclopramide HCl [From Reglan] Adverse Reaction (Verified 03/29/18 18:23) Anxiety tramadol [Tramadol] Adverse Reaction (Verified 03/29/18 18:23) Past Medical History - General Information source: Patient Last Menstrual Period: May 05, 2018 - Social History Smoking Status: Current Every Day Smoker Cigarette use (# per day): Yes - Half-pack a day Chew tobacco use (# tins/day): No Smoking Education Provided: Yes Frequency of alcohol use: Rare Drug Abuse: None Lives with: Spouse/Significant other Family History: Reviewed & Not Pertinent, CAD, Hyperlipidemia, Hypertension, Malignancy, Other - breast cancer, renal calculi Patient has suicidal ideation: No Patient has homicidal ideation: No - Past Medical History Cardiac Medical History: Reports: Hx Hypertension - PRECLAMPSIA Denies: Hx Coronary Artery Disease, Hx Heart Attack Pulmonary Medical History: Denies: Hx Asthma, Hx Bronchitis, Hx COPD, Hx Pneumonia, Hx Tuberculosis Neurological Medical History: Reports: Hx Migraine. Denies: Hx Cerebrovascular Accident, Hx Seizures Renal/ Medical History: Reports: Hx Kidney Stones, Hx Renal Insufficiency. Denies: Hx Peritoneal Dialysis GI Medical History: Reports: Hx Crohn's Disease, Hx Irritable Bowel, Hx Colonoscopy, Hx Endoscopy. Denies: Hx Ulcer Musculoskeletal Medical History: Reports Hx Arthritis, Reports Hx Musculoskeletal Trauma Traumatic Medical History: Reports: Hx Fractures Past Surgical History: Reports: Hx Cholecystectomy, Hx Dilation and Curettage - x2, Hx Gynecologic Surgery - D&C x's2, Hx Kidney (Renal Surgery) - Ureteral stent, lithotripsy x7, Hx Orthopedic Surgery - Foot surgery. Denies: Hx Hysterectomy, Hx Pacemaker - Immunizations Immunizations up to date: Yes Hx Diphtheria, Pertussis, Tetanus Vaccination: Yes Hx Pneumococcal Vaccination: 07/18/12 Review of Systems - Review of Systems Constitutional: No symptoms reported EENT: No symptoms reported Cardiovascular: No symptoms reported Respiratory: No symptoms reported Gastrointestinal: Abdominal pain, Diarrhea, Nausea, Vomiting Genitourinary: No symptoms reported Female Genitourinary: No symptoms reported Musculoskeletal: No symptoms reported Skin: No symptoms reported Hematologic/Lymphatic: No symptoms reported Neurological/Psychological: No symptoms reported -: Yes All other systems reviewed and negative Physical Exam - Vital signs Vitals: Temp Pulse Resp BP Pulse Ox 98.7 F 101 H 14 137/95 H 98 05/08/18 14:23 05/08/18 14:23 05/08/18 14:23 05/08/18 14:23 05/08/18 14:23 Interpretation: Hypertensive, Tachycardic - Notes Notes: PHYSICAL EXAMINATION: GENERAL: Patient is a well-nourished well-developed 27-year-old female who is in no apparent distress on physical exam this afternoon. She does however appear somewhat uncomfortable. HEAD: Atraumatic, normocephalic. EYES: Pupils equal round and reactive to light, extraocular movements intact, conjunctiva are normal. ENT: Nares patent, oropharynx clear without exudates. Moist mucous membranes. NECK: Normal range of motion, supple without lymphadenopathy LUNGS: Breath sounds clear to auscultation bilaterally and equal. No wheezes rales or rhonchi. HEART: Tachycardic rate and rhythm without murmurs ABDOMEN: Examination patient's abdomen shows she has bowel sounds in all 4 quads although the peer to be more on the quiet side. She has some mild tenderness to palpation left lower quadrant. She does not have any guarding in the area. Her abdomen is soft. She does have some mild flank pain to percussion on the l eft side. Female : deferred Musculoskeletal: Normal range of motion, no pitting or edema. No cyanosis. NEUROLOGICAL: Normal speech, normal gait. Normal sensory, motor exams PSYCH: Normal mood, normal affect. SKIN: Warm, Dry, normal turgor, no rashes or lesions noted. Course - Re-evaluation Re-evalutation: 05/08/18 18:16 Patient workup was basically negative with the exception of large amount of blood in her urine which she is probably at the end of her period at this time. Since the last period was on May 05, 2018 and we are on the . Her white count was normal her sedimentation rate/ESR was 17 low side of normal and her chemistries were all within normal limits. Patient did get relief from her abdominal discomfort for a while and started to come back a little bit around 6:00 PM. I discussed the case with Dr. Huertas he also reviewed the labs and the ultrasound report and also feels that this is most likely a viral gastroenteritis presentation. I informed patient that there is limited amount things we can do especially since she does not want a CT which is really nonspecific anyway it may show some inflammatory changes in the local area but again she does not want to have that done because all the CT she has had in the past. I am going to discharge her home with some Levsin as an antispasmodic some Phenergan for the nausea and I will give her a few pills of hydrocodone which may also help slow down her bowel movements. Patient feels better after receiving Phenergan IV and the Bentyl shot. So we will discharge her home on Levsin 0.25 p.o. every 4 hours. 05/08/18 19:18 - Vital Signs Vital signs: Temp Pulse Resp BP Pulse Ox 98.7 F 101 H 14 137/95 H 98 05/08/18 14:23 05/08/18 14:23 05/08/18 14:23 05/08/18 14:23 05/08/18 14:23 - Laboratory Result Diagrams: 05/08/18 14:59 05/08/18 14:59 Laboratory results interpreted by me: 05/08/18 05/08/18 14:59 14:59 ALT 7 L Urine Protein 100 H Urine Blood LARGE H Urine Urobilinogen 2.0 H Ur Leukocyte Esterase TRACE H Discharge - Discharge Clinical Impression: Gastroenteritis Abdominal pain Qualifiers: Abdominal location: left lower quadrant Qualified Code(s): R10.32 - Left lower quadrant pain Condition: Stable Disposition: HOME, SELF-CARE Instructions: Abdominal Pain ([facility]), Antispasmodics ([facility]), Diarrhea, Nonspecific ([facility]), Gastroenteritis (adult) ([facility]), OTC Antidiarrhea Medication ([facility]) Additional Instructions: ABDOMINAL PAIN: There are many causes of abdominal pain. Pain can mean a serious problem requiring surgery (such as appendicitis). It can also be an innocent problem that goes away on its own (such as a viral infection). Often, time must pass to determine the cause of pain. The physician does not feel that hospitalization is necessary, at present. Things may change within the next 24 hours. Call the doctor or come back for re- examination if any problems occur, such as: (1) Pain that becomes more severe, steady, or becomes concentrated in one specific area. Also, pain that is more severe with movement or coughing. (2) Vomiting that persists or becomes more frequent. (3) Blood in the vomitus, urine, or bowel movements. Blood in the stool may have a tarry or black appearance. (4) Shaking chills or fever greater than 100 degrees F. (5) The abdomen becomes more distended or swollen. (6) Bowel movements cease. (7) Failure to improve as expected. NORMAL EXAM AND WORKUP: At this time, your examination and workup show no significant abnormality. No significant abnormal physical findings are noted. All laboratory, EKG, and imaging (x-ray, CT scans, ultrasound) studies that were ordered show no significant abnormality. Although your examination and all studies that were ordered showed no significant abnormal finding, there are no examinations and no studies that are 100% accurate. There is always the possibility that some abnormality could exist and not be detected with physical examination or within the limits and capabilities of laboratory and other studies. You should return or follow up as you were instructed on your visit today for further evaluation if your symptoms do not resolve. PAIN MEDICATION INJECTION: You have received an injection of a pain medication. You should experience significant pain relief within 45 minutes. This drug is a narcotic -- it will impair your judgement, slow your reaction time and make you sleepy (as well as relieve your pain). Narcotics also can cause nausea. You should not drive, work with machinery, or perform any task requiring mental alertness until all effects of the medication are gone -- six to eight hours. Do not take any alcohol, or sedatives, and do not take any other medication without checking with your physician. ANTINAUSEA MEDICATION: You have been given a medication to suppress nausea and vomiting. This type of medication can be given as a shot, pill, or suppository. It will usually last for many hours. Pills and shots usually last six to eight hours, suppositories last about 12 hours. For the typical illness, only one or two doses of the medication may be necessary. Mild lightheadedness may occur. This type of medicine can cause drowsiness. Do not drive or operate dangerous machinery while under its influence. Do not mix with alcohol. See your doctor at once if you have muscle spasms or tightness, or uncontrollable motions (particularly of the neck, mouth, or jaw). Persistent vomiting or severe lightheadedness should also be evaluated by the physician. ANTISPASMODICS: You have been given a prescription for an antispasmodic medicine. This type of drug is used to decrease cramping and pain in the intestines. It is also used to decrease secretion of internal fluids (such as stomach acid in ulcer disease or pancreatic juice in pancreas disease). This medicine may cause drowsiness, especially with the first dose. Do not operate machinery or drive until all side effects have resolved. Do not combine with alcohol. Other common side effects include dry mouth and eyes. In older persons, antispasmodics can occasionally cause urinary retention, constipation, or trouble focusing the eyes. Glaucoma may be worsened by this medicine. ORAL NARCOTIC MEDICATION: You have been given a prescription for pain control. This medication is a narcotic. It's best taken with food, as nausea can result if taken on an empty stomach. Don't operate machinery or drive within six hours of taking this medication. Do not combine this medicine with alcohol, or with any medication which can cause sedation (such as cold tablets or sleeping pills) unless you get permission from the physician. Narcotics tend to cause constipation. If possible, drink plenty of fluids and eat a diet high in fiber and fruits. Please be aware that prescription narcotics also have the potential for abuse. People become addicted to these medications because of the general sense of wellbeing that they induce. This feeling along with a significant reduction in tension, anxiety, and aggression provides a stimulating seductive quality to these drugs. Once your pain is under control, we encourage you to discard your unused narcotics. FOLLOW-UP CARE: If you have been referred to a physician for follow-up care, call the physicians office for an appointment as you were instructed or within the next two days. If you experience worsening or a significant change in your symptoms, notify the physician immediately or return to the Emergency Department at any time for re-evaluation. FOLLOW-UP CARE: You should return for re-evaluation in 12 hours. This follow-up visit is important. If you are unable to return, or feel that the return visit is unnecessary, please call us. Home and rest. Medication as prescribed. Highly recommend that you do clear liquids for the next 24 hours and then advance very slowly. You can use the brat diet again. Should the pain and discomfort get worse he spike a fever or you have any concerns return to ER for recheck. Prescriptions: Promethazine HCl [Phenergan 25 mg Tablet] 25 mg PO Q4HP PRN #20 tablet PRN Reason: Hydrocodone/Acetaminophen [[place] 7.5-325 mg Tablet] 1 tab PO Q6 PRN #12 tablet PRN Reason: Hyoscyamine Sulfate [Levsin-Sl] 0.25 mg SL Q4 PRN #30 tab.subl PRN Reason: Forms: Elevated Blood Pressure
[2018-05-08 15:49] LABS: ERYTHROCYTE SEDIMENTATION RATE 17 mm/hr (0-20)
[2018-05-08 15:55] LABS: ALANINE AMINOTRANSFERASE 7 U/L (9-52); ALBUMIN 4.9 g/dL (3.5-5.0); ALKALINE PHOSPHATASE 72 U/L (38-126); ANION GAP 9 (5-19); ASPARTATE AMINO TRANSFERASE 20 U/L (14-36); BILIRUBIN,DIRECT 0.3 mg/dL (0.0-0.4); BILIRUBIN,TOTAL 0.4 mg/dL (0.2-1.3); BLOOD UREA NITROGEN 8 mg/dL (7-20); CALCIUM 9.8 mg/dL (8.4-10.2); CARBON DIOXIDE 25 mmol/L (22-30); CHLORIDE 106 mmol/L (98-107); GLUCOSE 87 mg/dL (75-110); SODIUM 140.2 mmol/L (137-145); TOTAL PROTEIN 8.2 g/dL (6.3-8.2)
[2018-05-08] MEDS ORDERED: DICYCLOMINE HCL INJ 20 MG/2 ML AMPULE IM ONE (17:41)
--- NOTE | 2018-05-08 17:49 | RADIOLOGY REPORT (SQ) ---
EXAM DESCRIPTION: [employer] COMPLETED DATE/TIME: 05/08/2018 5:33 pm REASON FOR STUDY: HX stones and has had multiple CT COMPARISON: 04/04/[address] from 10/24/2017 and 03/18/2016 TECHNIQUE: Dynamic and static grayscale images acquired of the kidneys and bladder and recorded on P ACS. Additional selected color Doppler and spectral images recorded. LIMITATIONS: None. FINDINGS: RIGHT KIDNEY: Normal size. Normal echogenicity. No solid masses. No hydronephrosis. Simil ar 2 cm complex cyst in the lower pole of the right kidney with internal calcifications. LEFT KIDNEY: Normal size. Normal echogenicity. No solid or suspicious masses. No hydronephrosis. No calcifications. BLADDER: No masses. OTHER FINDINGS: No other significant finding. IMPRESSION: No hydronephrosis or acute findings.Similar 2 cm complex cyst in the lower pole of the r ight kidney with internal calcifications. TECHNICAL DOCUMENTATION: JOB ID: [id number] [place]-72 2010 [employer]- All Rights Reserved Reading location - IP/workstation name: [email or web address]
[2018-05-08] MEDS ORDERED: PROMETHAZINE HCL INJ 25 MG/1 ML VIAL IV STA (18:14)
[2018-05-08 19:42] VITALS: BP 124/88
== END 2018-05-08 19:42 | disposition home or self-care (01) ==
LOC: ER 14:10
DX: K52.9 Noninfective gastroenteritis and colitis, unspecified (principal); R10.32 Left lower quadrant pain; R11.2 Nausea with vomiting, unspecified; R19.7 Diarrhea, unspecified; F17.210 Nicotine dependence, cigarettes, uncomplicated; Z88.6 Allergy status to analgesic agent
CPT/HCPCS: 99284; 96372; 96361; 96374; 96375; 36415; 84703; 85025; 85652; 80053; 81001; 76775; J0500; J1200; J2270; J2550; J7030

== ENCOUNTER 2018-06-12 17:51 | Emergency (ER) | payer MEDICAID ==
[2018-06-12] MEDS ORDERED: NORMAL SALINE 1000 ML 1,000 ML IV ONE (20:19)
--- NOTE | 2018-06-12 20:19 | ER Document Report ---
ED Medical Screen (RME) - General Chief Complaint: Headache Stated Complaint: HEADACHE Time Seen by Provider: 06/12/18 20:19 Mode of Arrival: Ambulatory Information source: Patient Notes: Is a 27-year-old female with a history of migraines since age 4 who presents to the emergency room with a migraine headache. Patient also reports nonproductive cough for the last few days. Patient denies photophobia. She is allergic to multiple medications. She normally states that a cocktail of Phenergan/Decadron/Benadryl works for her. TRAVEL OUTSIDE OF THE [place] IN LAST 30 DAYS: No - Related Data Allergies/Adverse Reactions: butalbital [From Fioricet] Allergy (Verified 03/29/18 18:23) caffeine [From Fioricet] Allergy (Verified 03/29/18 18:23) codeine [Codeine] Allergy (Verified 03/29/18 18:23) Difficulty breathing haloperidol [From Haldol] Allergy (Verified 03/29/18 18:23) haloperidol lactate [From Haldol] Allergy (Verified 03/29/18 18:23) magnesium sulfate [Magnesium Sulfate] Allergy (Verified 03/29/18 18:23) hydromorphone HCl [From Dilaudid] Adverse Reaction (Verified 03/29/18 18:23) Renal failure ketorolac tromethamine [From Toradol] Adverse Reaction (Verified 03/29/18 18:23) metoclopramide HCl [From Reglan] Adverse Reaction (Verified 03/29/18 18:23) Anxiety tramadol [Tramadol] Adverse Reaction (Verified 03/29/18 18:23) Past Medical History - Past Medical History Cardiac Medical History: Reports: Hx Hypertension - PRECLAMPSIA Denies: Hx Coronary Artery Disease, Hx Heart Attack Pulmonary Medical History: Denies: Hx Asthma, Hx Bronchitis, Hx COPD, Hx Pneumonia, Hx Tuberculosis Neurological Medical History: Reports: Hx Migraine. Denies: Hx Cerebrovascular Accident, Hx Seizures Renal/ Medical History: Reports: Hx Kidney Stones, Hx Renal Insufficiency. Denies: Hx Peritoneal Dialysis GI Medical History: Reports: Hx Crohn's Disease, Hx Irritable Bowel, Hx Colonoscopy, Hx Endoscopy. Denies: Hx Ulcer Musculoskeltal Medical History: Reports Hx Arthritis, Reports Hx Musculoskeletal Trauma Traumatic Medical History: Reports: Hx Fractures Past Surgical History: Reports: Hx Cholecystectomy, Hx Dilation and Curettage - x2, Hx Gynecologic Surgery - D&C x's2, Hx Kidney (Renal Surgery) - Ureteral stent, lithotripsy x7, Hx Orthopedic Surgery - Foot surgery. Denies: Hx Hysterectomy, Hx Pacemaker - Immunizations Immunizations up to date: Yes Hx Diphtheria, Pertussis, Tetanus Vaccination: Yes History of Influenza Vaccine for 02/2017 - 07/2017 Season: No Physical Exam - Vital signs Vitals: Temp Pulse Resp BP Pulse Ox 98.5 F 79 16 135/95 H 100 06/12/18 18:19 06/12/18 18:19 06/12/18 18:19 06/12/18 18:19 06/12/18 18:19 Course - Vital Signs Vital signs: Temp Pulse Resp BP Pulse Ox 98.5 F 79 16 135/95 H 100 06/12/18 18:19 06/12/18 18:19 06/12/18 18:19 06/12/18 18:19 06/12/18 18:19
[2018-06-12] MEDS ORDERED: PROMETHAZINE HCL INJ 25 MG/1 ML VIAL IV ONE ×2 (20:20→23:30)
[2018-06-12] MEDS ORDERED: DIPHENHYDRAMINE HCL 50 MG/ML VIAL IV ONE (20:20)
[2018-06-12] MEDS ORDERED: DEXAMETHASONE SOD PHOS INJ 10 MG/1 ML VIAL IV ONE (20:20)
--- NOTE | 2018-06-12 20:57 | RADIOLOGY REPORT (SQ) ---
EXAM DESCRIPTION: XR CHEST 2 VIEWS COMPLETED DATE/TME: 06/12/2018 20:21 CLINICAL HISTORY: 27 years, Female, cough COMPARISON: 02/02/2014 chest NUMBER OF VIEWS: 2 TECHNIQUE: Frontal and lateral views of the chest LIMITATIONS: None. FINDINGS: Heart size normal. Lungs are clear. No pneumothorax IMPRESSION: Negative chest copyright 2010 [employer]- All Rights Reserved
--- NOTE | 2018-06-12 22:30 | ER Document Report ---
ED General - General Chief Complaint: Headache Stated Complaint: HEADACHE Time Seen by Provider: 06/12/18 20:19 Mode of Arrival: Ambulatory Notes: Patient is a 27-year-old female with a past history of migraine headaches who presents with 1 of her typical migraine headaches. Does describe it as a throbbing, aching, bilateral posterior occipital area pain with associated neck discomfort. Nothing improves or worsens that pain except lights and sound which she states dramatically worsen the pain. She has tried her home medications without relief. She has not seen her general physician regarding today's concerns. She denies any associated fever or constitutional symptoms. No focal weakness or numbness. She also notes that she has had 2 days of nasal congestion, sinus pressure and cough. Multiple sick contacts with similar symptoms. TRAVEL OUTSIDE OF THE [place] IN LAST 30 DAYS: No - Related Data Allergies/Adverse Reactions: butalbital [From Fioricet] Allergy (Verified 06/12/18 20:22) caffeine [From Fioricet] Allergy (Verified 06/12/18 20:22) codeine [Codeine] Allergy (Verified 06/12/18 20:22) Difficulty breathing haloperidol [From Haldol] Allergy (Verified 06/12/18 20:22) haloperidol lactate [From Haldol] Allergy (Verified 06/12/18 20:22) magnesium sulfate [Magnesium Sulfate] Allergy (Verified 06/12/18 20:22) hydromorphone HCl [From Dilaudid] Adverse Reaction (Verified 06/12/18 20:22) Renal failure ketorolac tromethamine [From Toradol] Adverse Reaction (Verified 06/12/18 20:22) metoclopramide HCl [From Reglan] Adverse Reaction (Verified 06/12/18 20:22) Anxiety tramadol [Tramadol] Adverse Reaction (Verified 06/12/18 20:22) Past Medical History - General Information source: Patient - Social History Smoking Status: Current Every Day Smoker Frequency of alcohol use: None Drug Abuse: None Lives with: Spouse/Significant other Family History: Reviewed & Not Pertinent, CAD, Hyperlipidemia, Hypertension, Malignancy, Other - breast cancer, renal calculi Patient has suicidal ideation: No Patient has homicidal ideation: No - Past Medical History Cardiac Medical History: Reports: Hx Hypertension - PRECLAMPSIA Denies: Hx Coronary Artery Disease, Hx Heart Attack Pulmonary Medical History: Denies: Hx Asthma, Hx Bronchitis, Hx COPD, Hx Pneumonia, Hx Tuberculosis Neurological Medical History: Reports: Hx Migraine. Denies: Hx Cerebrovascular Accident, Hx Seizures Renal/ Medical History: Reports: Hx Kidney Stones, Hx Renal Insufficiency. Denies: Hx Peritoneal Dialysis GI Medical History: Reports: Hx Crohn's Disease, Hx Irritable Bowel, Hx Colonoscopy, Hx Endoscopy. Denies: Hx Ulcer Musculoskeletal Medical History: Reports Hx Arthritis, Reports Hx Musculoskeletal Trauma Traumatic Medical History: Reports: Hx Fractures Past Surgical History: Reports: Hx Cholecystectomy, Hx Dilation and Curettage - x2, Hx Gynecologic Surgery - D&C x's2, Hx Kidney (Renal Surgery) - Ureteral stent, lithotripsy x7, Hx Orthopedic Surgery - Foot surgery. Denies: Hx Hysterectomy, Hx Pacemaker - Immunizations Immunizations up to date: Yes Hx Diphtheria, Pertussis, Tetanus Vaccination: Yes Hx Pneumococcal Vaccination: 07/18/12 Review of Systems - Review of Systems Notes: Constitutional: Negative for fever. HENT: Negative for sore throat. Eyes: Negative for visual changes. Cardiovascular: Negative for chest pain. Respiratory: Negative for shortness of breath. Gastrointestinal: Negative for abdominal pain, vomiting or diarrhea. Genitourinary: Negative for dysuria. Musculoskeletal: Negative for back pain. Skin: Negative for rash. Neurological: Positive for headache 10 point ROS negative except as marked above and in HPI. Physical Exam - Vital signs Vitals: Temp Pulse Resp BP Pulse Ox 98.5 F 79 16 135/95 H 100 06/12/18 18:19 06/12/18 18:19 06/12/18 18:19 06/12/18 18:19 06/12/18 18:19 Interpretation: Normal Notes: PHYSICAL EXAMINATION: GENERAL: Well-appearing, well-nourished and in no acute distress. HEAD: Atraumatic, normocephalic. EYES: Pupils equal round and reactive to light, extraocular movements intact, sclera anicteric, conjunctiva are normal. ENT: nares patent, oropharynx clear without exudates. Moist mucous membranes. NECK: Normal range of motion, supple without lymphadenopathy LUNGS: Breath sounds clear to auscultation bilaterally and equal. No wheezes rales or rhonchi. HEART: Regular rate and rhythm without murmurs ABDOMEN: Soft, nontender, normoactive bowel sounds. No guarding, no rebound. No masses appreciated. EXTREMITIES: Normal range of motion, no pitting or edema. No cyanosis. NEUROLOGICAL: Face symmetric. Tongue protrudes midline. Extraocular motions intact. Pupils are 2 mm and equally reactive. Normal speech, normal gait. 5 out of 5 strength in both the distal and proximal upper and lower extremities bilaterally. Sensation is grossly intact throughout. Finger to nose testing normal. Pronator drift normal. PSYCH: Normal mood, normal affect. SKIN: Warm, Dry, normal turgor, no rashes or lesions noted. Course - Re-evaluation Re-evalutation: 06/12/18 22:29 Presentation of a headache that appears to be most consistent with tension versus migrainous type headache. Headache was not maximal in onset, patient has no focal neurologic deficits, no nuchal rigidity, vital signs within normal limits, no papilledema, and patient is overall well in appearance. Based on clinical history and examination I do not suspect an acute subarachnoid hemorrhage, dural venous sinus thrombosis, acute meningitis, or intercranial mass. Given my low clinical suspicion for any acute life-threatening etiology, I do not feel advanced neuro imaging or laboratory testing is indicated at this time. Patient did however apparently complain of a upper respiratory infection in triage, does continue to note that she has had some sinus pressure, sore throat and nonproductive cough. Chest x-ray clear without evidence of pneumonia. Most consistent with an underlying viral upper respiratory infection. Patient has received her usual migraine cocktail and will be reassessed for efficacy. 06/12/18 23:30 Patient is continued to have headache. I have performed a paracervical block. Patient tolerated procedure well. Please see procedural note. Patient also reports that diazepam often helps with her headaches, will proceed with a dose of 5 mg of IV diazepam and reassess after the block and diazepam if taken effect. 06/13/18 00:34 Patient has had overall significant improvement of her headache. Remains without any neurologic deficits. At this time will discharge with return precautions and follow-up recommendations. Verbal discharge instructions given a the bedside and opportunity for questions given. Medication warnings reviewed. Patient is in agreement with this plan and has verbalized understanding of return precautions and the need for primary care follow-up in the next 24-72 hours. - Vital Signs Vital signs: Temp Pulse Resp BP Pulse Ox 98.2 F 80 17 131/93 H 100 06/13/18 00:51 06/13/18 00:51 06/13/18 00:51 06/13/18 00:51 06/13/18 00:51 - Diagnostic Test Radiology reviewed: Image reviewed, Reports reviewed Radiology results interpreted by me: 06/13/18 00:34 Chest x-ray: No acute infiltrate or pneumothorax Procedures - Additional Procedures Paracervical block Notes: 06/13/18 05:12 The paracervical space bilaterally to the C6-7 junction was prepped with ChloraPrep. 5 mL of 0.75% bupivacaine was instilled using a 25-gauge needle. Patient not extrinsic any complication during the procedure. Bandages were placed after injection. Discharge - Discharge Clinical Impression: Cough Headache Qualifiers: Headache type: unspecified Headache chronicity pattern: acute headache Intractability: not intractable Qualified Code(s): R51 - Headache Condition: Good Disposition: AGAINST MEDICAL ADVICE Additional Instructions: You have been seen in the Emergency Department (ED) for a headache. Please use Tylenol (acetaminophen) or Motrin (ibuprofen) as needed for symptoms, but only as written on the box. As we have discussed, please follow up with your primary care doctor as soon as possible regarding today's ED visit and your headache symptoms. Call your doctor or return to the ED if you have a worsening headache, sudden and severe headache, confusion, slurred speech, facial droop, weakness or numbness in any arm or leg, extreme fatigue, or other symptoms that concern you. Your symptoms are most likely due to a viral infection it should resolve over the next 7-14 days. You should take dixh-nyp-[id number] guanfacine per bottle instructions to help thin the mucus. For nasal congestion: I would recommend that you get [id number] oxymetazoline also known is afrin. Use only per bottle instructions and be sure to never use this for more than 3 days if you can develop severe rebound congestion. You may also use tylenol or ibuprofen as needed for aches and thorat discomfort. Please be sure to drink plenty of fluids and get rest. Return to the emergency department he began having difficulty breathing, chest pain, persistent vomiting, or any other symptoms that are concerning to you.
[2018-06-12] MEDS ORDERED: BUPIVACAINE HCL 0.75% INJ/PF (7.5 MG/1 ML) 10 ML SDV INJ ONE (22:35)
[2018-06-12] MEDS ORDERED: DIAZEPAM INJ 10 MG/2 ML DISP.SYRIN IV ONE (23:30)
[2018-06-13 00:58] VITALS: BP 131/93
== END 2018-06-13 00:58 | disposition home or self-care (01) ==
LOC: ER 17:51
DX: R05 Cough (principal); R51 Headache; M54.2 Cervicalgia; F17.200 Nicotine dependence, unspecified, uncomplicated; I10 Essential (primary) hypertension
CPT/HCPCS: 96376; 99284; 96361; 96374; 96375; 71046; J3490; J3360; J1200; J2550; J7030; J1100

== ENCOUNTER 2018-07-16 11:25 | Emergency (ER) | payer SELFPAY ==
[2018-07-16] MEDS ORDERED: DIPHENHYDRAMINE HCL 50 MG/ML VIAL IV ONE (12:40)
[2018-07-16] MEDS ORDERED: PROCHLORPERAZINE EDISYLATE INJ 10 MG/2 ML VIAL IM ONE (12:40)
[2018-07-16] MEDS ORDERED: DIAZEPAM 5 MG TABLET PO ONE (12:40)
[2018-07-16] MEDS ORDERED: FENTANYL CITRATE INJ/PF 100 MCG/2 ML AMPUL IM ONE (12:42)
--- NOTE | 2018-07-16 12:44 | ER Document Report ---
ED Headache - General Chief Complaint: Headache Stated Complaint: HEADACHE Time Seen by Provider: 07/16/18 12:35 Mode of Arrival: Ambulatory Information source: Patient Notes: History of Present Illness Chief Complaint: [headache] [ 27 years old female with a history of migraine headache, presents with headache for the last 4 days. Not relieved by her usual medicines. Associated with upper neck spasm. Denies any fever chills. Denies any nuchal rigidity. Denies any other constitutional symptoms.] History obtained from [patient] Symptoms began: [today] Onset: [gradual] Timing: [constant] Quality: ["pain"] No different than prior severe headaches Intensity: [severe, but not worst ever] Location: [Global] Aggravating factors: [none] Relieving factors: [none] Denies neck pain or stiffness Denies rash Denies visual loss or eye pain. Denies tick bite Denies head injury Denies weakness, numbness, incontinence, seizure, LOC Review of systems : All other systems negative as reviewed. CONSTITUTIONAL No fever. EYES No eye pain. ENT No URI symptoms, No sore throat, No ear pain. CARDIOVASCULAR No chest pain, No palpitations, No edema. RESPIRATORY No Cough, No SOB, No wheezing. GASTROINTESTINAL No abdominal pain, No nausea, No vomiting, No diarrhea, No constipation, No melena, No rectal bleeding. GENITOURINARY No UTI symptoms. MUSCULOSKELETAL No back pain. SKIN No Rash. NEUROLOGIC No paralysis, No parathesias. ENDOCRINE No polyuria. HEMO/LYMPATIC Patient does not bruise easily. PSYCHIATRIC No depression. Physical Exam CONSTITUTIONAL Vital signs reviewed, unComfortable, Alert and oriented X 3. HEAD Atraumatic, Normal cephalic. EYES No discharge from eye, Sclera are not injected, Extraocular muscles intact, Conjunctiva are normal.perrl,2mm, no photophobia, no nystagmus, fundi wnl. ENT Ears normal to inspection, Nose examination normal, Oropharynx normal, Mucous membranes pink, moist, normal in color. NECK Normal inspection, supple, Normal ROM, No jugular venous distention, No meningeal signs, no carotid bruit or tenderness. RESPIRATORY/CHEST Chest is non-tender, Breath sounds normal, No respiratory distress. CARDIOVASCULAR RRR, Heart sounds normal. ABDOMEN Abdomen is non-tender, No masses, Bowel sounds normal, No distension, No peritoneal signs. BACK Normal inspection. UPPER EXTREMITY Inspection normal, No cyanosis/clubbing/edema. LOWER EXTREMITY Inspection normal, No cyanosis/clubbing/edema, No calf tenderness. NEURO Alert oriented x3 TRAVEL OUTSIDE OF THE [place] IN LAST 30 DAYS: No - Related Data Allergies/Adverse Reactions: butalbital [From Fioricet] Allergy (Verified 07/16/18 11:25) caffeine [From Fioricet] Allergy (Verified 07/16/18 11:25) codeine [Codeine] Allergy (Verified 07/16/18 11:25) Difficulty breathing haloperidol [From Haldol] Allergy (Verified 07/16/18 11:25) haloperidol lactate [From Haldol] Allergy (Verified 07/16/18 11:25) magnesium sulfate [Magnesium Sulfate] Allergy (Verified 07/16/18 11:25) hydromorphone HCl [From Dilaudid] Adverse Reaction (Verified 07/16/18 11:25) Renal failure ketorolac tromethamine [From Toradol] Adverse Reaction (Verified 07/16/18 11:25) metoclopramide HCl [From Reglan] Adverse Reaction (Verified 07/16/18 11:25) Anxiety tramadol [Tramadol] Adverse Reaction (Verified 07/16/18 11:25) Past Medical History - Social History Smoking Status: Current Some Day Smoker Chew tobacco use (# tins/day): No Frequency of alcohol use: None Drug Abuse: None Family History: Reviewed & Not Pertinent, CAD, Hyperlipidemia, Hypertension, Malignancy, Other - breast cancer, renal calculi Patient has suicidal ideation: No Patient has homicidal ideation: No - Past Medical History Cardiac Medical History: Reports: Hx Hypertension - PRECLAMPSIA Denies: Hx Coronary Artery Disease, Hx Heart Attack Pulmonary Medical History: Denies: Hx Asthma, Hx Bronchitis, Hx COPD, Hx Pneumonia, Hx Tuberculosis Neurological Medical History: Reports: Hx Migraine. Denies: Hx Cerebrovascular Accident, Hx Seizures Renal/ Medical History: Reports: Hx Kidney Stones, Hx Renal Insufficiency. Denies: Hx Peritoneal Dialysis GI Medical History: Reports: Hx Crohn's Disease, Hx Irritable Bowel, Hx Colonoscopy, Hx Endoscopy. Denies: Hx Ulcer Musculoskeletal Medical History: Reports Hx Arthritis, Reports Hx Musculoskeletal Trauma Traumatic Medical History: Reports: Hx Fractures Past Surgical History: Reports: Hx Cholecystectomy, Hx Dilation and Curettage - x2, Hx Gynecologic Surgery - D&C x's2, Hx Kidney (Renal Surgery) - Ureteral stent, lithotripsy x7, Hx Orthopedic Surgery - Foot surgery. Denies: Hx Hysterectomy, Hx Pacemaker - Immunizations Immunizations up to date: Yes Hx Diphtheria, Pertussis, Tetanus Vaccination: Yes Hx Pneumococcal Vaccination: 07/18/12 Review of Systems - Review of Systems Notes: dictated Physical Exam - Vital signs Vitals: Temp Pulse Resp BP Pulse Ox 98.1 F 72 16 137/98 H 100 07/16/18 11:57 07/16/18 11:57 07/16/18 11:57 07/16/18 11:57 07/16/18 11:57 - Notes Notes: dictated Course - Vital Signs Vital signs: Temp Pulse Resp BP Pulse Ox 97.8 F 70 16 123/86 H 100 07/16/18 20:58 07/16/18 20:58 07/16/18 11:57 07/16/18 20:58 07/16/18 20:58 - Laboratory Result Diagrams: 07/16/18 16:56 07/16/18 18:07 Laboratory results interpreted by me: 07/16/18 07/16/18 16:56 18:07 Seg Neutrophils % 89.4 H Lymphocytes % 9.2 L Monocytes % 1.1 L Chloride 109 H Carbon Dioxide 21 L Calcium 10.3 H Discharge - Discharge Clinical Impression: Migraine Qualifiers: Migraine type: unspecified Status migrainosus presence: without status migrainosus Intractability: not intractable Qualified Code(s): G43.909 - Migraine, unspecified, not intractable, without status migrainosus Condition: Stable Disposition: HOME, SELF-CARE Instructions: Family Physicians / Practices, Migraine Headache ([facility]) Prescriptions: Amitriptyline HCl [Elavil 25 mg Tablet] 25 mg PO QHS #10 tablet Diazepam [Valium 2 mg Tablet] 2 mg PO QHS #10 tablet Forms: Return to Work
[2018-07-16] MEDS ORDERED: DIPHENHYDRAMINE HCL 50 MG/ML VIAL IM ONE (13:14)
[2018-07-16] MEDS ORDERED: DEXAMETHASONE SOD PHOS INJ 10 MG/1 ML VIAL IM ONE (13:16)
[2018-07-16] MEDS ORDERED: ONDANSETRON 4 MG TAB.RAPDIS PO ONE (15:17)
[2018-07-16] MEDS ORDERED: PROMETHAZINE HCL INJ 50 MG/1 ML VIAL IM ONE (15:23)
[2018-07-16] MEDS ORDERED: FENTANYL CITRATE INJ/PF 100 MCG/2 ML AMPUL IV ONE (15:37)
[2018-07-16] MEDS ORDERED: RINGERS SOLUTION,LACTATED 1,000 ML IV ONE (15:37)
[2018-07-16 17:12] LABS: ABSOLUTE LYMPHOCYTES (AUTO) 0.7 10^3/uL (0.5-4.7); ABSOLUTE MONOCYTES (AUTO) 0.1 10^3/uL (0.1-1.4); ABSOLUTE NEUT (AUTO) 6.5 10^3/uL (1.7-8.2); BASOPHILS % (AUTO) 0.2 % (0-2); EOSINOPHILS % (AUTO) 0.1 % (0-6); HEMATOCRIT 41.3 % (36.0-47.0); HEMOGLOBIN 14.4 g/dL (12.0-15.5); LYMPHOCYTES % (AUTO) 9.2 % (13-45); MEAN CORPUSCULAR HEMOGLOBIN 31.5 pg (27.0-33.4); MEAN CORPUSCULAR HGB CONC 34.8 g/dL (32.0-36.0); MEAN CORPUSCULAR VOLUME 91 fl (80-97); MONOCYTES % (AUTO) 1.1 % (3-13); PLATELET COUNT 274 10^3/uL (150-450); RED BLOOD COUNT 4.56 10^6/uL (3.72-5.28); RED CELL DISTRIBUTION WIDTH 13.5 % (11.5-14.0); SEGMENTED NEUTROPHILS % (AUTO) 89.4 % (42-78); TOTAL CELLS COUNTED % (AUTO) 100 %; WHITE BLOOD COUNT 7.2 10^3/uL (4.0-10.5)
--- NOTE | 2018-07-16 17:39 | RADIOLOGY REPORT (SQ) ---
EXAM DESCRIPTION: CT HEAD WITHOUT COMPLETED DATE/TIME: 07/16/2018 5:31 pm REASON FOR STUDY: Headache COMPARISON: 02/17/2017 TECHNIQUE: Axial images acquired through the brain without intravenous contrast. Images reviewed wi th bone, brain and subdural windows. Additional sagittal and coronal reconstructions were generated. Images stored on PACS. All CT scanners at this facility use dose modulation, iterative reconstruction, and/or weight based d osing when appropriate to reduce radiation dose to as low as reasonably achievable (ALARA). [facility]: Dose Right [facility]: CareDose [facility]: Dose Right [facility]: Teradose 4D [facility]: [employer] RADIATION DOSE: CT Rad equipment meets quality standard of care and radiation dose reduction techniq ues were employed. CTDIvol: 53.2 mGy. DLP: 937 mGy-cm. mGy. LIMITATIONS: None. FINDINGS: VENTRICLES: Normal size and contour. CEREBRUM: No masses. No hemorrhage. No midline shift. No evidence for acute infarction. Normal gra y/white matter differentiation. No areas of low density in the white matter. CEREBELLUM: No masses. No hemorrhage. No alteration of density. No evidence for acute infarction. EXTRAAXIAL SPACES: No fluid collections. No masses. ORBITS AND GLOBE: No intra- or extraconal masses. Normal contour of globe without masses. CALVARIUM: No fracture. PARANASAL SINUSES: No fluid or mucosal thickening. SOFT TISSUES: No mass or hematoma. OTHER: No other significant finding. IMPRESSION: NORMAL BRAIN CT WITHOUT CONTRAST. EVIDENCE OF ACUTE STROKE: NO. COMMENT: Quality ID # [id number]: Final reports with documentation of one or more dose reduction techniques (e.g., Automated exposure control, adjustment of the mA and/or kV according to patient size, use of iterative reconstruction technique) TECHNICAL DOCUMENTATION: JOB ID: [id number] [employer]- All Rights Reserved Reading location - IP/workstation name: [email or web address]
[2018-07-16] MEDS ORDERED: PROMETHAZINE HCL INJ 25 MG/1 ML VIAL IV ONE ×2 (17:43→19:07)
[2018-07-16 18:39] LABS: ANION GAP 12 (5-19); BLOOD UREA NITROGEN 8 mg/dL (7-20); CALCIUM 10.3 mg/dL (8.4-10.2); CARBON DIOXIDE 21 mmol/L (22-30); CHLORIDE 109 mmol/L (98-107); GLUCOSE 108 mg/dL (75-110); POTASSIUM 4.8 mmol/L (3.6-5.0); SODIUM 141.5 mmol/L (137-145)
[2018-07-16] MEDS ORDERED: AMITRIPTYLINE HCL 25 MG TABLET PO ONE (20:23)
[2018-07-16] MEDS ORDERED: DIAZEPAM 2 MG TABLET PO ONE (20:24)
[2018-07-16 21:00] VITALS: BP 123/86
--- NOTE | 2018-07-16 22:11 | ER Document Report ---
Entered by CINDY MESA SCRIBE 07/16/182024 Acting as scribe for:ARUN VALADEZ DO ED Headache - General Chief Complaint: Headache Stated Complaint: HEADACHE Time Seen by Provider: 07/16/18 12:35 Mode of Arrival: Ambulatory Information source: Patient Notes: 27 year old female that presents to the emergency department today with complaints of a "spasming headache". Patient states this headache is not like her previous headaches in that it "is worse than normal". Patient states she had a headache similar to this x8 years ago and it was relieved with diazepam and amitriptyline. Patient denies any sick contacts, cough, cold symptoms. TRAVEL OUTSIDE OF THE [place] IN LAST 30 DAYS: No - HPI Patient complains to provider of: Headache, "Migraine" Patient reports: Frequent migraines, Hx chronic headaches Onset: Just prior to arrival - Related Data Allergies/Adverse Reactions: butalbital [From Fioricet] Allergy (Verified 07/16/18 11:25) caffeine [From Fioricet] Allergy (Verified 07/16/18 11:25) codeine [Codeine] Allergy (Verified 07/16/18 11:25) Difficulty breathing haloperidol [From Haldol] Allergy (Verified 07/16/18 11:25) haloperidol lactate [From Haldol] Allergy (Verified 07/16/18 11:25) magnesium sulfate [Magnesium Sulfate] Allergy (Verified 07/16/18 11:25) hydromorphone HCl [From Dilaudid] Adverse Reaction (Verified 07/16/18 11:25) Renal failure ketorolac tromethamine [From Toradol] Adverse Reaction (Verified 07/16/18 11:25) metoclopramide HCl [From Reglan] Adverse Reaction (Verified 07/16/18 11:25) Anxiety tramadol [Tramadol] Adverse Reaction (Verified 07/16/18 11:25) Past Medical History - General Information source: Patient - Social History Smoking Status: Current Some Day Smoker Cigarette use (# per day): Yes Chew tobacco use (# tins/day): No Frequency of alcohol use: None Drug Abuse: None Lives with: Family Family History: Reviewed & Not Pertinent, CAD, Hyperlipidemia, Hypertension, Malignancy, Other - breast cancer, renal calculi Patient has suicidal ideation: No Patient has homicidal ideation: No - Past Medical History Cardiac Medical History: Reports: Hx Hypertension - PRECLAMPSIA Neurological Medical History: Reports: Hx Migraine Renal/ Medical History: Reports: Hx Kidney Stones, Hx Renal Insufficiency GI Medical History: Reports: Hx Crohn's Disease, Hx Irritable Bowel, Hx Colonoscopy, Hx Endoscopy Musculoskeletal Medical History: Reports Hx Arthritis, Reports Hx Musculoskeletal Trauma Traumatic Medical History: Reports: Hx Fractures Past Surgical History: Reports: Hx Cholecystectomy, Hx Dilation and Curettage - x2, Hx Gynecologic Surgery - D&C x's2, Hx Kidney (Renal Surgery) - Ureteral stent, lithotripsy x7, Hx Orthopedic Surgery - Foot surgery - Immunizations Immunizations up to date: Yes Hx Diphtheria, Pertussis, Tetanus Vaccination: Yes Hx Pneumococcal Vaccination: 07/18/12 Review of Systems - Review of Systems Constitutional: No symptoms reported EENT: No symptoms reported Cardiovascular: No symptoms reported Respiratory: No symptoms reported Gastrointestinal: No symptoms reported Genitourinary: No symptoms reported Female Genitourinary: No symptoms reported Musculoskeletal: No symptoms reported Skin: No symptoms reported Hematologic/Lymphatic: No symptoms reported Neurological/Psychological: See HPI, Headaches -: Yes All other systems reviewed and negative Physical Exam - Vital signs Vitals: Temp Pulse Resp BP Pulse Ox 98.1 F 72 16 137/98 H 100 07/16/18 11:57 07/16/18 11:57 07/16/18 11:57 07/16/18 11:57 07/16/18 11:57 Interpretation: Normal - General General appearance: Alert In distress: None - Appears uncomfortable - HEENT Head: Normocephalic, Atraumatic Eyes: Normal Pupils: PERRL - Respiratory Respiratory status: No respiratory distress Chest status: Nontender Breath sounds: Normal Chest palpation: Normal - Cardiovascular Rhythm: Regular Heart sounds: Normal auscultation Murmur: No - Abdominal Inspection: Normal Distension: No distension Bowel sounds: Normal Tenderness: Nontender Organomegaly: No organomegaly - Back Back: Normal, Nontender - Extremities General upper extremity: Normal inspection, Nontender, Normal color, Normal ROM, Normal temperature General lower extremity: Normal inspection, Nontender, Normal color, Normal ROM, Normal temperature, Normal weight bearing. No: Chapis's sign - Neurological Neuro grossly intact: Yes Cognition: Normal Orientation: AAOx4 [place] Coma Scale Eye Opening: Spontaneous [place]ai Coma Scale Verbal: Oriented [place] Coma Scale Motor: Obeys Commands [place] Coma Scale Total: 15 Speech: Normal Motor strength normal: LUE, RUE, LLE, RLE Sensory: Normal - Psychological Associated symptoms: Normal affect, Normal mood - Skin Skin Temperature: Warm Skin Moisture: Dry Skin Color: Normal Course - Re-evaluation Re-evalutation: 07/16/18 22:10 Patient comes in with a migraine headache as she has had in the past. Patient has had worse headaches of this. No fever. Blood work within normal limits. Discussed LP and patient would not like to do this today. Feels better finally after Phenergan and fluids. States that amitriptyline and Valium have worked in the past will be given a short course of this. Patient follows with the health department. Please call to set up an appointment with a primary doctor and neurologist. Understands agrees with plan. Neurovascularly intact. Stable for discharge. - Vital Signs Vital signs: Temp Pulse Resp BP Pulse Ox 97.8 F 70 16 123/86 H 100 07/16/18 20:58 07/16/18 20:58 07/16/18 11:57 07/16/18 20:58 07/16/18 20:58 - Laboratory Result Diagrams: 07/16/18 16:56 07/16/18 18:07 Laboratory results interpreted by me: 07/16/18 07/16/18 16:56 18:07 Seg Neutrophils % 89.4 H Lymphocytes % 9.2 L Monocytes % 1.1 L Chloride 109 H Carbon Dioxide 21 L Calcium 10.3 H - Diagnostic Test Radiology reviewed: Reports reviewed Discharge - Discharge Clinical Impression: Migraine Qualifiers: Migraine type: unspecified Status migrainosus presence: without status migrainosus Intractability: not intractable Qualified Code(s): G43.909 - Migraine, unspecified, not intractable, without status migrainosus Condition: Stable Disposition: HOME, SELF-CARE Instructions: Family Physicians / Practices, Migraine Headache ([facility]) Prescriptions: Amitriptyline HCl [Elavil 25 mg Tablet] 25 mg PO QHS #10 tablet Diazepam [Valium 2 mg Tablet] 2 mg PO QHS #10 tablet Forms: Return to Work Scribe Attestation: 07/16/18 22:10 I personally performed the services described in the documentation, reviewed and edited the documentation which was dictated to the scribe in my presence, and it accurately records my words and actions. I personally performed the services described in the documentation, reviewed and edited the documentation which was dictated to the scribe in my presence, and it accurately records my words and actions.
== END 2018-07-16 21:10 | disposition home or self-care (01) ==
LOC: ER 11:25
DX: G43.909 Migraine, unspecified, not intractable, without status migrainosus (principal); F17.210 Nicotine dependence, cigarettes, uncomplicated; Z88.6 Allergy status to analgesic agent; Z88.5 Allergy status to narcotic agent; Z88.8 Allergy status to other drugs, medicaments and biological substances
CPT/HCPCS: 99284; 96372; 96374; 96375; 36415; 84702; 85025; 80048; 70450; J3490 ×2; J1200; S0119; J3010; J2550; J7120; J1100; J0780

== ENCOUNTER 2018-08-19 16:11 | Emergency (ER) | payer SELFPAY ==
[2018-08-19] MEDS ORDERED: ONDANSETRON HCL INJ/PF 4 MG/2 ML SDV IV ONE (16:46)
[2018-08-19] MEDS ORDERED: MORPHINE SULFATE 10 MG/ML INJ IV ONE ×2 (16:46→18:38)
--- NOTE | 2018-08-19 16:49 | ER Document Report ---
ED Medical Screen (RME) - General Chief Complaint: Flank Pain Stated Complaint: LEFT SIDE PAIN Time Seen by Provider: 08/19/18 16:45 TRAVEL OUTSIDE OF THE [place] IN LAST 30 DAYS: No - HPI Notes: 08/19/18 16:48 Patient is a 27-year-old female with an extensive history of kidney stones who presents the emergency department complaining of left flank pain times 2 days that radiates into her groin. Patient has noted blood in her urine as well. She has had associated nausea and vomiting. She is otherwise having normal bowel movements. Denies fever, chest pain, shortness of breath, cough, rash. I have treated and performed a rapid initial assessment of this patient. A comprehensive ED assessment and evaluation of the patient, analysis of test results and completion of medical decision making process will be conducted by additional ED providers. PHYSICAL EXAMINATION: GENERAL: Well-appearing, well-nourished and in no acute distress. A&Ox4. Answers questions appropriately. LUNGS: Breath sounds clear to auscultation bilaterally and equal. No wheezes rales or rhonchi. HEART: Regular rate and rhythm without murmurs, rubs, gallops. ABDOMEN: Soft, nondistended abdomen. No guarding, no rebound. Normal bowel sounds present. + Left CVA tenderness. Extremities: No cyanosis, clubbing, or edema b/l. NEUROLOGICAL: Normal speech, normal gait. PSYCH: Normal mood, normal affect. - Related Data Allergies/Adverse Reactions: butalbital [From Fioricet] Allergy (Verified 08/19/18 16:17) caffeine [From Fioricet] Allergy (Verified 08/19/18 16:17) codeine [Codeine] Allergy (Verified 08/19/18 16:17) Difficulty breathing haloperidol [From Haldol] Allergy (Verified 08/19/18 16:17) haloperidol lactate [From Haldol] Allergy (Verified 08/19/18 16:17) magnesium sulfate [Magnesium Sulfate] Allergy (Verified 08/19/18 16:17) hydromorphone HCl [From Dilaudid] Adverse Reaction (Verified 08/19/18 16:17) Renal failure ketorolac tromethamine [From Toradol] Adverse Reaction (Verified 08/19/18 16:17) metoclopramide HCl [From Reglan] Adverse Reaction (Verified 08/19/18 16:17) Anxiety tramadol [Tramadol] Adverse Reaction (Verified 08/19/18 16:17) Past Medical History - Past Medical History Cardiac Medical History: Reports: Hx Hypertension - PRECLAMPSIA Denies: Hx Coronary Artery Disease, Hx Heart Attack Pulmonary Medical History: Denies: Hx Asthma, Hx Bronchitis, Hx COPD, Hx Pneumonia, Hx Tuberculosis Neurological Medical History: Reports: Hx Migraine. Denies: Hx Cerebrovascular Accident, Hx Seizures Renal/ Medical History: Reports: Hx Kidney Stones, Hx Renal Insufficiency. D enies: Hx Peritoneal Dialysis GI Medical History: Reports: Hx Crohn's Disease, Hx Irritable Bowel, Hx Colonoscopy, Hx Endoscopy. Denies: Hx Ulcer Musculoskeltal Medical History: Reports Hx Arthritis, Reports Hx Musculoskeletal Trauma Traumatic Medical History: Reports: Hx Fractures Past Surgical History: Reports: Hx Cholecystectomy, Hx Dilation and Curettage - x2, Hx Gynecologic Surgery - D&C x's2, Hx Kidney (Renal Surgery) - Ureteral stent, lithotripsy x7, Hx Orthopedic Surgery - Foot surgery. Denies: Hx Hysterectomy, Hx Pacemaker - Immunizations Immunizations up to date: Yes Hx Diphtheria, Pertussis, Tetanus Vaccination: Yes History of Influenza Vaccine for 02/2017 - 07/2017 Season: No
[2018-08-19 17:26] LABS: ABSOLUTE BASOPHILS # (AUTO) 0.1 10^3/uL (0.0-0.2); ABSOLUTE LYMPHOCYTES (AUTO) 2.1 10^3/uL (0.5-4.7); ABSOLUTE MONOCYTES (AUTO) 0.3 10^3/uL (0.1-1.4); ABSOLUTE NEUT (AUTO) 3.8 10^3/uL (1.7-8.2); BASOPHILS % (AUTO) 1.2 % (0-2); EOSINOPHILS % (AUTO) 0.8 % (0-6); HEMATOCRIT 44.1 % (36.0-47.0); HEMOGLOBIN 15.5 g/dL (12.0-15.5); LYMPHOCYTES % (AUTO) 32.7 % (13-45); MEAN CORPUSCULAR HEMOGLOBIN 31.6 pg (27.0-33.4); MEAN CORPUSCULAR VOLUME 90 fl (80-97); MONOCYTES % (AUTO) 4.6 % (3-13); PLATELET COUNT 267 10^3/uL (150-450); RED BLOOD COUNT 4.89 10^6/uL (3.72-5.28); RED CELL DISTRIBUTION WIDTH 13.6 % (11.5-14.0); SEGMENTED NEUTROPHILS % (AUTO) 60.7 % (42-78); TOTAL CELLS COUNTED % (AUTO) 100 %; WHITE BLOOD COUNT 6.3 10^3/uL (4.0-10.5)
[2018-08-19 17:39] LABS: AMORPHOUS SEDIMENT,URINE TRACE /HPF; APPEARANCE,URINE CLOUDY; BILIRUBIN,URINE NEGATIVE (NEGATIVE); COLOR,URINE YELLOW; GLUCOSE, URINE NEGATIVE (NEGATIVE); KETONES,URINE NEGATIVE (NEGATIVE); LEUKOCYTE ESTERASE,URINE LARGE (NEGATIVE); NITRITE,URINE NEGATIVE (NEGATIVE); PROTEIN,URINE NEGATIVE (NEGATIVE); UROBILINOGEN,URINE NEGATIVE mg/dL (<2.0)
--- NOTE | 2018-08-19 17:53 | RADIOLOGY REPORT (SQ) ---
EXAM DESCRIPTION: CT ABD/PELVIS NO ORAL OR IV COMPLETED DATE/TIME: 08/19/2018 5:39 pm REASON FOR STUDY: left flank pain COMPARISON: 10/24/2017 TECHNIQUE: CT scan of the abdomen and pelvis performed without intravenous or oral contrast. Images reviewed with lung, soft tissue, and bone windows. Reconstructed coronal and sagittal MPR images revi ewed. All images stored on PACS. All CT scanners at this facility use dose modulation, iterative reconstruction, and/or weight based d osing when appropriate to reduce radiation dose to as low as reasonably achievable (ALARA). [facility]: Dose Right [facility]: CareDose [facility]: Dose Right [facility]: Teradose 4D [facility]: Smart TripleGift RADIATION DOSE: CT Rad equipment meets quality standard of care and radiation dose reduction techniq ues were employed. CTDIvol: 6.7 mGy. DLP: 394 mGy-cm.mGy. LIMITATIONS: None. FINDINGS: LOWER CHEST: No significant findings. No nodules or infiltrates. NON-CONTRASTED LIVER, SPLEEN, ADRENALS: Evaluation limited by lack of IV contrast. No identified sign ificant masses. PANCREAS: No masses. No peripancreatic inflammatory changes. GALLBLADDER: Surgically absent. RIGHT KIDNEY AND URETER: There is a right renal lesion this contains peripheral calcification. This most likely represents calcified cyst. No significant calcifications. No hydronephrosis or hydrou reter. LEFT KIDNEY AND URETER: No suspicious masses. Assessment limited by lack of IV contrast. There are small nonobstructing left renal calculi. No hydronephrosis or hydroureter. AORTA AND RETROPERITONEUM: No aneurysm. No retroperitoneal masses or adenopathy. BOWEL AND PERITONEAL CAVITY: No obvious masses or inflammatory changes. No free fluid. APPENDIX: Normal. PELVIS, BLADDER, AND ABDOMINAL WALL:No abnormal masses. No free fluid. Bladder normal. BONES: No significant findings. OTHER: No other significant finding. IMPRESSION: Small nonobstructing bilateral renal calculi. No hydronephrosis. No acute findings. COMMENT: Quality ID # [id number]: Final reports with documentation of one or more dose reduction techniques (e.g., Automated exposure control, adjustment of the mA and/or kV according to patient size, use of iterative reconstruction technique) TECHNICAL DOCUMENTATION: JOB ID: [id number] [employer]- All Rights Reserved Reading location - IP/workstation name: [email or web address]
[2018-08-19] MEDS: NORMAL SALINE 1000 ML 1,000 ML IV PRN ×2 (18:19→20:03)
[2018-08-19] MEDS ORDERED: PROMETHAZINE HCL 25 MG TABLET PO ONE (18:39)
[2018-08-19] MEDS ORDERED: DIPHENHYDRAMINE HCL 50 MG/ML VIAL IV ONE (18:39)
[2018-08-19 19:07] LABS: ALBUMIN 4.5 g/dL (3.5-5.0); ANION GAP 9 (5-19); BILIRUBIN,DIRECT 0.4 mg/dL (0.0-0.4); BILIRUBIN,TOTAL 0.5 mg/dL (0.2-1.3); BLOOD UREA NITROGEN 11 mg/dL (7-20); CALCIUM 9.7 mg/dL (8.4-10.2); CARBON DIOXIDE 20 mmol/L (22-30); CHLORIDE 111 mmol/L (98-107); GLUCOSE 81 mg/dL (75-110); LIPASE 142.4 U/L (23-300); SODIUM 139.6 mmol/L (137-145)
[2018-08-19 19:16] LABS: ALANINE AMINOTRANSFERASE 20 U/L (9-52); ALKALINE PHOSPHATASE 57 U/L (38-126); ASPARTATE AMINO TRANSFERASE 23 U/L (14-36); POTASSIUM 4.7 mmol/L (3.6-5.0)
[2018-08-19 20:07] VITALS: BP 130/86
--- NOTE | 2018-08-19 20:23 | ER Document Report ---
ED General - General Chief Complaint: Flank Pain Stated Complaint: LEFT SIDE PAIN Time Seen by Provider: 08/19/18 16:45 Mode of Arrival: Ambulatory Information source: Patient Notes: This is a 27-year-old female with a history of Crohn's disease (in remission reportedly), kidney stones (history of multiple lithotripsies in the past) who presents to the emergency room with left flank pain for 2 days. Patient reports some nausea. He denies any fever. She is concerned she may have a kidney stone. TRAVEL OUTSIDE OF THE [place] IN LAST 30 DAYS: No - HPI Onset: Last week Onset/Duration: Gradual Quality of pain: Dull Severity: Mild Pain Level: 1 Associated symptoms: denies: Chest pain, Fever, Shortness of breath Exacerbated by: Denies Relieved by: Denies Similar symptoms previously: Yes Recently seen / treated by doctor: No - Related Data Allergies/Adverse Reactions: butalbital [From Fioricet] Allergy (Verified 08/19/18 16:17) caffeine [From Fioricet] Allergy (Verified 08/19/18 16:17) codeine [Codeine] Allergy (Verified 08/19/18 16:17) Difficulty breathing haloperidol [From Haldol] Allergy (Verified 08/19/18 16:17) haloperidol lactate [From Haldol] Allergy (Verified 08/19/18 16:17) magnesium sulfate [Magnesium Sulfate] Allergy (Verified 08/19/18 16:17) hydromorphone HCl [From Dilaudid] Adverse Reaction (Verified 08/19/18 16:17) Renal failure ketorolac tromethamine [From Toradol] Adverse Reaction (Verified 08/19/18 16:17) metoclopramide HCl [From Reglan] Adverse Reaction (Verified 08/19/18 16:17) Anxiety tramadol [Tramadol] Adverse Reaction (Verified 08/19/18 16:17) Past Medical History - General Information source: Patient - Social History Smoking Status: Current Every Day Smoker Cigarette use (# per day): Yes - Half a pack per day Chew tobacco use (# tins/day): No Frequency of alcohol use: None Drug Abuse: None Lives with: Family Family History: Reviewed & Not Pertinent, CAD, Hyperlipidemia, Hypertension, Malignancy, Other - breast cancer, renal calculi Patient has suicidal ideation: No Patient has homicidal ideation: No - Past Medical History Cardiac Medical History: Reports: Hx Hypertension - PRECLAMPSIA Denies: Hx Coronary Artery Disease, Hx Heart Attack Pulmonary Medical History: Denies: Hx Asthma, Hx Bronchitis, Hx COPD, Hx Pneumonia, Hx Tuberculosis Neurological Medical History: Reports: Hx Migraine. Denies: Hx Cerebrovascular Accident, Hx Seizures Renal/ Medical History: Reports: Hx Kidney Stones, Hx Renal Insufficiency. Denies: Hx Peritoneal Dialysis GI Medical History: Reports: Hx Crohn's Disease, Hx Irritable Bowel, Hx Colonoscopy, Hx Endoscopy. Denies: Hx Ulcer Musculoskeletal Medical History: Reports Hx Arthritis, Reports Hx Musculoskeletal Trauma Traumatic Medical History: Reports: Hx Fractures Past Surgical History: Reports: Hx Cholecystectomy, Hx Dilation and Curettage - x2, Hx Gynecologic Surgery - D&C x's2, Hx Kidney (Renal Surgery) - Ureteral stent, lithotripsy x7, Hx Orthopedic Surgery - Foot surgery. Denies: Hx Hysterectomy, Hx Pacemaker - Immunizations Immunizations up to date: Yes Hx Diphtheria, Pertussis, Tetanus Vaccination: Yes Hx Pneumococcal Vaccination: 07/18/12 Review of Systems - Review of Systems Constitutional: denies: Chills, Fever EENT: No symptoms reported Cardiovascular: denies: Chest pain, Palpitations, Heart racing Respiratory: denies: Cough, Hemoptysis, Wheezing Gastrointestinal: Abdominal pain. denies: Diarrhea, Vomiting Genitourinary: No symptoms reported Female Genitourinary: No symptoms reported Musculoskeletal: No symptoms reported Skin: No symptoms reported Hematologic/Lymphatic: No symptoms reported Neurological/Psychological: No symptoms reported Physical Exam - Vital signs Vitals: Temp Pulse Resp BP Pulse Ox 98.3 F 83 15 142/97 H 97 08/19/18 16:28 08/19/18 16:28 08/19/18 16:28 08/19/18 16:28 08/19/18 16:28 Notes: Physical exam: GENERAL: She is alert and oriented x3, no acute distress. HEAD: Atraumatic, normocephalic. EYES: Pupils equal round and reactive to light, extraocular movements intact, sclera anicteric, conjunctiva are normal. ENT: TMs normal, nares patent, oropharynx clear without exudates. Moist mucous membranes. NECK: Normal range of motion, supple without obvious mass or JVD. LUNGS: Breath sounds clear to auscultation bilaterally and equal. No wheezes rales or rhonchi. HEART: Regular rate and rhythm without murmurs, rubs or gallops. ABDOMEN: Soft, normoactive bowel sounds. No tenderness to palpation. No guarding, no rebound. No masses appreciated. Mild CVA tenderness. EXTREMITIES: Normal range of motion, no pitting or edema. No clubbing or cyanosis. NEUROLOGICAL: Cranial nerves II through XII grossly intact. Normal speech, moving all extremities. PSYCH: Normal mood, normal affect. SKIN: Warm, Dry, normal turgor, no rashes or lesions noted. Course - Vital Signs Vital signs: Temp Pulse Resp BP Pulse Ox 98.6 F 82 16 130/86 H 100 08/19/18 20:03 08/19/18 20:03 08/19/18 20:03 08/19/18 20:03 08/19/18 20:03 - Laboratory Result Diagrams: 08/19/18 17:12 08/19/18 18:30 Laboratory results interpreted by me: 08/19/18 08/19/18 17:12 18:30 Chloride 111 H Carbon Dioxide 20 L Urine Blood SMALL H Ur Leukocyte Esterase LARGE H - Diagnostic Test Radiology reviewed: Image reviewed, Reports reviewed - CT shows no ureteral calculi. Does have small bilateral nonobstructing stones. Discharge - Discharge Clinical Impression: Flank pain Condition: Stable Disposition: HOME, SELF-CARE Additional Instructions: As we discussed, the urine did show some white cells suggestive of infection. We did send a urine culture. Take Bactrim as prescribed. Take Percocet for pain. Take Phenergan for nausea. You want you to follow-up with your urologist Return to the emergency room for worsening pain Drink plenty of fluids The pain medicine you're taking prescribed as a narcotic. There are several important things you should know about this medicine: 1. This medicine contains Tylenol: It is important that you do not take Tylenol (or acetaminophen) while on this medicine. Tylenol is metabolized by the liver and taking too much Tylenol (acetaminophen) can lay to liver damage and even liver failure. 2. Taking narcotics for too long can lead to physical and mental dependence. Take this medicine only if really needed and in the lowest quantity to achieve pain relief. 3. Do not drink alcohol while on this medicine. Alcohol interacts with narcotics and the combination can be dangerous. 4. Do not drive or operate machinery while on this medicine. 5. Narcotics do cause constipation, so drink plenty of fluids and daily stool softeners. Prescriptions: Promethazine HCl [Phenergan 25 mg Tablet] 25 mg PO Q6HP PRN #14 tablet PRN Reason: Oxycodone HCl/Acetaminophen [Percocet 5-325 mg Tablet] 1 - 2 tab PO ASDIR PRN #25 tablet PRN Reason: Sulfamethoxazole/Trimethoprim [Bactrim Ds Tablet] 1 each PO BID #14 tablet
== END 2018-08-19 20:45 | disposition home or self-care (01) ==
LOC: ER 16:11
DX: R10.9 Unspecified abdominal pain (principal); R11.0 Nausea; F17.210 Nicotine dependence, cigarettes, uncomplicated; Z87.442 Personal history of urinary calculi; Z88.6 Allergy status to analgesic agent; Z90.49 Acquired absence of other specified parts of digestive tract
CPT/HCPCS: 99284; 96361; 96374; 96375; 36415; 87086; 83690; 85025; 81025; 80053; 81001; 74176; J1200; J2270; J2405; J7030

== ENCOUNTER 2018-09-10 12:42 | Emergency (ER) | payer MEDICAID ==
[2018-09-10] MEDS ORDERED: PROMETHAZINE HCL INJ 25 MG/1 ML VIAL IV ONE (13:21)
[2018-09-10] MEDS ORDERED: DIAZEPAM 5 MG TABLET PO ONE (13:21)
[2018-09-10] MEDS ORDERED: DEXAMETHASONE SOD PHOS INJ 10 MG/1 ML VIAL IV ONE (13:21)
[2018-09-10] MEDS ORDERED: DIPHENHYDRAMINE HCL 50 MG/ML VIAL IV ONE (13:21)
--- NOTE | 2018-09-10 13:23 | ER Document Report ---
ED Medical Screen (RME) - General Chief Complaint: Headache Stated Complaint: HEADACHE,VOMITING,WEAKNESS Time Seen by Provider: 09/10/18 13:10 Mode of Arrival: Ambulatory Information source: Patient TRAVEL OUTSIDE OF THE [place] IN LAST 30 DAYS: No - HPI Patient complains to provider of: HEADACHE Notes: 09/10/18 13:22 Patient here with complaints of headache. The patient has a long history of migraines and is been seen multiple times in the past for headaches. This headache started yesterday. Is gradually gotten worse. She has associated photophobia. No head injury, no blood thinners. She denies any unilateral weakness. She has an extensive allergy list, she states that typically she has to get IV medications that include Decadron, Benadryl, Phenergan, diazepam in order to get her headache to go away. Exam Nontoxic, no distress. Nonfocal neurological exam. Lungs clear and equal throughout. Heart sounds normal. Plan IV, medications, reassessment. An initial examination was made on the patient as part of the triage process, and it was determined a more comprehensive evaluation was necessary. Initial labs were ordered and patient was transferred to another provider in the ED who assumed care and finished evaluation and plan. - Related Data Allergies/Adverse Reactions: butalbital [From Fioricet] Allergy (Verified 09/10/18 13:14) caffeine [From Fioricet] Allergy (Verified 09/10/18 13:14) codeine [Codeine] Allergy (Verified 09/10/18 13:14) Difficulty breathing haloperidol [From Haldol] Allergy (Verified 09/10/18 13:14) haloperidol lactate [From Haldol] Allergy (Verified 09/10/18 13:14) magnesium sulfate [Magnesium Sulfate] Allergy (Verified 09/10/18 13:14) hydromorphone HCl [From Dilaudid] Adverse Reaction (Verified 09/10/18 13:14) Renal failure ketorolac tromethamine [From Toradol] Adverse Reaction (Verified 09/10/18 13:14) metoclopramide HCl [From Reglan] Adverse Reaction (Verified 09/10/18 13:14) Anxiety tramadol [Tramadol] Adverse Reaction (Verified 09/10/18 13:14) Past Medical History - Social History Chew tobacco use (# tins/day): No Frequency of alcohol use: None Drug Abuse: None - Past Medical History Cardiac Medical History: Reports: Hx Hypertension - PRECLAMPSIA Denies: Hx Coronary Artery Disease, Hx Heart Attack Pulmonary Medical History: Denies: Hx Asthma, Hx Bronchitis, Hx COPD, Hx Pneumonia, Hx Tuberculosis Neurological Medical History: Reports: Hx Migraine. Denies: Hx Cerebrovascular Accident, Hx Seizures Renal/ Medical History: Reports: Hx Kidney Stones, Hx Renal Insufficiency. Denies: Hx Peritoneal Dialysis GI Medical History: Reports: Hx Crohn's Disease, Hx Irritable Bowel, Hx Colonoscopy, Hx Endoscopy. Denies: Hx Ulcer Musculoskeltal Medical History: Reports Hx Arthritis, Reports Hx Musculoskeletal Trauma Traumatic Medical History: Reports: Hx Fractures Past Surgical History: Reports: Hx Cholecystectomy, Hx Dilation and Curettage - x2, Hx Gynecologic Surgery - D&C x's2, Hx Kidney (Renal Surgery) - Ureteral stent, lithotripsy x7, Hx Orthopedic Surgery - Foot surgery. Denies: Hx Hysterectomy, Hx Pacemaker - Immunizations Immunizations up to date: Yes Hx Diphtheria, Pertussis, Tetanus Vaccination: Yes History of Influenza Vaccine for 02/2017 - 07/2017 Season: No Physical Exam - Vital signs Vitals: Temp Pulse Resp BP Pulse Ox 98.2 F 87 14 135/95 H 99 09/10/18 12:47 09/10/18 12:47 09/10/18 12:47 09/10/18 12:47 09/10/18 12:47 Course - Vital Signs Vital signs: Temp Pulse Resp BP Pulse Ox 98.2 F 87 14 135/95 H 99 09/10/18 12:47 09/10/18 12:47 09/10/18 12:47 09/10/18 12:47 09/10/18 12:47
--- NOTE | 2018-09-10 16:32 | ER Document Report ---
ED Headache - General Chief Complaint: Headache Stated Complaint: HEADACHE,VOMITING,WEAKNESS Time Seen by Provider: 09/10/18 13:10 Mode of Arrival: Ambulatory Information source: Patient TRAVEL OUTSIDE OF THE [place] IN LAST 30 DAYS: No - HPI Patient complains to provider of: Headache Notes: Patient with complaints of headache. She states that she has a history of headaches this feels exactly like previous headaches in the past. She has a history of migraines. Been present since yesterday. No head injury. No blood thinners. No fever. No neck stiffness. She is had nausea with a few episodes of vomiting. No rash. No unilateral numbness, tingling, weakness. No chest pain or shortness of breath. No abdominal pain. Was not a sudden onset, thunderclap type headache. Feels like previous headache she had in the past. [id number] medications have not improved the pain. Like to make it worse. No other complaints. - Related Data Allergies/Adverse Reactions: butalbital [From Fioricet] Allergy (Verified 09/10/18 13:14) caffeine [From Fioricet] Allergy (Verified 09/10/18 13:14) codeine [Codeine] Allergy (Verified 09/10/18 13:14) Difficulty breathing haloperidol [From Haldol] Allergy (Verified 09/10/18 13:14) haloperidol lactate [From Haldol] Allergy (Verified 09/10/18 13:14) magnesium sulfate [Magnesium Sulfate] Allergy (Verified 09/10/18 13:14) hydromorphone HCl [From Dilaudid] Adverse Reaction (Verified 09/10/18 13:14) Renal failure ketorolac tromethamine [From Toradol] Adverse Reaction (Verified 09/10/18 13:14) metoclopramide HCl [From Reglan] Adverse Reaction (Verified 09/10/18 13:14) Anxiety tramadol [Tramadol] Adverse Reaction (Verified 09/10/18 13:14) Past Medical History - General Information source: Patient - Social History Smoking Status: Current Every Day Smoker Chew tobacco use (# tins/day): No Frequency of alcohol use: None Drug Abuse: None Family History: Reviewed & Not Pertinent, CAD, Hyperlipidemia, Hypertension, Malignancy, Other - breast cancer, renal calculi Patient has suicidal ideation: No Patient has homicidal ideation: No - Past Medical History Cardiac Medical History: Reports: Hx Hypertension - PRECLAMPSIA Denies: Hx Coronary Artery Disease, Hx Heart Attack Pulmonary Medical History: Denies: Hx Asthma, Hx Bronchitis, Hx COPD, Hx Pneumonia, Hx Tuberculosis Neurological Medical History: Reports: Hx Migraine. Denies: Hx Cerebrovascular Accident, Hx Seizures Renal/ Medical History: Reports: Hx Kidney Stones, Hx Renal Insufficiency. Denies: Hx Peritoneal Dialysis GI Medical History: Reports: Hx Crohn's Disease, Hx Irritable Bowel, Hx Colonoscopy, Hx Endoscopy. Denies: Hx Ulcer Musculoskeletal Medical History: Reports Hx Arthritis, Reports Hx Musculoskeletal Trauma Traumatic Medical History: Reports: Hx Fractures Past Surgical History: Reports: Hx Cholecystectomy, Hx Dilation and Curettage - x2, Hx Gynecologic Surgery - D&C x's2, Hx Kidney (Renal Surgery) - Ureteral stent, lithotripsy x7, Hx Orthopedic Surgery - Foot surgery. Denies: Hx Hysterectomy, Hx Pacemaker - Immunizations Immunizations up to date: Yes Hx Diphtheria, Pertussis, Tetanus Vaccination: Yes Hx Pneumococcal Vaccination: 07/18/12 Review of Systems - Review of Systems -: Yes All other systems reviewed and negative Physical Exam - Vital signs Vitals: Temp Pulse Resp BP Pulse Ox 98.2 F 87 14 135/95 H 99 09/10/18 12:47 09/10/18 12:47 09/10/18 12:47 09/10/18 12:47 09/10/18 12:47 - Notes Notes: GENERAL: alert, cooperative, nontoxic, no distress. HEAD: normocephalic, atraumatic EYES: conjunctiva pink without discharge, no external redness or swelling. Pupils are equal, round, reactive to light. EARS: no external swelling, no external redness NOSE: atraumatic, no external swelling MOUTH/THROAT: mucous membranes moist and pink, posterior pharynx without erythema, swelling, exudate. No trismus or drooling. NECK: soft, supple, full range of motion, no meningismus. CHEST: no distress, lungs clear and equal throughout. No wheezing, rales, rhonchi. CARDIAC: regular rate and rhythm, no murmur, normal capillary refill, normal pulses. No peripheral edema noted. BACK: full range of motion, no CVA tenderness. EXTREMITIES: full range of motion of all extremities. No redness, no swelling. NEURO: alert and oriented x 3, cranial nerves II through XII are grossly intact. Upper and lower extremities are equal throughout. Normal sensation. No focal deficits, full range of motion of all extremities. normal finger to nose. PYSCH: appropriate mood, affect. Patient is cooperative. SKIN: pink, warm, dry, no rash. Course - Re-evaluation Re-evalutation: 09/10/18 16:30 Patient is nontoxic-appearing with stable vitals. Patient here with complaints of migraine type headache. Started yesterday. Not sudden onset or thunderclap. No fevers. No signs of meningitis or subarachnoid hemorrhage. Patient has a history of migraines and this feels like previous migraine she is had in the past. She has a nonfocal neurological exam. She was given Decadron, Benadryl, Phenergan, Valium. She has an extensive allergy list and states that these are the medications that typically work for her headaches. She states that her headache has improved, and she is ready to go home. Patient will be discharged home with instructions to follow-up with her doctor at the next available appointment. Follow-up sooner she has any worsening symptoms, high fever, neck stiffness, persistent vomiting, or for any further concerns. The patient's emergency department workup and current diagnosis were explained to the patient and or family. Follow-up instructions were provided. Medications if prescribed were discussed. Instructions for when to return to the emergency department including specific worrisome symptoms were discussed with the patient and/or family. - Vital Signs Vital signs: Temp Pulse Resp BP Pulse Ox 98.1 F 90 16 123/84 100 09/10/18 16:25 09/10/18 16:25 09/10/18 16:25 09/10/18 16:25 09/10/18 16:25 Discharge - Discharge Clinical Impression: Headache Qualifiers: Headache type: unspecified Headache chronicity pattern: acute headache Intractability: not intractable Qualified Code(s): R51 - Headache Condition: Stable Disposition: HOME, SELF-CARE Instructions: Headache ([facility]) Additional Instructions: Follow-up with your doctor at the next available appointment. Follow up sooner for any worsening pain, high fever, neck stiffness, persistent vomiting, or for any further concerns. Forms: Smoking Cessation Education Referrals: [facility] [Provider Group] - Follow up as needed
[2018-09-10 17:14] VITALS: BP 113/80
== END 2018-09-10 16:45 | disposition home or self-care (01) ==
LOC: ER 12:42
DX: R51 Headache (principal); R11.10 Vomiting, unspecified; R53.1 Weakness; F17.200 Nicotine dependence, unspecified, uncomplicated; Z88.6 Allergy status to analgesic agent; Z87.442 Personal history of urinary calculi; Z90.49 Acquired absence of other specified parts of digestive tract
CPT/HCPCS: 99283; 96374; 96375; J3490; J1200; J2550; J1100

== ENCOUNTER 2018-09-17 15:45 | Emergency (ER) | payer MEDICAID ==
[2018-09-17] MEDS ORDERED: ACETAMINOPHEN 325 MG TABLET PO ONE (17:18)
--- NOTE | 2018-09-17 17:23 | ER Document Report ---
ED Medical Screen (RME) - General Chief Complaint: Headache Stated Complaint: DIZZINESS Time Seen by Provider: 09/17/18 17:11 Mode of Arrival: Ambulatory Information source: Patient TRAVEL OUTSIDE OF THE [place] IN LAST 30 DAYS: No - HPI Patient complains to provider of: HEADACHE Notes: 09/17/18 17:21 Patient here with complaints of headache. Patient has a history of migraine headaches and has been seen multiple times for headaches in the past. Patient here with complaints of headache that started just prior to her arrival here. She states that she had a sudden onset of right-sided headache. This is not her typical migraine. States that she then felt dizzy and thinks she may have had a syncopal episode and woke up on the floor of her bathroom. She denies any unilateral numbness, tingling, weakness. Exam Nontoxic-appearing, no distress. Lungs clear and equal throughout. Heart sounds normal. Nonfocal neurological exam. Plan CBC, CMP, troponin, EKG, urine, urine , chest x-ray. Due to the sudden onset nature with possible syncope, have ordered a CT of the brain to rule out subarachnoid hemorrhage. It has been less than 6 hours since the symptoms started. An initial examination was made on the patient as part of the triage process, and it was determined a more comprehensive evaluation was necessary. Initial labs were ordered and patient was transferred to another provider in the ED who assumed care and finished evaluation and plan. - Related Data Allergies/Adverse Reactions: butalbital [From Fioricet] Allergy (Verified 09/17/18 15:51) caffeine [From Fioricet] Allergy (Verified 09/17/18 15:51) codeine [Codeine] Allergy (Verified 09/17/18 15:51) Difficulty breathing haloperidol [From Haldol] Allergy (Verified 09/17/18 15:51) haloperidol lactate [From Haldol] Allergy (Verified 09/17/18 15:51) magnesium sulfate [Magnesium Sulfate] Allergy (Verified 09/17/18 15:51) hydromorphone HCl [From Dilaudid] Adverse Reaction (Verified 09/17/18 15:51) Renal failure ketorolac tromethamine [From Toradol] Adverse Reaction (Verified 09/17/18 15:51) metoclopramide HCl [From Reglan] Adverse Reaction (Verified 09/17/18 15:51) Anxiety tramadol [Tramadol] Adverse Reaction (Verified 09/17/18 15:51) Past Medical History - Social History Frequency of alcohol use: None Drug Abuse: None - Past Medical History Cardiac Medical History: Reports: Hx Hypertension - PRECLAMPSIA Denies: Hx Coronary Artery Disease, Hx Heart Attack Pulmonary Medical History: Denies: Hx Asthma, Hx Bronchitis, Hx COPD, Hx Pneumonia, Hx Tuberculosis Neurological Medical History: Reports: Hx Migraine. Denies: Hx Cerebrovascular Accident, Hx Seizures Renal/ Medical History: Reports: Hx Kidney Stones, Hx Renal Insufficiency. Denies: Hx Peritoneal Dialysis GI Medical History: Reports: Hx Crohn's Disease, Hx Irritable Bowel, Hx Colonoscopy, Hx Endoscopy. Denies: Hx Ulcer Musculoskeltal Medical History: Reports Hx Arthritis, Reports Hx Musculoskeletal Trauma Traumatic Medical History: Reports: Hx Fractures Past Surgical History: Reports: Hx Cholecystectomy, Hx Dilation and Curettage - x2, Hx Gynecologic Surgery - D&C x's2, Hx Kidney (Renal Surgery) - Ureteral stent, lithotripsy x7, Hx Orthopedic Surgery - Foot surgery. Denies: Hx Hysterectomy, Hx Pacemaker - Immunizations Immunizations up to date: Yes Hx Diphtheria, Pertussis, Tetanus Vaccination: Yes History of Influenza Vaccine for 02/2017 - 07/2017 Season: No Physical Exam - Vital signs Vitals: Temp Pulse Resp BP Pulse Ox 97.7 F 95 18 131/93 H 99 09/17/18 15:58 09/17/18 15:58 09/17/18 15:58 09/17/18 15:58 09/17/18 15:58 Course - Vital Signs Vital signs: Temp Pulse Resp BP Pulse Ox 97.7 F 95 18 131/93 H 99 09/17/18 15:58 09/17/18 15:58 09/17/18 15:58 09/17/18 15:58 09/17/18 15:58
--- NOTE | 2018-09-17 17:48 | RADIOLOGY REPORT (SQ) ---
EXAM DESCRIPTION: CT HEAD WITHOUT COMPLETED DATE/TIME: 09/17/2018 5:39 pm REASON FOR STUDY: HEADACHE, SYNCOPE COMPARISON: 07/16/2018 TECHNIQUE: Axial images acquired through the brain without intravenous contrast. Images reviewed wi th bone, brain and subdural windows. Additional sagittal and coronal reconstructions were generated. Images stored on PACS. All CT scanners at this facility use dose modulation, iterative reconstruction, and/or weight based d osing when appropriate to reduce radiation dose to as low as reasonably achievable (ALARA). [facility]: Dose Right [facility]: CareDose [facility]: Dose Right [facility]: Teradose 4D [facility]: [address] RADIATION DOSE: CT Rad equipment meets quality standard of care and radiation dose reduction techniq ues were employed. CTDIvol: 53.2 mGy. DLP: 1044 mGy-cm. mGy. LIMITATIONS: None. FINDINGS: VENTRICLES: Normal size and contour. CEREBRUM: No masses. No hemorrhage. No midline shift. No evidence for acute infarction. Normal gra y/white matter differentiation. No areas of low density in the white matter. CEREBELLUM: No masses. No hemorrhage. No alteration of density. No evidence for acute infarction. EXTRAAXIAL SPACES: No fluid collections. No masses. ORBITS AND GLOBE: No intra- or extraconal masses. Normal contour of globe without masses. CALVARIUM: No fracture. PARANASAL SINUSES: No fluid or mucosal thickening. SOFT TISSUES: No mass or hematoma. OTHER: No other significant finding. IMPRESSION: NORMAL BRAIN CT WITHOUT CONTRAST. EVIDENCE OF ACUTE STROKE: NO. COMMENT: Quality ID # [id number]: Final reports with documentation of one or more dose reduction techniques (e.g., Automated exposure control, adjustment of the mA and/or kV according to patient size, use of iterative reconstruction technique) TECHNICAL DOCUMENTATION: JOB ID: [id number] [employer]- All Rights Reserved Reading location - IP/workstation name: [email or web address]
--- NOTE | 2018-09-17 17:56 | RADIOLOGY REPORT (SQ) ---
EXAM DESCRIPTION: CHEST SINGLE VIEW COMPLETED DATE/TIME: 09/17/2018 5:31 pm REASON FOR STUDY: HEADACHE, SYNCOPE COMPARISON: 06/12/2018. NUMBER OF VIEWS: One view. TECHNIQUE: Single frontal radiographic view of the chest acquired. LIMITATIONS: None. FINDINGS: LUNGS AND PLEURA: No opacities, masses or pneumothorax. No pleural effusion. MEDIASTINUM AND HILAR STRUCTURES: No masses. Contour normal. HEART AND VASCULAR STRUCTURES: Heart normal in size. Normal vasculature. BONES: No acute findings. HARDWARE: None in the chest. OTHER: No other significant finding. IMPRESSION: NO SIGNIFICANT RADIOGRAPHIC FINDING IN THE CHEST. TECHNICAL DOCUMENTATION: JOB ID: [id number] [employer]- All Rights Reserved Reading location - IP/workstation name: [email or web address]
[2018-09-17] MEDS ORDERED: ONDANSETRON 4 MG TAB.RAPDIS ONE (18:01)
[2018-09-17] MEDS ORDERED: ONDANSETRON 4 MG TAB.RAPDIS PO ONE (18:04)
[2018-09-17 19:09] LABS: ABSOLUTE BASOPHILS # (AUTO) 0.1 10^3/uL (0.0-0.2); ABSOLUTE EOSINOPHILS # (AUTO) 0.1 10^3/uL (0.0-0.6); ABSOLUTE LYMPHOCYTES (AUTO) 1.8 10^3/uL (0.5-4.7); ABSOLUTE MONOCYTES (AUTO) 0.4 10^3/uL (0.1-1.4); ABSOLUTE NEUT (AUTO) 7.3 10^3/uL (1.7-8.2); BASOPHILS % (AUTO) 0.7 % (0-2); EOSINOPHILS % (AUTO) 0.6 % (0-6); HEMATOCRIT 42.9 % (36.0-47.0); HEMOGLOBIN 14.7 g/dL (12.0-15.5); LYMPHOCYTES % (AUTO) 18.3 % (13-45); MEAN CORPUSCULAR HEMOGLOBIN 31.1 pg (27.0-33.4); MEAN CORPUSCULAR HGB CONC 34.3 g/dL (32.0-36.0); MEAN CORPUSCULAR VOLUME 91 fl (80-97); MONOCYTES % (AUTO) 4.4 % (3-13); PLATELET COUNT 285 10^3/uL (150-450); RED BLOOD COUNT 4.74 10^6/uL (3.72-5.28); TOTAL CELLS COUNTED % (AUTO) 100 %; WHITE BLOOD COUNT 9.6 10^3/uL (4.0-10.5)
[2018-09-17 19:10] LABS: APPEARANCE,URINE CLOUDY; BILIRUBIN,URINE NEGATIVE (NEGATIVE); COLOR,URINE AMBER; GLUCOSE, URINE NEGATIVE (NEGATIVE); KETONES,URINE NEGATIVE (NEGATIVE); LEUKOCYTE ESTERASE,URINE LARGE (NEGATIVE); NITRITE,URINE NEGATIVE (NEGATIVE); PROTEIN,URINE 100 mg/dL (NEGATIVE); UROBILINOGEN,URINE NEGATIVE mg/dL (<2.0)
[2018-09-17 19:37] LABS: ALANINE AMINOTRANSFERASE 21 U/L (9-52); ALBUMIN 4.7 g/dL (3.5-5.0); ALKALINE PHOSPHATASE 69 U/L (38-126); ANION GAP 13 (5-19); ASPARTATE AMINO TRANSFERASE 17 U/L (14-36); BILIRUBIN,DIRECT 0.2 mg/dL (0.0-0.4); BILIRUBIN,TOTAL 0.4 mg/dL (0.2-1.3); BLOOD UREA NITROGEN 12 mg/dL (7-20); CALCIUM 9.9 mg/dL (8.4-10.2); CARBON DIOXIDE 24 mmol/L (22-30); CHLORIDE 106 mmol/L (98-107); GLUCOSE 82 mg/dL (75-110); POTASSIUM 4.3 mmol/L (3.6-5.0); SODIUM 142.5 mmol/L (137-145); TOTAL PROTEIN 7.5 g/dL (6.3-8.2)
[2018-09-17] MEDS ORDERED: PROMETHAZINE HCL INJ 25 MG/1 ML VIAL IV ONE ×2 (20:37→23:25)
[2018-09-17] MEDS ORDERED: DIPHENHYDRAMINE HCL 50 MG/ML VIAL IV ONE (20:37)
[2018-09-17] MEDS ORDERED: DEXAMETHASONE SOD PHOS INJ 10 MG/1 ML VIAL IM ONE (20:37)
[2018-09-17] MEDS ORDERED: DIAZEPAM INJ 10 MG/2 ML DISP.SYRIN IV ONE (20:38)
[2018-09-17 22:36] LABS: URINE AMPHETAMINES SCREEN NEGATIVE; URINE BARBITURATES SCREEN NEGATIVE; URINE BENZODIAZEPINES SCREEN NEGATIVE; URINE COCAINE SCREEN NEGATIVE; URINE MARIJUANA (THC) SCREEN NEGATIVE; URINE METHADONE SCREEN NEGATIVE; URINE PHENCYCLIDINE SCREEN NEGATIVE
--- NOTE | 2018-09-17 23:11 | EKG REPORT ---
SEVERITY:- NORMAL ECG - SINUS RHYTHM : Confirmed by: Cortez Hernandez 17-Sep-2018 23:10:14
--- NOTE | 2018-09-17 23:30 | ER Document Report ---
ED Headache - General Chief Complaint: Headache Stated Complaint: DIZZINESS Time Seen by Provider: 09/17/18 17:11 Mode of Arrival: Ambulatory Information source: Patient Notes: Patient is a 28-year-old female returns emergency room complaining of a migraine headache. Patient has a long history of migraines is been seen here in the emergency multiple times for similar presentations. She does state however that this 1 is slightly different than her normal presentation she had a sudden onset of right-sided headache pain just prior to arrival. She states that she was in her bathroom and found herself waking up on the floor so she thinks she may have had a syncopal episode although she is not 100% certain. She denies any injuries though. Patient states that the different presentation is that it was so intense and that she has been having nausea with vomiting x1 since that point time. She denies any injuries as stated from her "fall". TRAVEL OUTSIDE OF THE [place] IN LAST 30 DAYS: No - HPI Patient complains to provider of: Headache, "Migraine" Patient reports: Hx chronic headaches, Occasional migraines Onset: Just prior to arrival Onset was: Abrupt. denies: [place]ap Timing: Still present Quality of pain: Stabbing, Throbbing Severity: Severe Pain Level: 4 Associated symptoms: Dizzy, Fainting, Lightheaded, Photophobia. denies: Neck pain, Speech problems, Stiff neck, Sweaty, Tingling/numb sensation, Trouble walking Exacerbated by: Light, Noise, Movement, Position Similar symptoms previously: No Recently seen / treated by doctor: No - Related Data Allergies/Adverse Reactions: butalbital [From Fioricet] Allergy (Verified 09/17/18 15:51) caffeine [From Fioricet] Allergy (Verified 09/17/18 15:51) codeine [Codeine] Allergy (Verified 09/17/18 15:51) Difficulty breathing haloperidol [From Haldol] Allergy (Verified 09/17/18 15:51) haloperidol lactate [From Haldol] Allergy (Verified 09/17/18 15:51) magnesium sulfate [Magnesium Sulfate] Allergy (Verified 09/17/18 15:51) hydromorphone HCl [From Dilaudid] Adverse Reaction (Verified 09/17/18 15:51) Renal failure ketorolac tromethamine [From Toradol] Adverse Reaction (Verified 09/17/18 15:51) metoclopramide HCl [From Reglan] Adverse Reaction (Verified 09/17/18 15:51) Anxiety tramadol [Tramadol] Adverse Reaction (Verified 09/17/18 15:51) Past Medical History - General Information source: Patient - Social History Smoking Status: Current Every Day Smoker Cigarette use (# per day): Yes - Half-pack a day Chew tobacco use (# tins/day): No Smoking Education Provided: No Frequency of alcohol use: None Drug Abuse: None Lives with: Family Family History: Reviewed & Not Pertinent, CAD, Hyperlipidemia, Hypertension, Malignancy, Other - breast cancer, renal calculi Patient has suicidal ideation: No Patient has homicidal ideation: No - Past Medical History Cardiac Medical History: Reports: Hx Hypertension - PRECLAMPSIA Denies: Hx Coronary Artery Disease, Hx Heart Attack Pulmonary Medical History: Denies: Hx Asthma, Hx Bronchitis, Hx COPD, Hx Pneumonia, Hx Tuberculosis Neurological Medical History: Reports: Hx Migraine. Denies: Hx Cerebrovascular Accident, Hx Seizures Renal/ Medical History: Reports: Hx Kidney Stones, Hx Renal Insufficiency. Denies: Hx Peritoneal Dialysis GI Medical History: Reports: Hx Crohn's Disease, Hx Irritable Bowel, Hx Colonoscopy, Hx Endoscopy. Denies: Hx Ulcer Musculoskeletal Medical History: Reports Hx Arthritis, Reports Hx Musculoskeletal Trauma Traumatic Medical History: Reports: Hx Fractures Past Surgical History: Reports: Hx Cholecystectomy, Hx Dilation and Curettage - x2, Hx Gynecologic Surgery - D&C x's2, Hx Kidney (Renal Surgery) - Ureteral stent, lithotripsy x7, Hx Orthopedic Surgery - Foot surgery. Denies: Hx Hyste rectomy, Hx Pacemaker - Immunizations Immunizations up to date: Yes Hx Diphtheria, Pertussis, Tetanus Vaccination: Yes Hx Pneumococcal Vaccination: 07/18/12 Review of Systems - Review of Systems Constitutional: No symptoms reported EENT: No symptoms reported Cardiovascular: No symptoms reported Respiratory: No symptoms reported Gastrointestinal: No symptoms reported Genitourinary: No symptoms reported Female Genitourinary: No symptoms reported Musculoskeletal: No symptoms reported Skin: No symptoms reported Hematologic/Lymphatic: No symptoms reported Neurological/Psychological: See HPI, Headaches -: Yes All other systems reviewed and negative Physical Exam - Vital signs Vitals: Temp Pulse Resp BP Pulse Ox 97.7 F 95 18 131/93 H 99 09/17/18 15:58 09/17/18 15:58 09/17/18 15:58 09/17/18 15:58 09/17/18 15:58 Interpretation: Hypertensive, Hypoxic - Notes Notes: PHYSICAL EXAMINATION: GENERAL patient is a well-nourished well-developed 28-year-old female who is in no apparent distress on physical exam this evening however she does appear somewhat uncomfortable she is teary on examination HEAD: Atraumatic, normocephalic. EYES: Pupils equal round and reactive to light, extraocular movements intact, conjunctiva are normal. ENT: Nares patent, oropharynx clear without exudates. Moist mucous membranes. NECK: Normal range of motion, supple without lymphadenopathy no meningismal sign LUNGS: Breath sounds clear to auscultation bilaterally and equal. No wheezes rales or rhonchi. HEART: Regular rate and rhythm without murmurs ABDOMEN: Soft, nontender, nondistended abdomen. No guarding, no rebound. No masses appreciated. Female : deferred Musculoskeletal: Normal range of motion, no pitting or edema. No cyanosis. NEUROLOGICAL: Normal speech, normal gait. Normal sensory, motor exams positive photophobia, vomiting, exaggerated noise bothers patient as well. PSYCH: Normal mood, blunted affect SKIN: Warm, Dry, normal turgor, no rashes or lesions noted. Course - Re-evaluation Re-evalutation: 09/17/18 23:30 Originally patient was in tears on my physical examination. After she received medication she calmed down and fell asleep. Hours later I went back into talk to patient she feels slightly better but feels like that it might be coming back but the nausea is definitely returning. I informed her that I held the Phenergan makes it was afraid to give her so much at one time so that this point is been an hour to out we will give her the Phenergan IV now. She can go home and go to bed. Patient is agreement with this plan of attack and will send her home only with some Phenergan for nausea. - Vital Signs Vital signs: Temp Pulse Resp BP Pulse Ox 97.7 F 95 18 131/93 H 99 09/17/18 15:58 09/17/18 15:58 09/17/18 15:58 09/17/18 15:58 09/17/18 15:58 - Laboratory Result Diagrams: 09/17/18 17:53 09/17/18 17:53 Laboratory results interpreted by me: 09/17/18 17:59 Urine Protein 100 H Ur Leukocyte Esterase LARGE H Discharge - Discharge Clinical Impression: Migraine headache Qualifiers: Migraine type: unspecified Status migrainosus presence: without status migrainosus Intractability: not intractable Qualified Code(s): G43.909 - Migraine, unspecified, not intractable, without status migrainosus Disposition: HOME, SELF-CARE Instructions: Antinausea Medication ([facility]) Additional Instructions: Home and rest. Medication as prescribed. As we discussed he should really establish with a neurologist for further investigation of the migraine headaches. Should you have any concerns or problems after getting home need to be seen again please do not hesitate return to ER. Prescriptions: Promethazine HCl [Phenergan 25 mg Tablet] 25 mg PO Q6 PRN #15 tablet PRN Reason: Forms: Elevated Blood Pressure, Smoking Cessation Education, Return to Work
[2018-09-17 23:55] VITALS: BP 129/88
== END 2018-09-17 23:56 | disposition home or self-care (01) ==
LOC: ER 15:45
DX: G43.909 Migraine, unspecified, not intractable, without status migrainosus (principal); R11.2 Nausea with vomiting, unspecified; F17.210 Nicotine dependence, cigarettes, uncomplicated; I10 Essential (primary) hypertension
CPT/HCPCS: 93005; 99284; 96372; 96374; 96375; 36415; 85025; 81025; 80053; 81001; 80307; 71045; 70450; 93010; J3490; J3360; J1200; S0119; J2550; J1100

== ENCOUNTER 2018-10-31 14:19 | Emergency (ER) | payer MEDICAID ==
--- NOTE | 2018-10-31 15:29 | ER Document Report ---
ED Medical Screen (RME) - General Chief Complaint: Flank Pain Stated Complaint: LEFT FLANK PAIN,VOMITING Time Seen by Provider: 10/31/18 15:19 Mode of Arrival: Ambulatory Information source: Patient Notes: Patient is a 28-year-old female with a history of kidney stones who presents to the ER today for 1 week of cough, then developing some left flank pain that she thought was related to the cough, however started having nausea vomiting and fever at home and is now more concerned that it may be a kidney stone, stating that it feels more like kidney stone pain to her now. She denies any dysuria or blood in her urine. TRAVEL OUTSIDE OF THE [place] IN LAST 30 DAYS: No - Related Data Allergies/Adverse Reactions: butalbital [From Fioricet] Allergy (Verified 09/17/18 15:51) caffeine [From Fioricet] Allergy (Verified 09/17/18 15:51) codeine [Codeine] Allergy (Verified 09/17/18 15:51) Difficulty breathing haloperidol [From Haldol] Allergy (Verified 09/17/18 15:51) haloperidol lactate [From Haldol] Allergy (Verified 09/17/18 15:51) magnesium sulfate [Magnesium Sulfate] Allergy (Verified 09/17/18 15:51) hydromorphone HCl [From Dilaudid] Adverse Reaction (Verified 09/17/18 15:51) Renal failure ketorolac tromethamine [From Toradol] Adverse Reaction (Verified 09/17/18 15:51) metoclopramide HCl [From Reglan] Adverse Reaction (Verified 09/17/18 15:51) Anxiety tramadol [Tramadol] Adverse Reaction (Verified 09/17/18 15:51) Past Medical History - General Information source: Patient - Social History Chew tobacco use (# tins/day): No Frequency of alcohol use: None Drug Abuse: None - Past Medical History Cardiac Medical History: Reports: Hx Hypertension - PRECLAMPSIA Denies: Hx Coronary Artery Disease, Hx Heart Attack Pulmonary Medical History: Denies: Hx Asthma, Hx Bronchitis, Hx COPD, Hx Pneumonia, Hx Tuberculosis Neurological Medical History: Reports: Hx Migraine. Denies: Hx Cerebrovascular Accident, Hx Seizures Renal/ Medical History: Reports: Hx Kidney Stones, Hx Renal Insufficiency. Denies: Hx Peritoneal Dialysis GI Medical History: Reports: Hx Crohn's Disease, Hx Irritable Bowel, Hx Colonoscopy, Hx Endoscopy. Denies: Hx Ulcer Musculoskeltal Medical History: Reports Hx Arthritis, Reports Hx Musculoskeletal Trauma Traumatic Medical History: Reports: Hx Fractures Past Surgical History: Reports: Hx Cholecystectomy, Hx Dilation and Curettage - x2, Hx Gynecologic Surgery - D&C x's2, Hx Kidney (Renal Surgery) - Ureteral stent, lithotripsy x14, Hx Orthopedic Surgery - Foot surgery. Denies: Hx Hysterectomy, Hx Pacemaker - Immunizations Immunizations up to date: Yes Hx Diphtheria, Pertussis, Tetanus Vaccination: Yes History of Influenza Vaccine for 02/2017 - 07/2017 Season: No Review of Systems - Review of Systems Constitutional: See HPI Respiratory: See HPI Gastrointestinal: See HPI Genitourinary: No symptoms reported Physical Exam - Vital signs Vitals: Temp Pulse Resp BP Pulse Ox 98.3 F 79 16 135/88 H 100 10/31/18 14:26 10/31/18 14:26 10/31/18 14:26 10/31/18 14:10/31/18 14:26 - Notes Notes: PHYSICAL EXAMINATION: GENERAL: Well-appearing and in no acute distress. LUNGS: CTAB and equal. No wheezes rales or rhonchi. GI/: Left CVA tenderness Course - Vital Signs Vital signs: Temp Pulse Resp BP Pulse Ox 98.3 F 79 16 135/88 H 100 10/31/18 14:26 10/31/18 14:26 10/31/18 14:26 10/31/18 14:26 10/31/18 14:26
--- NOTE | 2018-10-31 16:06 | RADIOLOGY REPORT (SQ) ---
EXAM DESCRIPTION: CHEST 2 VIEWS COMPLETED DATE/TIME: 10/31/2018 3:47 pm REASON FOR STUDY: cough, worsening COMPARISON: 09/17/2018 EXAM PARAMETERS: NUMBER OF VIEWS: two views TECHNIQUE: Digital Frontal and Lateral radiographic views of the chest acquired. RADIATION DOSE: NA LIMITATIONS: none FINDINGS: LUNGS AND PLEURA: No opacities, masses or pneumothorax. No pleural effusion. MEDIASTINUM AND HILAR STRUCTURES: No masses or contour abnormalities. HEART AND VASCULAR STRUCTURES: Heart normal size. No evidence for failure. BONES: No acute findings. HARDWARE: None in the chest. OTHER: No other significant finding. IMPRESSION: NO ACUTE RADIOGRAPHIC FINDING IN THE CHEST. TECHNICAL DOCUMENTATION: JOB ID: [id number] [employer]- All Rights Reserved Reading location - IP/workstation name: [email or web address]
[2018-10-31 16:08] LABS: APPEARANCE,URINE SLIGHTLY-CLOUDY; BILIRUBIN,URINE NEGATIVE (NEGATIVE); COLOR,URINE YELLOW; GLUCOSE, URINE NEGATIVE (NEGATIVE); KETONES,URINE TRACE mg/dL (NEGATIVE); LEUKOCYTE ESTERASE,URINE SMALL (NEGATIVE); NITRITE,URINE NEGATIVE (NEGATIVE); PROTEIN,URINE NEGATIVE (NEGATIVE); URINE SPECIFIC GRAVITY 1.019; UROBILINOGEN,URINE NEGATIVE mg/dL (<2.0)
--- NOTE | 2018-10-31 16:18 | RADIOLOGY REPORT (SQ) ---
EXAM DESCRIPTION: U/S RETROPERITON (RENAL/AORTA) COMPLETED DATE/TIME: 10/31/2018 4:07 pm REASON FOR STUDY: left flank pain, hx stones COMPARISON: CT abdomen pelvis dated 08/19/2018 TECHNIQUE: Dynamic and static grayscale images acquired of the kidneys and bladder and recorded on P ACS. Additional selected color Doppler and spectral images recorded. LIMITATIONS: None. FINDINGS: RIGHT KIDNEY: Normal size. Normal echogenicity. No solid or suspicious masses. There is a small partially calcified cyst. This measures 2.3 x 1.9 x 2.0 cm and is stable from prior CT. No hydronephrosis. There are small nonobstructing calculi. LEFT KIDNEY: Normal size. Normal echogenicity. No solid or suspicious masses. No hydronephrosi s. There are small nonobstructing calculi. BLADDER: No masses. OTHER FINDINGS: No other significant finding. IMPRESSION: Stable renal ultrasound with partially calcified cyst in the right kidney. No hydroneph rosis. There are small nonobstructing stones. TECHNICAL DOCUMENTATION: JOB ID: [id number]- All Rights Reserved Reading location - IP/workstation name: [email or web address]
[2018-10-31 19:14] LABS: ABSOLUTE BASOPHILS # (AUTO) 0.1 10^3/uL (0.0-0.2); ABSOLUTE EOSINOPHILS # (AUTO) 0.1 10^3/uL (0.0-0.6); ABSOLUTE LYMPHOCYTES (AUTO) 2.7 10^3/uL (0.5-4.7); ABSOLUTE MONOCYTES (AUTO) 0.5 10^3/uL (0.1-1.4); ABSOLUTE NEUT (AUTO) 6.9 10^3/uL (1.7-8.2); BASOPHILS % (AUTO) 0.8 % (0-2); EOSINOPHILS % (AUTO) 0.6 % (0-6); HEMATOCRIT 43.1 % (36.0-47.0); HEMOGLOBIN 14.7 g/dL (12.0-15.5); LYMPHOCYTES % (AUTO) 26.6 % (13-45); MEAN CORPUSCULAR HEMOGLOBIN 30.8 pg (27.0-33.4); MEAN CORPUSCULAR HGB CONC 34.2 g/dL (32.0-36.0); MEAN CORPUSCULAR VOLUME 90 fl (80-97); MONOCYTES % (AUTO) 4.6 % (3-13); PLATELET COUNT 250 10^3/uL (150-450); RED BLOOD COUNT 4.78 10^6/uL (3.72-5.28); SEGMENTED NEUTROPHILS % (AUTO) 67.4 % (42-78); TOTAL CELLS COUNTED % (AUTO) 100 %; WHITE BLOOD COUNT 10.2 10^3/uL (4.0-10.5)
[2018-10-31 19:31] LABS: ALANINE AMINOTRANSFERASE 22 U/L (9-52); ALBUMIN 4.7 g/dL (3.5-5.0); ALKALINE PHOSPHATASE 63 U/L (38-126); ANION GAP 11 (5-19); ASPARTATE AMINO TRANSFERASE 17 U/L (14-36); BILIRUBIN,DIRECT 0.2 mg/dL (0.0-0.4); BILIRUBIN,TOTAL 0.4 mg/dL (0.2-1.3); BLOOD UREA NITROGEN 10 mg/dL (7-20); CALCIUM 10.1 mg/dL (8.4-10.2); CARBON DIOXIDE 23 mmol/L (22-30); CHLORIDE 106 mmol/L (98-107); GLUCOSE 73 mg/dL (75-110); LIPASE 103.5 U/L (23-300); POTASSIUM 4.1 mmol/L (3.6-5.0); SODIUM 139.5 mmol/L (137-145); TOTAL PROTEIN 7.6 g/dL (6.3-8.2)
[2018-10-31] MEDS ORDERED: FAMOTIDINE 20 MG TABLET PO ONE (19:44)
--- NOTE | 2018-10-31 19:53 | ER Document Report ---
ED General - General Chief Complaint: Flank Pain Stated Complaint: LEFT FLANK PAIN,VOMITING Time Seen by Provider: 10/31/18 15:19 [facility] - Follow up as needed Mode of Arrival: Ambulatory TRAVEL OUTSIDE OF THE [place] IN LAST 30 DAYS: No - HPI Notes: Patient is a 28-year-old female with a history of Crohn's disease, allegedly in remission for the last 3 years but a flare recently, who presents to the emergency department with cough, "kidney pain," and nausea and vomiting. She states she was treated with steroids for a Crohn's flare recently. She states that she developed left upper quadrant pain, stating that was her kidney. She states she has had multiple episodes of nonbloody, nonbilious emesis. No diarrhea. No melena or hematochezia. She states she believes she may have a k idney stone. She denies any change in the color of her urine. She denies any urinary frequency or dysuria. She states she has felt as if she has had some low-grade fevers at home. - Related Data Allergies/Adverse Reactions: butalbital [From Fioricet] Allergy (Verified 09/17/18 15:51) caffeine [From Fioricet] Allergy (Verified 09/17/18 15:51) codeine [Codeine] Allergy (Verified 09/17/18 15:51) Difficulty breathing haloperidol [From Haldol] Allergy (Verified 09/17/18 15:51) haloperidol lactate [From Haldol] Allergy (Verified 09/17/18 15:51) magnesium sulfate [Magnesium Sulfate] Allergy (Verified 09/17/18 15:51) hydromorphone HCl [From Dilaudid] Adverse Reaction (Verified 09/17/18 15:51) Renal failure ketorolac tromethamine [From Toradol] Adverse Reaction (Verified 09/17/18 15:51) metoclopramide HCl [From Reglan] Adverse Reaction (Verified 09/17/18 15:51) Anxiety tramadol [Tramadol] Adverse Reaction (Verified 09/17/18 15:51) Past Medical History - General Information source: Patient - Social History Smoking Status: Current Every Day Smoker Chew tobacco use (# tins/day): No Frequency of alcohol use: None Drug Abuse: None Family History: Reviewed & Not Pertinent, CAD, Hyperlipidemia, Hypertension, Malignancy, Other - breast cancer, renal calculi Patient has suicidal ideation: No Patient has homicidal ideation: No - Past Medical History Cardiac Medical History: Reports: Hx Hypertension - PRECLAMPSIA Denies: Hx Coronary Artery Disease, Hx Heart Attack Pulmonary Medical History: Denies: Hx Asthma, Hx Bronchitis, Hx COPD, Hx Pneumonia, Hx Tuberculosis Neurological Medical History: Reports: Hx Migraine. Denies: Hx Cerebrovascular Accident, Hx Seizures Renal/ Medical History: Reports: Hx Kidney Stones, Hx Renal Insufficiency. Denies: Hx Peritoneal Dialysis GI Medical History: Reports: Hx Crohn's Disease, Hx Irritable Bowel, Hx Colonoscopy, Hx Endoscopy. Denies: Hx Ulcer Musculoskeletal Medical History: Reports Hx Arthritis, Reports Hx Musculoskeletal Trauma Traumatic Medical History: Reports: Hx Fractures Past Surgical History: Reports: Hx Cholecystectomy, Hx Dilation and Curettage - x2, Hx Gynecologic Surgery - D&C x's2, Hx Kidney (Renal Surgery) - Ureteral stent, lithotripsy x14, Hx Orthopedic Surgery - Foot surgery. Denies: Hx Hysterectomy, Hx Pacemaker - Immunizations Immunizations up to date: Yes Hx Diphtheria, Pertussis, Tetanus Vaccination: Yes Hx Pneumococcal Vaccination: 07/18/12 Physical Exam - Vital signs Vitals: Temp Pulse Resp BP Pulse Ox 98.3 F 79 16 135/88 H 100 10/31/18 14:26 10/31/18 14:26 10/31/18 14:26 10/31/18 14:26 10/31/18 14:26 - Notes Notes: Vital signs reviewed, please refer to chart. Head is normocephalic, atraumatic. Pupils equal round, reactive to light. Neck is supple without meningismus. Heart is regular rate and rhythm. Lungs are clear to auscultation bilaterally. Abdomen is soft, mildly tender in the left upper quadrant without rebound or guarding, normoactive bowel sounds throughout. No CVA tenderness. Extremities without cyanosis, clubbing. Posterior calves are nontender. Peripheral pulses are equal. Skin is warm and dry. Patient is awake, alert, neurological exam is nonfocal. Course - Re-evaluation Re-evalutation: 10/31/18 19:55 Patient presents the emergency department for evaluation of cough, nausea, vomiting, and "kidney" pain. Her pain was actually abdominal. Renal ultrasound failed to reveal any significant hydronephrosis or sign of obstructive uropathy. Urinalysis did not reveal any signs of bleeding or infection. Chest x-ray was unremarkable. Nursing did have some difficulty obtaining blood work from this patient. When it was eventually obtained, it was found to be largely unremarkable. Findings were explained to the patient. She states she still h aving this pain. I will then treat her for gastritis. We will start her on Pepcid. Certainly that is a reasonable thought as to the etiology of her symptoms, given her recent diagnosis of a Crohn's flare and prescription of prednisone. 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 I strongly encouraged her to follow-up with him in regards to Crohn's control. She is also to follow-up with primary care. She is to return the emergency department with worsening or new concerning symptoms of any sort. - Vital Signs Vital signs: Temp Pulse Resp BP Pulse Ox 98.3 F 79 16 135/88 H 100 10/31/18 14:26 10/31/18 14:26 10/31/18 14:26 10/31/18 14:26 10/31/18 14:26 - Laboratory Result Diagrams: 10/31/18 18:49 10/31/18 18:49 Laboratory results interpreted by me: 10/31/18 10/31/18 15:41 18:49 Glucose 73 L Urine Ketones TRACE H Ur Leukocyte Esterase SMALL H - Diagnostic Test Radiology reviewed: Reports reviewed Radiology results interpreted by me: 10/31/18 19:55 Chest X-Ray 10/31/18 15:35 IMPRESSION: NO ACUTE RADIOGRAPHIC FINDING IN THE CHEST. Renal Ultrasound 10/31/18 15:35 IMPRESSION: Stable renal ultrasound with partially calcified cyst in the right kidney. No hydronephrosis. There are small nonobstructing stones. Discharge - Discharge Clinical Impression: Abdominal pain Qualifiers: Abdominal location: left upper quadrant Qualified Code(s): R10.12 - Left upper quadrant pain Gastritis Qualifiers: Gastritis type: unspecified gastritis Chronicity: acute Gastritis bleeding: without bleeding Qualified Code(s): K29.00 - Acute gastritis without bleeding Nausea and vomiting Qualifiers: Vomiting type: unspecified Vomiting Intractability: non-intractable Qualified Code(s): R11.2 - Nausea with vomiting, unspecified Condition: Stable Disposition: HOME, SELF-CARE Instructions: Abdominal Pain ([facility]), Vomiting ([facility]) Additional Instructions: Take medications as prescribed. Small, frequent sips of fluids. Avoid spicy, acidic, greasy foods. Follow-up with your flight instructor and your primary care physician next week. Return to the emergency department with worsening or new concerning symptoms of any sort. [facility] [Primary Care Provider] - Follow up as needed
[2018-10-31 20:41] VITALS: BP 130/80
== END 2018-10-31 20:40 | disposition home or self-care (01) ==
LOC: ER 14:19
DX: K29.00 Acute gastritis without bleeding (principal); N20.0 Calculus of kidney; Q61.01 Congenital single renal cyst; R11.2 Nausea with vomiting, unspecified; R10.812 Left upper quadrant abdominal tenderness; R10.12 Left upper quadrant pain; R05 Cough; F17.200 Nicotine dependence, unspecified, uncomplicated; Z88.5 Allergy status to narcotic agent; Z88.8 Allergy status to other drugs, medicaments and biological substances
CPT/HCPCS: 99284; 36415; 83690; 84703; 85025; 81025; 80053; 81001; 71046; 76770; J3490

== ENCOUNTER 2018-12-26 17:14 | Emergency (ER) | payer SELFPAY ==
[2018-12-26] MEDS ORDERED: ONDANSETRON HCL INJ/PF 4 MG/2 ML SDV IV ONE (18:28)
[2018-12-26] MEDS ORDERED: NORMAL SALINE 1000 ML 1,000 ML IV ONE (18:29)
--- NOTE | 2018-12-26 18:31 | ER Document Report ---
ED Medical Screen (RME) - General Chief Complaint: Flank Pain Stated Complaint: FLANK PAIN Time Seen by Provider: 12/26/18 18:23 [facility]] - Follow up as needed Mode of Arrival: Ambulatory Information source: Patient Notes: 28-year-old female presents to ED for right flank pain x2 days. She states she does have a calcified cyst on the left kidney but not on the right. She states she has had some blood in the urine and spasms to the right flank. She has a history of 17 lithotripsies for kidney stones. She also has a history of migraines and Crohn's. She states she is allergic to Toradol and tramadol codeine Haldol and Fioricet. She states that Zofran sometimes works with her nausea but not all the times. She states she has vomited 3 times today. She is alert oriented respirations regular and unlabored speaking in full sentences walks with a even steady gait in no acute distress at this time. She does smoke 2 to 3 cigarettes a day. I have greeted and performed a rapid initial assessment of this patient. A comprehensive ED assessment and evaluation of the patient, analysis of test results and completion of medical decision making process will be conducted by an additional ED providers. Dictation of this chart was performed using voice recognition software; therefore, there may be some unintended grammatical errors. TRAVEL OUTSIDE OF THE [place] IN LAST 30 DAYS: No - Related Data Allergies/Adverse Reactions: butalbital [From Fioricet] Allergy (Verified 12/26/18 17:16) caffeine [From Fioricet] Allergy (Verified 12/26/18 17:16) codeine [Codeine] Allergy (Verified 12/26/18 17:16) Difficulty breathing haloperidol [From Haldol] Allergy (Verified 12/26/18 17:16) haloperidol lactate [From Haldol] Allergy (Verified 12/26/18 17:16) magnesium sulfate [Magnesium Sulfate] Allergy (Verified 12/26/18 17:16) hydromorphone HCl [From Dilaudid] Adverse Reaction (Verified 12/26/18 17:16) Renal failure ketorolac tromethamine [From Toradol] Adverse Reaction (Verified 12/26/18 17:16) metoclopramide HCl [From Reglan] Adverse Reaction (Verified 12/26/18 17:16) Anxiety tramadol [Tramadol] Adverse Reaction (Verified 12/26/18 17:16) Past Medical History - Past Medical History Cardiac Medical History: Reports: Hx Hypertension - PRECLAMPSIA Denies: Hx Coronary Artery Disease, Hx Heart Attack Pulmonary Medical History: Denies: Hx Asthma, Hx Bronchitis, Hx COPD, Hx Pneumonia, Hx Tuberculosis Neurological Medical History: Reports: Hx Migraine. Denies: Hx Cerebrovascular Accident, Hx Seizures Renal/ Medical History: Reports: Hx Kidney Stones, Hx Renal Insufficiency. Denies: Hx Peritoneal Dialysis GI Medical History: Reports: Hx Crohn's Disease, Hx Irritable Bowel, Hx Colonoscopy, Hx Endoscopy. Denies: Hx Ulcer Musculoskeltal Medical History: Reports Hx Arthritis, Reports Hx Musculoskeletal Trauma Traumatic Medical History: Reports: Hx Fractures Past Surgical History: Reports: Hx Cholecystectomy, Hx Dilation and Curettage - x2, Hx Gynecologic Surgery - D&C x's2, Hx Kidney (Renal Surgery) - Ureteral stent, lithotripsy x14, Hx Orthopedic Surgery - Foot surgery. Denies: Hx Hysterectomy, Hx Pacemaker - Immunizations Immunizations up to date: Yes Hx Diphtheria, Pertussis, Tetanus Vaccination: Yes History of Influenza Vaccine for 02/2017 - 07/2017 Season: No Physical Exam - Vital signs Vitals: Temp Pulse Resp BP Pulse Ox 98.7 F 106 H 20 148/97 H 98 12/26/18 17:16 12/26/18 17:16 12/26/18 17:16 12/26/18 17:16 12/26/18 17:16 Course - Vital Signs Vital signs: Temp Pulse Resp BP Pulse Ox 98.7 F 106 H 20 148/97 H 98 12/26/18 17:16 12/26/18 17:16 12/26/18 17:16 12/26/18 17:16 12/26/18 17:16 Doctor's Discharge - Discharge [facility] - Follow up as needed
[2018-12-26 19:20] LABS: ABSOLUTE BASOPHILS # (AUTO) 0.1 10^3/uL (0.0-0.2); ABSOLUTE EOSINOPHILS # (AUTO) 0.1 10^3/uL (0.0-0.6); ABSOLUTE LYMPHOCYTES (AUTO) 2.1 10^3/uL (0.5-4.7); ABSOLUTE MONOCYTES (AUTO) 0.5 10^3/uL (0.1-1.4); ABSOLUTE NEUT (AUTO) 5.1 10^3/uL (1.7-8.2); BASOPHILS % (AUTO) 0.7 % (0-2); EOSINOPHILS % (AUTO) 1.7 % (0-6); HEMATOCRIT 44.3 % (36.0-47.0); HEMOGLOBIN 15.3 g/dL (12.0-15.5); LYMPHOCYTES % (AUTO) 26.3 % (13-45); MEAN CORPUSCULAR HEMOGLOBIN 31.1 pg (27.0-33.4); MEAN CORPUSCULAR HGB CONC 34.4 g/dL (32.0-36.0); MEAN CORPUSCULAR VOLUME 91 fl (80-97); MONOCYTES % (AUTO) 5.9 % (3-13); PLATELET COUNT 269 10^3/uL (150-450); RED CELL DISTRIBUTION WIDTH 13.3 % (11.5-14.0); SEGMENTED NEUTROPHILS % (AUTO) 65.4 % (42-78); TOTAL CELLS COUNTED % (AUTO) 100 %; WHITE BLOOD COUNT 7.9 10^3/uL (4.0-10.5)
[2018-12-26 19:27] LABS: AMORPHOUS SEDIMENT,URINE TRACE /HPF; APPEARANCE,URINE CLOUDY; BILIRUBIN,URINE NEGATIVE (NEGATIVE); CALCIUM OXALATE CRYSTALS,URINE MANY /HPF; COLOR,URINE YELLOW; GLUCOSE, URINE NEGATIVE (NEGATIVE); KETONES,URINE NEGATIVE (NEGATIVE); LEUKOCYTE ESTERASE,URINE LARGE (NEGATIVE); NITRITE,URINE NEGATIVE (NEGATIVE); PROTEIN,URINE NEGATIVE (NEGATIVE); URINE SPECIFIC GRAVITY 1.023; UROBILINOGEN,URINE NEGATIVE mg/dL (<2.0)
[2018-12-26 19:39] LABS: ALBUMIN 4.8 g/dL (3.5-5.0); ALKALINE PHOSPHATASE 63 U/L (38-126); ANION GAP 11 (5-19); ASPARTATE AMINO TRANSFERASE 19 U/L (14-36); BILIRUBIN,DIRECT 0.3 mg/dL (0.0-0.4); BILIRUBIN,TOTAL 0.3 mg/dL (0.2-1.3); BLOOD UREA NITROGEN 9 mg/dL (7-20); CARBON DIOXIDE 22 mmol/L (22-30); CHLORIDE 108 mmol/L (98-107); GLUCOSE 88 mg/dL (75-110); POTASSIUM 4.4 mmol/L (3.6-5.0); TOTAL PROTEIN 7.7 g/dL (6.3-8.2)
--- NOTE | 2018-12-26 19:53 | RADIOLOGY REPORT (SQ) ---
EXAM DESCRIPTION: U/S RETROPERITON (RENAL/AORTA) COMPLETED DATE/TIME: 12/26/2018 7:26 pm REASON FOR STUDY: right flank pain, hx of kidney stones COMPARISON: 10/31/2018 TECHNIQUE: Dynamic and static grayscale images acquired of the kidneys and bladder and recorded on P ACS. Additional selected color Doppler and spectral images recorded. LIMITATIONS: None. FINDINGS: RIGHT KIDNEY: Normal size. Similar 2.2 cm partially calcified cystic lesion in the lower pole of the right kidney. No internal vascularity is identified on Doppler interrogation. No hydrone phrosis. Small parenchymal calcifications. LEFT KIDNEY: Normal size. Normal echogenicity. No solid or suspicious masses. No hydronephrosis. Sm all parenchymal calcifications. BLADDER: Decompressed. OTHER FINDINGS: No other significant finding. IMPRESSION: No hydronephrosis. Nephrolithiasis. Similar 2.2 cm partially calcified cystic lesion i n the lower pole of the right kidney. TECHNICAL DOCUMENTATION: JOB ID: [id number] [id number] 2010 [employer]- All Rights Reserved Reading location - IP/workstation name: [employer]
[2018-12-26] MEDS ORDERED: DIPHENHYDRAMINE HCL 50 MG/ML VIAL IV ONE ×2 (21:08→23:00)
[2018-12-26] MEDS ORDERED: FENTANYL CITRATE INJ/PF 100 MCG/2 ML AMPUL IV ONE (21:09)
[2018-12-26] MEDS ORDERED: CEFTRIAXONE 1 GM/D5W RTU 1 GM/50 ML RTUPB IV ONE (21:12)
--- NOTE | 2018-12-26 21:14 | ER Document Report ---
ED GI/ - General Chief Complaint: Flank Pain Stated Complaint: FLANK PAIN Time Seen by Provider: 12/26/18 18:23 [facility] [Primary Care Provider] - Follow up as needed Mode of Arrival: Ambulatory Notes: 28-year-old female patient lumps and history of multiple kidney stones as well as pyelonephritis and sepsis to the emergency department for evaluation of right flank pain. States that she cannot pass anything greater than 94 mm stone on the right and a 3 mm stone on the left. Is concerned that she may have another stone. Is allergic to "almost all pain medication except fentanyl". No fever. No other issues at this time. TRAVEL OUTSIDE OF THE [place] IN LAST 30 DAYS: No - HPI Patient complains to provider of: Flank pain Timing/Duration: Gradual, Constant Quality of pain: Achy Severity at maximum: Moderate Severity in ED: Moderate Pain Level: 4 Location: Right flank - Related Data Allergies/Adverse Reactions: butalbital [From Fioricet] Allergy (Verified 12/26/18 17:16) caffeine [From Fioricet] Allergy (Verified 12/26/18 17:16) codeine [Codeine] Allergy (Verified 12/26/18 17:16) Difficulty breathing haloperidol [From Haldol] Allergy (Verified 12/26/18 17:16) haloperidol lactate [From Haldol] Allergy (Verified 12/26/18 17:16) magnesium sulfate [Magnesium Sulfate] Allergy (Verified 12/26/18 17:16) hydromorphone HCl [From Dilaudid] Adverse Reaction (Verified 12/26/18 17:16) Renal failure ketorolac tromethamine [From Toradol] Adverse Reaction (Verified 12/26/18 17:16) metoclopramide HCl [From Reglan] Adverse Reaction (Verified 12/26/18 17:16) Anxiety tramadol [Tramadol] Adverse Reaction (Verified 12/26/18 17:16) Past Medical History - General Information source: Patient - Social History Smoking Status: Current Every Day Smoker Chew tobacco use (# tins/day): No Frequency of alcohol use: None Drug Abuse: None Lives with: Family Family History: Reviewed & Not Pertinent, CAD, Hyperlipidemia, Hypertension, Malignancy, Other - breast cancer, renal calculi Patient has suicidal ideation: No Patient has homicidal ideation: No - Past Medical History Cardiac Medical History: Reports: Hx Hypertension - PRECLAMPSIA Denies: Hx Coronary Artery Disease, Hx Heart Attack Pulmonary Medical History: Denies: Hx Asthma, Hx Bronchitis, Hx COPD, Hx Pneumonia, Hx Tuberculosis Neurological Medical History: Reports: Hx Migraine. Denies: Hx Cerebrovascular Accident, Hx Seizures Renal/ Medical History: Reports: Hx Kidney Stones, Hx Renal Insufficiency. Denies: Hx Peritoneal Dialysis GI Medical History: Reports: Hx Crohn's Disease, Hx Irritable Bowel, Hx Colonoscopy, Hx Endoscopy. Denies: Hx Ulcer Musculoskeletal Medical History: Reports Hx Arthritis, Reports Hx Musculoskeletal Trauma Traumatic Medical History: Reports: Hx Fractures Past Surgical History: Reports: Hx Cholecystectomy, Hx Dilation and Curettage - x2, Hx Gynecologic Surgery - D&C x's2, Hx Kidney (Renal Surgery) - Ureteral stent, lithotripsy x14, Hx Orthopedic Surgery - Foot surgery. Denies: Hx Hysterectomy, Hx Pacemaker - Immunizations Immunizations up to date: Yes Hx Diphtheria, Pertussis, Tetanus Vaccination: Yes Hx Pneumococcal Vaccination: 07/18/12 Review of Systems - Review of Systems Notes: Constitutional: denies: Chills, Diaphoresis, Fever, Malaise, Weakness EENT: denies: Eye discharge, Blurred vision, Tearing, Double vision, Nose congestion, Nose discharge, Throat swelling, Mouth pain Cardiovascular: denies: Palpitations, Heart racing, Orthopnea, Dyspnea, Chest pain Respiratory: denies: Cough, Hurts to breathe, Wheezing, Shortness of breath Gastrointestinal: denies: Abdominal pain, Diarrhea, Nausea, Vomiting, Black stools, bright red blood in stool Genitourinary: denies: Burning, Dysuria, Discharge, Frequency, +Flank pain, +Hematuria Musculoskeletal: denies: Joint pain, Joint swelling, Muscle pain, Muscle stiffness, back pain Hematologic/Lymphatic: denies: Anemia, Easy bleeding, Easy bruising, Blood clots Neurological/Psychological: denies: Confusion, Dementia, Depression, Loss of consciousness Skin: No lesions, no masses, no skin breakdown, no abscesses Physical Exam - Vital signs Vitals: Temp Pulse Resp BP Pulse Ox 98.7 F 106 H 20 148/97 H 98 12/26/18 17:16 12/26/18 17:16 12/26/18 17:16 12/26/18 17:16 12/26/18 17:16 Interpretation: Normal - General General appearance: Appears well, Alert - HEENT Head: Normocephalic, Atraumatic Eyes: Normal Pupils: PERRL - Respiratory Respiratory status: No respiratory distress Chest status: Nontender Breath sounds: Normal Chest palpation: Normal - Cardiovascular Rhythm: Regular Heart sounds: Normal auscultation Murmur: No - Abdominal Inspection: Normal Distension: No distension Bowel sounds: Normal Tenderness: Nontender Organomegaly: No organomegaly - Back Back: Normal, Nontender - Extremities General upper extremity: Normal inspection, Nontender, Normal color, Normal ROM, Normal temperature General lower extremity: Normal inspection, Nontender, Normal color, Normal ROM, Normal temperature, Normal weight bearing. No: Chapis's sign - Neurological Neuro grossly intact: Yes Cognition: Normal Orientation: AAOx4 [place] Coma Scale Eye Opening: Spontaneous [place] Coma Scale Verbal: Oriented Chai Coma Scale Motor: Obeys Commands Chai Coma Scale Total: 15 Speech: Normal Motor strength normal: LUE, RUE, LLE, RLE Sensory: Normal - Psychological Associated symptoms: Normal affect, Normal mood - Skin Skin Temperature: Warm Skin Moisture: Dry Skin Color: Normal Course - Re-evaluation Re-evalutation: 12/26/18 21:10 Laboratory 12/26/18 12/26/18 12/26/18 19:00 19:00 19:00 WBC 7.9 RBC 4.90 Hgb 15.3 Hct 44.3 MCV 91 MCH 31.1 MCHC 34.4 RDW 13.3 Plt Count 269 Seg Neutrophils % 65.4 Lymphocytes % 26.3 Monocytes % 5.9 Eosinophils % 1.7 Basophils % 0.7 Absolute Neutrophils 5.1 Absolute Lymphocytes 2.1 Absolute Monocytes 0.5 Absolute Eosinophils 0.1 Absolute Basophils 0.1 Sodium 141.0 Potassium 4.4 Chloride 108 H Carbon Dioxide 22 Anion Gap 11 BUN 9 Creatinine 0.70 Est GFR ( Amer) > 60 Est GFR (Non-Af Amer) > 60 Glucose 88 Calcium 10.0 Total Bilirubin 0.3 Direct Bilirubin 0.3 Neonat Total Bilirubin Not Reportable Neonat Direct Bilirubin Not Reportable Neonat Indirect Bili Not Reportable AST 19 ALT 14 Alkaline Phosphatase 63 Total Protein 7.7 Albumin 4.8 Serum HCG, Qual NEGATIVE Urine Color Urine Appearance Urine pH Ur Specific Sparks Urine Protein Urine Glucose (UA) Urine Ketones Urine Blood Urine Nitrite Urine Bilirubin Urine Urobilinogen Ur Leukocyte Esterase Urine WBC (Auto) Urine RBC (Auto) Urine Bacteria (Auto) Urine WBC Clumps Squamous Epi Cells Auto Calcium Oxalate Cr Auto Amorphous Sediment Auto Urine Mucus (Auto) Urine Ascorbic Acid 12/26/18 19:00 WBC RBC Hgb Hct MCV MCH MCHC RDW Plt Count Seg Neutrophils % Lymphocytes % Monocytes % Eosinophils % Basophils % Absolute Neutrophils Absolute Lymphocytes Absolute Monocytes Absolute Eosinophils Absolute Basophils Sodium Potassium Chloride Carbon Dioxide Anion Gap BUN Creatinine Est GFR ( Amer) Est GFR (Non-Af Amer) Glucose Calcium Total Bilirubin Direct Bilirubin Neonat Total Bilirubin Neonat Direct Bilirubin Neonat Indirect Bili AST ALT Alkaline Phosphatase Total Protein Albumin Serum HCG, Qual Urine Color YELLOW Urine Appearance CLOUDY Urine pH 5.0 Ur Specific Sparks 1.023 Urine Protein NEGATIVE Urine Glucose (UA) NEGATIVE Urine Ketones NEGATIVE Urine Blood SMALL H Urine Nitrite NEGATIVE Urine Bilirubin NEGATIVE Urine Urobilinogen NEGATIVE Ur Leukocyte Esterase LARGE H Urine WBC (Auto) 42 Urine RBC (Auto) 9 Urine Bacteria (Auto) 1+ Urine WBC Clumps RARE Squamous Epi Cells Auto 54 Calcium Oxalate Cr Auto MANY Amorphous Sediment Auto TRACE Urine Mucus (Auto) FEW Urine Ascorbic Acid NEGATIVE Renal Ultrasound 12/26/18 18:29 IMPRESSION: No hydronephrosis. Nephrolithiasis. Similar 2.2 cm partially calcified cystic lesion in the lower pole of the right kidney. Patient does have evidence of nephrolithiasis in the kidney on the right but no evidence of hydronephrosis. She has a calcified cystic lesion which appears unchanged from prior ultrasound. She is not toxic appearing. She does have a large amount of leukocytes in her urine with WBCs and bacteria as well as a few red blood cells. Based on her history I will go ahead and treat that. Had follow-up with urology. Patient feels comfortable with the plan of going home at this time. Patient advised to return for any worsening symptoms. She does not want a CT scan and at this time and based on her history I think that is reasonable to not perform another CAT scan as she just had one a few months ago and she has had several in her life. - Vital Signs Vital signs: Temp Pulse Resp BP Pulse Ox 98.7 F 106 H 20 148/97 H 98 12/26/18 17:16 12/26/18 17:16 12/26/18 17:16 12/26/18 17:16 12/26/18 17:16 - Laboratory Result Diagrams: 12/26/18 19:00 12/26/18 19:00 Laboratory results interpreted by me: 12/26/18 12/26/18 19:00 19:00 Chloride 108 H Urine Blood SMALL H Ur Leukocyte Esterase LARGE H Discharge - Discharge Clinical Impression: Right flank pain UTI (urinary tract infection) Qualifiers: Urinary tract infection type: site unspecified Hematuria presence: with hematuria Qualified Code(s): N39.0 - Urinary tract infection, site not specified Condition: Good Disposition: HOME, SELF-CARE Instructions: Flank Pain ([facility]), Nitrofurantoin ([facility]), Urinary Tract Infection ([facility]) Additional Instructions: Follow-up with your urologist. I am starting you on some antibiotics just to be safe based on your history. It is possible that you are passing a kidney stone. There is no evidence of large amount of obstruction based on the ultrasound but if things are getting worse it will be very important that you return. Take all of your medications as prescribed Prescriptions: Nitrofurantoin/Nitrofuran Mac [Macrobid 100 mg Capsule] 1 tab PO BID #20 capsule [facility] [Primary [facility]] - Follow up as needed
[2018-12-26] MEDS ORDERED: HYDROCODONE/ACETAMINOPHEN 5-325 MG (6 TAB/ER DISP) PO PRN (21:17)
[2018-12-26] MEDS: CEFTRIAXONE INJ 1000 MG VIAL ONE ×2 (22:22→23:22)
[2018-12-26] MEDS ORDERED: FAMOTIDINE INJ/PF 20 MG/2 ML SDV IV ONE (23:00)
[2018-12-26] MEDS ORDERED: METHYLPREDNISOLONE INJ 125 MG/2 ML SDV ONE (23:11)
[2018-12-27] MEDS ORDERED: HYDROCODONE/ACETAMINOPHEN 5-325 MG TABLET PO ONE (01:23)
[2018-12-27] MEDS ORDERED: HYDROCODONE/ACETAMINOPHEN 5-325 MG TABLET ONE (01:24)
[2018-12-27 01:27] VITALS: BP 119/91
== END 2018-12-27 01:33 | disposition home or self-care (01) ==
LOC: ER 17:14
DX: N39.0 Urinary tract infection, site not specified (principal); R31.9 Hematuria, unspecified; N20.0 Calculus of kidney; L50.0 Allergic urticaria; T36.1X5A Adverse effect of cephalosporins and other beta-lactam antibiotics, initial encounter; Y92.239 Unspecified place in hospital as the place of occurrence of the external cause; R10.9 Unspecified abdominal pain; F17.200 Nicotine dependence, unspecified, uncomplicated; Z88.5 Allergy status to narcotic agent; Z88.8 Allergy status to other drugs, medicaments and biological substances; Z87.19 Personal history of other diseases of the digestive system; Z90.49 Acquired absence of other specified parts of digestive tract
CPT/HCPCS: 96376; 99284; 96361; 96375; 96365; 36415; 87086; 84703; 85025; 80053; 81001; 76770; J1200; J3010; J2930; J2405; J7030; S0028; J0696

== ENCOUNTER 2018-12-30 14:31 | Emergency (ER) | payer SELFPAY ==
--- NOTE | 2018-12-30 17:35 | ER Document Report ---
ED GI/ - General Chief Complaint: Possible Kidney Stone Stated Complaint: VOMITING Time Seen by Provider: 12/30/18 17:06 Primary Care Provider: [facility] [Primary Care Provider] - Follow up tomorrow Mode of Arrival: Ambulatory Information source: Patient Notes: 28-year-old female presented to ED for complaint of right flank pain. She states she has kidney stones and is currently taking antibiotics she was seen recently for a kidney stone. Patient was seen on 26 December and diagnosed with a UTI but no kidney stone. She was started on Macrobid. She was instructed to follow-up with her urologist. On the ultrasound was negative for any h ydronephrosis or kidney stones. There is a stable calcified cyst on the right kidney. Patient is alert and oriented respirations regular and unlabored speaking in full sentences. She states she is tired of the pain being there all the time. She states she knows she has kidney stones that every time she goes to her urologist they tell her she has kidney stones. TRAVEL OUTSIDE OF THE [place] IN LAST 30 DAYS: No - HPI Patient complains to provider of: Flank pain - Right Onset: Other - Pretty frequently Timing/Duration: Intermittent, Persistent Quality of pain: Sharp, Throbbing Severity at maximum: Severe Severity in ED: Severe Pain Level: 5 Location: Right flank Vaginal bleeding (Compared to normal period): None Associated symptoms: Nausea, Vomiting, Other - Right flank pain Exacerbated by: Denies Relieved by: Denies Similar symptoms previously: Yes Recently seen / treated by doctor: Yes - Related Data Allergies/Adverse Reactions: butalbital [From Fioricet] Allergy (Verified 12/26/18 17:16) caffeine [From Fioricet] Allergy (Verified 12/26/18 17:16) ceftriaxone [From Rocephin] Allergy (Verified 12/30/18 14:32) codeine [Codeine] Allergy (Verified 12/26/18 17:16) Difficulty breathing haloperidol [From Haldol] Allergy (Verified 12/26/18 17:16) haloperidol lactate [From Haldol] Allergy (Verified 12/26/18 17:16) magnesium sulfate [Magnesium Sulfate] Allergy (Verified 12/26/18 17:16) hydromorphone HCl [From Dilaudid] Adverse Reaction (Verified 12/26/18 17:16) Renal failure ketorolac tromethamine [From Toradol] Adverse Reaction (Verified 12/26/18 17:16) metoclopramide HCl [From Reglan] Adverse Reaction (Verified 12/26/18 17:16) Anxiety tramadol [Tramadol] Adverse Reaction (Verified 12/26/18 17:16) Past Medical History - General Information source: Patient - Social History Smoking Status: Current Every Day Smoker Cigarette use (# per day): Yes - 2-3 cig a day Chew tobacco use (# tins/day): No Smoking Education Provided: Yes - 4 min Drug Abuse: None Lives with: Family Family History: Reviewed & Not Pertinent, CAD, Hyperlipidemia, Hypertension, Malignancy, Other - breast cancer, renal calculi Patient has suicidal ideation: No Patient has homicidal ideation: No - Past Medical History Cardiac Medical History: Reports: Hx Hypertension - PRECLAMPSIA Pulmonary Medical History: Reports: None EENT Medical History: Reports: None Neurological Medical History: Reports: Hx Migraine Endocrine Medical History: Reports: None Renal/ Medical History: Reports: Hx Kidney Stones, Hx Renal Insufficiency Malignancy Medical History: Reports: None GI Medical History: Reports: Hx Crohn's Disease, Hx Irritable Bowel, Hx Colonoscopy, Hx Endoscopy Musculoskeletal Medical History: Reports Hx Arthritis, Reports Hx Musculoskeletal Trauma Skin Medical History: Reports None Psychiatric Medical History: Reports: None Traumatic Medical History: Reports: Hx Fractures - Feet wrist and fingers Infectious Medical History: Reports: None Past Surgical History: Reports: Hx Cholecystectomy, Hx Dilation and Curettage - x2, Hx Gynecologic Surgery - D&C x's2, Hx Kidney (Renal Surgery) - Ureteral stent, lithotripsy x14 - Immunizations Immunizations up to date: Yes Hx Diphtheria, Pertussis, Tetanus Vaccination: Yes Hx Pneumococcal Vaccination: 07/18/12 Review of Systems - Review of Systems Constitutional: No symptoms reported EENT: No symptoms reported Cardiovascular: No symptoms reported Respiratory: No symptoms reported Gastrointestinal: Nausea, Vomiting Genitourinary: Flank pain - Right flank pain Female Genitourinary: No symptoms reported Musculoskeletal: No symptoms reported Skin: No symptoms reported Hematologic/Lymphatic: No symptoms reported Neurological/Psychological: No symptoms reported -: Yes All other systems reviewed and negative Physical Exam - Vital signs Vitals: Temp Pulse Resp BP Pulse Ox 99.1 F 100 18 143/100 H 98 12/30/18 14:43 12/30/18 14:43 12/30/18 14:43 12/30/18 14:43 12/30/18 14:43 Interpretation: Normal - General General appearance: Appears well, Alert - HEENT Head: Normocephalic, Atraumatic Eyes: Normal Pupils: PERRL - Respiratory Respiratory status: No respiratory distress Chest status: Nontender Breath sounds: Normal Chest palpation: Normal - Cardiovascular Rhythm: Regular Heart sounds: Normal auscultation Murmur: No - Abdominal Inspection: Normal Distension: No distension Bowel sounds: Normal Tenderness: Tender - right flank Organomegaly: No organomegaly - Back Back: Normal, CVA tenderness - right - Extremities General upper extremity: Normal inspection, Nontender, Normal color, Normal ROM, Normal temperature General lower extremity: Normal inspection, Nontender, Normal color, Normal ROM, Normal temperature, Normal weight bearing. No: Chapis's sign - Neurological Neuro grossly intact: Yes Cognition: Normal Orientation: AAOx4 [place] Coma Scale Eye Opening: Spontaneous [place] Coma Scale Verbal: Oriented Chai Coma Scale Motor: Obeys Commands [place] Coma Scale Total: 15 Speech: Normal Motor strength normal: LUE, RUE, LLE, RLE Sensory: Normal - Psychological Associated symptoms: Normal affect, Normal mood - Skin Skin Temperature: Warm Skin Moisture: Dry Skin Color: Normal Course - Re-evaluation Re-evalutation: 12/30/18 21:09 First chemistry was discussed with Dr. Garcia she was calculating what medications to give when she decided to just redraw the chemistry first. She did state that we should give her a liter of the D5W while we are redrawing the chemistry. The lab was drawn from a new site before the D5W was home. No other medications or treatment was given after the first chemistry before the second chemistry was done. The second chemistry was normal. I did discuss this and the CT results with Dr. Garcia. She recommended patient be discharged home to follow-up with her primary care and her urologist. A written report of all the labs and CT were given to the patient to follow-up with her primary care doctor. - Vital Signs Vital signs: Temp Pulse Resp BP Pulse Ox 98.3 F 74 16 122/78 100 12/30/18 20:46 12/30/18 20:46 12/30/18 20:46 12/30/18 21:03 12/30/18 20:46 - Laboratory Result Diagrams: 12/30/18 17:11 12/30/18 20:28 Laboratory results interpreted by me: 12/30/18 12/30/18 12/30/18 17:11 18:20 18:40 Potassium 3.3 L Chloride 117 H Carbon Dioxide 16 L Creatinine 0.45 L Glucose 58 L Calcium 6.8 L* Total Protein 5.5 L Albumin 3.2 L Urine Blood SMALL H SMALL H Ur Leukocyte Esterase LARGE H - Diagnostic Test Radiology reviewed: Image reviewed, Reports reviewed Discharge - Discharge Clinical Impression: Right flank pain Condition: Stable Disposition: HOME, SELF-CARE Additional Instructions: KIDNEY STONE: You have tiny nonobstructing kidney stones in both kidneys these should not be causing you any pain at this time. No hydronephrosis according to your CT. The calcified cyst is still in the right kidney. These stones are usually due to increased calcium or uric acid concentrations in your urine. Stones within the kidney itself are not painful. The pain occurs as the stone leaves the kidney to pass down the long tube, called the ureter, leading to the bladder. If the stone is small, it will usually pass by itself. Most patients can pass the stone at home. You will usually receive medications for pain, nausea or vomiting, and sometimes a medication to assist in passing the kidney stone. However, if the pain is very severe or if vomiting prevents you from taking oral pain medications, you may need to return for further treatment. Drink three or four quarts of fluids per day. You will be given pain medication (if needed) and urine strainers. Strain all your urine to see if the stone passes. If your doctor has asked you to bring the stone in for analysis, return with the stone once it has passed. Return if pain or vomiting become severe, if you develop a high fever, if you are unable to pass your urine, or if other unusual symptoms occur. ANTINAUSEA MEDICATION: You have been given a medication to suppress nausea and vomiting. This type of medication can be given as a shot, pill, or suppository. It will usually last for many hours. Pills and shots usually last six to eight hours, suppositories last about 12 hours. For the typical illness, only one or two doses of the medication may be necessary. Mild lightheadedness may occur. This type of medicine can cause drowsiness. Do not drive or operate dangerous machinery while under its influence. Do not mix with alcohol. See your doctor at once if you have muscle spasms or tightness, or u ncontrollable motions (particularly of the neck, mouth, or jaw). Persistent vomiting or severe lightheadedness should also be evaluated by the physician. Acetaminophen Acetaminophen may be taken for pain relief or fever control. It's much safer than aspirin, offering a wider range of "safe" dosages. It is safe during . Some brand names are Tylenol, Panadol, Datril, Anacin 3, Tempra, and Liquiprin. Acetaminophen can be repeated every four hours. The following are maximum recommended dosages: WEIGHT Dose Drops Elixir Chewable(80mg) (LBS.) drprs=droppers tsp=teaspoon 6 40 mg .4 ml (1/2) 6-11 80 mg .8 ml (full) 1/2 tsp 1 tab 12-16 120 mg 1 1/2 drprs 3/4 tsp 1 1/2 tabs 17-23 160 mg 2 drprs 1 tsp 2 tabs 24-30 240 mg 3 drprs 1 1/2 tsp 3 tabs 30-35 320 mg 2 tsp 4 tabs 36-41 360 mg 2 1/4 tsp 4 1/2 tabs 42-47 400 mg 2 1/2 tsp 5 tabs 48-53 480 mg 3 tsp 6 tabs 54-59 520 mg 3 1/4 tsp 6 1/2 tabs 60-64 560 mg 3 1/2 tsp 7 tabs 65-70 600 mg 3 3/4 tsp 7 1/2 tabs 71-76 640 mg 4 tsp 8 tabs 77-82 720 mg 4 1/2 tsp 9 tabs 83-88 800 mg 5 tsp 10 tabs >89 pounds or adults 650 mg to 900 mg Acetaminophen can be repeated every four hours. Maximum daily dose not to exceed 4000 mg. These maximum recommended dosages are slightly higher than the dosages written on the product container, but these dosages are very safe and well below the toxic dosage for acetaminophen. Diphenhydramine The use of diphenhydramine (Benadryl) has been recommended to control allergic symptoms. The 25 mg strength is available over- the-counter, as well as the elixir. This antihistamine is used for many symptoms. It's useful for itching, watering eyes and nose, allergic swelling, hives, and insect stings. The medication can be repeated four times daily. Age Elixir (12.5 mg/tsp) 25 mg pill 1 yr 1/4 tsp 2-3 yr 1/2 tsp 4-8 yr 1 tsp 9-14 yr 2 tsp one tab adult 1-2 tabs Antihistamines may cause drowsiness, especially with the first dose. Do not operate machinery or drive while under the effects of the medication. Do not combine the medication with alcohol, or with any other medication without talking to your doctor. Antinausea Medication You have been given a medication to suppress nausea and vomiting. This type of medication can be given as a shot, pill, or suppository. It will usually last for many hours. Pills and shots usually last six to eight hours, suppositories last about 12 hours. For the typical illness, only one or two doses of the medication may be necessary. Mild lightheadedness may occur. This type of medicine can cause drowsiness. Do not drive or operate dangerous machinery while under its influence. Do not mix with alcohol. See your doctor at once if you have muscle spasms or tightness, or uncontrollable motions (particularly of the neck, mouth, or jaw). Persistent vo miting or severe lightheadedness should also be evaluated by the physician. Intravenous (IV) Fluids As part of your care today, you received intravenous (IV) fluids. IV fluids are administered to patients who are dehydrated or to those who have certain chemical (electrolyte) abnormalities that need correcting. FOLLOW-UP CARE: If you have been referred to a physician for follow-up care, call the physicians office for an appointment as you were instructed or within the next two days. If you experience worsening or a significant change in your symptoms, notify the physician immediately or return to the Emergency Department at any time for re-evaluation. Take a copy of your lab results and your CT results with you to your follow-up appointment. Referrals: [facility] [Primary Care Provider] - Follow up tomorrow
[2018-12-30] MEDS ORDERED: NORMAL SALINE 1000 ML 1,000 ML IV ONE ×2 (17:43→19:37)
[2018-12-30] MEDS ORDERED: ACETAMINOPHEN 325 MG TABLET PO ONE (17:43)
[2018-12-30] MEDS ORDERED: DIPHENHYDRAMINE HCL 50 MG/ML VIAL IV ONE ×2 (17:45→19:37)
[2018-12-30] MEDS ORDERED: ONDANSETRON HCL INJ/PF 4 MG/2 ML SDV IV ONE (17:45)
[2018-12-30 18:35] LABS: ABSOLUTE BASOPHILS # (AUTO) 0.1 10^3/uL (0.0-0.2); ABSOLUTE EOSINOPHILS # (AUTO) 0.1 10^3/uL (0.0-0.6); ABSOLUTE LYMPHOCYTES (AUTO) 2.2 10^3/uL (0.5-4.7); ABSOLUTE MONOCYTES (AUTO) 0.4 10^3/uL (0.1-1.4); ABSOLUTE NEUT (AUTO) 5.8 10^3/uL (1.7-8.2); BASOPHILS % (AUTO) 0.7 % (0-2); EOSINOPHILS % (AUTO) 0.9 % (0-6); HEMOGLOBIN 14.9 g/dL (12.0-15.5); LYMPHOCYTES % (AUTO) 26.1 % (13-45); MEAN CORPUSCULAR HEMOGLOBIN 30.4 pg (27.0-33.4); MEAN CORPUSCULAR HGB CONC 33.9 g/dL (32.0-36.0); MEAN CORPUSCULAR VOLUME 90 fl (80-97); MONOCYTES % (AUTO) 4.3 % (3-13); PLATELET COUNT 241 10^3/uL (150-450); RED BLOOD COUNT 4.91 10^6/uL (3.72-5.28); RED CELL DISTRIBUTION WIDTH 13.3 % (11.5-14.0); TOTAL CELLS COUNTED % (AUTO) 100 %; WHITE BLOOD COUNT 8.5 10^3/uL (4.0-10.5)
[2018-12-30 18:36] LABS: APPEARANCE,URINE CLOUDY; BILIRUBIN,URINE NEGATIVE (NEGATIVE); COLOR,URINE YELLOW; GLUCOSE, URINE NEGATIVE (NEGATIVE); KETONES,URINE NEGATIVE (NEGATIVE); LEUKOCYTE ESTERASE,URINE LARGE (NEGATIVE); NITRITE,URINE NEGATIVE (NEGATIVE); PROTEIN,URINE NEGATIVE (NEGATIVE); URINE SPECIFIC GRAVITY 1.016; UROBILINOGEN,URINE NEGATIVE mg/dL (<2.0)
[2018-12-30 19:25] LABS: ALBUMIN 3.2 g/dL (3.5-5.0); ALKALINE PHOSPHATASE 42 U/L (38-126); ANION GAP 6 (5-19); ASPARTATE AMINO TRANSFERASE 18 U/L (14-36); BILIRUBIN,DIRECT 0.3 mg/dL (0.0-0.4); BILIRUBIN,TOTAL 0.4 mg/dL (0.2-1.3); BLOOD UREA NITROGEN 7 mg/dL (7-20); CARBON DIOXIDE 16 mmol/L (22-30); CHLORIDE 117 mmol/L (98-107); POTASSIUM 3.3 mmol/L (3.6-5.0); TOTAL PROTEIN 5.5 g/dL (6.3-8.2)
[2018-12-30 19:32] LABS: GLUCOSE 58 mg/dL (75-110)
[2018-12-30 19:42] LABS: APPEARANCE,URINE CLEAR; BILIRUBIN,URINE NEGATIVE (NEGATIVE); COLOR,URINE STRAW; GLUCOSE, URINE NEGATIVE (NEGATIVE); KETONES,URINE NEGATIVE (NEGATIVE); LEUKOCYTE ESTERASE,URINE NEGATIVE (NEGATIVE); NITRITE,URINE NEGATIVE (NEGATIVE); PROTEIN,URINE NEGATIVE (NEGATIVE); URINE SPECIFIC GRAVITY 1.008; UROBILINOGEN,URINE NEGATIVE mg/dL (<2.0)
[2018-12-30 19:59] LABS: CALCIUM 6.8 mg/dL (8.4-10.2)
[2018-12-30] MEDS ORDERED: DEXTROSE 10%-WATER 1,000 ML IV ONE (20:16)
--- NOTE | 2018-12-30 20:39 | RADIOLOGY REPORT (SQ) ---
CT ABDOMEN PELVIS WITHOUT IV CONTRAST EXAM DATE: 12/30/2018 7:38 PM CDT HISTORY: Right flank pain. COMPARISON: None. TECHNIQUE: CT scan of the abdomen and pelvis was performed without IV contrast. This exam was performed according to our departmental dose-optimization program, which includes automated exposure control, adjustment of the mA and/or kV according to patient size and/or use of iterative reconstruction technique. FINDINGS: The lung bases are clear. No pleural or pericardial effusions. There has been a prior cholecystectomy. Liver, spleen, pancreas, and adrenal glands are normal. There are punctate nonobstructing stones in both kidneys. No hydronephrosis or obstructing renal stones. No bladder stones. Poorly visualized 2.5 cm cystic structure in the lower pole right kidney, better seen on recent ultrasound. No small bowel obstruction. The appendix is normal. No evidence of acute diverticulitis. No adenopathy, free fluid, or free air is identified. The aorta is normal caliber. The osseous structures are intact. IMPRESSION: Tiny nonobstructing stones in both kidneys. No hydronephrosis or bladder stone.
[2018-12-30 20:56] LABS: ALBUMIN 4.6 g/dL (3.5-5.0); ALKALINE PHOSPHATASE 52 U/L (38-126); ANION GAP 10 (5-19); ASPARTATE AMINO TRANSFERASE 16 U/L (14-36); BILIRUBIN,DIRECT 0.2 mg/dL (0.0-0.4); BILIRUBIN,TOTAL 0.3 mg/dL (0.2-1.3); BLOOD UREA NITROGEN 9 mg/dL (7-20); CALCIUM 9.4 mg/dL (8.4-10.2); CARBON DIOXIDE 24 mmol/L (22-30); CHLORIDE 106 mmol/L (98-107); GLUCOSE 80 mg/dL (75-110); POTASSIUM 4.2 mmol/L (3.6-5.0); TOTAL PROTEIN 7.1 g/dL (6.3-8.2)
[2018-12-30 21:04] VITALS: BP 122/78
== END 2018-12-30 21:12 | disposition home or self-care (01) ==
LOC: ER 14:31
DX: N39.0 Urinary tract infection, site not specified (principal); N20.0 Calculus of kidney; Q61.01 Congenital single renal cyst; R11.2 Nausea with vomiting, unspecified; F17.210 Nicotine dependence, cigarettes, uncomplicated; Z71.6 Tobacco abuse counseling; Z88.5 Allergy status to narcotic agent; Z88.1 Allergy status to other antibiotic agents; Z88.8 Allergy status to other drugs, medicaments and biological substances; Z87.19 Personal history of other diseases of the digestive system; Z90.49 Acquired absence of other specified parts of digestive tract
CPT/HCPCS: 96376; 99284; 96361; 96374; 96375; 36415; 87086; 85025; 87070; 87088; 80053; 81001; 74176; J1200; J2405; J7030; 87186

== ENCOUNTER 2019-01-26 17:43 | Emergency (ER) | payer MEDICAID ==
--- NOTE | 2019-01-26 18:35 | ER Document Report ---
ED Medical Screen (RME) - General Chief Complaint: OB Problem (<20wks) Stated Complaint: ABDOMINAL PAIN Time Seen by Provider: 01/26/19 18:33 Primary Care Provider: EVITA BERNARDO [Primary Care Provider] - Follow up as needed Mode of Arrival: Ambulatory Information source: Patient Notes: 28-year-old female presented to ED for abdominal pain at 8 weeks . She [facility] and [facility] she [facility] 7 weeks . She states she is having vaginal bleeding. She states there are no clots. She has soaked 1 pad. 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 Patient is alert oriented respirations regular and unlabored speaking in full sentences walks with even steady gait. I have greeted and performed a rapid initial assessment of this patient. A comprehensive ED assessment and evaluation of the patient, analysis of test results and completion of medical decision making process will be conducted by an additional ED providers. TRAVEL OUTSIDE OF THE [place] IN LAST 30 DAYS: No - Related Data Allergies/Adverse Reactions: butalbital [From Fioricet] Allergy (Verified 01/26/19 17:44) caffeine [From Fioricet] Allergy (Verified 01/26/19 17:44) ceftriaxone [From Rocephin] Allergy (Verified 01/26/19 17:44) codeine [Codeine] Allergy (Verified 01/26/19 17:44) Difficulty breathing haloperidol [From Haldol] Allergy (Verified 01/26/19 17:44) haloperidol lactate [From Haldol] Allergy (Verified 01/26/19 17:44) magnesium sulfate [Magnesium Sulfate] Allergy (Verified 01/26/19 17:44) hydromorphone HCl [From Dilaudid] Adverse Reaction (Verified 01/26/19 17:44) Renal failure ketorolac tromethamine [From Toradol] Adverse Reaction (Verified 01/26/19 17:44) metoclopramide HCl [From Reglan] Adverse Reaction (Verified 01/26/19 17:44) Anxiety tramadol [Tramadol] Adverse Reaction (Verified 01/26/19 17:44) Past Medical History - Past Medical History Cardiac Medical History: Reports: Hx Hypertension - PRECLAMPSIA Denies: Hx Coronary Artery Disease, Hx Heart Attack Pulmonary Medical History: Denies: Hx Asthma, Hx Bronchitis, Hx COPD, Hx Pneumonia, Hx Tuberculosis Neurological Medical History: Reports: Hx Migraine. Denies: Hx Cerebrovascular Accident, Hx Seizures Renal/ Medical History: Reports: Hx Kidney Stones, Hx Renal Insufficiency. Denies: Hx Peritoneal Dialysis GI Medical History: Reports: Hx Crohn's Disease, Hx Irritable Bowel, Hx Colonoscopy, Hx Endoscopy. Denies: Hx Ulcer Musculoskeltal Medical History: Reports Hx Arthritis, Reports Hx Musculoskeletal Trauma Traumatic Medical History: Reports: Hx Fractures - Feet wrist and fingers Past Surgical History: Reports: Hx Cholecystectomy, Hx Dilation and Curettage - x2, Hx Gynecologic Surgery - D&C x's2, Hx Kidney (Renal Surgery) - Ureteral stent, lithotripsy x14, Hx Orthopedic Surgery - Foot surgery. Denies: Hx Hysterectomy, Hx Pacemaker - Immunizations Immunizations up to date: Yes Hx Diphtheria, Pertussis, Tetanus Vaccination: Yes History of Influenza Vaccine for 02/2017 - 07/2017 Season: No Physical Exam - Vital signs Vitals: Temp Pulse Resp BP Pulse Ox 98.8 F 90 16 122/84 97 01/26/19 17:51 01/26/19 17:51 01/26/19 17:51 01/26/19 17:51 01/26/19 17:51 Course - Vital Signs Vital signs: Temp Pulse Resp BP Pulse Ox 98.8 F 90 16 122/84 97 01/26/19 17:51 01/26/19 17:51 01/26/19 17:51 01/26/19 17:51 01/26/19 17:51 Doctor's Discharge - Discharge [facility]errals: [facility] [Primary Care Provider] - Follow up as needed
[2019-01-26 19:55] LABS: ABSOLUTE BASOPHILS # (AUTO) 0.1 10^3/uL (0.0-0.2); ABSOLUTE EOSINOPHILS # (AUTO) 0.1 10^3/uL (0.0-0.6); ABSOLUTE LYMPHOCYTES (AUTO) 2.3 10^3/uL (0.5-4.7); ABSOLUTE MONOCYTES (AUTO) 0.5 10^3/uL (0.1-1.4); ABSOLUTE NEUT (AUTO) 6.7 10^3/uL (1.7-8.2); BASOPHILS % (AUTO) 1.2 % (0-2); EOSINOPHILS % (AUTO) 0.6 % (0-6); HEMATOCRIT 41.4 % (36.0-47.0); HEMOGLOBIN 14.3 g/dL (12.0-15.5); LYMPHOCYTES % (AUTO) 23.5 % (13-45); MEAN CORPUSCULAR HGB CONC 34.6 g/dL (32.0-36.0); MEAN CORPUSCULAR VOLUME 90 fl (80-97); MONOCYTES % (AUTO) 4.9 % (3-13); PLATELET COUNT 241 10^3/uL (150-450); RED BLOOD COUNT 4.63 10^6/uL (3.72-5.28); RED CELL DISTRIBUTION WIDTH 13.2 % (11.5-14.0); SEGMENTED NEUTROPHILS % (AUTO) 69.8 % (42-78); TOTAL CELLS COUNTED % (AUTO) 100 %; WHITE BLOOD COUNT 9.6 10^3/uL (4.0-10.5)
[2019-01-26 20:14] LABS: ALBUMIN 4.6 g/dL (3.5-5.0); ALKALINE PHOSPHATASE 50 U/L (38-126); ANION GAP 13 (5-19); ASPARTATE AMINO TRANSFERASE 20 U/L (14-36); BILIRUBIN,DIRECT 0.1 mg/dL (0.0-0.4); BILIRUBIN,TOTAL 0.5 mg/dL (0.2-1.3); BLOOD UREA NITROGEN 7 mg/dL (7-20); CALCIUM 9.9 mg/dL (8.4-10.2); CARBON DIOXIDE 22 mmol/L (22-30); CHLORIDE 102 mmol/L (98-107); GLUCOSE 85 mg/dL (75-110); POTASSIUM 3.8 mmol/L (3.6-5.0); TOTAL PROTEIN 7.2 g/dL (6.3-8.2)
--- NOTE | 2019-01-26 22:21 | RADIOLOGY REPORT (SQ) ---
US PELVIS EXAM DATE: 01/26/2019 6:36 PM CDT HISTORY: Pelvic pain. COMPARISON: None. TECHNIQUE: Grayscale, color Doppler, and spectral Doppler ultrasound images of the pelvis were obtained. FINDINGS: The uterus measures 10.2 x 7.7 x 6.4 cm. The cervix is 2.7 cm in length and is closed. There is an intrauterine gestational sac with a pole crown-rump length of 0.84 cm. heart rate is 144 bpm. There is an adjacent 9 mm subchorionic bleed. IMPRESSION: 1. Early IUP with estimated gestational age 6 weeks 5 days. 2. Small adjacent subchorionic hemorrhage; attention on follow-up imaging is suggested.
[2019-01-26 22:56] LABS: APPEARANCE,URINE SLIGHTLY-CLOUDY; BILIRUBIN,URINE NEGATIVE (NEGATIVE); COLOR,URINE YELLOW; GLUCOSE, URINE NEGATIVE (NEGATIVE); KETONES,URINE NEGATIVE (NEGATIVE); LEUKOCYTE ESTERASE,URINE SMALL (NEGATIVE); NITRITE,URINE NEGATIVE (NEGATIVE); PROTEIN,URINE NEGATIVE (NEGATIVE); URINE SPECIFIC GRAVITY 1.021; UROBILINOGEN,URINE NEGATIVE mg/dL (<2.0)
[2019-01-27] MEDS ORDERED: PROMETHAZINE HCL 25 MG TABLET PO ONE (00:01)
--- NOTE | 2019-01-27 00:04 | ER Document Report ---
ED GI/ - General Chief Complaint: OB Problem (<20wks) Stated Complaint: ABDOMINAL PAIN Time Seen by Provider: 01/26/19 18:33 Primary Care Provider: [facility] [Provider Group] - Follow up in 1 week [facility] [NO LOCAL MD] - Follow up in 1 week Mode of Arrival: Ambulatory Notes: Patient is a 28-year-old female, at 8 weeks gestation by first trimester ultrasound last week, that comes emergency department for chief complaint of vaginal bleeding and pelvic cramping. Symptoms started today. She has gone through approximately 1 pad with the bleeding. Past medical history does include ectopic . She denies injury, fever/chills, nausea/vomiting, or any other complaints at this time. TRAVEL OUTSIDE OF THE [place] IN LAST 30 DAYS: No - Related Data Allergies/Adverse Reactions: butalbital [From Fioricet] Allergy (Verified 01/26/19 17:44) caffeine [From Fioricet] Allergy (Verified 01/26/19 17:44) ceftriaxone [From Rocephin] Allergy (Verified 01/26/19 17:44) codeine [Codeine] Allergy (Verified 01/26/19 17:44) Difficulty breathing haloperidol [From Haldol] Allergy (Verified 01/26/19 17:44) haloperidol lactate [From Haldol] Allergy (Verified 01/26/19 17:44) magnesium sulfate [Magnesium Sulfate] Allergy (Verified 01/26/19 17:44) hydromorphone HCl [From Dilaudid] Adverse Reaction (Verified 01/26/19 17:44) Renal failure ketorolac tromethamine [From Toradol] Adverse Reaction (Verified 01/26/19 17:44) metoclopramide HCl [From Reglan] Adverse Reaction (Verified 01/26/19 17:44) Anxiety tramadol [Tramadol] Adverse Reaction (Verified 01/26/19 17:44) Past Medical History - General Information source: Patient Last Menstrual Period: - Social History Smoking Status: Current Some Day Smoker Frequency of alcohol use: None Lives with: Family Family History: Reviewed & Not Pertinent, CAD, Hyperlipidemia, Hypertension, Malignancy, Other - breast cancer, renal calculi Patient has suicidal ideation: No Patient has homicidal ideation: No - Past Medical History Cardiac Medical History: Reports: Hx Hypertension - PRECLAMPSIA Denies: Hx Coronary Artery Disease, Hx Heart Attack Pulmonary Medical History: Denies: Hx Asthma, Hx Bronchitis, Hx COPD, Hx Pneumonia, Hx Tuberculosis Neurological Medical History: Reports: Hx Migraine. Denies: Hx Cerebrovascular Accident, Hx Seizures Renal/ Medical History: Reports: Hx Kidney Stones, Hx Renal Insufficiency. Denies: Hx Peritoneal Dialysis GI Medical History: Reports: Hx Crohn's Disease, Hx Irritable Bowel, Hx Colonoscopy, Hx Endoscopy. Denies: Hx Ulcer Musculoskeletal Medical History: Reports Hx Arthritis, Reports Hx Musculoskeletal Trauma Traumatic Medical History: Reports: Hx Fractures - Feet wrist and fingers Past Surgical History: Reports: Hx Cholecystectomy, Hx Dilation and Curettage - x2, Hx Gynecologic Surgery - D&C x's2, Hx Kidney (Renal Surgery) - Ureteral stent, lithotripsy x14, Hx Orthopedic Surgery - Foot surgery. Denies: Hx Hysterectomy, Hx Pacemaker - Immunizations Immunizations up to date: Yes Hx Diphtheria, Pertussis, Tetanus Vaccination: Yes Hx Pneumococcal Vaccination: 07/18/12 Review of Systems - Review of Systems Constitutional: No symptoms reported EENT: No symptoms reported Cardiovascular: No symptoms reported Respiratory: No symptoms reported Gastrointestinal: See HPI Genitourinary: No symptoms reported Female Genitourinary: See HPI Musculoskeletal: No symptoms reported Skin: No symptoms reported Hematologic/Lymphatic: No symptoms reported Neurological/Psychological: No symptoms reported Physical Exam - Vital signs Vitals: Temp Pulse Resp BP Pulse Ox 98.8 F 90 16 122/84 97 01/26/19 17:51 01/26/19 17:51 01/26/19 17:51 01/26/19 17:51 01/26/19 17:51 - Notes Notes: GENERAL: Alert, interacts well. No acute distress. HEAD: Normocephalic, atraumatic. EYES: Pupils equal, round, and reactive to light. Extraocular movements intact. ENT: Oral mucosa moist, tongue midline. Oropharynx unremarkable. LUNGS: Clear to auscultation bilaterally, no wheezes, rales, or rhonchi. No respiratory distress. HEART: Regular rate and rhythm. No murmur ABDOMEN: There is bilateral generalized mild tenderness in the mid to lower abdomen. No guarding or rigidity. GENITOURINARY: Deferred EXTREMITIES: Moves all 4 extremities spontaneously. No edema, normal radial and dorsalis pedis pulses bilaterally. No cyanosis. BACK: no cervical, thoracic, lumbar midline tenderness. No saddle anesthesia, normal distal neurovascular exam. NEUROLOGICAL: Alert and oriented x3. Normal speech. Cranial nerves II through XII grossly intact. PSYCH: Normal affect, normal mood. SKIN: Warm, dry, normal turgor. No rashes or lesions noted. Course - Re-evaluation Re-evalutation: Patient is well-appearing on exam with mild generalized lower abdominal tenderness. CBC unremarkable, hCG is elevated, urinalysis borderline. Ultrasound showing subchorionic hemorrhage with living intrauterine . The age is stated as lower than patient was expecting. I did discuss the work- up. Patient requested a copy of her report and hCG value for follow-up, states this happened last time where the fetus developed abnormally and ended up in a miscarriage. I did discuss pelvic precautions, provided her with information, urine was cultured. Patient has been here for a very extended period of time because of high patient volume causing backup, I did discuss performing RhoGam testing but this was declined. Patient states she has records here that shows she has been B positive every time. I did review the records and this was correct. Patient declined IV fluids when they were offered but she does request Phenergan for nausea/vomiting associated with , states she is allergic to Reglan and she is afraid of Zofran in . She was provided with this after discussion. - Vital Signs Vital signs: Temp Pulse Resp BP Pulse Ox 98 F 62 16 128/76 H 99 01/27/19 00:15 01/27/19 00:15 01/27/19 00:15 01/27/19 00:15 01/27/19 00:15 - Laboratory Result Diagrams: 01/26/19 19:27 01/26/19 19:27 Laboratory results interpreted by me: 01/26/19 01/26/19 19:27 19:27 Sodium 136.8 L Beta HCG, Quant 63093.00 H Ur Leukocyte Esterase SMALL H Discharge - Discharge Clinical Impression: Vaginal bleeding affecting early , Abdominal cramping affecting , Vomiting affecting Condition: Stable Disposition: HOME, SELF-CARE Additional Instructions: Your ultrasound shows a subchorionic bleed as we discussed, this is most likely the cause of your symptoms. Your is only measuring at 6 weeks and 5 days. I recommend pelvic rest, avoid lifting, intense exercise, sexual inte rcourse, etc. Follow-up with [employer] closely for additional evaluation and management. Take Phenergan for nausea if needed, you can continue Benadryl for nausea if needed. Return if you worsen including severe worsening pain, heavy bleeding, passing out, or any other concerning or worsening symptoms. Prescriptions: Promethazine HCl [Phenergan 25 mg Tablet] 25 mg PO Q6H PRN #20 tablet PRN Reason: [facility]errals[facility] [NO LOCAL MD] - Follow up in 1 week [facility] [Provider Group] - Follow up in 1 week
[2019-01-27 00:16] VITALS: BP 128/76
== END 2019-01-27 00:16 | disposition home or self-care (01) ==
LOC: ER 17:43
DX: O20.9 Hemorrhage in early pregnancy, unspecified (principal); R10.2 Pelvic and perineal pain; R10.9 Unspecified abdominal pain; O21.9 Vomiting of pregnancy, unspecified; O99.331 Smoking (tobacco) complicating pregnancy, first trimester; Z3A.01 Less than 8 weeks gestation of pregnancy; Z88.6 Allergy status to analgesic agent; Z87.442 Personal history of urinary calculi
CPT/HCPCS: 36415; 84702; 85025; 80053; 81001; 76817; J3490; 99284

== ENCOUNTER 2019-01-29 16:12 | Emergency (ER) | payer MEDICAID ==
--- NOTE | 2019-01-29 16:37 | ER Document Report ---
ED Medical Screen (RME) - General Chief Complaint: Abdominal Pain Stated Complaint: STOMACH PAIN/VAGINAL BLEEDING Time Seen by Provider: 01/29/19 16:31 Primary Care Provider: KRUPA WHITAKER MD [Primary Care Provider] - Follow up as needed Mode of Arrival: Ambulatory Information source: Patient Notes: 28-year-old female presented to ED for increased and pelvic pain. still spotting. He states she went to the health department they told her she needed to come back to the emergency room. We will repeat labs and ultrasound. I have greeted and performed a rapid initial assessment of this patient. A comprehensive ED assessment and evaluation of the patient, analysis of test results and completion of medical decision making process will be conducted by an additional ED providers. TRAVEL OUTSIDE OF THE [place] IN LAST 30 DAYS: No - Related Data Allergies/Adverse Reactions: butalbital [From Fioricet] Allergy (Verified 01/29/19 16:16) caffeine [From Fioricet] Allergy (Verified 01/29/19 16:16) ceftriaxone [From Rocephin] Allergy (Verified 01/29/19 16:16) codeine [Codeine] Allergy (Verified 01/29/19 16:16) Difficulty breathing haloperidol [From Haldol] Allergy (Verified 01/29/19 16:16) haloperidol lactate [From Haldol] Allergy (Verified 01/29/19 16:16) magnesium sulfate [Magnesium Sulfate] Allergy (Verified 01/29/19 16:16) hydromorphone HCl [From Dilaudid] Adverse Reaction (Verified 01/29/19 16:16) Renal failure ketorolac tromethamine [From Toradol] Adverse Reaction (Verified 01/29/19 16:16) metoclopramide HCl [From Reglan] Adverse Reaction (Verified 01/29/19 16:16) Anxiety tramadol [Tramadol] Adverse Reaction (Verified 01/26/19 17:44) Past Medical History - Social History Chew tobacco use (# tins/day): No Frequency of alcohol use: None Drug Abuse: None - Past Medical History Cardiac Medical History: Reports: Hx Hypertension - PRECLAMPSIA Denies: Hx Coronary Artery Disease, Hx Heart Attack Pulmonary Medical History: Denies: Hx Asthma, Hx Bronchitis, Hx COPD, Hx Pneumonia, Hx Tuberculosis Neurological Medical History: Reports: Hx Migraine. Denies: Hx Cerebrovascular Accident, Hx Seizures Renal/ Medical History: Reports: Hx Kidney Stones, Hx Renal Insufficiency. Denies: Hx Peritoneal Dialysis GI Medical History: Reports: Hx Crohn's Disease, Hx Irritable Bowel, Hx Colonoscopy, Hx Endoscopy. Denies: Hx Ulcer Musculoskeltal Medical History: Reports Hx Arthritis, Reports Hx Musculoskeletal Trauma Traumatic Medical History: Reports: Hx Fractures - Feet wrist and fingers Past Surgical History: Reports: Hx Cholecystectomy, Hx Dilation and Curettage - x2, Hx Gynecologic Surgery - D&C x's2, Hx Kidney (Renal Surgery) - Ureteral stent, lithotripsy x14, Hx Orthopedic Surgery - Foot surgery. Denies: Hx Hysterectomy, Hx Pacemaker - Immunizations Immunizations up to date: Yes Hx Diphtheria, Pertussis, Tetanus Vaccination: Yes History of Influenza Vaccine for 02/2017 - 07/2017 Season: No Physical Exam - Vital signs Vitals: Temp Pulse Resp BP Pulse Ox 98.8 F 91 18 133/82 H 98 01/29/19 16:19 01/29/19 16:19 01/29/19 16:19 01/29/19 16:19 01/29/19 16:19 Course - Vital Signs Vital signs: Temp Pulse Resp BP Pulse Ox 98.8 F 91 18 133/82 H 98 01/29/19 16:19 01/29/19 16:19 01/29/19 16:19 01/29/19 16:19 01/29/19 16:19 Doctor's Discharge - Discharge Referrals: KRUPA WHITAKER MD [Primary Care Provider] - Follow up as needed
[2019-01-29] MEDS ORDERED: NORMAL SALINE 1000 ML 1,000 ML IV ONE (18:17)
[2019-01-29] MEDS ORDERED: ONDANSETRON HCL INJ/PF 4 MG/2 ML SDV IV ONE (18:18)
[2019-01-29 19:11] LABS: ABSOLUTE BASOPHILS # (AUTO) 0.1 10^3/uL (0.0-0.2); ABSOLUTE EOSINOPHILS # (AUTO) 0.1 10^3/uL (0.0-0.6); ABSOLUTE LYMPHOCYTES (AUTO) 1.8 10^3/uL (0.5-4.7); ABSOLUTE MONOCYTES (AUTO) 0.5 10^3/uL (0.1-1.4); ABSOLUTE NEUT (AUTO) 5.9 10^3/uL (1.7-8.2); EOSINOPHILS % (AUTO) 0.8 % (0-6); HEMATOCRIT 38.3 % (36.0-47.0); HEMOGLOBIN 13.3 g/dL (12.0-15.5); LYMPHOCYTES % (AUTO) 21.8 % (13-45); MEAN CORPUSCULAR HGB CONC 34.8 g/dL (32.0-36.0); MEAN CORPUSCULAR VOLUME 89 fl (80-97); MONOCYTES % (AUTO) 5.8 % (3-13); PLATELET COUNT 240 10^3/uL (150-450); RED BLOOD COUNT 4.31 10^6/uL (3.72-5.28); RED CELL DISTRIBUTION WIDTH 13.9 % (11.5-14.0); SEGMENTED NEUTROPHILS % (AUTO) 70.6 % (42-78); TOTAL CELLS COUNTED % (AUTO) 100 %; WHITE BLOOD COUNT 8.3 10^3/uL (4.0-10.5)
--- NOTE | 2019-01-29 20:23 | RADIOLOGY REPORT (SQ) ---
EXAM DESCRIPTION: US TRANSVAGINAL COMPLETED DATE/TME: 01/29/2019 16:35 CLINICAL HISTORY: 28 years, Female, increase pain vaginal bleed early preg Findings: Uterus is anteverted and measures 11.3 x 7.1 x 6.3 cm. Single viable IUP of seven weeks and three days. heart motion at 153 bpm. Maternal ovaries are within normal limits. Cervix measures 2.5 cm in length. No free fluid in the cul-de-sac. IMPRESSION: Single viable IUP of seven weeks and three days.
[2019-01-29 20:36] LABS: ALBUMIN 4.2 g/dL (3.5-5.0); ALKALINE PHOSPHATASE 54 U/L (38-126); ANION GAP 10 (5-19); ASPARTATE AMINO TRANSFERASE 20 U/L (14-36); BILIRUBIN,DIRECT 0.2 mg/dL (0.0-0.4); BILIRUBIN,TOTAL 0.4 mg/dL (0.2-1.3); BLOOD UREA NITROGEN 10 mg/dL (7-20); CALCIUM 9.1 mg/dL (8.4-10.2); CARBON DIOXIDE 23 mmol/L (22-30); CHLORIDE 105 mmol/L (98-107); GLUCOSE 81 mg/dL (75-110); POTASSIUM 4.1 mmol/L (3.6-5.0); TOTAL PROTEIN 6.7 g/dL (6.3-8.2)
[2019-01-29 21:23] LABS: APPEARANCE,URINE SLIGHTLY-CLOUDY; BILIRUBIN,URINE NEGATIVE (NEGATIVE); COLOR,URINE YELLOW; GLUCOSE, URINE NEGATIVE (NEGATIVE); KETONES,URINE NEGATIVE (NEGATIVE); LEUKOCYTE ESTERASE,URINE TRACE (NEGATIVE); NITRITE,URINE NEGATIVE (NEGATIVE); PROTEIN,URINE NEGATIVE (NEGATIVE); URINE SPECIFIC GRAVITY 1.028; UROBILINOGEN,URINE NEGATIVE mg/dL (<2.0)
[2019-01-29 21:39] LABS: ADD MANUAL MICROSCOPIC YES
[2019-01-29 21:41] LABS: WBC,URINE RARE /HPF
[2019-01-29 21:42] LABS: CALCIUM OXALATE CRYSTALS,UR FEW /HPF
[2019-01-29] MEDS ORDERED: ONDANSETRON ODT 4 MG TAB (6 TAB/ER DISP) PO PRN (21:42)
[2019-01-29 21:46] VITALS: BP 119/84
--- NOTE | 2019-01-29 21:47 | ER Document Report ---
HPI - HPI Time Seen by Provider: 01/29/19 16:31 Pain Level: 3 Notes: This is an otherwise healthy 28-year-old female presenting with chief complaint of vaginal bleeding in the setting of . Patient reports she is approximately 8 weeks and has been having intermittent vaginal bleeding over the past 3 to 4 days. She states she was seen in this facility and was told she had a subchorionic bleed a few days ago. She was told to return for repeat work-up. She states she went to the health department today who directed her to come to the ED instead of being seen there. Patient continues to have bleeding however she reports that is not as much as she had 3 days ago. She denies any lower abdominal cramping or passage of any clots or tissue. She is a G6, P2. - REPRODUCTIVE Reproductive: REPORTS: : - DERM Skin Color: Normal Past Medical History - General Information source: Patient - Social History Smoking Status: Current Every Day Smoker Chew tobacco use (# tins/day): No Frequency of alcohol use: None Drug Abuse: None Family History: Reviewed & Not Pertinent, CAD, Hyperlipidemia, Hypertension, Malignancy, Other - breast cancer, renal calculi Patient has suicidal ideation: No Patient has homicidal ideation: No - Past Medical History Cardiac Medical History: Reports: Hx Hypertension - PRECLAMPSIA Denies: Hx Coronary Artery Disease, Hx Heart Attack Pulmonary Medical History: Denies: Hx Asthma, Hx Bronchitis, Hx COPD, Hx Pneumonia, Hx Tuberculosis Neurological Medical History: Reports: Hx Migraine. Denies: Hx Cerebrovascular Accident, Hx Seizures Renal/ Medical History: Reports: Hx Kidney Stones, Hx Renal Insufficiency. Denies: Hx Peritoneal Dialysis GI Medical History: Reports: Hx Crohn's Disease, Hx Irritable Bowel, Hx Colonoscopy, Hx Endoscopy. Denies: Hx Ulcer Musculoskeletal Medical History: Reports Hx Arthritis, Reports Hx Musculoskeletal Trauma Traumatic Medical History: Reports: Hx Fractures - Feet wrist and fingers Past Surgical History: Reports: Hx Cholecystectomy, Hx Dilation and Curettage - x2, Hx Gynecologic Surgery - D&C x's2, Hx Kidney (Renal Surgery) - Ureteral stent, lithotripsy x14, Hx Orthopedic Surgery - Foot surgery. Denies: Hx Hyster ectomy, Hx Pacemaker - Immunizations Immunizations up to date: Yes Hx Diphtheria, Pertussis, Tetanus Vaccination: Yes Hx Pneumococcal Vaccination: 07/18/12 Vertical Provider Document - CONSTITUTIONAL Notes: PHYSICAL EXAMINATION: GENERAL: Well-appearing, well-nourished and in no acute distress. HEAD: Atraumatic, normocephalic. EYES: Pupils equal round and reactive to light, extraocular movements intact, conjunctiva are normal. ENT: Nares patent, oropharynx clear without exudates. Moist mucous membranes. NECK: Normal range of motion, supple without lymphadenopathy LUNGS: Breath sounds clear to auscultation bilaterally and equal. No wheezes rales or rhonchi. HEART: Regular rate and rhythm without murmurs ABDOMEN: Soft, nontender, nondistended abdomen. No guarding, no rebound. No masses appreciated. Female : deferred Musculoskeletal: Normal range of motion, no pitting or edema. No cyanosis. NEUROLOGICAL: Cranial nerves grossly intact. Normal speech, normal gait. Normal sensory, motor exams PSYCH: Normal mood, normal affect. SKIN: Warm, Dry, normal turgor, no rashes or lesions noted. - INFECTION CONTROL TRAVEL OUTSIDE OF THE [place] IN LAST 30 DAYS: No Course - Re-evaluation Re-evalutation: Laboratory 01/29/19 01/29/19 01/29/19 18:05 18:05 18:05 WBC 8.3 RBC 4.31 Hgb 13.3 Hct 38.3 MCV 89 MCH 31.0 MCHC 34.8 RDW 13.9 Plt Count 240 Lymph % (Auto) 21.8 [place] % (Auto) 5.8 Eos % (Auto) 0.8 Baso % (Auto) 1.0 Absolute Neuts (auto) 5.9 Absolute Lymphs (auto) 1.8 Absolute Monos (auto) 0.5 Absolute Eos (auto) 0.1 Absolute Basos (auto) 0.1 Seg Neutrophils % 70.6 Sodium Cancelled Potassium Cancelled Chloride Cancelled Carbon Dioxide Cancelled Anion Gap Cancelled BUN Cancelled Creatinine Cancelled Est GFR ( Amer) Cancelled Est GFR (Non-Af Amer) Cancelled Est GFR (MDRD) Non-Af Cancelled Glucose Cancelled Calcium Cancelled Total Bilirubin Cancelled Direct Bilirubin Cancelled Neonat Total Bilirubin Cancelled Neonat Direct Bilirubin Cancelled Neonat Indirect Bili Cancelled AST Cancelled ALT Cancelled Alkaline Phosphatase Cancelled Total Protein Cancelled Albumin Cancelled EGFR Cancelled Beta HCG, Quant Cancelled Total Beta HCG Cancelled Urine Color YELLOW Urine Appearance SLIGHTLY-CLOUDY Urine pH 7.0 Ur Specific [place] 1.028 Urine Protein NEGATIVE Urine Glucose (UA) NEGATIVE Urine Ketones NEGATIVE Urine Blood NEGATIVE Urine Nitrite NEGATIVE Urine Bilirubin NEGATIVE Urine Urobilinogen NEGATIVE Ur Leukocyte Esterase TRACE H Urine WBC RARE Ur Squamous Epith Cells FEW Calcium Oxalate Crystal FEW Urine Mucus 1+ Urine Ascorbic Acid NEGATIVE 01/29/19 20:04 WBC RBC Hgb Hct MCV MCH MCHC RDW Plt Count Lymph % (Auto) [place] % (Auto) Eos % (Auto) Baso % (Auto) Absolute Neuts (auto) Absolute Lymphs (auto) Absolute Monos (auto) Absolute Eos (auto) Absolute Basos (auto) Seg Neutrophils % Sodium 138.4 Potassium 4.1 Chloride 105 Carbon Dioxide 23 Anion Gap 10 BUN 10 Creatinine 0.60 Est GFR ( Amer) > 60 Est GFR (Non-Af Amer) Est GFR (MDRD) Non-Af > 60 Glucose 81 Calcium 9.1 Total Bilirubin 0.4 Direct Bilirubin 0.2 Neonat Total Bilirubin Not Reportable Neonat Direct Bilirubin Not Reportable Neonat Indirect Bili Not Reportable AST 20 ALT 13 Alkaline Phosphatase 54 Total Protein 6.7 Albumin 4.2 EGFR Beta HCG, Quant 46458.00 H Total Beta HCG POSITIVE Urine Color Urine Appearance Urine pH Ur Specific [place] Urine Protein Urine Glucose (UA) Urine Ketones Urine Blood Urine Nitrite Urine Bilirubin Urine Urobilinogen Ur Leukocyte Esterase Urine WBC Ur Squamous Epith Cells Calcium Oxalate Crystal Urine Mucus Urine Ascorbic Acid Obstetrics Ultrasound 01/29/19 16:35 IMPRESSION: Single viable IUP of seven weeks and three days. As outlined above patient has a single viable intrauterine of 7 weeks and 3 days, her quantitative hCG has risen appropriately since her last visit. There is no mention of a subchorionic bleed on her repeat ultrasound. I will have her return in 48 hours for repeat quantitative hCG. Strict ED return precautions were discussed to include increased bleeding or passage of clots or tissue. Patient verbalizes understanding and agreement with this plan. The patient's emergency department workup and current diagnosis were explained to the patient and or family. Follow-up instructions were provided. Medications if prescribed were discussed. Instructions for when to return to the emergency department including specific worrisome symptoms were discussed with the patient and/or family. - Vital Signs Vital signs: Temp Pulse Resp BP Pulse Ox 98.8 F 91 18 133/82 H 98 01/29/19 16:19 09/12/19 16:19 01/29/19 16:19 01/29/19 16:19 01/29/19 16:19 - Laboratory Result Diagrams: 01/29/19 18:05 01/29/19 20:04 Laboratory results interpreted by me: 01/29/19 20:04 Beta HCG, Quant 16725.00 H Discharge - Discharge Clinical Impression: Vaginal bleeding during Condition: Stable Disposition: HOME, SELF-CARE Additional Instructions: You were seen in the emergency department for continued vaginal bleeding during her . The ultrasound looks good and shows that you have a viable intrauterine measuring 7 weeks. A copy of this has been given to you. Your hormone levels do continue to rise, your last visit it was 41,457 and now it is 54,051. I would like you to have repeat lab work done on Saturday, a lab slip has been provided to you, you do not need to check into the emergency department just come to the hospital and proceed to the main lab. I am hopeful that you can also get a repeat ultrasound done at this time, I have given you an order sheet for this however you do need to call to schedule this, call them tomorrow to see if he can schedule it for Saturday. If they are unable to do this but is okay at least get the labs drawn so that we can make sure your hormones continue to rise. Please call [phone] Saturday night after 8 PM and I will discuss the results of your blood work with you. If you have had your ultrasound done we can also discuss those as well. Please come and have these tests done at least 2 hours before you call for the results. Return to the emergency department immediately if you develop any new or worsening symptoms such as bleeding through more than 1 pad per hour for 4 hours consecutively, or you passing clots or tissue. Prescriptions: Promethazine HCl [Phenergan 25 mg Tablet] 1 - 2 tab PO Q6H PRN #20 tablet PRN Reason: Forms: Follow-Up Laboratory Testing, Follow-Up Radiology Testing Referrals: KRUPA WHITAKER MD [Primary Care Provider] - Follow up as needed
== END 2019-01-29 21:56 | disposition home or self-care (01) ==
LOC: ER 16:12
DX: O20.9 Hemorrhage in early pregnancy, unspecified (principal); O99.331 Smoking (tobacco) complicating pregnancy, first trimester; Z3A.01 Less than 8 weeks gestation of pregnancy; Z90.49 Acquired absence of other specified parts of digestive tract; Z87.442 Personal history of urinary calculi
CPT/HCPCS: 99284; 96361; 96374; 36415; 84702; 85025; 80053; 81001; 76817; J2405; J7030

== ENCOUNTER → 2019-01-31 | Outpatient (CLI) | payer SELFPAY ==
--- NOTE | 2019-01-31 11:59 | RADIOLOGY REPORT (SQ) ---
EXAM DESCRIPTION: U/S OB TRANSVAG W/DOPPLER COMPLETED DATE/TIME: 01/31/2019 11:31 am REASON FOR STUDY: VAGINAL BLEEDING COMPARISON: None. TECHNIQUE: Transvaginal static and realtime grayscale images acquired of the pelvis. Additional paulino cted spectral and color Doppler images recorded. All images stored on PACs. bHCG: Not provided. CLINICAL DATES: 8 week 1 day LIMITATIONS: None. FINDINGS: FETUS: Single Living intrauterine . ULTRASOUND EGA: 7 week 6 day ULTRASOUND LAST: 09/13/2019 EFW: Not applicable less than 20 weeks. CRL: 1.5 cm FHR: 165 beats per minute. SURVEY: Too early to assess. AMNIOTIC FLUID: Adequate amount. PLACENTA: Not yet developed due to early gestation. SUBCHORIONIC BLEED: No. SIZE OF BLEED: Not applicable. UTERUS: No masses. No anomalies. CERVICAL LENGTH: 3.4 cm. Closed. RIGHT ADNEXA: Normal ovary with normal vascular flow. No adnexal free fluid. No adnexal masses. LEFT ADNEXA: Normal ovary with normal vascular flow. No adnexal free fluid. Sub 2 cm cyst without suspicious features. FREE FLUID: None. OTHER: No other significant finding. IMPRESSION: LIVING INTRAUTERINE . EGA 7 week 6 day Trimester of : First trimester - 0 to 13 weeks. TECHNICAL DOCUMENTATION: JOB ID: [id number] [email or web address]- All Rights Reserved rev Reading location - IP/workstation name: [email or web address]
== END ==
LOC: RAD 11:15
PROVIDERS: ATTEND Nurse Practitioner
DX: O20.9 Hemorrhage in early pregnancy, unspecified (principal); Z3A.00 Weeks of gestation of pregnancy not specified
CPT/HCPCS: 76817; 93976

== ENCOUNTER → 2019-01-31 | Outpatient (CLI) | payer SELFPAY | LOC: LAB 11:54 | PROVIDERS: ATTEND Nurse Practitioner | DX: O46.90 Antepartum hemorrhage, unspecified, unspecified trimester (principal); Z3A.00 Weeks of gestation of pregnancy not specified | CPT/HCPCS: 36415; 84702 ==

== ENCOUNTER 2019-02-03 16:52 | Inpatient (IN) | payer SELFPAY ==
--- NOTE | 2019-02-03 17:17 | ER Document Report ---
ED Medical Screen (RME) - General Chief Complaint: Dizziness Stated Complaint: POSSIBLE SYNCOPE Time Seen by Provider: 02/03/19 17:12 Primary Care Provider: BEENA CALL, REGISTRY NP [Primary Care Provider] - Follow up as needed Notes: 28-year-old female approximately 8 weeks G6, P2 presents emergency department for passing of clot and feeling very weak. Patient reports she has had hyperemesis throughout this . She reports nothing is working she has taken Zofran and Phenergan without relief of symptoms. Reports she went to the bathroom passed a blood clot and felt very weak. Reports she is unable to hold any fluids down. She reports history of preeclampsia with both prior pregnancies but never had any problems with vomiting. Review of records shows patient is B+. I have greeted and performed a rapid initial assessment of this patient. A comprehensive ED assessment and evaluation of the patient, analysis of test results and completion of the medical decision making process will be conducted by additional ED providers. Dictation of this chart was performed using voice recognition software; therefore, there may be some unintended grammatical errors. TRAVEL OUTSIDE OF THE [place] IN LAST 30 DAYS: No - Related Data Allergies/Adverse Reactions: butalbital [From Fioricet] Allergy (Verified 02/03/19 16:53) caffeine [From Fioricet] Allergy (Verified 02/03/19 16:53) ceftriaxone [From Rocephin] Allergy (Verified 02/03/19 16:53) codeine [Codeine] Allergy (Verified 02/03/19 16:53) Difficulty breathing haloperidol [From Haldol] Allergy (Verified 02/03/19 16:53) haloperidol lactate [From Haldol] Allergy (Verified 02/03/19 16:53) magnesium sulfate [Magnesium Sulfate] Allergy (Verified 02/03/19 16:53) hydromorphone HCl [From Dilaudid] Adverse Reaction (Verified 02/03/19 16:53) Renal failure ketorolac tromethamine [From Toradol] Adverse Reaction (Verified 02/03/19 16:53) metoclopramide HCl [From Reglan] Adverse Reaction (Verified 02/03/19 16:53) Anxiety tramadol [Tramadol] Adverse Reaction (Verified 01/26/19 17:44) Past Medical History - Past Medical History Cardiac Medical History: Reports: Hx Hypertension - PRECLAMPSIA Denies: Hx Coronary Artery Disease, Hx Heart Attack Pulmonary Medical History: Denies: Hx Asthma, Hx Bronchitis, Hx COPD, Hx Pneumonia, Hx Tuberculosis Neurological Medical History: Reports: Hx Migraine. Denies: Hx Cerebrovascular Accident, Hx Seizures Renal/ Medical History: Reports: Hx Kidney Stones, Hx Renal Insufficiency. Denies: Hx Peritoneal Dialysis GI Medical History: Reports: Hx Crohn's Disease, Hx Irritable Bowel, Hx Colonoscopy, Hx Endoscopy. Denies: Hx Ulcer Musculoskeltal Medical History: Reports Hx Arthritis, Reports Hx Musculoskeletal Trauma Traumatic Medical History: Reports: Hx Fractures - Feet wrist and fingers Past Surgical History: Reports: Hx Cholecystectomy, Hx Dilation and Curettage - x2, Hx Gynecologic Surgery - D&C x's2, Hx Kidney (Renal Surgery) - Ureteral stent, lithotripsy x14, Hx Orthopedic Surgery - Foot surgery. Denies: Hx Hysterectomy, Hx Pacemaker - Immunizations Immunizations up to date: Yes Hx Diphtheria, Pertussis, Tetanus Vaccination: Yes History of Influenza Vaccine for 02/2017 - 07/2017 Season: No Physical Exam - Vital signs Vitals: Temp Pulse Resp BP Pulse Ox 98.2 F 83 18 127/88 H 99 02/03/19 16:59 02/03/19 16:59 02/03/19 16:59 02/03/19 16:59 02/03/19 16:59 Course - Vital Signs Vital signs: Temp Pulse Resp BP Pulse Ox 98.2 F 83 18 127/88 H 99 02/03/19 16:59 02/03/19 16:59 02/03/19 16:59 02/03/19 16:59 02/03/19 16:59 Doctor's Discharge - Discharge Referrals: BEENA CALL REGISTRY NP [Primary Care Provider] - Follow up as needed
[2019-02-03] MEDS ORDERED: RINGERS SOLUTION,LACTATED 1,000 ML IV ONE (17:18)
[2019-02-03 18:09] LABS: ABSOLUTE EOSINOPHILS # (AUTO) 0.1 10^3/uL (0.0-0.6); ABSOLUTE LYMPHOCYTES (AUTO) 1.9 10^3/uL (0.5-4.7); ABSOLUTE MONOCYTES (AUTO) 0.4 10^3/uL (0.1-1.4); ABSOLUTE NEUT (AUTO) 5.9 10^3/uL (1.7-8.2); BASOPHILS % (AUTO) 0.5 % (0-2); EOSINOPHILS % (AUTO) 0.6 % (0-6); HEMATOCRIT 42.1 % (36.0-47.0); HEMOGLOBIN 14.7 g/dL (12.0-15.5); LYMPHOCYTES % (AUTO) 22.9 % (13-45); MEAN CORPUSCULAR HEMOGLOBIN 31.1 pg (27.0-33.4); MEAN CORPUSCULAR HGB CONC 34.9 g/dL (32.0-36.0); MEAN CORPUSCULAR VOLUME 89 fl (80-97); MONOCYTES % (AUTO) 4.9 % (3-13); PLATELET COUNT 250 10^3/uL (150-450); RED BLOOD COUNT 4.72 10^6/uL (3.72-5.28); RED CELL DISTRIBUTION WIDTH 12.9 % (11.5-14.0); SEGMENTED NEUTROPHILS % (AUTO) 71.1 % (42-78); TOTAL CELLS COUNTED % (AUTO) 100 %; WHITE BLOOD COUNT 8.3 10^3/uL (4.0-10.5)
[2019-02-03 18:14] LABS: AMORPHOUS SEDIMENT,URINE TRACE /HPF; APPEARANCE,URINE CLOUDY; BILIRUBIN,URINE NEGATIVE (NEGATIVE); GLUCOSE, URINE NEGATIVE (NEGATIVE); KETONES,URINE 80 mg/dL (NEGATIVE); LEUKOCYTE ESTERASE,URINE LARGE (NEGATIVE); NITRITE,URINE NEGATIVE (NEGATIVE); PROTEIN,URINE 30 mg/dL (NEGATIVE); URINE SPECIFIC GRAVITY 1.024; UROBILINOGEN,URINE NEGATIVE mg/dL (<2.0)
[2019-02-03 18:17] LABS: COLOR,URINE DARK YELLOW
[2019-02-03 18:27] LABS: ALBUMIN 4.9 g/dL (3.5-5.0); ALKALINE PHOSPHATASE 69 U/L (38-126); ANION GAP 14 (5-19); ASPARTATE AMINO TRANSFERASE 25 U/L (14-36); BILIRUBIN,DIRECT 0.3 mg/dL (0.0-0.4); BILIRUBIN,TOTAL 0.7 mg/dL (0.2-1.3); BLOOD UREA NITROGEN 8 mg/dL (7-20); CARBON DIOXIDE 20 mmol/L (22-30); CHLORIDE 104 mmol/L (98-107); GLUCOSE 73 mg/dL (75-110); POTASSIUM 4.2 mmol/L (3.6-5.0); TOTAL PROTEIN 7.7 g/dL (6.3-8.2)
[2019-02-03] MEDS ORDERED: PROMETHAZINE HCL INJ 25 MG/1 ML VIAL IV ONE ×2 (18:39→20:16)
--- NOTE | 2019-02-03 19:10 | RADIOLOGY REPORT (SQ) ---
EXAM DESCRIPTION: U/S OB TRANSVAGINAL W/O DOP COMPLETED DATE/TIME: 02/03/2019 7:00 pm REASON FOR STUDY: vag bleed COMPARISON: 01/29/2019 TECHNIQUE: Transvaginal static and realtime grayscale images acquired of the pelvis. Additional paulino cted spectral and color Doppler images recorded. All images stored on PACs. bHCG: Not available CLINICAL DATES: LMP 12/04/2018. 8 weeks 5 days. LIMITATIONS: None. FINDINGS: FETUS: Single Living intrauterine . ULTRASOUND EGA: 8 weeks 1 day ULTRASOUND LAST: 09/14/2019 EFW: Not applicable less than 20 weeks. CRL: 1.73 cm. FHR: 169 beats per minute. SURVEY: Too early to assess. AMNIOTIC FLUID: Adequate amount. PLACENTA: Not yet developed due to early gestation. SUBCHORIONIC BLEED: Yes SIZE OF BLEED: 1.1 x 1.4 x 0.5 cm UTERUS: No masses. No anomalies. CERVICAL LENGTH: 2.7 cm. Closed. RIGHT ADNEXA: Normal ovary with normal vascular flow. 2.9 x 1.7 x 1.9 cm. No adnexal free fluid. No adnexal masses. LEFT ADNEXA: Normal ovary with normal vascular flow.2.4 x 2.4 x 2.8 cm. No adnexal free fluid. No adnexal masses. FREE FLUID: None. OTHER: No other significant finding. IMPRESSION: LIVING INTRAUTERINE . EGA 8 weeks 1 day Trimester of : First trimester - 0 to 13 weeks. TECHNICAL DOCUMENTATION: JOB ID: [id number] [employer]- All Rights Reserved Reading location - IP/workstation name: [email or web address]
[2019-02-03] MEDS ORDERED: NITROFURANTOIN MONOHYD/M-CRYST 100 MG CAPSULE PO ONE (20:16)
[2019-02-03] MEDS ORDERED: NORMAL SALINE 1000 ML 1,000 ML IV ONE (20:16)
[2019-02-03] MEDS ORDERED: DIPHENHYDRAMINE HCL 50 MG/ML VIAL IV ONE (20:19)
--- NOTE | 2019-02-03 20:25 | ER Document Report ---
ED Dizziness/Weakness - General Chief Complaint: Dizziness Stated Complaint: POSSIBLE SYNCOPE Time Seen by Provider: 02/03/19 17:12 Primary Care Provider: BEENA CALL, [facility] [facility]PAIRER [NURSE PRACTITIONER] - Follow up as needed Mode of Arrival: Ambulatory Information source: Patient TRAVEL OUTSIDE OF THE [place] IN LAST 30 DAYS: No - HPI Notes: Patient presents complaining of severe nausea and vomiting. She states she is 8 weeks and has had vomiting throughout this . She states she has lost approximately 13 pounds in the last 6 weeks. She states she called the health department today and they referred her to the emergency department. Patient denies any trouble with stool. No dysuria urgency or frequency. No fe vers. She states she did have some vaginal clotting today as well. She has had some mild abdominal cramping. It does spread across the lower part of the abdomen. It is been intermittent. Nothing is made it better or worse. Patient denies any fevers. - Related Data Allergies/Adverse Reactions: butalbital [From Fioricet] Allergy (Verified 02/03/19 16:53) caffeine [From Fioricet] Allergy (Verified 02/03/19 16:53) ceftriaxone [From Rocephin] Allergy (Verified 02/03/19 16:53) codeine [Codeine] Allergy (Verified 02/03/19 16:53) Difficulty breathing haloperidol [From Haldol] Allergy (Verified 02/03/19 16:53) haloperidol lactate [From Haldol] Allergy (Verified 02/03/19 16:53) magnesium sulfate [Magnesium Sulfate] Allergy (Verified 02/03/19 16:53) hydromorphone HCl [From Dilaudid] Adverse Reaction (Verified 02/03/19 16:53) Renal failure ketorolac tromethamine [From Toradol] Adverse Reaction (Verified 02/03/19 16:53) metoclopramide HCl [From Reglan] Adverse Reaction (Verified 02/03/19 16:53) Anxiety tramadol [Tramadol] Adverse Reaction (Verified 01/26/19 17:44) Past Medical History - General Information source: Patient - Social History Smoking Status: Former Smoker Frequency of alcohol use: None Drug Abuse: None Family History: Reviewed & Not Pertinent, CAD, Hyperlipidemia, Hypertension, Malignancy, Other Patient has suicidal ideation: No Patient has homicidal ideation: No - Past Medical History Cardiac Medical History: Reports: Hx Hypertension - PRECLAMPSIA Denies: Hx Coronary Artery Disease, Hx Heart Attack Pulmonary Medical History: Denies: Hx Asthma, Hx Bronchitis, Hx COPD, Hx Pneumonia, Hx Tuberculosis Neurological Medical History: Reports: Hx Migraine. Denies: Hx Cerebrovascular Accident, Hx Seizures Renal/ Medical History: Reports: Hx Kidney Stones, Hx Renal Insufficiency. Denies: Hx Peritoneal Dialysis GI Medical History: Reports: Hx Crohn's Disease, Hx Irritable Bowel, Hx Colonoscopy, Hx Endoscopy. Denies: Hx Ulcer Musculoskeletal Medical History: Reports Hx Arthritis, Reports Hx Musculoskeleta l Trauma Traumatic Medical History: Reports: Hx Fractures - Feet wrist and fingers Past Surgical History: Reports: Hx Cholecystectomy, Hx Dilation and Curettage - x2, Hx Gynecologic Surgery - D&C x's2, Hx Kidney (Renal Surgery) - Ureteral stent, lithotripsy x14, Hx Orthopedic Surgery - Foot surgery. Denies: Hx Hysterectomy, Hx Pacemaker - Immunizations Immunizations up to date: Yes Hx Diphtheria, Pertussis, Tetanus Vaccination: Yes Hx Pneumococcal Vaccination: 07/18/12 Review of Systems - Review of Systems Constitutional: Malaise, Weakness. denies: Chills, Fever Cardiovascular: denies: Chest pain, Palpitations Respiratory: denies: Cough, Short of breath Gastrointestinal: Abdominal pain, Nausea, Vomiting -: Yes All other systems reviewed and negative Physical Exam - Vital signs Vitals: Temp Pulse Resp BP Pulse Ox 98.2 F 83 18 127/88 H 99 02/03/19 16:59 02/03/19 16:59 02/03/19 16:59 02/03/19 16:59 02/03/19 16:59 Interpretation: Normal - General General appearance: Appears well, Alert - HEENT Head: Normocephalic, Atraumatic Eyes: Normal Pupils: PERRL - Respiratory Respiratory status: No respiratory distress Chest status: Nontender Breath sounds: Normal Chest palpation: Normal - Cardiovascular Rhythm: Regular Heart sounds: Normal auscultation Murmur: No - Abdominal Inspection: Normal Distension: No distension Bowel sounds: Normal Tenderness: Nontender Organomegaly: No organomegaly - Back Back: Normal, Nontender - Extremities General upper extremity: Normal inspection, Nontender, Normal color, Normal ROM, Normal temperature General lower extremity: Normal inspection, Nontender, Normal color, Normal ROM, Normal temperature, Normal weight bearing. No: Chapis's sign - Neurological Neuro grossly intact: Yes Cognition: Normal Orientation: AAOx4 [place] Coma Scale Eye Opening: Spontaneous [place] Coma Scale Verbal: Oriented Chai Coma Scale Motor: Obeys Commands [place] Coma Scale Total: 15 Speech: Normal Motor strength normal: LUE, RUE, LLE, RLE Sensory: Normal - Psychological Associated symptoms: Normal affect, Normal mood - Skin Skin Temperature: Warm Skin Moisture: Dry Skin Color: Normal Course - Re-evaluation Re-evalutation: 02/03/19 20:23 Patient received 1 L of fluid and 2 doses of Phenergan however patient still has significant nausea and feels that she will not be able to tolerate p.o. at home. I have discussed the case with Dr. Gonzalez of [facility]. She will admit the patient. Patient also has a urinary tract infection but she has many allergies to antibiotics. Therefore I will try oral Macrobid. - Vital Signs Vital signs: Temp Pulse Resp BP Pulse Ox 98.2 F 83 18 127/88 H 99 02/03/19 16:59 02/03/19 16:59 02/03/19 16:59 02/03/19 16:59 02/03/19 16:59 - Laboratory Result Diagrams: 02/03/19 17:55 02/03/19 17:55 Laboratory results interpreted by me: 02/03/19 02/03/19 17:55 17:55 Carbon Dioxide 20 L Glucose 73 L Beta HCG, Quant 23268.00 H Urine Protein 30 H Urine Ketones 80 H Urine Blood LARGE H Ur Leukocyte Esterase LARGE H Urine Ascorbic Acid 40 H - Diagnostic Test Radiology reviewed: Image reviewed, Reports reviewed Discharge - Discharge Clinical Impression: Hyperemesis gravidarum UTI (urinary tract infection) Qualifiers: Urinary tract infection type: acute cystitis Hematuria presence: with hematuria Qualified Code(s): N30.01 - Acute cystitis with hematuria Condition: Stable Disposition: ADMITTED OBSERVATION Admitting Provider: [facility] [place] Unit Admitted: Labor and Delivery Referrals: BEENA CALL [facility] REPA[facility] [NURSE PRACTITIONER] - Follow up as needed
[2019-02-03] MEDS ORDERED: NORMAL SALINE 1000 ML 1,000 ML with THIAMINE HCL 100 MG, MVI, ADULT NO.1 WITH VIT K 10 ... IV ONE ×8 (22:32→22:45)
[2019-02-03] MEDS ORDERED: FAMOTIDINE INJ/PF 20 MG/2 ML SDV IV SCH (23:45)
[2019-02-04] MEDS ORDERED: FAMOTIDINE INJ/PF 20 MG/2 ML SDV IV ONE (00:30)
[2019-02-04] MEDS: RINGERS SOLUTION,LACTATED 1,000 ML IV PRN ×2 (02:20→09:10)
--- NOTE | 2019-02-04 04:32 | PDOC H&P ---
History of Present Illness Admission Date/PCP: 02/03/19 20:31 Patient complains of: hyperemesis gravidarum History of Present Illness: HERMANN KIRBY is a 28 year old female with reported 13#weight loss and nausea and vomiting. 2 prior , 3 prior MAB (reports one at ectopic but treatment is not c/w ectopic, reports needed 2 D&C with last MAB). She reports that she is unable to keep down food or fluid and that she was 160# at beginning of then now 147#. She also has a UTI. She has multiple allergies. ER tried to use macrobid po for UTI and unfortunately patient is not able to tolerate po macrobid. 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 GI Medical History: Reports: Crohn's Disease Musculoskeltal Medical History: Reports: Arthritis Past Surgical History Past Surgical History: Reports: Cholecystectomy, Orthopedic Surgery - Foot surgery, Other - D&C x3 or maybe 4 Denies: Hysterectomy, Pacemaker Social History Information Source: Patient Smoking Status: Former Smoker Frequency of Alcohol Use: Occasional Hx Recreational Drug Use: No Drugs: None Hx Prescription Drug Abuse: No - Advance Directive Resuscitation Status: Full Code Family History Family History: Reviewed & Not Pertinent, CAD, Hyperlipidemia, Hypertension, Malignancy, Other Parental Family History Reviewed: No Children Family History Reviewed: NA Sibling(s) Family History Reviewed.: NA Medication/Allergy Home Medications: Qgh035/Iron/Folic/Dha [ Formula-Dha Softgel] 1 each PO DAILY 02/03/19 Allergies/Adverse Reactions: butalbital [From Fioricet] Allergy (Verified 02/03/19 16:53) caffeine [From Fioricet] Allergy (Verified 02/03/19 16:53) ceftriaxone [From Rocephin] Allergy (Verified 02/03/19 16:53) codeine [Codeine] Allergy (Verified 02/03/19 16:53) Difficulty breathing haloperidol [From Haldol] Allergy (Verified 02/03/19 16:53) haloperidol lactate [From Haldol] Allergy (Verified 02/03/19 16:53) magnesium sulfate [Magnesium Sulfate] Allergy (Verified 02/03/19 16:53) hydromorphone HCl [From Dilaudid] Adverse Reaction (Verified 02/03/19 16:53) Renal failure ketorolac tromethamine [From Toradol] Adverse Reaction (Verified 02/03/19 16:53) metoclopramide HCl [From Reglan] Adverse Reaction (Verified 02/03/19 16:53) Anxiety tramadol [Tramadol] Adverse Reaction (Verified 01/26/19 17:44) Review of Systems Constitutional: ABSENT: chills, fever(s), headache(s), weight gain, weight loss Respiratory: ABSENT: cough, hemoptysis Gastrointestinal: PRESENT: nausea, vomiting. ABSENT: abdominal pain, constipation, diarrhea, hematemesis, hematochezia Neurological: ABSENT: abnormal gait, abnormal speech, confusion, dizziness, focal weakness, syncope Physical Exam - Physical Exam Vital Signs: Temp Pulse Resp BP Pulse Ox 98.0 F 67 18 115/74 100 02/03/19 22:23 02/03/19 22:23 02/03/19 22:23 02/03/19 22:23 02/03/19 22:23 Intake & Output 02/02/19 02/03/19 02/04/19 06:59 06:59 06:59 Intake Total 1000 Balance 1000 Weight 67.4 kg General appearance: PRESENT: no acute distress, well-developed, well-nourished Head exam: PRESENT: atraumatic, normocephalic Cardiovascular exam: PRESENT: RRR. ABSENT: diastolic murmur, rubs, systolic murmur Vascular exam: PRESENT: normal capillary refill GI/Abdominal exam: PRESENT: normal bowel sounds, soft. ABSENT: distended, guarding, mass, organolmegaly, rebound, tenderness Rectal exam: PRESENT: deferred Extremities exam: PRESENT: full ROM. ABSENT: calf tenderness, clubbing, pedal edema Neurological exam: PRESENT: alert, awake, oriented to person, oriented to place, oriented to time, oriented to situation, CN II-XII grossly intact. ABSENT: motor sensory deficit Psychiatric exam: PRESENT: appropriate affect, normal mood. ABSENT: homicidal ideation, suicidal ideation Skin exam: PRESENT: dry, intact, warm. ABSENT: cyanosis, rash Result Laboratory Results: 02/03/19 17:55 02/03/19 17:55 02/03/19 02/03/19 02/03/19 17:55 17:55 17:55 WBC 8.3 RBC 4.72 Hgb 14.7 Hct 42.1 MCV 89 MCH 31.1 MCHC 34.9 RDW 12.9 Plt Count 250 Seg Neutrophils % 71.1 Sodium 137.5 Potassium 4.2 Chloride 104 Carbon Dioxide 20 L Anion Gap 14 BUN 8 Creatinine 0.54 Est GFR ( Amer) > 60 Glucose 73 L Calcium 10.0 Total Bilirubin 0.7 AST 25 Alkaline Phosphatase 69 Total Protein 7.7 Albumin 4.9 Urine Color DARK YELLOW Urine Appearance CLOUDY Urine pH 6.0 Ur Specific [place] 1.024 Urine Protein 30 H Urine Glucose (UA) NEGATIVE Urine Ketones 80 H Urine Blood LARGE H Urine Nitrite NEGATIVE Ur Leukocyte Esterase LARGE H Urine WBC (Auto) 36 Urine RBC (Auto) 8 Impressions: Obstetrics Ultrasound 02/03/19 17:16 IMPRESSION: LIVING INTRAUTERINE . EGA 8 weeks 1 day Trimester of : First trimester - 0 to 13 weeks. Status: Imported from PACS Assessment & Plan - Diagnosis (1) Hyperemesis gravidarum Is this a current diagnosis for this admission?: Yes Plan: NPO then advance as possible slowly to BRAT diet. Banana bag Pt unable to take reglan. will add pepcid for additional coverage with phenergan. Supportive therapy until able to tolerate po intake. (2) UTI (urinary tract infection) Qualifiers: Urinary tract infection type: acute cystitis Hematuria presence: with hematuria Qualified Code(s): N30.01 - Acute cystitis with hematuria Is this a current diagnosis for this admission?: Yes Plan: Will try IV clinda. If patient begins to be able to tolerate po intake then switch to po macrobid. - Time Time Spent: 30 to 50 Minutes Medications reviewed and adjusted accordingly: Yes Anticipated discharge: Home - Inpatient Certification Based on my medical assessment, after consideration of the patient's comorbidities, presenting symptoms, or acuity I expect that the services needed warrant INPATIENT care.: Yes I certify that my determination is in accordance with my understanding of Medicare's requirements for reasonable and necessary INPATIENT services [42 CFR 412.3e].: Yes Medical Necessity: Failure to Improve With Outpatient Therapy, Need For IV Fluids, Need for IV Antibiotics
[2019-02-04] MEDS: CLINDAMYCIN 900 MG/D5W RTU 900 MG/50 ML RTUPB IV SCH ×3 (05:09→22:47)
[2019-02-04 07:35] LABS: ALBUMIN 3.3 g/dL (3.5-5.0); ALKALINE PHOSPHATASE 38 U/L (38-126); ANION GAP 7 (5-19); ASPARTATE AMINO TRANSFERASE 12 U/L (14-36); BILIRUBIN,DIRECT 0.1 mg/dL (0.0-0.4); BILIRUBIN,TOTAL 0.6 mg/dL (0.2-1.3); BLOOD UREA NITROGEN 6 mg/dL (7-20); CALCIUM 8.7 mg/dL (8.4-10.2); CARBON DIOXIDE 22 mmol/L (22-30); CHLORIDE 107 mmol/L (98-107); GLUCOSE 79 mg/dL (75-110); POTASSIUM 3.8 mmol/L (3.6-5.0); TOTAL PROTEIN 5.7 g/dL (6.3-8.2)
[2019-02-04] MEDS ORDERED: PROMETHAZINE HCL 25 MG SUPP.RECT PR PRN (09:25)
[2019-02-04] MEDS: FAMOTIDINE INJ/PF 20 MG/2 ML SDV IV SCH ×2 (09:55→22:47)
[2019-02-04] MEDS ORDERED: DEXAMETHASONE SOD PHOSPHATE INJ 4 MG/1 ML VIAL IV ONE (11:41)
[2019-02-04] MEDS ORDERED: PROMETHAZINE HCL INJ 25 MG/1 ML VIAL IV ONE (11:41)
--- NOTE | 2019-02-04 11:41 | PDOC PROGRESS REPORT ---
Subjective Progress Note for:: 02/04/19 Subjective:: Patient states that she still feels queasy when she is awake. She is not sleeping well either. Patient states that she did not know that she had a urinary tract infection, however she did pass a blood clot through her urine. She is no longer seeing blood. Reason For Visit: HYPERMESIS GRAVIDARUM,URINARY TRACT INFECTION Physical Exam - Physical Exam Vital Signs: Temp Pulse Resp BP Pulse Ox 98.3 F 67 14 109/68 100 02/04/19 11:28 02/04/19 11:28 02/04/19 11:28 02/04/19 11:28 02/04/19 11:28 Intake & Output 02/03/19 02/04/19 02/05/19 06:59 06:59 06:59 Intake Total 1000 854 Output Total 1 100 Balance 999 754 Weight 67.4 kg General appearance: PRESENT: no acute distress Respiratory exam: PRESENT: clear to auscultation rosey Cardiovascular exam: PRESENT: RRR GI/Abdominal exam: PRESENT: normal bowel sounds, soft Extremities exam: ABSENT: calf tenderness, clubbing, full ROM, joint swelling, pedal edema, tenderness, +1 edema, +2 edema, other Result Laboratory Results: 02/03/19 17:55 02/04/19 06:28 02/03/19 02/03/19 02/03/19 17:55 17:55 17:55 WBC 8.3 RBC 4.72 Hgb 14.7 Hct 42.1 MCV 89 MCH 31.1 MCHC 34.9 RDW 12.9 Plt Count 250 Seg Neutrophils % 71.1 Sodium 137.5 Potassium 4.2 Chloride 104 Carbon Dioxide 20 L Anion Gap 14 BUN 8 Creatinine 0.54 Est GFR ( Amer) > 60 Glucose 73 L Calcium 10.0 Total Bilirubin 0.7 AST 25 Alkaline Phosphatase 69 Total Protein 7.7 Albumin 4.9 TSH Urine Color DARK YELLOW Urine Appearance CLOUDY Urine pH 6.0 Ur Specific [place] 1.024 Urine Protein 30 H Urine Glucose (UA) NEGATIVE Urine Ketones 80 H Urine Blood LARGE H Urine Nitrite NEGATIVE Ur Leukocyte Esterase LARGE H Urine WBC (Auto) 36 Urine RBC (Auto) 8 02/04/19 02/04/19 06:28 06:28 WBC RBC Hgb Hct MCV MCH MCHC RDW Plt Count Seg Neutrophils % Sodium 136.2 L Potassium 3.8 Chloride 107 Carbon Dioxide 22 Anion Gap 7 BUN 6 L Creatinine 0.47 L Est GFR ( Amer) > 60 Glucose 79 Calcium 8.7 Total Bilirubin 0.6 AST 12 L Alkaline Phosphatase 38 Total Protein 5.7 L Albumin 3.3 L TSH 0.22 L Urine Color Urine Appearance Urine pH Ur Specific [place] Urine Protein Urine Glucose (UA) Urine Ketones Urine Blood Urine Nitrite Ur Leukocyte Esterase Urine WBC (Auto) Urine RBC (Auto) Impressions: Obstetrics Ultrasound 02/03/19 17:16 IMPRESSION: LIVING INTRAUTERINE . EGA 8 weeks 1 day Trimester of : First trimester - 0 to 13 weeks. Assessment & Plan - Diagnosis (1) Intrauterine at 8 weeks Is this a current diagnosis for this admission?: Yes (2) Hyperemesis gravidarum Is this a current diagnosis for this admission?: Yes (3) UTI (urinary tract infection) Qualifiers: Urinary tract infection type: acute cystitis Hematuria presence: with hematuria Qualified Code(s): N30.01 - Acute cystitis with hematuria Is this a current diagnosis for this admission?: Yes - Time Time Spent with patient: 15-24 minutes - Inpatient Certification Based on my medical assessment, after consideration of the patient's comorbidities, presenting symptoms, or acuity I expect that the services needed warrant INPATIENT care.: Yes I certify that my determination is in accordance with my understanding of Medicare's requirements for reasonable and necessary INPATIENT services [42 CFR 412.3e].: Yes Medical Necessity: Need For IV Fluids, Need for IV Antibiotics, Risk of Complication if Not Cared For in Hospital - Plan Summary Plan Summary: 1. Continue IV antibiotics for UTI 2. Continue banana bag
[2019-02-04] MEDS ORDERED: ONDANSETRON HCL INJ/PF 4 MG/2 ML SDV IV ONE (11:42)
[2019-02-04] MEDS: NORMAL SALINE 1000 ML 1,000 ML with POTASSIUM CHLORIDE 20 MEQ, MAGNESIUM SULFATE 8 MEQ,... IV SCH ×5 (12:10)
[2019-02-04] MEDS ORDERED: LORAZEPAM INJ 2 MG/1 ML VIAL IV ONE (20:15)
[2019-02-04] MEDS: ONDANSETRON HCL INJ/PF 4 MG/2 ML SDV IV PRN (23:10)
[2019-02-05] MEDS: PROMETHAZINE HCL INJ 25 MG/1 ML VIAL IV PRN ×3 (02:31→17:33)
[2019-02-05] MEDS: RINGERS SOLUTION,LACTATED 1,000 ML IV PRN (05:56)
[2019-02-05] MEDS: CLINDAMYCIN 900 MG/D5W RTU 900 MG/50 ML RTUPB IV SCH ×3 (05:57→22:27)
[2019-02-05] MEDS ORDERED: MORPHINE SULFATE 10 MG/ML INJ IV ONE (06:00)
--- NOTE | 2019-02-05 09:08 | PDOC PROGRESS REPORT ---
Subjective Progress Note for:: 02/05/19 Subjective:: pt c/o WINTER and Nausea Reason For Visit: HYPERMESIS GRAVIDARUM,URINARY TRACT INFECTION Physical Exam - Physical Exam Vital Signs: Temp Pulse Resp BP Pulse Ox 98.0 F 79 17 112/68 99 02/05/19 07:34 02/05/19 07:34 02/05/19 07:34 02/05/19 07:34 02/05/19 03:08 Intake & Output 02/04/19 02/05/19 02/06/19 06:59 06:59 06:59 Intake Total 1050 1954 50 Output Total 1 100 Balance 1049 1854 50 Weight 67.4 kg General appearance: PRESENT: no acute distress Result Laboratory Results: 02/03/19 17:55 02/04/19 06:28 Impressions: Obstetrics Ultrasound 02/03/19 17:16 IMPRESSION: LIVING INTRAUTERINE . EGA 8 weeks 1 day Trimester of : First trimester - 0 to 13 weeks. Assessment & Plan - Diagnosis (1) Hyperemesis gravidarum Is this a current diagnosis for this admission?: Yes (2) Intrauterine at 8 weeks Is this a current diagnosis for this admission?: Yes (3) UTI (urinary tract infection) Qualifiers: Urinary tract infection type: acute cystitis Hematuria presence: with hematuria Qualified Code(s): N30.01 - Acute cystitis with hematuria Is this a current diagnosis for this admission?: Yes - Plan Summary Plan Summary: clear liquids today tylenol for WINTER follow
[2019-02-05] MEDS: NORMAL SALINE 1000 ML 1,000 ML with POTASSIUM CHLORIDE 20 MEQ, MAGNESIUM SULFATE 8 MEQ,... IV SCH ×5 (10:08)
[2019-02-05] MEDS: FAMOTIDINE INJ/PF 20 MG/2 ML SDV IV SCH ×2 (10:08→22:28)
[2019-02-05 11:06] LABS: URINE AMPHETAMINES SCREEN NEGATIVE; URINE BARBITURATES SCREEN NEGATIVE; URINE BENZODIAZEPINES SCREEN NEGATIVE; URINE COCAINE SCREEN NEGATIVE; URINE MARIJUANA (THC) SCREEN NEGATIVE; URINE METHADONE SCREEN NEGATIVE; URINE PHENCYCLIDINE SCREEN NEGATIVE
[2019-02-05 12:14] LABS: CHLAM PCR NOT DETECTED (NOT DETECT)
[2019-02-05] MEDS ORDERED: HYDROXYZINE HCL INJ 50 MG/1 ML VIAL IM ONE (12:30)
[2019-02-05] MEDS: ONDANSETRON HCL INJ/PF 4 MG/2 ML SDV IV PRN (22:45)
[2019-02-05] MEDS: ACETAMINOPHEN 325 MG TABLET PO PRN (22:46)
[2019-02-06] MEDS: PROMETHAZINE HCL INJ 25 MG/1 ML VIAL IV PRN ×2 (02:19→21:06)
[2019-02-06] MEDS: RINGERS SOLUTION,LACTATED 1,000 ML IV PRN (02:24)
[2019-02-06] MEDS: CLINDAMYCIN 900 MG/D5W RTU 900 MG/50 ML RTUPB IV SCH ×3 (05:53→21:27)
[2019-02-06 07:37] LABS: HEPATITIS C VIRUS AB <0.1 s/co ratio (0.0-0.9)
[2019-02-06] MEDS ORDERED: PROMETHAZINE HCL 25 MG SUPP.RECT PR PRN (09:23)
[2019-02-06] MEDS: NORMAL SALINE 1000 ML 1,000 ML with POTASSIUM CHLORIDE 20 MEQ, MAGNESIUM SULFATE 8 MEQ,... IV SCH ×5 (09:59)
[2019-02-06] MEDS: FAMOTIDINE INJ/PF 20 MG/2 ML SDV IV SCH ×2 (10:00→21:27)
[2019-02-06] MEDS: ACETAMINOPHEN 325 MG TABLET PO PRN (10:00)
[2019-02-06 10:52] LABS: HEPATITS B SURFACE ANTIGEN Negative (Negative)
[2019-02-06] MEDS ORDERED: DEXAMETHASONE SOD PHOSPHATE INJ 4 MG/1 ML VIAL IV ONE (11:30)
[2019-02-06] MEDS ORDERED: DIPHENHYDRAMINE HCL 50 MG/ML VIAL IV ONE (11:30)
[2019-02-06] MEDS: ONDANSETRON HCL INJ/PF 4 MG/2 ML SDV IV PRN (15:51)
[2019-02-06 16:37] LABS: HGB A2 2.3 % (1.8-3.2); HGB SOLUBILITY RESULT Negative (Negative)
[2019-02-06] MEDS ORDERED: SCOPOLAMINE HYDROBROMIDE 1.5 MG PATCH.TD72 TD SCH (19:30)
[2019-02-06] MEDS ORDERED: SCOPOLAMINE HYDROBROMIDE 1.5 MG PATCH.TD72 ONE (21:55)
[2019-02-07] MEDS: PROMETHAZINE HCL 25 MG TABLET PO PRN ×2 (05:26→23:41)
[2019-02-07] MEDS: CLINDAMYCIN 900 MG/D5W RTU 900 MG/50 ML RTUPB IV SCH ×3 (05:27→21:25)
--- NOTE | 2019-02-07 05:55 | PDOC PROGRESS REPORT ---
Subjective Progress Note for:: 02/06/19 Subjective:: WINTER better with decadron/phenergan/Benadryl, pt still reports that she is vomiting with any time she has anything to eat. Reason For Visit: HYPEREMESIS GRAVIDARUM,URINARY TRACT INFECTION Physical Exam - Physical Exam Vital Signs: Temp Pulse Resp BP Pulse Ox 98.4 F 74 18 110/72 99 02/06/19 15:16 02/06/19 15:16 02/06/19 15:16 02/06/19 15:16 02/06/19 15:16 Intake & Output 02/05/19 02/06/19 02/07/19 06:59 06:59 06:59 Intake Total 2977 2173 1625 Output Total 100 1875 Balance 2877 298 1625 Weight 67 kg General appearance: PRESENT: no acute distress, well-developed, well-nourished Respiratory exam: PRESENT: clear to auscultation rosey, symmetrical, unlabored Cardiovascular exam: PRESENT: RRR. ABSENT: diastolic murmur, rubs, systolic murmur Pulses: PRESENT: normal dorsalis pedis pul, +2 pedal pulses bilateral GI/Abdominal exam: PRESENT: normal bowel sounds, soft. ABSENT: distended, guarding, mass, organolmegaly, rebound, tenderness Rectal exam: PRESENT: deferred Extremities exam: PRESENT: full ROM. ABSENT: calf tenderness, clubbing, pedal edema Neurological exam: PRESENT: alert, awake, oriented to person, oriented to place, oriented to time, oriented to situation, CN II-XII grossly intact. ABSENT: motor sensory deficit Psychiatric exam: PRESENT: appropriate affect, normal mood. ABSENT: homicidal ideation, suicidal ideation Skin exam: PRESENT: dry, intact, warm. ABSENT: cyanosis, rash Result Laboratory Results: 02/03/19 17:55 02/04/19 06:28 Impressions: Obstetrics Ultrasound 02/03/19 17:16 IMPRESSION: LIVING INTRAUTERINE . EGA 8 weeks 1 day Trimester of : First trimester - 0 to 13 weeks. Status: Imported from PACS Assessment & Plan - Diagnosis (1) Hyperemesis gravidarum Is this a current diagnosis for this admission?: Yes Plan: Now on reg fluid diet and reports that she is still having some vomiting with each attempt to eat. Banana bag Pt unable to take reglan. pepcid for additional coverage with phenergan (trying to avoid IV). Add scopolamine patch If patch works then consider discharge tomorrow or the next day. (2) UTI (urinary tract infection) Qualifiers: Urinary tract infection type: acute cystitis Hematuria presence: with hem aturia Qualified Code(s): N30.01 - Acute cystitis with hematuria Is this a current diagnosis for this admission?: Yes Plan: Will try IV clinda. If patient begins to be able to tolerate po intake then switch to po macrobid. (3) Intrauterine at 8 weeks Is this a current diagnosis for this admission?: Yes Plan: IUP noted on admission - Time Time Spent with patient: 15-24 minutes Smoking Cessation Education: 3 to 10 minutes Medications reviewed and adjusted accordingly: Yes Anticipated discharge: Home Within: within 24 hours - Inpatient Certification Based on my medical assessment, after consideration of the patient's comorbidities, presenting symptoms, or acuity I expect that the services needed warrant INPATIENT care.: Yes I certify that my determination is in accordance with my understanding of Medicare's requirements for reasonable and necessary INPATIENT services [42 CFR 412.3e].: Yes Medical Necessity: Failure to Improve With Outpatient Therapy, Need For IV Fluids
--- NOTE | 2019-02-07 08:38 | RADIOLOGY REPORT (SQ) ---
EXAM DESCRIPTION: U/S OB TRANSVAGINAL W/O DOP COMPLETED DATE/TIME: 02/07/2019 7:36 am REASON FOR STUDY: cramping, vaginal spotting, eval viability COMPARISON: OB ultrasound 01/26/2019, 01/29/2019, 02/03/2019 TECHNIQUE: Endovaginal static and realtime grayscale images acquired of the pelvis. Additional selec devonte spectral and color Doppler images recorded. All images stored on PACs. bHCG: Not available CLINICAL DATES: Last menses 12/08/2018 (due date 09/14/2019). LIMITATIONS: None. FINDINGS: FETUS: Single Living intrauterine . ULTRASOUND EGA: 8 weeks 5 days ULTRASOUND LAST: 09/14/2019 EFW: Not applicable less than 20 weeks. CRL: 2.1 cm FHR: 180 beats per minute. SURVEY: Too early to assess AMNIOTIC FLUID: Adequate amount. Yolk sac identified PLACENTA: Not yet developed due to early gestation. SUBCHORIONIC BLEED: Yes SIZE OF BLEED: Small 1.6 by 0.9 cm subchorionic hemorrhage, similar compared to 02/03/2019. UTERUS: Uterus is 13 x 7 x 8 cm in size CERVICAL LENGTH: 4 cm Closed. RIGHT ADNEXA: Ovary not identified due to poor acoustical window. No adnexal free fluid. No adnexal masses. LEFT ADNEXA: Ovary not identified due to poor acoustical window. No adnexal free fluid. No adnexal masses. FREE FLUID: None. OTHER: No other significant finding. IMPRESSION: LIVING INTRAUTERINE . EGA 8 weeks 5 days, embryo cardiac activity 180 beats per minute Small stable subchorionic hemorrhage Trimester of : First trimester - 0 to 13 weeks. TECHNICAL DOCUMENTATION: JOB ID: [id number] [employer]- All Rights Reserved rev-10/04 Reading location - IP/workstation name: [email or web address]
--- NOTE | 2019-02-07 09:28 | PDOC PROGRESS REPORT ---
Subjective Progress Note for:: 02/07/19 Reason For Visit: HYPEREMESIS GRAVIDARUM,URINARY TRACT INFECTION, now complaining of spotting. Ultrasound performed this AM showing small subchrionic bleed. Indicates she has vomited twice this AM. States that she has used Benadryl in past pregnancies for nausea/vomiting with better relief than zofran. Also indicates she cannot use suppositories because "they do not stay in because of the crohns" Physical Exam - Physical Exam Vital Signs: Temp Pulse Resp BP Pulse Ox 97.8 F 70 14 109/72 98 02/07/19 07:41 02/07/19 07:41 02/07/19 07:41 02/07/19 07:41 02/07/19 07:41 Intake & Output 02/06/19 02/07/19 02/08/19 06:59 06:59 06:59 Intake Total 2173 2413 Output Total 1875 500 Balance 298 1913 Weight 67 kg 65 kg General appearance: PRESENT: no acute distress, cooperative GI/Abdominal exam: PRESENT: soft Result Laboratory Results: 02/03/19 17:55 02/04/19 06:28 Impressions: Obstetrics Ultrasound 02/07/19 09:00 IMPRESSION: LIVING INTRAUTERINE . EGA 8 weeks 5 days, embryo cardiac activity 180 beats per minute Small stable subchorionic hemorrhage Trimester of : First trimester - 0 to 13 weeks. Assessment & Plan - Diagnosis (1) Hyperemesis gravidarum Is this a current diagnosis for this admission?: Yes (2) Intrauterine at 8 weeks Is this a current diagnosis for this admission?: Yes (3) UTI (urinary tract infection) Qualifiers: Urinary tract infection type: acute cystitis Hematuria presence: with hematuria Qualified Code(s): N30.01 - Acute cystitis with hematuria Is this a current diagnosis for this admission?: Yes - Time Time Spent with patient: Less than 15 minutes - Inpatient Certification Based on my medical assessment, after consideration of the patient's c omorbidities, presenting symptoms, or acuity I expect that the services needed warrant INPATIENT care.: Yes I certify that my determination is in accordance with my understanding of Medicare's requirements for reasonable and necessary INPATIENT services [42 CFR 412.3e].: Yes Medical Necessity: Failure to Improve With Outpatient Therapy - Plan Summary Plan Summary: repeat Thyroid studies and CMP. Will add benadryl to medication regimen to see if indeed we do get better symptom relief. BRAT diet
[2019-02-07] MEDS ORDERED: DIPHENHYDRAMINE HCL 25 MG CAPSULE PO SCH (09:30)
[2019-02-07] MEDS: NORMAL SALINE 1000 ML 1,000 ML with POTASSIUM CHLORIDE 20 MEQ, MAGNESIUM SULFATE 8 MEQ,... IV SCH ×5 (10:08)
[2019-02-07] MEDS: FAMOTIDINE INJ/PF 20 MG/2 ML SDV IV SCH ×2 (10:08→21:24)
[2019-02-07 10:24] LABS: ALBUMIN 3.4 g/dL (3.5-5.0); ALKALINE PHOSPHATASE 33 U/L (38-126); ANION GAP 10 (5-19); ASPARTATE AMINO TRANSFERASE 17 U/L (14-36); BILIRUBIN,DIRECT 0.1 mg/dL (0.0-0.4); BILIRUBIN,TOTAL 0.2 mg/dL (0.2-1.3); BLOOD UREA NITROGEN 3 mg/dL (7-20); CALCIUM 9.1 mg/dL (8.4-10.2); CARBON DIOXIDE 22 mmol/L (22-30); CHLORIDE 106 mmol/L (98-107); GLUCOSE 129 mg/dL (75-110); POTASSIUM 3.2 mmol/L (3.6-5.0); TOTAL PROTEIN 5.6 g/dL (6.3-8.2)
[2019-02-07 10:41] LABS: FREE T3 2.91 pg/mL (2.77-5.27); FREE T4 (FREE THYROXINE) 1.08 ng/dL (0.78-2.19)
[2019-02-07 10:54] LABS: THYROID STIMULATING HORMONE 0.31 uIU/mL (0.47-4.68)
[2019-02-07] MEDS: DIPHENHYDRAMINE HCL 25 MG CAPSULE PO PRN ×2 (12:00→23:41)
[2019-02-07] MEDS: PROMETHAZINE HCL INJ 25 MG/1 ML VIAL IV PRN (13:53)
[2019-02-07] MEDS: RINGERS SOLUTION,LACTATED 1,000 ML IV PRN ×2 (14:36→21:16)
[2019-02-07] MEDS: ONDANSETRON HCL INJ/PF 4 MG/2 ML SDV IV PRN (21:25)
[2019-02-08] MEDS: PROMETHAZINE HCL INJ 25 MG/1 ML VIAL IV PRN (00:19)
[2019-02-08] MEDS: RINGERS SOLUTION,LACTATED 1,000 ML IV PRN (07:01)
[2019-02-08] MEDS: PROMETHAZINE HCL 25 MG TABLET PO PRN ×2 (08:02→13:49)
[2019-02-08 08:40] VITALS: BP 116/86
[2019-02-08] MEDS: NORMAL SALINE 1000 ML 1,000 ML with POTASSIUM CHLORIDE 20 MEQ, MAGNESIUM SULFATE 8 MEQ,... IV SCH ×5 (10:48)
[2019-02-08] MEDS: ONDANSETRON HCL INJ/PF 4 MG/2 ML SDV IV PRN (10:48)
[2019-02-08] MEDS: FAMOTIDINE INJ/PF 20 MG/2 ML SDV IV SCH (10:52)
[2019-02-08 11:05] LABS: ALBUMIN 3.5 g/dL (3.5-5.0); ALKALINE PHOSPHATASE 35 U/L (38-126); ANION GAP 10 (5-19); ASPARTATE AMINO TRANSFERASE 12 U/L (14-36); BILIRUBIN,DIRECT 0.1 mg/dL (0.0-0.4); BILIRUBIN,TOTAL 0.2 mg/dL (0.2-1.3); BLOOD UREA NITROGEN 3 mg/dL (7-20); CALCIUM 8.9 mg/dL (8.4-10.2); CARBON DIOXIDE 22 mmol/L (22-30); CHLORIDE 104 mmol/L (98-107); GLUCOSE 91 mg/dL (75-110); TOTAL PROTEIN 5.8 g/dL (6.3-8.2)
[2019-02-08] MEDS ORDERED: NITROFURANTOIN MONOHYD/M-CRYST 100 MG CAPSULE PO SCH ×2 (12:00→13:30)
--- NOTE | 2019-02-08 12:32 | PDOC DISCHARGE SUMMARY ---
General - Admit/Disc Date/PCP Admission Date/Primary Care Provider: 02/05/19 11:20 SIMA TRAN MD Discharge Date: 02/08/19 - Discharge Diagnosis (1) Hyperemesis gravidarum Is this a current diagnosis for this admission?: Yes Summary: diclegis to go home Continue zantac, phenergan, zofran, scopolamine patch, prn benadryl (2) UTI (urinary tract infection) Is this a current diagnosis for this admission?: Yes Summary: discharge on macrobid po (3) Intrauterine at 8 weeks Is this a current diagnosis for this admission?: Yes Summary: VIUP (4) Subchorionic hematoma in first trimester Is this a current diagnosis for this admission?: Yes Summary: pelvic rest, expectant management - Additional Information Resuscitation Status: Full Code Discharge Diet: Regular Discharge Activity: Activity As Tolerated, Pelvic Rest Prescriptions: Scopolamine Hydrobromide [Transderm-Scop 1.5 mg Patch] 1 each TD Q3DAYS #7 patch.[id number] Acetaminophen [Tylenol 325 mg Tablet] 650 mg PO Q4HP PRN #20 tablet PRN Reason: Diphenhydramine HCl [Benadryl 25 mg Capsule] 25 mg PO Q6HP PRN #30 capsule PRN Reason: Promethazine HCl [Phenergan 25 mg Tablet] 25 mg PO Q6HP PRN #30 tablet PRN Reason: Doxylamine Succinate/Vit B6 [Diclegis Dr 10-10 mg Tablet] 1 each PO TID 30 Days #120 tablet. Nitrofurantoin Monohyd/M-Cryst [Macrobid 100 mg Capsule] 100 mg PO Q12 #14 cap domenico Ranitidine HCl [Zantac] 150 mg PO BID #60 tablet Ondansetron HCl [Zofran 4 mg Tablet] 1 - 2 tab PO Q4H PRN 15 Days #30 tablet PRN Reason: Home Medications: Hem108/Iron/Folic/Dha [ Formula-Dha Softgel] 1 each PO DAILY 02/03/19 Diazepam 10 mg PO Q6HP PRN 02/05/19 Acetaminophen [Tylenol 325 mg Tablet] 650 mg PO Q4HP PRN #20 tablet 02/08/19 Diphenhydramine HCl [Benadryl 25 mg Capsule] 25 mg PO Q6HP PRN #30 capsule 02/08/19 Doxylamine Succinate/Vit B6 [Mary Eli 10-10 mg Tablet] 1 each PO TID 30 Days #120 tablet. 02/08/19 Nitrofurantoin Monohyd/M-Cryst [Macrobid 100 mg Capsule] 100 mg PO Q12 #14 capsule 02/08/19 Ondansetron HCl [Zofran 4 mg Tablet] 1 - 2 tab PO Q4H PRN 15 Days #30 tablet 02/08/19 Promethazine HCl [Phenergan 25 mg Tablet] 25 mg PO Q6HP PRN #30 tablet 02/08/19 Ranitidine HCl [Zantac] 150 mg PO BID #60 tablet 02/08/19 Scopolamine Hydrobromide [Transderm-Scop 1.5 mg Patch] 1 each TD Q3DAYS #7 patch.td72 02/08/19 History of Present Illness Patient complains of: n/v , vaginal spotting. History of Present Illness: HERMANN KIRBY is a 28 year old female with reported 13#weight loss and nausea and vomiting. 2 prior , 3 prior MAB (reports one at ectopic but treatment is not c/w ectopic, reports needed 2 D&C with last MAB). She reports that she is unable to keep down food or fluid and that she was 160# at beginning of then now 147#. She also has a UTI. She has multiple allergies. ER tried to use macrobid po for UTI and unfortunately patient is not able to tolerate po macrobid. Hospital Course Hospital Course: admitted and NPO initially. Antiemetics optimized and food initiated. Pt doing well and understanding emesis improved with weight improved and desires to go home as HE gravidarum will continue likely until 2bd trimester Physical Exam - Physical Exam Vital Signs: Temp Pulse Resp BP Pulse Ox 98.4 F 74 16 116/86 H 100 02/08/19 08:37 02/08/19 08:37 02/08/19 08:37 02/08/19 08:37 02/08/19 08:37 Intake & Output 02/07/19 02/08/19 02/09/19 06:59 06:59 06:59 Intake Total 2463 3556 60 Output Total 500 1900 800 Balance 1963 1656 -740 Weight 65 kg 68.9 kg General appearance: PRESENT: no acute distress, well-developed, well-nourished Head exam: PRESENT: atraumatic, normocephalic Neck exam: PRESENT: full ROM. ABSENT: carotid bruit, JVD, lymphadenopathy, thyromegaly Cardiovascular exam: PRESENT: RRR. ABSENT: diastolic murmur, rubs, systolic murmur Pulses: PRESENT: normal dorsalis pedis pul, +2 pedal pulses bilateral GI/Abdominal exam: PRESENT: normal bowel sounds, soft. ABSENT: distended, guarding, mass, organolmegaly, rebound, tenderness Rectal exam: PRESENT: deferred Extremities exam: PRESENT: full ROM. ABSENT: calf tenderness, clubbing, pedal edema Neurological exam: PRESENT: alert, awake, oriented to person, oriented to place, oriented to time, oriented to situation, CN II-XII grossly intact. ABSENT: motor sensory deficit Psychiatric exam: PRESENT: appropriate affect, normal mood. ABSENT: homicidal ideation, suicidal ideation Skin exam: PRESENT: dry, intact, warm. ABSENT: cyanosis, rash Result Laboratory Results: 02/03/19 17:55 02/08/19 10:35 02/08/19 10:35 Sodium 136.4 L Potassium 4.0 Chloride 104 Carbon Dioxide 22 Anion Gap 10 BUN 3 L Creatinine 0.52 Est GFR ( Amer) > 60 Glucose 91 Calcium 8.9 Total Bilirubin 0.2 AST 12 L Alkaline Phosphatase 35 L Total Protein 5.8 L Albumin 3.5 Impressions: Obstetrics Ultrasound 02/07/19 09:00 IMPRESSION: LIVING INTRAUTERINE . EGA 8 weeks 5 days, embryo cardiac activity 180 beats per minute Small stable subchorionic hemorrhage Trimester of : First trimester - 0 to 13 weeks. Status: Imported from PACS Plan Discharge Plan: home Acute Heart Failure - Is this a Heart Failure Patient?: No
== END 2019-02-08 15:00 | disposition home or self-care (01) | DRG 832 ==
LOC: ER 16:52 → EH 20:31 → 2S 22:09 → OBSVTOIN 02-05 11:20
PROVIDERS: ADMIT Student in an Organized Health Care Education/Training Program; ATTEND Student in an Organized Health Care Education/Training Program
DX: O21.0 Mild hyperemesis gravidarum (principal); O23.11 Infections of bladder in pregnancy, first trimester; N30.00 Acute cystitis without hematuria; O43.891 Other placental disorders, first trimester; Z88.6 Allergy status to analgesic agent; Z88.1 Allergy status to other antibiotic agents; Z3A.08 8 weeks gestation of pregnancy
CPT/HCPCS: 36415; 76817; 80053; 80307; 81001; 82306; 83020; 84439; 84443; 84481; 84702; 85025; 86592; 86701; 86762; 86803; 86804; 86900; 86901; 87340; 87491; 87591; 96361; 96374; 96375; 96376; 99285; G0378; J1100; J1200; J2060; J2270; J2405; J2550; J3410; J3411; J3475; J3480; J3490; J7030; J7120; J8499; S0028

== ENCOUNTER 2019-02-21 07:36 | Emergency (ER) | payer MEDICAID ==
[2019-02-21] MEDS ORDERED: NORMAL SALINE 1000 ML 1,000 ML IV ONE ×2 (09:54→13:21)
[2019-02-21 10:22] LABS: AMORPHOUS SEDIMENT,URINE TRACE /HPF; APPEARANCE,URINE CLOUDY; BILIRUBIN,URINE NEGATIVE (NEGATIVE); COLOR,URINE AMBER; GLUCOSE, URINE NEGATIVE (NEGATIVE); KETONES,URINE NEGATIVE (NEGATIVE); LEUKOCYTE ESTERASE,URINE MODERATE (NEGATIVE); NITRITE,URINE NEGATIVE (NEGATIVE); PROTEIN,URINE 30 mg/dL (NEGATIVE); URINE SPECIFIC GRAVITY 1.021
[2019-02-21 10:38] LABS: ABSOLUTE LYMPHOCYTES (AUTO) 1.3 10^3/uL (0.5-4.7); ABSOLUTE MONOCYTES (AUTO) 0.3 10^3/uL (0.1-1.4); ABSOLUTE NEUT (AUTO) 4.1 10^3/uL (1.7-8.2); BASOPHILS % (AUTO) 0.6 % (0-2); EOSINOPHILS % (AUTO) 0.6 % (0-6); HEMATOCRIT 39.4 % (36.0-47.0); HEMOGLOBIN 13.8 g/dL (12.0-15.5); LYMPHOCYTES % (AUTO) 22.2 % (13-45); MEAN CORPUSCULAR HEMOGLOBIN 30.9 pg (27.0-33.4); MEAN CORPUSCULAR HGB CONC 34.9 g/dL (32.0-36.0); MEAN CORPUSCULAR VOLUME 89 fl (80-97); PLATELET COUNT 231 10^3/uL (150-450); RED BLOOD COUNT 4.46 10^6/uL (3.72-5.28); RED CELL DISTRIBUTION WIDTH 12.7 % (11.5-14.0); SEGMENTED NEUTROPHILS % (AUTO) 71.6 % (42-78); TOTAL CELLS COUNTED % (AUTO) 100 %; WHITE BLOOD COUNT 5.7 10^3/uL (4.0-10.5)
--- NOTE | 2019-02-21 11:03 | RADIOLOGY REPORT (SQ) ---
EXAM DESCRIPTION: U/S RETROPERITON (RENAL/AORTA) COMPLETED DATE/TIME: 02/21/2019 10:52 am REASON FOR STUDY: Left flank pain, Hx kidney stone COMPARISON: 12/26/2018. TECHNIQUE: Dynamic and static grayscale images acquired of the kidneys and bladder and recorded on P ACS. Additional selected color Doppler and spectral images recorded. LIMITATIONS: None. FINDINGS: RIGHT KIDNEY: Normal size. Normal echogenicity. No solid or suspicious masses. No h ydronephrosis. No calcifications. LEFT KIDNEY: Normal size. Normal echogenicity. No solid or suspicious masses. No hydronephrosi s. Calculus in the lower pole. BLADDER: Empty, not visualized. OTHER FINDINGS: No other significant finding. IMPRESSION: LEFT RENAL CALCULUS. NO HYDRONEPHROSIS OF EITHER KIDNEY. TECHNICAL DOCUMENTATION: JOB ID: [id number] [employer]- All Rights Reserved Reading location - IP/workstation name: [email or web address]
[2019-02-21 11:26] LABS: ALBUMIN 4.7 g/dL (3.5-5.0); ALKALINE PHOSPHATASE 57 U/L (38-126); ANION GAP 11 (5-19); ASPARTATE AMINO TRANSFERASE 17 U/L (14-36); BILIRUBIN,DIRECT 0.2 mg/dL (0.0-0.4); BILIRUBIN,TOTAL 0.4 mg/dL (0.2-1.3); BLOOD UREA NITROGEN 6 mg/dL (7-20); CARBON DIOXIDE 24 mmol/L (22-30); CHLORIDE 102 mmol/L (98-107); GLUCOSE 84 mg/dL (75-110); POTASSIUM 4.2 mmol/L (3.6-5.0); TOTAL PROTEIN 7.6 g/dL (6.3-8.2)
--- NOTE | 2019-02-21 11:32 | RADIOLOGY REPORT (SQ) ---
EXAM DESCRIPTION: U/S OB TRANSVAG W/DOPPLER COMPLETED DATE/TIME: 02/21/2019 11:08 am REASON FOR STUDY: Left flank pain, 11 weeks , Hx kidney ston COMPARISON: Numerous prior studies, the most recent dated 02/07/2019. TECHNIQUE: Transvaginal static and realtime grayscale images acquired of the pelvis. Additional paulino cted spectral and color Doppler images recorded. All images stored on PACs. bHCG: Not applicable. CLINICAL DATES: 10 week 5 day. LIMITATIONS: None. FINDINGS: FETUS: Single Living intrauterine . ULTRASOUND EGA: 10 week 6 day. ULTRASOUND LAST: 09/13/2019. EFW: Not applicable less than 20 weeks. CRL: 4.0 cm. FHR: 173 beats per minute. SURVEY: No visualized anomalies. AMNIOTIC FLUID: Adequate amount. PLACENTA: Not yet developed due to early gestation. SUBCHORIONIC BLEED: No. SIZE OF BLEED: Not applicable. UTERUS: No masses. No anomalies. CERVICAL LENGTH: 2.8 cm. Closed. RIGHT ADNEXA: Normal ovary with normal vascular flow. No adnexal free fluid. No adnexal masses. LEFT ADNEXA: Ovary not identified due to poor acoustical window. No adnexal free fluid. No adnexal masses. FREE FLUID: None. OTHER: No other significant finding. IMPRESSION: LIVING INTRAUTERINE . EGA 10 WEEK 6 DAY. Trimester of : First trimester - 0 to 13 weeks. TECHNICAL DOCUMENTATION: JOB ID: [id number] [employer]- All Rights Reserved rev Reading location - IP/workstation name: [email or web address]
[2019-02-21] MEDS ORDERED: DIPHENHYDRAMINE HCL 50 MG/ML VIAL IV ONE (12:09)
[2019-02-21] MEDS ORDERED: DEXAMETHASONE SOD PHOSPHATE INJ 4 MG/1 ML VIAL IV ONE (13:21)
[2019-02-21] MEDS ORDERED: NITROFURANTOIN MONOHYD/M-CRYST 100 MG CAPSULE PO ONE (13:22)
[2019-02-21 16:13] VITALS: BP 110/73
--- NOTE | 2019-02-21 16:15 | ER Document Report ---
ED GI/ - General Chief Complaint: Nausea/Vomiting Stated Complaint: NAUSEA,VOMITING,ABDOMINAL PAIN Time Seen by Provider: 02/21/19 09:53 Primary Care Provider: SIMA TRAN MD [Primary Care Provider] - Follow up as needed Notes: Patient is complaining of vomiting and left-sided abdominal pains. Patient is and has had problems with hyperemesis gravidarum and had to be admitted to the hospital for hydration. Patient's has been 6 times in the past with 2 live births and 3 miscarriages. She is approximately 11 to 12 weeks gestation. She is continued to have nausea vomiting but is worse in the last few days. She is already vomited 3 times today and says she vomited as many as 20 times yesterday. She has been using Phenergan suppositories, scopolamine patch, but says that Zofran does not help and she is allergic to Reglan. Patient has pain in her left lower abdomen and flank region. She is had a history of kidney stones and is undergone 15 lithotripsies in the past. Also has a history of UTIs. Patient says that she had an ultrasound done here on 03 February and it showed a subchorionic hemorrhage. Patient is concerned that she is beginning to be dehydrated. She says that on Saturday she weighed 156 pounds and today she only weighs 145 pounds. Also has a history of Crohn's disease. She is had diarrhea that is probably related to her Crohn's. Is not aware of any fever. Patient has had her gallbladder removed and has had both upper and lower endoscopy procedures. TRAVEL OUTSIDE OF THE [place] IN LAST 30 DAYS: No - Related Data Allergies/Adverse Reactions: butalbital [From Fioricet] Allergy (Verified 02/21/19 08:10) ceftriaxone [From Rocephin] Allergy (Verified 02/21/19 08:10) codeine [Codeine] Allergy (Verified 02/21/19 08:10) Difficulty breathing haloperidol [From Haldol] Allergy (Verified 02/21/19 08:10) haloperidol lactate [From Haldol] Allergy (Verified 02/21/19 08:10) magnesium sulfate [Magnesium Sulfate] Allergy (Verified 02/21/19 08:10) hydromorphone HCl [From Dilaudid] Adverse Reaction (Verified 02/21/19 08:10) Renal failure ketorolac tromethamine [From Toradol] Adverse Reaction (Verified 02/21/19 08:10) metoclopramide HCl [From Reglan] Adverse Reaction (Verified 02/21/19 08:10) Anxiety tramadol [Tramadol] Adverse Reaction (Verified 02/21/19 08:10) Past Medical History - Social History Smoking Status: Former Smoker Family History: Reviewed & Not Pertinent, CAD, Hyperlipidemia, Hypertension, Malignancy, Other Patient has suicidal ideation: No Patient has homicidal ideation: No - Past Medical History Cardiac Medical History: Reports: Hx Hypertension - PRECLAMPSIA Pulmonary Medical History: Reports: Hx Bronchitis Neurological Medical History: Reports: Hx Migraine, 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 Renal/ Medical History: Reports: Hx Kidney Stones, Hx Renal Insufficiency GI Medical History: Reports: Hx Crohn's Disease, Hx Irritable Bowel, Hx Colonoscopy, Hx Endoscopy Musculoskeletal Medical History: Reports Hx Arthritis, Reports Hx Musculoskeletal Trauma Traumatic Medical History: Reports: Hx Fractures - Feet wrist and fingers Past Surgical History: Reports: Hx Cholecystectomy, Hx Dilation and Curettage - x2, Hx Gynecologic Surgery - D&C x's2, Hx Kidney (Renal Surgery) - Lithotripsy, Hx Orthopedic Surgery - Foot surgery, Other - D&C x3 or maybe 4 - Immunizations Immunizations up to date: Yes Hx Diphtheria, Pertussis, Tetanus Vaccination: Yes - 2016 Hx Pneumococcal Vaccination: 07/18/12 Review of Systems - Review of Systems Notes: CONSTITUTIONAL : Denies fever. CARDIOVASCULAR: Denies chest pain. RESPIRATORY: Denies cough, chest congestion, or shortness of breath. GASTROINTESTINAL: See HPI. GENITOURINARY: Denies difficulty or painful urinating, urinary frequency, blood in urine. Physical Exam - Vital signs Vitals: Temp Pulse Resp BP Pulse Ox 98.9 F 90 18 136/87 H 99 02/21/19 08:05 02/21/19 08:05 02/21/19 08:05 02/21/19 08:05 02/21/19 08:05 Interpretation: Normal Notes: PHYSICAL EXAMINATION: GENERAL: Well-appearing, no acute distress. Vital signs are all normal. Not hypotensive or tachycardic. HEAD: Atraumatic, normocephalic. NECK: Normal range of motion, supple. LUNGS: Breath sounds clear and equal bilaterally. HEART: Regular rate and rhythm without murmurs heard. ABDOMEN: Soft, but tender in the left lateral abdomen, but no guarding or rebound or masses felt. Course - Re-evaluation Re-evalutation: 02/21/19 19:57 Patient complained of nausea and says that she is vomiting, but there is only a small amount saliva or spit in her trash bag. I am not seen her actually vomit during her entire stay here. Patient seems to want to come in the hospital. I pointed out to her that her labs do not suggest that she is dehydrated. She has negative ketones in her urine and her specific gravity is normal. Blood chemistries do not suggest dehydration either. Additionally, patient's nearly 10 pound weight loss and just 4 days is almost physiologically impossible. Patient's urinalysis looks suggestive of a possible UTI, she does have some significant positive leukocyte esterase as well as some white cells, but her nitrites are negative and there is only a trace of bacteria. I have cultured her urine. I spoke with Dr. banerjee, [facility] on-call, who is very familiar with this patient as she was 1 of the attendings for this patient when she was hospitalized for her vomiting. She suggested giving the patient 4 mg of Decadron IV and to put her on Macrobid for possible UTI. 02/21/19 20:00 - Vital Signs Vital signs: Temp Pulse Resp BP Pulse Ox 98.4 F 82 18 110/73 100 02/21/19 16:04 02/21/19 16:04 02/21/19 16:04 02/21/19 16:04 02/21/19 16:04 - Laboratory Result Diagrams: 02/21/19 10:15 02/21/19 10:15 Laboratory results interpreted by me: 02/21/19 02/21/19 09:52 10:15 BUN 6 L Beta HCG, Quant 85499.00 H Urine Protein 30 H Urine Urobilinogen 2.0 H Ur Leukocyte Esterase MODERATE H - Diagnostic Test Radiology reviewed: Image reviewed, Reports reviewed - Ultrasound shows a stone in the lower pole of the left kidney, but there is no involvement of the ureter and there is no hydronephrosis. Pelvic ultrasound shows an IUP with heart 173. No evidence of subchorionic hemorrhage present. Discharge - Discharge Clinical Impression: Intrauterine normal , Nausea and vomiting, Possible urinary tract infection Condition: Stable Disposition: HOME, SELF-CARE Additional Instructions: You are . care is best started as early in as possible. If you're unsure about continuing this , you should discuss this with your physician or with medical support assistant at [facility]. You should take only medications approved by your physician. Acetaminophen can safely be taken for minor pains. As a rule, medication for chronic conditions such as asthma or seizures can safely be continued. You should discuss with the physician every medicine you take. Any regular exercise program can be continued. Talk to your physician, however, before engaging in competitive or demanding sports. Alcohol, smoking, and "street drugs" are dangerous to your baby. Cocaine is especially dangerous. Don't use any illicit drugs! VOMITING: Vomiting (or nausea without vomiting) can be caused by many other different problems. It can mean that something's wrong with the stomach, such as ulcers or inflammation or the intestinal tract, such as appendicitis. But it can also be a symptom of a problem that has nothing to do with the stomach or intestines. Vomiting is common with severe headaches, earaches, tonsillitis, and kidney infections, etc. We see it with pneumonia or heart attacks. Drugs can cause nausea and vomiting. Many abdominal problems cause vomiting; for example, gallstones, kidney stones, pancreatitis, and intestinal obstruction (blocked bowels). In most cases, curing the vomiting depends on fixing the problem that caused it. For temporary relief, we may use an anti-nausea medicine. For home use, we can prescribe suppositories, chewable pills, pills that dissolve in the mouth, or liquid anti-nausea drugs. If the vomiting seems to be caused by a problem in the stomach, acid-suppressing drugs may be prescribed as well. It's important to avoid dehydration. Sip small amounts of clear liquids (soft drinks, tea, broth, etc) . Try to take fluids frequently even if you are vomiting to prevent dehydration. Take increasing amounts of fluid and when liquids are being consumed successfully, advance to small amounts of bland food (toast, soups, mashed potatoes, etc.) until you are able to resume a regular diet. Avoid aspirin, tobacco, and alcohol. If the vomiting worsens, if the problem that's making you vomit worsens, or if there's evidence of bleeding in the stomach (such as black, tarry stool, or bloody or black vomit), you should return immediately. Also, return if abdominal pain worsens or becomes localized to one area or you develop high fever. Call your doctor if you aren't improved in 24 hours. INTRAVENOUS (I V) FLUIDS: As part of your care today, you received intravenous (IV) fluids. IV fluids are administered to patients who are dehydrated or to those who have certain chemical (electrolyte) abnormalities that need correcting. ANTINAUSEA MEDICATION: You have been given a medication to suppress nausea and vomiting. This type of medication can be given as a shot, pill, or suppository. It will usually last for many hours. Pills and shots usually last six to eight hours. For the typical illness, only one or two doses of the medication may be necessary. Mild lightheadedness may occur. This type of medicine can cause drowsiness. Do not drive or operate dangerous machinery while under its influence. Do not mix with alcohol. See your doctor at once if you have muscle spasms or tightness, or uncontrollable motions (particularly of the neck, mouth, or jaw). Persistent vomiting or severe lightheadedness should also be evaluated by the physician. Possible URINARY TRACT INFECTION: Your evaluation indicates that you may have a urinary tract infection. This is due to germs growing in the bladder. This is a common problem. This infection usually responds quickly to antibiotics. Your antibiotic should be taken exactly as prescribed. Drink plenty of fluids -- three to four quarts a day. Occasionally, a bladder anesthetic will be prescribed to help stop the feeling of urgency until the antibiotic has a chance to clear the infection. This may cause your urine to be dark orange. Certain urine infections require a culture. If the doctor obtained a culture, the results will be back in two days. You should call to see if a change in treatment is needed. A repeat urinalysis after you finish treatment is often recommended. The physician will let you know if further testing is required. Call the doctor if you develop fever, chills, flank pain, inability to urinate, or blood in the urine. ANTIBIOTIC THERAPY: You have been given an antibiotic prescription. It's important that you take all the medication, unless instructed otherwise by your physician. Failure to complete the entire course can result in relapse of your condition. Common side effects of antibiotics include nausea, intestinal cramping, or diarrhea. Women may develop vaginal yeast infections, and babies can get yeast (thrush) in the mouth following the use of antibiotics. Contact your physician if you develop significant side effects from this medication. Allergy to this antibiotic can result in hives, wheezing, faintness, or itching. If symptoms of allergy occur, stop the medication and call the doctor. Nitrofurantoin You have received a prescription for nitrofurantoin (Macrodantin). This antibiotic is used for urinary tract infections. Persons with G-6-PD (glucose 6-phosphate dehydrogenase) deficiency should not take this medication. Women who are or nursing should notify the physician before taking this medicine. If you have ever had a problem caused by this medication in the past, be sure the physician is aware of it. Common side effects of this medicine include nausea, vomiting, or decreased appetite. Notify your physician if these side effects become severe. Immediately stop this medicine and call the physician if you develop cough, shortness of breath, chest pain, weakness, jaundice (yellow color of the skin and whites of the eyes), or a skin rash. FOLLOW-UP CARE: If you have been referred to a physician for follow-up care, call the physicians office for an appointment as you were instructed or within the next two days. If you experience worsening or a significant change in your symptoms, notify the physician immediately or return to the Emergency Department at any time for re-evaluation. Follow-up with your [facility] doctors in [facility] Saturday. Drink plenty of fluids. Take the medications prescribed as well as what you have for nausea and vomiting. Return if there is any worsening of your condition. Prescriptions: Nitrofurantoin/Nitrofuran Mac [Macrobid 100 mg Capsule] 1 tab PO BID #14 capsule Referrals: SIMA TRAN MD [Primary Care Provider] - Follow up as needed
== END 2019-02-21 16:30 | disposition home or self-care (01) ==
LOC: ER 07:36
DX: O21.0 Mild hyperemesis gravidarum (principal); O26.899 Other specified pregnancy related conditions, unspecified trimester; N20.0 Calculus of kidney; R10.30 Lower abdominal pain, unspecified; R10.9 Unspecified abdominal pain; R10.819 Abdominal tenderness, unspecified site; R19.7 Diarrhea, unspecified; Z3A.00 Weeks of gestation of pregnancy not specified; Z88.8 Allergy status to other drugs, medicaments and biological substances; Z87.440 Personal history of urinary (tract) infections; Z90.49 Acquired absence of other specified parts of digestive tract; Z87.891 Personal history of nicotine dependence; Z88.6 Allergy status to analgesic agent; Z88.1 Allergy status to other antibiotic agents
CPT/HCPCS: 99284; 96361; 96374; 96375; 36415; 87086; 84702; 85025; 80053; 81001; 76817; 76770; 93976; J1100; J1200; J7030; J3490; J8499

== ENCOUNTER 2019-03-11 17:13 | Emergency (ER) | payer MEDICAID ==
[2019-03-11] MEDS ORDERED: NORMAL SALINE 1000 ML 1,000 ML IV ONE (18:25)
[2019-03-11] MEDS ORDERED: DEXAMETHASONE SOD PHOS INJ 10 MG/1 ML VIAL IV ONE (18:25)
[2019-03-11] MEDS ORDERED: DIPHENHYDRAMINE HCL 50 MG/ML VIAL IV ONE (18:25)
--- NOTE | 2019-03-11 18:27 | ER Document Report ---
ED Medical Screen (RME) - General Chief Complaint: Headache Stated Complaint: NAUSEA/VOMITING Time Seen by Provider: 03/11/19 18:24 Primary Care Provider: SIMA TRAN MD [Primary Care Provider] - Follow up as needed Mode of Arrival: Ambulatory Information source: Patient Notes: Patient presents complaining of hyperemesis gravidarum. Patient states she has had vomiting throughout the but worsened over the past 2 days. Patient is currently 14 weeks . Patient reports nausea vomiting and diarrhea. Patient states she is vomited 8 times. Patient does complain of some urinary frequency as well. Patient states that she vomited Tylenol and Phenergan up at home and that Diclegis has not been helping her symptoms. I have greeted and performed a rapid initial assessment of this patient. A comprehensive ED assessment and evaluation of the patient, analysis of test results and completion of the medical decision making process will be conducted by additional ED providers. TRAVEL OUTSIDE OF THE [place] IN LAST 30 DAYS: No - Related Data Allergies/Adverse Reactions: butalbital [From Fioricet] Allergy (Verified 03/11/19 18:15) ceftriaxone [From Rocephin] Allergy (Verified 03/11/19 18:15) codeine [Codeine] Allergy (Verified 03/11/19 18:15) Difficulty breathing haloperidol [From Haldol] Allergy (Verified 03/11/19 18:15) haloperidol lactate [From Haldol] Allergy (Verified 03/11/19 18:15) magnesium sulfate [Magnesium Sulfate] Allergy (Verified 03/11/19 18:15) hydromorphone HCl [From Dilaudid] Adverse Reaction (Verified 03/11/19 18:15) Renal failure ketorolac tromethamine [From Toradol] Adverse Reaction (Verified 03/11/19 18:15) metoclopramide HCl [From Reglan] Adverse Reaction (Verified 03/11/19 18:15) Anxiety tramadol [Tramadol] Adverse Reaction (Verified 03/11/19 18:15) Home Medications: diclegis. phenergan. 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 Denies: Hx Cerebrovascular Accident Renal/ Medical History: Reports: Hx Kidney Stones, Hx Renal Insufficiency. Denies: Hx Peritoneal Dialysis GI Medical History: Reports: Hx Crohn's Disease, Hx Irritable Bowel, Hx Colonoscopy, Hx Endoscopy. Denies: Hx Ulcer Musculoskeltal Medical History: Reports Hx Arthritis, Reports Hx Musculoskeletal Trauma Traumatic Medical History: Reports: Hx Fractures - Feet wrist and fingers Past Surgical History: Reports: Hx Cholecystectomy, Hx Dilation and Curettage - x2, Hx Gynecologic Surgery - D&C x's2, Hx Kidney (Renal Surgery) - Lithotripsy, Hx Orthopedic Surgery - Foot surgery, Other - D&C x3 or maybe 4. Denies: Hx Hysterectomy, Hx Pacemaker - Immunizations Immunizations up to date: Yes Hx Diphtheria, Pertussis, Tetanus Vaccination: Yes - 2016 Physical Exam - Vital signs Vitals: Temp Pulse Resp BP Pulse Ox 98.3 F 100 19 121/88 H 99 03/11/19 17:40 03/11/19 17:40 03/11/19 17:40 03/11/19 17:40 03/11/19 17:40 - General General appearance: Appears well, Alert Notes: Right lateral side tenderness Course - Vital Signs Vital signs: Temp Pulse Resp BP Pulse Ox 98.3 F 100 19 121/88 H 99 03/11/19 17:40 03/11/19 17:40 03/11/19 17:40 03/11/19 17:40 03/11/19 17:40 Doctor's Discharge - Discharge Referrals: SIMA TRAN MD [Primary Care Provider] - Follow up as needed
[2019-03-11 20:32] LABS: APPEARANCE,URINE CLOUDY; BILIRUBIN,URINE NEGATIVE (NEGATIVE); CALCIUM OXALATE CRYSTALS,URINE TOO NUMEROUS TO CNT /HPF; COLOR,URINE AMBER; GLUCOSE, URINE NEGATIVE (NEGATIVE); KETONES,URINE TRACE mg/dL (NEGATIVE); PROTEIN,URINE 30 mg/dL (NEGATIVE); URINE SPECIFIC GRAVITY 1.026
[2019-03-11] MEDS ORDERED: DEXAMETHASONE SOD PHOS INJ 10 MG/1 ML VIAL ONE (21:51)
[2019-03-11] MEDS ORDERED: DIPHENHYDRAMINE HCL 50 MG/ML VIAL ONE (21:51)
[2019-03-11 22:00] LABS: ABSOLUTE BASOPHILS # (AUTO) 0.1 10^3/uL (0.0-0.2); ABSOLUTE EOSINOPHILS # (AUTO) 0.1 10^3/uL (0.0-0.6); ABSOLUTE LYMPHOCYTES (AUTO) 1.8 10^3/uL (0.5-4.7); ABSOLUTE MONOCYTES (AUTO) 0.4 10^3/uL (0.1-1.4); ABSOLUTE NEUT (AUTO) 4.7 10^3/uL (1.7-8.2); BASOPHILS % (AUTO) 1.6 % (0-2); EOSINOPHILS % (AUTO) 1.2 % (0-6); HEMATOCRIT 37.9 % (36.0-47.0); LYMPHOCYTES % (AUTO) 25.2 % (13-45); MEAN CORPUSCULAR HEMOGLOBIN 30.6 pg (27.0-33.4); MEAN CORPUSCULAR HGB CONC 34.4 g/dL (32.0-36.0); MEAN CORPUSCULAR VOLUME 89 fl (80-97); MONOCYTES % (AUTO) 5.8 % (3-13); PLATELET COUNT 241 10^3/uL (150-450); RED BLOOD COUNT 4.26 10^6/uL (3.72-5.28); RED CELL DISTRIBUTION WIDTH 13.6 % (11.5-14.0); SEGMENTED NEUTROPHILS % (AUTO) 66.2 % (42-78); TOTAL CELLS COUNTED % (AUTO) 100 %
[2019-03-11 22:25] LABS: ALBUMIN 4.2 g/dL (3.5-5.0); ALKALINE PHOSPHATASE 48 U/L (38-126); ANION GAP 10 (5-19); ASPARTATE AMINO TRANSFERASE 16 U/L (14-36); BILIRUBIN,DIRECT 0.2 mg/dL (0.0-0.4); BILIRUBIN,TOTAL 0.5 mg/dL (0.2-1.3); BLOOD UREA NITROGEN 5 mg/dL (7-20); CALCIUM 9.6 mg/dL (8.4-10.2); CARBON DIOXIDE 23 mmol/L (22-30); CHLORIDE 102 mmol/L (98-107); GLUCOSE 79 mg/dL (75-110); POTASSIUM 3.8 mmol/L (3.6-5.0); TOTAL PROTEIN 7.1 g/dL (6.3-8.2)
[2019-03-11] MEDS ORDERED: PROMETHAZINE HCL INJ 25 MG/1 ML VIAL IM ONE (22:27)
[2019-03-11] MEDS ORDERED: RINGERS SOLUTION,LACTATED 1,000 ML IV ONE (22:28)
--- NOTE | 2019-03-11 22:30 | ER Document Report ---
ED GI/ - General Chief Complaint: Headache Stated Complaint: NAUSEA/VOMITING Time Seen by Provider: 03/11/19 18:24 Primary Care Provider: SIMA TRAN MD [ACTIVE STAFF] - Follow up as needed Mode of Arrival: Ambulatory Notes: Patient is a 28-year-old female, at 14 weeks gestation by first trimester ultrasound, that comes emergency department for chief complaint of persistent vomiting for the past 2 days. She states she also developed a headache. She states she saw [facility] already for vomiting and they prescribed her likely just, she already had Phenergan at home, she states she vomited both Phenergan and likely just after taking them earlier today. She denies any particular abdominal pain or flank pain, denies fever/chills, denies vaginal bleeding or discharge. Patient states that she is allergic to Reglan and does poorly with Zofran as well. TRAVEL OUTSIDE OF THE [place] IN LAST 30 DAYS: No - HPI heart tones (bpm): 156 - Related Data Allergies/Adverse Reactions: butalbital [From Fioricet] Allergy (Verified 03/11/19 18:15) ceftriaxone [From Rocephin] Allergy (Verified 03/11/19 18:15) codeine [Codeine] Allergy (Verified 03/11/19 18:15) Difficulty breathing haloperidol [From Haldol] Allergy (Verified 03/11/19 18:15) haloperidol lactate [From Haldol] Allergy (Verified 03/11/19 18:15) magnesium sulfate [Magnesium Sulfate] Allergy (Verified 03/11/19 18:15) hydromorphone HCl [From Dilaudid] Adverse Reaction (Verified 03/11/19 18:15) Renal failure ketorolac tromethamine [From Toradol] Adverse Reaction (Verified 03/11/19 18:15) metoclopramide HCl [From Reglan] Adverse Reaction (Verified 03/11/19 18:15) Anxiety tramadol [Tramadol] Adverse Reaction (Verified 03/11/19 18:15) Home Medications: diclegis. phenergan. Past Medical History - General Information source: Patient - Social History Smoking Status: Never Smoker Chew tobacco use (# tins/day): No Frequency of alcohol use: None Drug Abuse: None Lives with: Family Family History: Reviewed & Not Pertinent, CAD, Hyperlipidemia, Hypertension, Malignancy, Other Patient has suicidal ideation: No Patient has homicidal ideation: No - Past Medical History Cardiac Medical History: Reports: Hx Hypertension - PRECLAMPSIA Denies: Hx Coronary Artery Disease, Hx Heart Attack Pulmonary Medical History: Reports: Hx Bronchitis Denies: Hx Asthma, Hx COPD, Hx Pneumonia, Hx Tuberculosis Neurological Medical History: Reports: Hx Migraine, 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 Denies: Hx Cerebrovascular Accident Renal/ Medical History: Reports: Hx Kidney Stones, Hx Renal Insufficiency. Denies: Hx Peritoneal Dialysis GI Medical History: Reports: Hx Crohn's Disease, Hx Irritable Bowel, Hx Colonoscopy, Hx Endoscopy. Denies: Hx Ulcer Musculoskeletal Medical History: Reports Hx Arthritis, Reports Hx Musculoskeletal Trauma Traumatic Medical History: Reports: Hx Fractures - Feet wrist and fingers Past Surgical History: Reports: Hx Cholecystectomy, Hx Dilation and Curettage - x2, Hx Gynecologic Surgery - D&C x's2, Hx Kidney (Renal Surgery) - Lithotripsy, Hx Orthopedic Surgery - Foot surgery, Other - D&C x3 or maybe 4. Denies: Hx Hysterectomy, Hx Pacemaker - Immunizations Immunizations up to date: Yes Hx Diphtheria, Pertussis, Tetanus Vaccination: Yes - 2016 Hx Pneumococcal Vaccination: 07/18/12 Review of Systems - Review of Systems Constitutional: No symptoms reported EENT: No symptoms reported Cardiovascular: No symptoms reported Respiratory: No symptoms reported Gastrointestinal: See HPI Genitourinary: No symptoms reported Female Genitourinary: See HPI Musculoskeletal: No symptoms reported Skin: No symptoms reported Hematologic/Lymphatic: No symptoms reported Neurological/Psychological: See HPI Physical Exam - Vital signs Vitals: Temp Pulse Resp BP Pulse Ox 98.3 F 100 19 121/88 H 99 03/11/19 17:40 03/11/19 17:40 03/11/19 17:40 03/11/19 17:40 03/11/19 17:40 - Notes Notes: GENERAL: Alert, interacts well. No acute distress. HEAD: Normocephalic, atraumatic. EYES: Pupils equal, round, and reactive to light. Extraocular movements intact. ENT: Oral mucosa moist, tongue midline. Oropharynx unremarkable. Airway patent. LUNGS: Clear to auscultation bilaterally, no wheezes, rales, or rhonchi. No respiratory distress. HEART: Regular rate and rhythm. No murmur ABDOMEN: Soft, non-tender. Non-distended. Bowel sounds present in all 4 quadrants. GENITOURINARY: Deferred EXTREMITIES: Moves all 4 extremities spontaneously. No edema, normal radial and dorsalis pedis pulses bilaterally. No cyanosis. BACK: no cervical, thoracic, lumbar midline tenderness. No saddle anesthesia, normal distal neurovascular exam. Moves all extremities in full range of motion. NEUROLOGICAL: Alert and oriented x3. Normal speech. Cranial nerves II through XII grossly intact. PSYCH: Frequently smiling and smirking SKIN: Warm, dry, normal turgor. No rashes or lesions noted. Course - Re-evaluation Re-evalutation: Patient is very well-appearing on my exam. She has a completely benign abdomen, unremarkable vital signs, normal neurological exam. She frequently smirks during conversation. Patient states she cannot tolerate Zofran, is allergic to Haldol, and is allergic to Reglan. She will be given IM Phenergan because she is still complaining of nausea despite Benadryl and IV fluids. She was also given dexamethasone by triage. On reevaluation patient states that she is improved and is ready to leave. Patient did tolerate p.o. without difficulty. She has no additional complaints at this time. I did discuss urinalysis, this was contaminated, patient states she "has already been on Macrobid continuously" and she declines antibiotics. Culture was placed. Discussed follow-up and return precautions. I did offer her [place] Phenergan but she declined. Patient states appreciation and agreement. - Vital Signs Vital signs: Temp Pulse Resp BP Pulse Ox 98.2 F 87 14 123/79 100 03/12/19 02:04 03/12/19 02:04 03/12/19 02:04 03/12/19 02:04 03/12/19 02:04 - Laboratory Result Diagrams: 03/11/19 21:40 03/11/19 21:40 Laboratory results interpreted by me: 03/11/19 03/11/19 19:53 21:40 Sodium 135.4 L BUN 5 L Creatinine 0.49 L Urine Protein 30 H Urine Ketones TRACE H Urine Urobilinogen 2.0 H Leukocyte Esterase Rfl TRACE H Discharge - Discharge Clinical Impression: Vomiting affecting , Dehydration Condition: Stable Disposition: HOME, SELF-CARE Additional Instructions: Continue rehydration at home, start with bland foods. You can take Tylenol, Benadryl, Phenergan for headaches and nausea. You can take the Diclegis. Follow-up closely with your provider for additional management. Return if you worsen including uncontrolled vomiting, developing abdominal pain, fever, or any other concerning or worsening symptoms. Referrals: SIMA TRAN MD [ACTIVE STAFF] - Follow up as needed
[2019-03-12 02:06] VITALS: BP 123/79
== END 2019-03-12 02:04 | disposition home or self-care (01) ==
LOC: ER 17:13
DX: O21.9 Vomiting of pregnancy, unspecified (principal); O99.282 Endocrine, nutritional and metabolic diseases complicating pregnancy, second trimester; E86.0 Dehydration; O26.892 Other specified pregnancy related conditions, second trimester; R51 Headache; Z3A.14 14 weeks gestation of pregnancy; Z79.899 Other long term (current) drug therapy; Z88.8 Allergy status to other drugs, medicaments and biological substances; Z88.1 Allergy status to other antibiotic agents; Z88.5 Allergy status to narcotic agent
CPT/HCPCS: 36415; 83690; 85025; 80053; 81001; J1200; J2550; J7030; J7120; J1100; 87086; 96361; 96374; 96375; 99284

== ENCOUNTER 2019-05-18 11:38 | Outpatient (CLI) | payer MEDICAID ==
[2019-05-18] MEDS ORDERED: ONDANSETRON HCL INJ/PF 4 MG/2 ML SDV IV PRN (11:52)
[2019-05-18 12:09] LABS: APPEARANCE,URINE SLIGHTLY-CLOUDY; BILIRUBIN,URINE NEGATIVE (NEGATIVE); COLOR,URINE YELLOW; GLUCOSE, URINE NEGATIVE (NEGATIVE); KETONES,URINE NEGATIVE (NEGATIVE); LEUKOCYTE ESTERASE,URINE TRACE (NEGATIVE); NITRITE,URINE NEGATIVE (NEGATIVE); PROTEIN,URINE NEGATIVE (NEGATIVE); URINE SPECIFIC GRAVITY 1.016; UROBILINOGEN,URINE NEGATIVE mg/dL (<2.0)
[2019-05-18 12:21] LABS: ABSOLUTE LYMPHOCYTES (AUTO) 1.3 10^3/uL (0.5-4.7); ABSOLUTE MONOCYTES (AUTO) 0.4 10^3/uL (0.1-1.4); ABSOLUTE NEUT (AUTO) 6.8 10^3/uL (1.7-8.2); BASOPHILS % (AUTO) 0.4 % (0-2); EOSINOPHILS % (AUTO) 0.4 % (0-6); HEMATOCRIT 35.3 % (36.0-47.0); HEMOGLOBIN 12.5 g/dL (12.0-15.5); LYMPHOCYTES % (AUTO) 15.6 % (13-45); MEAN CORPUSCULAR HGB CONC 35.4 g/dL (32.0-36.0); MEAN CORPUSCULAR VOLUME 90 fl (80-97); MONOCYTES % (AUTO) 4.6 % (3-13); PLATELET COUNT 282 10^3/uL (150-450); RED BLOOD COUNT 3.92 10^6/uL (3.72-5.28); RED CELL DISTRIBUTION WIDTH 13.5 % (11.5-14.0); TOTAL CELLS COUNTED % (AUTO) 100 %; WHITE BLOOD COUNT 8.6 10^3/uL (4.0-10.5)
[2019-05-18 12:29] LABS: URINE AMPHETAMINES SCREEN NEGATIVE; URINE BARBITURATES SCREEN NEGATIVE; URINE BENZODIAZEPINES SCREEN NEGATIVE; URINE COCAINE SCREEN NEGATIVE; URINE MARIJUANA (THC) SCREEN NEGATIVE; URINE METHADONE SCREEN NEGATIVE; URINE PHENCYCLIDINE SCREEN NEGATIVE
[2019-05-18] MEDS ORDERED: ACETAMINOPHEN 325 MG TABLET PO ONE (12:38)
[2019-05-18] MEDS ORDERED: PROCHLORPERAZINE MALEATE 10 MG TABLET PO ONE (12:39)
[2019-05-18] MEDS: RINGERS SOLUTION,LACTATED 1,000 ML IV PRN ×2 (13:10→14:39)
[2019-05-18] MEDS ORDERED: PROCHLORPERAZINE MALEATE 10 MG TABLET ONE ×2 (13:15→13:25)
[2019-05-18] MEDS ORDERED: ACETAMINOPHEN 325 MG TABLET ONE (13:15)
[2019-05-18 13:28] LABS: ALBUMIN 3.8 g/dL (3.5-5.0); ALKALINE PHOSPHATASE 82 U/L (38-126); ANION GAP 14 (5-19); ASPARTATE AMINO TRANSFERASE 16 U/L (14-36); BILIRUBIN,DIRECT 0.3 mg/dL (0.0-0.4); BILIRUBIN,TOTAL 0.4 mg/dL (0.2-1.3); BLOOD UREA NITROGEN 5 mg/dL (7-20); CALCIUM 9.6 mg/dL (8.4-10.2); CARBON DIOXIDE 21 mmol/L (22-30); CHLORIDE 102 mmol/L (98-107); GLUCOSE 79 mg/dL (75-110); POTASSIUM 3.8 mmol/L (3.6-5.0)
[2019-05-18] MEDS ORDERED: NALBUPHINE HCL INJ 10 MG/1 ML AMPULE ONE (13:37)
[2019-05-18] MEDS ORDERED: PROMETHAZINE HCL INJ 25 MG/1 ML VIAL ONE (13:37)
[2019-05-18] MEDS ORDERED: ACETAMINOPHEN 1,000 MG/100 ML RTUPB IV PRN (13:59)
[2019-05-18] MEDS ORDERED: ACETAMINOPHEN 1,000 MG/100 ML RTUPB IV ONE (14:03)
[2019-05-18] MEDS ORDERED: PROMETHAZINE HCL INJ 25 MG/1 ML VIAL IV ONE (14:45)
--- NOTE | 2019-05-18 17:14 | RADIOLOGY REPORT (SQ) ---
EXAM DESCRIPTION: [facility] [employer] COMPLETED DATE/TIME: 05/18/2019 5:04 pm REASON FOR STUDY: 23 wks, Rt CVA pain, hx stones, hematuria COMPARISON: 02/21/2019 TECHNIQUE: Dynamic and static grayscale images acquired of the kidneys and bladder and recorded on P ACS. Additional selected color Doppler and spectral images recorded. LIMITATIONS: None. FINDINGS: RIGHT KIDNEY: Normal size, 9.8 cm. Normal echogenicity. No solid or suspicious masses . No hydronephrosis. Lower calyceal calculus. LEFT KIDNEY: Normal size, 11.7 cm. Normal echogenicity. No solid or suspicious masses. No hydr onephrosis. Lower calyceal calculus. BLADDER: No masses. OTHER FINDINGS: heart rate 152. IMPRESSION: There appear to be intrarenal calculi. There is no hydronephrosis on either side. TECHNICAL DOCUMENTATION: JOB ID: [id number] [employer]- All Rights Reserved Reading location - IP/workstation name: [email or web address]
[2019-05-18] MEDS ORDERED: DIPHENHYDRAMINE HCL 50 MG/ML VIAL ONE (17:38)
[2019-05-18] MEDS ORDERED: DIPHENHYDRAMINE HCL 50 MG/ML VIAL IV ONE (18:00)
[2019-05-18] MEDS ORDERED: MORPHINE SULFATE 10 MG/ML INJ ONE (18:35)
[2019-05-18] MEDS ORDERED: CYCLOBENZAPRINE HCL 10 MG TABLET PO ONE (18:58)
[2019-05-18] MEDS ORDERED: MECLIZINE HCL 25 MG TABLET PO ONE (18:58)
[2019-05-18] MEDS ORDERED: MORPHINE SULFATE 10 MG/ML INJ IV ONE (19:00)
[2019-05-18] MEDS ORDERED: CYCLOBENZAPRINE HCL 10 MG TABLET ONE (19:02)
== END 2019-05-18 20:42 | disposition home or self-care (01) ==
LOC: LC 11:38
PROVIDERS: ATTEND Obstetrics & Gynecology
PROC: 4A1HXCZ Monitoring of Products of Conception, Cardiac Rate, External Approach (ICD-10-PCS; principal; 2019-05-18)
DX: O99.89 Other specified diseases and conditions complicating pregnancy, childbirth and the puerperium (principal); N20.0 Calculus of kidney; Z3A.23 23 weeks gestation of pregnancy
CPT/HCPCS: 59899; 36415; 87086; 85025; 80053; 81001; 80307; 76775; J3490 ×2; J1200; J2270; S0183; J2550; J0131; J2300

== ENCOUNTER 2019-05-23 08:30 | Emergency (ER) | payer MEDICAID ==
[2019-05-23] MEDS ORDERED: NORMAL SALINE 1000 ML 1,000 ML IV ONE (09:14)
[2019-05-23] MEDS ORDERED: DIPHENHYDRAMINE HCL 50 MG/ML VIAL IV ONE (09:23)
--- NOTE | 2019-05-23 09:26 | ER Document Report ---
ED Medical Screen (RME) - General Chief Complaint: Headache Stated Complaint: MIGRAINE/VOMITING/NAUSEA Time Seen by Provider: 05/23/19 09:12 Primary Care Provider: KRUPA WHITAKER MD [Primary Care Provider] - Follow up as needed TRAVEL OUTSIDE OF THE [place] IN LAST 30 DAYS: No - HPI Notes: 05/23/19 09:25 Patient is a 28-year-old female is approximately 24 weeks who presents complaining of intermittent headache for the past week. Patient does have a history of of migraines and has significant list of allergies. This is not the worst headache of her life and did not start as a thunderclap. No fever. No abdominal pain, low back pain, vaginal bleeding. I have treated and performed a rapid initial assessment of this patient. A comprehensive ED assessment and evaluation of the patient, analysis of test results and completion of medical decision making process will be conducted by additional ED providers. PHYSICAL EXAMINATION: GENERAL: Well-appearing, well-nourished and in no acute distress. A&Ox4. Answers questions appropriately. Neuro: Cranial nerves grossly intact. - Related Data Allergies/Adverse Reactions: butalbital [From Fioricet] Allergy (Verified 05/18/19 14:34) Chest tightening ceftriaxone [From Rocephin] Allergy (Verified 05/18/19 14:34) Red Man Syndrome codeine [Codeine] Allergy (Verified 05/18/19 12:07) Difficulty breathing haloperidol [From Haldol] Allergy (Verified 05/18/19 14:33) Anxiety, Increased Heart Rate haloperidol lactate [From Haldol] Allergy (Verified 05/18/19 14:32) Anxiety, Increased Heart Rate magnesium sulfate [Magnesium Sulfate] Allergy (Verified 05/18/19 14:31) Paralysis from chest down ondansetron [From Zofran] Allergy (Verified 05/18/19 14:29) Hives, Blisters hydromorphone HCl [From Dilaudid] Adverse Reaction (Verified 05/18/19 12:07) Renal failure ketorolac tromethamine [From Toradol] Adverse Reaction (Verified 05/18/19 14:29) Difficulty breathing metoclopramide HCl [From Reglan] Adverse Reaction (Verified 05/18/19 14:35) Anxiety, Increased Blood Pressure, Hives tramadol [Tramadol] Adverse Reaction (Verified 05/18/19 14:26) Swelling of Throat Past Medical History - Social History Chew tobacco use (# tins/day): No Frequency of alcohol use: None Drug Abuse: None - Past Medical History Cardiac Medical History: Reports: Hx Hypertension - PRECLAMPSIA Denies: Hx Coronary Artery Disease, Hx Heart Attack Pulmonary Medical History: Reports: Hx Bronchitis Denies: Hx Asthma, Hx COPD, Hx Pneumonia, Hx Tuberculosis Neurological Medical History: Reports: Hx Migraine, 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 Denies: Hx Cerebrovascular Accident Renal/ Medical History: Reports: Hx Kidney Stones, Hx Renal Insufficiency. Denies: Hx Peritoneal Dialysis GI Medical History: Reports: Hx Crohn's Disease, Hx Irritable Bowel, Hx Colonoscopy, Hx Endoscopy. Denies: Hx Ulcer Musculoskeltal Medical History: Reports Hx Arthritis, Reports Hx Musculoskeletal Trauma Traumatic Medical History: Reports: Hx Fractures - Feet wrist and fingers Past Surgical History: Reports: Hx Cholecystectomy, Hx Dilation and Curettage - x2, Hx Gynecologic Surgery - D&C x's2, Hx Kidney (Renal Surgery) - Lithotripsy, Hx Orthopedic Surgery - Foot surgery, Other - D&C x3 or maybe 4. Denies: Hx Hysterectomy, Hx Pacemaker - Immunizations Immunizations up to date: Yes Hx Diphtheria, Pertussis, Tetanus Vaccination: Yes - 2016 Physical Exam - Vital signs Vitals: Temp Pulse Resp BP Pulse Ox 98.0 F 112 H 14 140/83 H 100 05/23/19 08:34 05/23/19 08:34 05/23/19 08:34 05/23/19 08:34 05/23/19 08:34 Course - Vital Signs Vital signs: Temp Pulse Resp BP Pulse Ox 98.0 F 112 H 14 140/83 H 100 05/23/19 08:34 05/23/19 08:34 05/23/19 08:34 05/23/19 08:34 05/23/19 08:34 Doctor's Discharge - Discharge Referrals: KRUPA WHITAKER MD [Primary Care Provider] - Follow up as needed
[2019-05-23] MEDS ORDERED: MORPHINE SULFATE 10 MG/ML INJ IV ONE (10:15)
[2019-05-23] MEDS ORDERED: PROCHLORPERAZINE EDISYLATE INJ 10 MG/2 ML VIAL IV ONE (10:15)
--- NOTE | 2019-05-23 12:38 | ER Document Report ---
ED Headache - General Chief Complaint: Headache Stated Complaint: MIGRAINE/VOMITING/NAUSEA Time Seen by Provider: 05/23/19 09:12 Primary Care Provider: KRUPA WHITAKER MD [Primary Care Provider] - Follow up in 3-5 days Notes: Patient is a 28-year-old with a history of migraines who comes in with a headache. She is also been nauseated. She is allergic to Zofran and Reglan. Patient is 23 weeks . No bleeding, cramping, or difficulty with urination. TRAVEL OUTSIDE OF THE [place] IN LAST 30 DAYS: No - Related Data Allergies/Adverse Reactions: butalbital [From Fioricet] Allergy (Verified 05/18/19 14:34) Chest tightening ceftriaxone [From Rocephin] Allergy (Verified 05/18/19 14:34) Red Man Syndrome codeine [Codeine] Allergy (Verified 05/18/19 12:07) Difficulty breathing haloperidol [From Haldol] Allergy (Verified 05/18/19 14:33) Anxiety, Increased Heart Rate haloperidol lactate [From Haldol] Allergy (Verified 05/18/19 14:32) Anxiety, Increased Heart Rate magnesium sulfate [Magnesium Sulfate] Allergy (Verified 05/18/19 14:31) Paralysis from chest down ondansetron [From Zofran] Allergy (Verified 05/18/19 14:29) Hives, Blisters hydromorphone HCl [From Dilaudid] Adverse Reaction (Verified 05/18/19 12:07) Renal failure ketorolac tromethamine [From Toradol] Adverse Reaction (Verified 05/18/19 14:29) Difficulty breathing metoclopramide HCl [From Reglan] Adverse Reaction (Verified 05/18/19 14:35) Anxiety, Increased Blood Pressure, Hives tramadol [Tramadol] Adverse Reaction (Verified 05/18/19 14:26) Swelling of Throat Past Medical History - Social History Smoking Status: Never Smoker Chew tobacco use (# tins/day): No Frequency of alcohol use: None Drug Abuse: None Family History: Reviewed & Not Pertinent, CAD, Hyperlipidemia, Hypertension, Malignancy, Other Patient has suicidal ideation: No Patient has homicidal ideation: No - Past Medical History Cardiac Medical History: Reports: Hx Hypertension - PRECLAMPSIA Denies: Hx Coronary Artery Disease, Hx Heart Attack Pulmonary Medical History: Reports: Hx Bronchitis Denies: Hx Asthma, Hx COPD, Hx Pneumonia, Hx Tuberculosis Neurological Medical History: Reports: Hx Migraine, 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 Denies: Hx Cerebrovascular Accident Renal/ Medical History: Reports: Hx Kidney Stones, Hx Renal Insufficiency. Denies: Hx Peritoneal Dialysis GI Medical History: Reports: Hx Crohn's Disease, Hx Irritable Bowel, Hx Colonoscopy, Hx Endoscopy. Denies: Hx Ulcer Musculoskeletal Medical History: Reports Hx Arthritis, Reports Hx Musculoskeletal Trauma Traumatic Medical History: Reports: Hx Fractures - Feet wrist and fingers Past Surgical History: Reports: Hx Cholecystectomy, Hx Dilation and Curettage - x2, Hx Gynecologic Surgery - D&C x's2, Hx Kidney (Renal Surgery) - Lithotripsy, Hx Orthopedic Surgery - Foot surgery, Other - D&C x3 or maybe 4. Denies: Hx Hysterectomy, Hx Pacemaker - Immunizations Immunizations up to date: Yes Hx Diphtheria, Pertussis, Tetanus Vaccination: Yes - 2016 Hx Pneumococcal Vaccination: 07/18/12 Physical Exam - Vital signs Vitals: Temp Pulse Resp BP Pulse Ox 98.0 F 112 H 14 140/83 H 100 05/23/19 08:34 05/23/19 08:34 05/23/19 08:34 05/23/19 08:34 05/23/19 08:34 Interpretation: Normal - General General appearance: Appears well, Alert - HEENT Head: Normocephalic, Atraumatic Eyes: Normal Pupils: PERRL - Respiratory Respiratory status: No respiratory distress Chest status: Nontender Breath sounds: Normal Chest palpation: Normal - Cardiovascular Rhythm: Regular Heart sounds: Normal auscultation Murmur: No - Abdominal Inspection: Normal Distension: No distension Bowel sounds: Normal Tenderness: Nontender Organomegaly: No organomegaly - Back Back: Normal, Nontender - Extremities General upper extremity: Normal inspection, Nontender, Normal color, Normal ROM, Normal temperature General lower extremity: Normal inspection, Nontender, Normal color, Normal ROM, Normal temperature, Normal weight bearing. No: Chapis's sign - Neurological Neuro grossly intact: Yes Cognition: Normal Orientation: AAOx4 [place] Coma Scale Eye Opening: Spontaneous [place] Coma Scale Verbal: Oriented [place] Coma Scale Motor: Obeys Commands [place] Coma Scale Total: 15 Speech: Normal Motor strength normal: LUE, RUE, LLE, RLE Sensory: Normal - Psychological Associated symptoms: Normal affect, Normal mood - Skin Skin Temperature: Warm Skin Moisture: Dry Skin Color: Normal Course - Re-evaluation Re-evalutation: 05/23/19 12:38 Patient feels better after medications in the ER and would like to be discharged home No fever. Vitals stable. She will be discharged home with a prescription for Compazine and has a follow-up appointment with her neurologist regarding headaches. Stable for discharge. Understands and agrees with plan. - Vital Signs Vital signs: Temp Pulse Resp BP Pulse Ox 97.8 F 95 16 130/87 H 100 05/23/19 13:11 05/23/19 13:11 05/23/19 13:11 05/23/19 13:11 05/23/19 13:11 Discharge - Discharge Clinical Impression: Migraine Condition: Stable Disposition: HOME, SELF-CARE Instructions: Headache ([facility]) Prescriptions: Prochlorperazine Maleate [Compazine 10 mg Tablet] 10 mg PO TIDP PRN #30 tablet PRN Reason: Referrals: KRUPA WHITAKER MD [Primary Care Provider] - Follow up in 3-5 days
[2019-05-23 13:16] VITALS: BP 130/87
== END 2019-05-23 13:01 | disposition home or self-care (01) ==
LOC: ER 08:30
DX: O26.891 Other specified pregnancy related conditions, first trimester (principal); G43.909 Migraine, unspecified, not intractable, without status migrainosus; O21.9 Vomiting of pregnancy, unspecified; Z3A.23 23 weeks gestation of pregnancy; O16.2 Unspecified maternal hypertension, second trimester
CPT/HCPCS: 99283; 96361; 96374; 96375; J1200; J2270; J0780; J7030

== ENCOUNTER 2019-05-29 17:39 | Emergency (ER) | payer MEDICAID ==
[2019-05-29] MEDS ORDERED: MORPHINE SULFATE 10 MG/ML INJ IV ONE ×2 (18:09→21:15)
[2019-05-29] MEDS ORDERED: DIPHENHYDRAMINE HCL 50 MG/ML VIAL IV ONE ×2 (18:09→21:15)
[2019-05-29] MEDS ORDERED: ACETAMINOPHEN 325 MG TABLET PO ONE ×2 (18:09→21:15)
--- NOTE | 2019-05-29 18:09 | ER Document Report ---
ED Medical Screen (RME) - General Chief Complaint: Headache Stated Complaint: HEADACHE Time Seen by Provider: 05/29/19 18:05 Primary Care Provider: KRUPA WHITAKER MD [Primary Care Provider] - Follow up as needed TRAVEL OUTSIDE OF THE [place] IN LAST 30 DAYS: No - HPI Notes: 05/29/19 18:08 Patient is a 28-year-old female proximally 25 weeks who presents with recurrent migraine over the past few days which is complicated to treat due to her allergy list. She was given a small dose of morphine and Compazine on her last visit that was noted from her recent admission for this headache while . Patient states that when she took Compazine at home it made her hyperactive so her BIOLOGY MANAGER told her not to take Compazine anymore as it is similar to her Reglan allergy. No fever. I have treated and performed a rapid initial assessment of this patient. A comprehensive ED assessment and evaluation of the patient, analysis of test results and completion of medical decision making process will be conducted by additional ED providers. PHYSICAL EXAMINATION: GENERAL: Well-appearing, well-nourished and in no acute distress. A&Ox4. Answers questions appropriately. Neuro: Cranial nerves grossly intact, NIH 0, GCS 15. - Related Data Allergies/Adverse Reactions: butalbital [From Fioricet] Allergy (Verified 05/18/19 14:34) Chest tightening ceftriaxone [From Rocephin] Allergy (Verified 05/18/19 14:34) Red Man Syndrome codeine [Codeine] Allergy (Verified 05/18/19 12:07) Difficulty breathing haloperidol [From Haldol] Allergy (Verified 05/18/19 14:33) Anxiety, Increased Heart Rate haloperidol lactate [From Haldol] Allergy (Verified 05/18/19 14:32) Anxiety, Increased Heart Rate magnesium sulfate [Magnesium Sulfate] Allergy (Verified 05/18/19 14:31) Paralysis from chest down ondansetron [From Zofran] Allergy (Verified 05/18/19 14:29) Hives, Blisters prochlorperazine [From Compazine] Allergy (Verified 05/29/19 18:00) hydromorphone HCl [From Dilaudid] Adverse Reaction (Verified 05/18/19 12:07) Renal failure ketorolac tromethamine [From Toradol] Adverse Reaction (Verified 05/18/19 14:29) Difficulty breathing metoclopramide HCl [From Reglan] Adverse Reaction (Verified 05/18/19 14:35) Anxiety, Increased Blood Pressure, Hives tramadol [Tramadol] Adverse Reaction (Verified 05/18/19 14:26) Swelling of Throat Past Medical History - Social History Frequency of alcohol use: None Drug Abuse: None - Past Medical History Cardiac Medical History: Reports: Hx Hypertension - PRECLAMPSIA Denies: Hx Coronary Artery Disease, Hx Heart Attack Pulmonary Medical History: Reports: Hx Bronchitis Denies: Hx Asthma, Hx COPD, Hx Pneumonia, Hx Tuberculosis Neurological Medical History: Reports: Hx Migraine, 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 Denies: Hx Cerebrovascular Accident Renal/ Medical History: Reports: Hx Kidney Stones, Hx Renal Insufficiency. Denies: Hx Peritoneal Dialysis GI Medical History: Reports: Hx Crohn's Disease, Hx Irritable Bowel, Hx Colonoscopy, Hx Endoscopy. Denies: Hx Ulcer Musculoskeltal Medical History: Reports Hx Arthritis, Reports Hx Musculoskeletal Trauma Traumatic Medical History: Reports: Hx Fractures - Feet wrist and fingers Past Surgical History: Reports: Hx Cholecystectomy, Hx Dilation and Curettage - x2, Hx Gynecologic Surgery - D&C x's2, Hx Kidney (Renal Surgery) - Lithotripsy, Hx Orthopedic Surgery - Foot surgery, Other - D&C x3 or maybe 4. Denies: Hx Hysterectomy, Hx Pacemaker - Immunizations Immunizations up to date: Yes Hx Diphtheria, Pertussis, Tetanus Vaccination: Yes - 2016 Physical Exam - Vital signs Vitals: Temp Pulse Resp BP Pulse Ox 98.0 F 110 H 18 132/86 H 98 05/29/19 17:56 05/29/19 17:56 05/29/19 17:56 05/29/19 17:56 05/29/19 17:56 Course - Vital Signs Vital signs: Temp Pulse Resp BP Pulse Ox 98.0 F 110 H 18 132/86 H 98 05/29/19 17:56 05/29/19 17:56 05/29/19 17:56 05/29/19 17:56 05/29/19 17:56 Doctor's Discharge - Discharge Referrals: KRUPA WHITAKER MD [Primary Care Provider] - Follow up as needed
[2019-05-29] MEDS ORDERED: NORMAL SALINE 1000 ML 1,000 ML IV ONE (18:10)
--- NOTE | 2019-05-29 20:31 | ER Document Report ---
ED Headache - General Chief Complaint: Headache Stated Complaint: HEADACHE Time Seen by Provider: 05/29/19 18:05 Primary Care Provider: KRUPA WHITAKER MD [Primary Care Provider] - Follow up as needed Notes: Patient is a 28-year-old female that comes to the emergency department for chief complaint of a migraine headache. She states she gets frequent migraines, always in the same place on the left side of the head radiating around the front with throbbing, photophobia, nausea, vomiting. She states she vomited 4 times today. She states she is 25 weeks , G6, P3. She states she was given Compazine for migraines at home but started getting extremely anxious with restless legs on it and was told by [employer] [facility] to quit taking it. She is also allergic to Reglan and Zofran. She takes Phenergan, vitamins, and baby aspirin at home because she has had preeclampsia in the past. She denies head injury, fever, abdominal pain, vaginal bleeding, or any other complaints at this time. TRAVEL OUTSIDE OF THE [place] IN LAST 30 DAYS: No - Related Data Allergies/Adverse Reactions: butalbital [From Fioricet] Allergy (Verified 05/18/19 14:34) Chest tightening ceftriaxone [From Rocephin] Allergy (Verified 05/18/19 14:34) Red Man Syndrome codeine [Codeine] Allergy (Verified 05/18/19 12:07) Difficulty breathing haloperidol [From Haldol] Allergy (Verified 05/18/19 14:33) Anxiety, Increased Heart Rate haloperidol lactate [From Haldol] Allergy (Verified 05/18/19 14:32) Anxiety, Increased Heart Rate magnesium sulfate [Magnesium Sulfate] Allergy (Verified 05/18/19 14:31) Paralysis from chest down ondansetron [From Zofran] Allergy (Verified 05/18/19 14:29) Hives, Blisters prochlorperazine [From Compazine] Allergy (Verified 05/29/19 18:00) hydromorphone HCl [From Dilaudid] Adverse Reaction (Verified 05/18/19 12:07) Renal failure ketorolac tromethamine [From Toradol] Adverse Reaction (Verified 05/18/19 14:29) Difficulty breathing metoclopramide HCl [From Reglan] Adverse Reaction (Verified 05/18/19 14:35) Anxiety, Increased Blood Pressure, Hives tramadol [Tramadol] Adverse Reaction (Verified 05/18/19 14:26) Swelling of Throat Past Medical History - General Information source: Patient - Social History Smoking Status: Never Smoker Frequency of alcohol use: None Drug Abuse: None Lives with: Family Family History: Reviewed & Not Pertinent, CAD, Hyperlipidemia, Hypertension, Malignancy, Other Patient has suicidal ideation: No Patient has homicidal ideation: No - Past Medical History Cardiac Medical History: Reports: Hx Hypertension - PRECLAMPSIA Denies: Hx Coronary Artery Disease, Hx Heart Attack Pulmonary Medical History: Reports: Hx Bronchitis Denies: Hx Asthma, Hx COPD, Hx Pneumonia, Hx Tuberculosis Neurological Medical History: Reports: Hx Migraine, 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 Denies: Hx Cerebrovascular Accident Renal/ Medical History: Reports: Hx Kidney Stones, Hx Renal Insufficiency. Denies: Hx Peritoneal Dialysis GI Medical History: Reports: Hx Crohn's Disease, Hx Irritable Bowel, Hx Colonoscopy, Hx Endoscopy. Denies: Hx Ulcer Musculoskeletal Medical History: Reports Hx Arthritis, Reports Hx Musculoskeletal Trauma Traumatic Medical History: Reports: Hx Fractures - Feet wrist and fingers Past Surgical History: Reports: Hx Cholecystectomy, Hx Dilation and Curettage - x2, Hx Gynecologic Surgery - D&C x's2, Hx Kidney (Renal Surgery) - Lithotripsy, Hx Orthopedic Surgery - Foot surgery, Other - D&C x3 or maybe 4. Denies: Hx Hysterectomy, Hx Pacemaker - Immunizations Immunizations up to date: Yes Hx Diphtheria, Pertussis, Tetanus Vaccination: Yes - 2016 Hx Pneumococcal Vaccination: 07/18/12 Review of Systems - Review of Systems Constitutional: No symptoms reported EENT: No symptoms reported Cardiovascular: No symptoms reported Respiratory: No symptoms reported Gastrointestinal: See HPI Genitourinary: No symptoms reported Female Genitourinary: No symptoms reported Musculoskeletal: No symptoms reported Skin: No symptoms reported Hematologic/Lymphatic: No symptoms reported Neurological/Psychological: See HPI Physical Exam - Vital signs Vitals: Temp Pulse Resp BP Pulse Ox 98.0 F 110 H 18 132/86 H 98 05/29/19 17:56 05/29/19 17:56 05/29/19 17:56 05/29/19 17:56 05/29/19 17:56 - Notes Notes: GENERAL: Alert, interacts well. No acute distress. HEAD: Normocephalic, atraumatic. EYES: Pupils equal, round, and reactive to light. Extraocular movements intact. ENT: Oral mucosa moist, tongue midline. Oropharynx unremarkable. Airway patent. NECK: Full range of motion. Supple. Trachea midline. LUNGS: Clear to auscultation bilaterally, no wheezes, rales, or rhonchi. No respiratory distress. HEART: Regular rate and rhythm. No murmur ABDOMEN: Soft, non-tender. Gravid abdomen. Bowel sounds present. GENITOURINARY: Deferred EXTREMITIES: Moves all 4 extremities spontaneously. No edema, normal radial and dorsalis pedis pulses bilaterally. No cyanosis. BACK: no cervical, thoracic, lumbar midline tenderness. No saddle anesthesia, normal distal neurovascular exam. Moves all extremities in full range of motion. NEUROLOGICAL: Alert and oriented x3. Normal speech. Cranial nerves II through XII grossly intact. PSYCH: Normal affect, normal mood. SKIN: Warm, dry, normal turgor. No rashes or lesions noted. Course - Re-evaluation Re-evalutation: Patient is well-appearing. She is complaining of a right-sided headache which is common for her. She has no injury, no fever, no nuchal rigidity, no neurological deficit, and no signs of distress. Blood pressure is borderline, patient is slightly been on 20 weeks but this would be very early for preeclampsia. Patient initially medicated, on reevaluation she states the headache almost went away but is starting to come back and is hurting worse now. As result work-up was initiated, this is generally unremarkable with unremarkable CBC and no leukocytosis, unremarkable chemistry, normal platelets, normal LFTs, no protein in the urine. Small amount of ketones in the urine and slightly low bicarbonate. Patient was given additional IV fluids. I did discuss imaging of the brain and even lumbar puncture because of her persistent headache, patient declined. After this and additional medication reevaluation patient no longer complaining of headache and states she is ready to go home. Based on her evaluation I do have a very low suspicion of intracranial hemorrhage, meningitis, and the presentation is not consistent with preeclampsia either. Discussed follow-up and return precautions. Stable at time of discharge. - Vital Signs Vital signs: Temp Pulse Resp BP Pulse Ox 98.3 F 97 17 133/84 H 100 05/30/19 04:23 05/30/19 04:23 05/30/19 04:23 05/30/19 04:23 05/30/19 04:23 - Laboratory Result Diagrams: 05/30/19 00:42 05/30/19 00:42 Laboratory results interpreted by me: 05/30/19 05/30/19 05/30/19 00:42 00:42 02:06 RBC 3.57 L Hgb 11.2 L Hct 32.2 L Seg Neutrophils % 78.3 H Carbon Dioxide 20 L BUN 3 L Creatinine 0.48 L Albumin 3.4 L Urine Ketones 20 H Ur Leukocyte Esterase TRACE H Discharge - Discharge Clinical Impression: Headache Qualifiers: Headache type: unspecified Headache chronicity pattern: acute headache Intractability: not intractable Qualified Code(s): R51 - Headache Condition: Stable Disposition: HOME, SELF-CARE Additional Instructions: Thank you things up and then when I get up with therapy is but thank you your evaluation laboratory work-up are reassuring. This appears to be migraine headache with tension component. Apply heat to your neck, massage the neck, lisa e Phenergan and if needed Benadryl along with Tylenol at home, follow-up with [employer] [facility] for additional management. Return for any concerning or worsening symptoms including uncontrolled vomiting, severe worsening headache, fever, or any other concerning or worsening symptoms. Referrals: KRUPA WHITAKER MD [Primary Care Provider] - Follow up as needed
[2019-05-29] MEDS ORDERED: PROMETHAZINE HCL INJ 25 MG/1 ML VIAL IM ONE (23:00)
[2019-05-30] MEDS ORDERED: NORMAL SALINE 1000 ML 1,000 ML IV ONE (00:13)
[2019-05-30 00:54] LABS: ABSOLUTE BASOPHILS # (AUTO) 0.1 10^3/uL (0.0-0.2); ABSOLUTE LYMPHOCYTES (AUTO) 1.4 10^3/uL (0.5-4.7); ABSOLUTE MONOCYTES (AUTO) 0.4 10^3/uL (0.1-1.4); BASOPHILS % (AUTO) 0.8 % (0-2); EOSINOPHILS % (AUTO) 0.5 % (0-6); HEMATOCRIT 32.2 % (36.0-47.0); HEMOGLOBIN 11.2 g/dL (12.0-15.5); MEAN CORPUSCULAR HEMOGLOBIN 31.3 pg (27.0-33.4); MEAN CORPUSCULAR HGB CONC 34.7 g/dL (32.0-36.0); MEAN CORPUSCULAR VOLUME 90 fl (80-97); MONOCYTES % (AUTO) 4.4 % (3-13); PLATELET COUNT 217 10^3/uL (150-450); RED BLOOD COUNT 3.57 10^6/uL (3.72-5.28); RED CELL DISTRIBUTION WIDTH 13.5 % (11.5-14.0); SEGMENTED NEUTROPHILS % (AUTO) 78.3 % (42-78); TOTAL CELLS COUNTED % (AUTO) 100 %; WHITE BLOOD COUNT 8.9 10^3/uL (4.0-10.5)
[2019-05-30 01:11] LABS: ALBUMIN 3.4 g/dL (3.5-5.0); ALKALINE PHOSPHATASE 68 U/L (38-126); ANION GAP 11 (5-19); ASPARTATE AMINO TRANSFERASE 16 U/L (14-36); BILIRUBIN,DIRECT 0.3 mg/dL (0.0-0.4); BILIRUBIN,TOTAL 0.3 mg/dL (0.2-1.3); BLOOD UREA NITROGEN 3 mg/dL (7-20); CALCIUM 8.6 mg/dL (8.4-10.2); CARBON DIOXIDE 20 mmol/L (22-30); CHLORIDE 107 mmol/L (98-107); GLUCOSE 97 mg/dL (75-110); POTASSIUM 3.9 mmol/L (3.6-5.0); TOTAL PROTEIN 6.5 g/dL (6.3-8.2)
[2019-05-30] MEDS: PROMETHAZINE HCL INJ 25 MG/1 ML VIAL IM ONE ×2 (01:22→04:19)
[2019-05-30] MEDS ORDERED: DIPHENHYDRAMINE HCL 50 MG/ML VIAL IV ONE (02:15)
[2019-05-30 03:03] LABS: APPEARANCE,URINE SLIGHTLY-CLOUDY; BILIRUBIN,URINE NEGATIVE (NEGATIVE); COLOR,URINE YELLOW; GLUCOSE, URINE NEGATIVE (NEGATIVE); KETONES,URINE 20 mg/dL (NEGATIVE); LEUKOCYTE ESTERASE,URINE TRACE (NEGATIVE); NITRITE,URINE NEGATIVE (NEGATIVE); PROTEIN,URINE NEGATIVE (NEGATIVE); URINE SPECIFIC GRAVITY 1.014; UROBILINOGEN,URINE NEGATIVE mg/dL (<2.0)
[2019-05-30] MEDS ORDERED: MORPHINE SULFATE 10 MG/ML INJ IV ONE (03:32)
[2019-05-30] MEDS ORDERED: PROMETHAZINE HCL INJ 25 MG/1 ML VIAL ONE (04:15)
[2019-05-30 04:24] VITALS: BP 133/84
== END 2019-05-30 04:23 | disposition home or self-care (01) ==
LOC: ER 17:39
DX: O26.892 Other specified pregnancy related conditions, second trimester (principal); R51 Headache; H53.149 Visual discomfort, unspecified; O21.2 Late vomiting of pregnancy; Z3A.25 25 weeks gestation of pregnancy
CPT/HCPCS: 96376; 99284; 96372; 96361; 96374; 96375; 36415; 85025; 80053; 81001; J3490; J1200 ×2; J2270 ×2; J2550 ×2; J7030 ×2

== ENCOUNTER 2019-06-30 09:32 | Emergency (ER) | payer MEDICAID ==
--- NOTE | 2019-06-30 10:29 | ER Document Report ---
ED Medical Screen (RME) - General Chief Complaint: Flank Pain Stated Complaint: FLANK PAIN Time Seen by Provider: 06/30/19 10:23 Primary Care Provider: KRUPA WHITAKER MD [Primary Care Provider] - Follow up as needed Mode of Arrival: Ambulatory Information source: Patient Notes: Patient presents complaining of left flank pain that started yesterday. Patient reports nausea and vomiting x3 episodes. Patient reports fever of 100.7 early this morning and took Tylenol. Patient does report hematuria. Patient has a history of kidney stones and suspects the same today. Patient is currently 29 weeks G6, P2 I have greeted and performed a rapid initial assessment of this patient. A comprehensive ED assessment and evaluation of the patient, analysis of test results and completion of the medical decision making process will be conducted by additional ED providers. TRAVEL OUTSIDE OF THE [place] IN LAST 30 DAYS: No - Related Data Allergies/Adverse Reactions: butalbital [From Fioricet] Allergy (Verified 05/18/19 14:34) Chest tightening ceftriaxone [From Rocephin] Allergy (Verified 05/18/19 14:34) Red Man Syndrome codeine [Codeine] Allergy (Verified 05/18/19 12:07) Difficulty breathing haloperidol [From Haldol] Allergy (Verified 05/18/19 14:33) Anxiety, Increased Heart Rate haloperidol lactate [From Haldol] Allergy (Verified 05/18/19 14:32) Anxiety, Increased Heart Rate magnesium sulfate [Magnesium Sulfate] Allergy (Verified 05/18/19 14:31) Paralysis from chest down ondansetron [From Zofran] Allergy (Verified 05/18/19 14:29) Hives, Blisters prochlorperazine [From Compazine] Allergy (Verified 05/29/19 18:00) hydromorphone HCl [From Dilaudid] Adverse Reaction (Verified 05/18/19 12:07) Renal failure ketorolac tromethamine [From Toradol] Adverse Reaction (Verified 05/18/19 14:29) Difficulty breathing metoclopramide HCl [From Reglan] Adverse Reaction (Verified 05/18/19 14:35) Anxiety, Increased Blood Pressure, Hives tramadol [Tramadol] Adverse Reaction (Verified 05/18/19 14:26) Swelling of Throat Home Medications: labetolol, Past Medical History - Social History Frequency of alcohol use: None Drug Abuse: None - Past Medical History Cardiac Medical History: Reports: Hx Hypertension - PRECLAMPSIA Denies: Hx Coronary Artery Disease, Hx Heart Attack Pulmonary Medical History: Reports: Hx Bronchitis Denies: Hx Asthma, Hx COPD, Hx Pneumonia, Hx Tuberculosis Neurological Medical History: Reports: Hx Migraine, 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 Denies: Hx Cerebrovascular Accident Renal/ Medical History: Reports: Hx Kidney Stones, Hx Renal Insufficiency. Denies: Hx Peritoneal Dialysis GI Medical History: Reports: Hx Crohn's Disease, Hx Irritable Bowel, Hx Colonoscopy, Hx Endoscopy. Denies: Hx Ulcer Musculoskeltal Medical History: Reports Hx Arthritis, Reports Hx Musculoskeletal Trauma Traumatic Medical History: Reports: Hx Fractures - Feet wrist and fingers Past Surgical History: Reports: Hx Cholecystectomy, Hx Dilation and Curettage - x2, Hx Gynecologic Surgery - D&C x's2, Hx Kidney (Renal Surgery) - Lithotripsy, Hx Orthopedic Surgery - Foot surgery, Other - D&C x3 or maybe 4. Denies: Hx Hysterectomy, Hx Pacemaker - Immunizations Immunizations up to date: Yes Hx Diphtheria, Pertussis, Tetanus Vaccination: Yes - 2016 Physical Exam - Vital signs Vitals: Temp Pulse Resp BP Pulse Ox 98.4 F 94 18 129/89 H 100 06/30/19 09:37 06/30/19 09:37 06/30/19 09:37 06/30/19 09:37 06/30/19 09:37 - Back Back: CVA tenderness - left Course - Vital Signs Vital signs: Temp Pulse Resp BP Pulse Ox 98.4 F 94 18 129/89 H 100 06/30/19 09:37 06/30/19 09:37 06/30/19 09:37 06/30/19 09:37 06/30/19 09:37 Doctor's Discharge - Discharge Referrals: KRUPA WHITAKER MD [Primary Care Provider] - Follow up as needed
[2019-06-30 11:17] LABS: ABSOLUTE LYMPHOCYTES (AUTO) 1.2 10^3/uL (0.5-4.7); ABSOLUTE MONOCYTES (AUTO) 0.4 10^3/uL (0.1-1.4); BASOPHILS % (AUTO) 0.6 % (0-2); EOSINOPHILS % (AUTO) 0.5 % (0-6); HEMATOCRIT 32.6 % (36.0-47.0); HEMOGLOBIN 11.5 g/dL (12.0-15.5); LYMPHOCYTES % (AUTO) 18.2 % (13-45); MEAN CORPUSCULAR HGB CONC 35.4 g/dL (32.0-36.0); MEAN CORPUSCULAR VOLUME 88 fl (80-97); MONOCYTES % (AUTO) 5.3 % (3-13); PLATELET COUNT 223 10^3/uL (150-450); RED BLOOD COUNT 3.73 10^6/uL (3.72-5.28); RED CELL DISTRIBUTION WIDTH 13.5 % (11.5-14.0); SEGMENTED NEUTROPHILS % (AUTO) 75.4 % (42-78); TOTAL CELLS COUNTED % (AUTO) 100 %; WHITE BLOOD COUNT 6.7 10^3/uL (4.0-10.5)
[2019-06-30 11:28] LABS: ALBUMIN 3.9 g/dL (3.5-5.0); ALKALINE PHOSPHATASE 97 U/L (38-126); ANION GAP 9 (5-19); ASPARTATE AMINO TRANSFERASE 16 U/L (14-36); BILIRUBIN,DIRECT 0.3 mg/dL (0.0-0.4); BILIRUBIN,TOTAL 0.5 mg/dL (0.2-1.3); BLOOD UREA NITROGEN 5 mg/dL (7-20); CALCIUM 9.5 mg/dL (8.4-10.2); CARBON DIOXIDE 23 mmol/L (22-30); CHLORIDE 104 mmol/L (98-107); GLUCOSE 82 mg/dL (75-110); POTASSIUM 3.9 mmol/L (3.6-5.0); TOTAL PROTEIN 7.3 g/dL (6.3-8.2)
--- NOTE | 2019-06-30 11:28 | RADIOLOGY REPORT (SQ) ---
EXAM DESCRIPTION: U/S RETROPERITON (RENAL/AORTA) COMPLETED DATE/TIME: 06/30/2019 11:14 am REASON FOR STUDY: L flank pain COMPARISON: 05/18/2019. TECHNIQUE: Dynamic and static grayscale images acquired of the kidneys and bladder and recorded on P ACS. Additional selected color Doppler and spectral images recorded. LIMITATIONS: None. FINDINGS: RIGHT KIDNEY: Normal size. Normal echogenicity. 2.5 cm cyst. No solid or suspicious masses. No hydronephrosis. Possible 1.0 x 1.4 cm calculus. LEFT KIDNEY: Normal size. Normal echogenicity. No solid or suspicious masses. No hydronephrosi s. Possible 5 mm calculus. BLADDER: No masses. OTHER FINDINGS: Intrauterine . heartbeat 139 beats per minute. IMPRESSION: POSSIBLE BILATERAL RENAL CALCULI. NO HYDRONEPHROSIS. COMMENT: The degree of renal pelvocalyceal dilation is correlated with the patient's current stage o f . TECHNICAL DOCUMENTATION: JOB ID: [id number] 2010 [employer]- All Rights Reserved Reading location - IP/workstation name: [email or web address]
[2019-06-30 11:32] LABS: APPEARANCE,URINE CLOUDY; BILIRUBIN,URINE NEGATIVE (NEGATIVE); COLOR,URINE YELLOW; GLUCOSE, URINE NEGATIVE (NEGATIVE); KETONES,URINE NEGATIVE (NEGATIVE); LEUKOCYTE ESTERASE,URINE SMALL (NEGATIVE); NITRITE,URINE NEGATIVE (NEGATIVE); PROTEIN,URINE NEGATIVE (NEGATIVE); URINE SPECIFIC GRAVITY 1.012; UROBILINOGEN,URINE NEGATIVE mg/dL (<2.0)
[2019-06-30] MEDS ORDERED: RINGERS SOLUTION,LACTATED 1,000 ML IV PRN (13:20)
[2019-06-30] MEDS ORDERED: FENTANYL CITRATE INJ/PF 100 MCG/2 ML AMPUL IV ONE ×2 (13:22→15:15)
[2019-06-30] MEDS ORDERED: PROMETHAZINE HCL INJ 25 MG/1 ML VIAL IV ONE (13:22)
[2019-06-30] MEDS ORDERED: DIPHENHYDRAMINE HCL 50 MG/ML VIAL IV ONE ×2 (13:22→15:16)
--- NOTE | 2019-06-30 13:28 | ER Document Report ---
ED General - General Chief Complaint: Flank Pain Stated Complaint: FLANK PAIN Time Seen by Provider: 06/30/19 10:23 Primary Care Provider: KRUPA WHITAKER MD [Primary Care Provider] - Follow up as needed RAHUL GILLESPIE MD [ACTIVE STAFF] - Follow up as needed Mode of Arrival: Ambulatory TRAVEL OUTSIDE OF THE [place] IN LAST 30 DAYS: No - HPI Patient complains to provider of: n,v,loose stool, abd pain Onset: This morning Onset/Duration: Gradual Severity: Moderate Pain Level: 2 Context: 28 year old G6 female is currently at 29 weeks gestation and is here with lower left quad abd pain and nuasea, vomiting and low grade temperature - 101 or so recently, not tremendously responsive to tylenol. Went to scheduled OB appt today and was referred here due to blood being noted in her urine. When I see her lab work is back and she is watching tv. She appears nontoxic. She tells me of a h/o Chrons disease in remission for about 8 months or so. Some blood in stool last week and some loose stool. - Related Data Allergies/Adverse Reactions: butalbital [From Fioricet] Allergy (Verified 05/18/19 14:34) Chest tightening ceftriaxone [From Rocephin] Allergy (Verified 05/18/19 14:34) Red Man Syndrome codeine [Codeine] Allergy (Verified 05/18/19 12:07) Difficulty breathing haloperidol [From Haldol] Allergy (Verified 05/18/19 14:33) Anxiety, Increased Heart Rate haloperidol lactate [From Haldol] Allergy (Verified 05/18/19 14:32) Anxiety, Increased Heart Rate magnesium sulfate [Magnesium Sulfate] Allergy (Verified 05/18/19 14:31) Paralysis from chest down ondansetron [From Zofran] Allergy (Verified 05/18/19 14:29) Hives, Blisters prochlorperazine [From Compazine] Allergy (Verified 05/29/19 18:00) hydromorphone HCl [From Dilaudid] Adverse Reaction (Verified 05/18/19 12:07) Renal failure ketorolac tromethamine [From Toradol] Adverse Reaction (Verified 05/18/19 14:29) Difficulty breathing metoclopramide HCl [From Reglan] Adverse Reaction (Verified 05/18/19 14:35) Anxiety, Increased Blood Pressure, Hives tramadol [Tramadol] Adverse Reaction (Verified 05/18/19 14:26) Swelling of Throat Home Medications: labetolol, Past Medical History - General Information source: Patient - Social History Smoking Status: Never Smoker Frequency of alcohol use: None Drug Abuse: None Family History: Reviewed & Not Pertinent, CAD, Hyperlipidemia, Hypertension, M alignancy, Other Patient has suicidal ideation: No Patient has homicidal ideation: No - Past Medical History Cardiac Medical History: Reports: Hx Hypertension - PRECLAMPSIA Denies: Hx Coronary Artery Disease, Hx Heart Attack Pulmonary Medical History: Reports: Hx Bronchitis Denies: Hx Asthma, Hx COPD, Hx Pneumonia, Hx Tuberculosis Neurological Medical History: Reports: Hx Migraine, 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 Denies: Hx Cerebrovascular Accident Renal/ Medical History: Reports: Hx Kidney Stones, Hx Renal Insufficiency. Denies: Hx Peritoneal Dialysis GI Medical History: Reports: Hx Crohn's Disease, Hx Irritable Bowel, Hx Colonoscopy, Hx Endoscopy. Denies: Hx Ulcer Musculoskeletal Medical History: Reports Hx Arthritis, Reports Hx Musculoskeletal Trauma Traumatic Medical History: Reports: Hx Fractures - Feet wrist and fingers Past Surgical History: Reports: Hx Cholecystectomy, Hx Dilation and Curettage - x2, Hx Gynecologic Surgery - D&C x's2, Hx Kidney (Renal Surgery) - Lithotripsy, Hx Orthopedic Surgery - Foot surgery, Other - D&C x3 or maybe 4. Denies: Hx Hysterectomy, Hx Pacemaker - Immunizations Immunizations up to date: Yes Hx Diphtheria, Pertussis, Tetanus Vaccination: Yes - 2016 Hx Pneumococcal Vaccination: 07/18/12 Review of Systems - Review of Systems Constitutional: Fever EENT: No symptoms reported Cardiovascular: No symptoms reported Respiratory: No symptoms reported Gastrointestinal: See HPI, Abdominal pain, Nausea, Vomiting, Poor appetite, Poor fluid intake Genitourinary: No symptoms reported Female Genitourinary: No symptoms reported Musculoskeletal: No symptoms reported Skin: No symptoms reported Hematologic/Lymphatic: No symptoms reported Neurological/Psychological: No symptoms reported Physical Exam - Vital signs Vitals: Temp Pulse Resp BP Pulse Ox 98.4 F 94 18 129/89 H 100 06/30/19 09:37 06/30/19 09:37 06/30/19 09:37 06/30/19 09:37 06/30/19 09:37 Interpretation: Normal - General General appearance: Appears well, Alert - HEENT Head: Normocephalic, Atraumatic Eyes: Normal Pupils: PERRL Ears: Normal Nasal: Normal Mucous membranes: Dry - Respiratory Respiratory status: No respiratory distress Chest status: Nontender Breath sounds: Normal Chest palpation: Normal - Cardiovascular Rhythm: Regular Heart sounds: Normal auscultation Murmur: No - Abdominal Inspection: Normal Distension: No distension Bowel sounds: Normal Tenderness: Tender - mild ttp llq Organomegaly: No organomegaly - Back Back: Normal, Nontender - Extremities General upper extremity: Normal inspection, Nontender, Normal color, Normal ROM, Normal temperature General lower extremity: Normal inspection, Nontender, Normal color, Normal ROM, Normal temperature, Normal weight bearing. No: Chapis's sign - Neurological Neuro grossly intact: Yes Cognition: Normal Orientation: AAOx4 Chai Coma Scale Eye Opening: Spontaneous Chai Coma Scale Verbal: Oriented [place] Coma Scale Motor: Obeys Commands Chai Coma Scale Total: 15 Speech: Normal Motor strength normal: LUE, RUE, LLE, RLE Sensory: Normal - Psychological Associated symptoms: Normal affect, Normal mood - Skin Skin Temperature: Warm Skin Moisture: Dry Skin Color: Normal Course - Re-evaluation Re-evalutation: 06/30/19 13:29 Differential includes flu - doubt with total absence of URI symptoms, UTI - UA argues against this, Pylo which UA also argues against. Also Chrons would be consideration as would enteritis. I have discussed with Dr. Gillespie. He agrees with treatment and is happy to see in consult. Pt is nontoxic here and understands to return here should fever redevelop or abdominal pain worsen. She knows to take the medicine she has - phenergan - for nausea and tylenol for fever and she is given Rx for medrol dose paty here. I have noted that the BP is up a bit but she is currently being treated for elevated bp in and feel she may safely followup regarding this. - Vital Signs Vital signs: Temp Pulse Resp BP Pulse Ox 98.4 F 94 18 129/89 H 100 06/30/19 09:37 06/30/19 09:37 06/30/19 09:37 06/30/19 09:37 06/30/19 09:37 - Laboratory Result Diagrams: 06/30/19 10:36 06/30/19 10:36 Laboratory results interpreted by me: 06/30/19 06/30/19 06/30/19 10:36 10:36 10:36 Hgb 11.5 L Hct 32.6 L Sodium 136.4 L BUN 5 L Ur Leukocyte Esterase SMALL H - Diagnostic Test Radiology reviewed: Reports reviewed Discharge - Discharge Clinical Impression: Nausea Acute Crohn's disease Qualifiers: Digestive disease complication type: unspecified complication Qualified Code(s): K50.919 - Crohn's disease, unspecified, with unspecified complications Condition: Good Disposition: HOME, SELF-CARE Instructions: Clear Liquid Diet ([facility]), Nausea or Vomiting, Nonspecific ([facility]), ([facility]), Vomiting ([facility]) Additional Instructions: See the GI doctor (Dr. Gillespie) in follow up. Rest. Keep your OB doctor follow up. Please return here for any problems or any concerns. Take the Rx as directed. Referrals: KRUPA WHITAKER MD [Primary Care Provider] - Follow up as needed RAHUL GILLESPIE MD [ACTIVE STAFF] - Follow up as needed
[2019-06-30] MEDS ORDERED: RINGERS SOLUTION,LACTATED 1,000 ML IV ONE (14:24)
[2019-06-30] MEDS ORDERED: RINGERS SOLUTION,LACTATED 500 ML IV ONE (14:30)
[2019-06-30 16:06] VITALS: BP 133/83
== END 2019-06-30 16:05 | disposition home or self-care (01) ==
LOC: ER 09:32
DX: O99.613 Diseases of the digestive system complicating pregnancy, third trimester (principal); K50.90 Crohn's disease, unspecified, without complications; O26.893 Other specified pregnancy related conditions, third trimester; R31.9 Hematuria, unspecified; R50.9 Fever, unspecified; R63.0 Anorexia; R19.4 Change in bowel habit; R10.32 Left lower quadrant pain; O21.2 Late vomiting of pregnancy; R10.814 Left lower quadrant abdominal tenderness; O14.93 Unspecified pre-eclampsia, third trimester; Z79.899 Other long term (current) drug therapy; Z3A.29 29 weeks gestation of pregnancy; Z88.6 Allergy status to analgesic agent; Z88.5 Allergy status to narcotic agent; Z88.1 Allergy status to other antibiotic agents; Z88.8 Allergy status to other drugs, medicaments and biological substances
CPT/HCPCS: 36415; 85025; 80053; 81001; 76770; J1200; J3010; J2550; J7120; 96361; 96374; 96375; 96376; 99284

== ENCOUNTER → 2019-07-20 | Outpatient (CLI) | payer MEDICAID ==
[2019-07-20 16:45] LABS: ABSOLUTE BASOPHILS # (AUTO) 0.1 10^3/uL (0.0-0.2); ABSOLUTE LYMPHOCYTES (AUTO) 1.4 10^3/uL (0.5-4.7); ABSOLUTE MONOCYTES (AUTO) 0.4 10^3/uL (0.1-1.4); ABSOLUTE NEUT (AUTO) 5.3 10^3/uL (1.7-8.2); EOSINOPHILS % (AUTO) 0.4 % (0-6); HEMATOCRIT 32.8 % (36.0-47.0); HEMOGLOBIN 11.2 g/dL (12.0-15.5); LYMPHOCYTES % (AUTO) 18.9 % (13-45); MEAN CORPUSCULAR HEMOGLOBIN 29.6 pg (27.0-33.4); MEAN CORPUSCULAR HGB CONC 34.2 g/dL (32.0-36.0); MEAN CORPUSCULAR VOLUME 87 fl (80-97); MONOCYTES % (AUTO) 6.1 % (3-13); PLATELET COUNT 253 10^3/uL (150-450); RED BLOOD COUNT 3.78 10^6/uL (3.72-5.28); RED CELL DISTRIBUTION WIDTH 14.1 % (11.5-14.0); SEGMENTED NEUTROPHILS % (AUTO) 73.6 % (42-78); TOTAL CELLS COUNTED % (AUTO) 100 %; WHITE BLOOD COUNT 7.2 10^3/uL (4.0-10.5)
[2019-07-20 17:05] LABS: ALKALINE PHOSPHATASE 128 U/L (38-126); ANION GAP 10 (5-19); ASPARTATE AMINO TRANSFERASE 17 U/L (14-36); BILIRUBIN,TOTAL 0.6 mg/dL (0.2-1.3); BLOOD UREA NITROGEN 3 mg/dL (7-20); CALCIUM 9.4 mg/dL (8.4-10.2); CARBON DIOXIDE 20 mmol/L (22-30); CHLORIDE 104 mmol/L (98-107); GLUCOSE 78 mg/dL (75-110); POTASSIUM 3.9 mmol/L (3.6-5.0); TOTAL PROTEIN 7.3 g/dL (6.3-8.2); URIC ACID 4.3 mg/dL (2.5-6.2)
== END ==
LOC: LC 14:25
PROVIDERS: ATTEND Obstetrics & Gynecology
PROC: 4A1HXCZ Monitoring of Products of Conception, Cardiac Rate, External Approach (ICD-10-PCS; principal; 2019-07-20)
DX: Z34.93 Encounter for supervision of normal pregnancy, unspecified, third trimester (principal); Z3A.36 36 weeks gestation of pregnancy
CPT/HCPCS: 59025; 80053; 83615; 84550; 85025

== ENCOUNTER 2019-08-07 15:46 | Outpatient (CLI) | payer MEDICAID ==
[2019-08-07] MEDS ORDERED: BUTALB/ACETAMINOPHEN/CAFFEINE 1 TAB EACH PO ONE (16:50)
[2019-08-07] MEDS ORDERED: PROMETHAZINE HCL 25 MG TABLET PO ONE (16:50)
[2019-08-07] MEDS ORDERED: ACETAMINOPHEN 325 MG TABLET ONE (16:57)
[2019-08-07] MEDS ORDERED: PROMETHAZINE HCL 25 MG TABLET ONE (16:57)
[2019-08-07 16:58] LABS: APPEARANCE,URINE CLOUDY; BILIRUBIN,URINE NEGATIVE (NEGATIVE); CALCIUM OXALATE CRYSTALS,URINE RARE /HPF; COLOR,URINE YELLOW; GLUCOSE, URINE NEGATIVE (NEGATIVE); KETONES,URINE NEGATIVE (NEGATIVE); LEUKOCYTE ESTERASE,URINE TRACE (NEGATIVE); NITRITE,URINE NEGATIVE (NEGATIVE); PROTEIN,URINE NEGATIVE (NEGATIVE); URINE SPECIFIC GRAVITY 1.016
[2019-08-07] MEDS ORDERED: ACETAMINOPHEN 325 MG TABLET PO ONE (16:58)
[2019-08-07 17:09] LABS: URINE AMPHETAMINES SCREEN NEGATIVE; URINE BARBITURATES SCREEN NEGATIVE; URINE BENZODIAZEPINES SCREEN NEGATIVE; URINE COCAINE SCREEN NEGATIVE; URINE MARIJUANA (THC) SCREEN NEGATIVE; URINE METHADONE SCREEN NEGATIVE; URINE PHENCYCLIDINE SCREEN NEGATIVE
[2019-08-07 17:14] LABS: UR PRO/CREAT RATIO RESULT 0.2 mg/mg (0.0-0.2); URINE CREATININE 120.7 mg/dL (16-327); URINE PROTEIN 21.1 mg/dL (<12)
[2019-08-07] MEDS ORDERED: PROMETHAZINE HCL INJ 25 MG/1 ML VIAL IV ONE (17:17)
[2019-08-07] MEDS ORDERED: PROMETHAZINE HCL INJ 25 MG/1 ML VIAL ONE (17:18)
[2019-08-07 17:20] LABS: ALBUMIN 3.5 g/dL (3.5-5.0); ALKALINE PHOSPHATASE 124 U/L (38-126); ANION GAP 6 (5-19); ASPARTATE AMINO TRANSFERASE 21 U/L (14-36); BILIRUBIN,DIRECT 0.1 mg/dL (0.0-0.4); BILIRUBIN,TOTAL 0.5 mg/dL (0.2-1.3); BLOOD UREA NITROGEN 6 mg/dL (7-20); CALCIUM 9.1 mg/dL (8.4-10.2); CARBON DIOXIDE 22 mmol/L (22-30); CHLORIDE 107 mmol/L (98-107); GLUCOSE 88 mg/dL (75-110); POTASSIUM 3.9 mmol/L (3.6-5.0); TOTAL PROTEIN 6.4 g/dL (6.3-8.2); URIC ACID 4.2 mg/dL (2.5-6.2)
[2019-08-07] MEDS ORDERED: RINGERS SOLUTION,LACTATED 1,000 ML IV ONE (17:20)
[2019-08-07 17:23] LABS: HEMATOCRIT 29.4 % (36.0-47.0); HEMOGLOBIN 10.1 g/dL (12.0-15.5); MEAN CORPUSCULAR HEMOGLOBIN 29.1 pg (27.0-33.4); MEAN CORPUSCULAR HGB CONC 34.4 g/dL (32.0-36.0); MEAN CORPUSCULAR VOLUME 85 fl (80-97); PLATELET COUNT 167 10^3/uL (150-450); RED BLOOD COUNT 3.48 10^6/uL (3.72-5.28); RED CELL DISTRIBUTION WIDTH 14.1 % (11.5-14.0); WHITE BLOOD COUNT 9.1 10^3/uL (4.0-10.5)
[2019-08-07] MEDS ORDERED: LABETALOL HCL 200 MG TABLET ONE (17:42)
[2019-08-07] MEDS ORDERED: LABETALOL HCL 200 MG TABLET PO ONE (17:47)
[2019-08-07] MEDS ORDERED: MORPHINE SULFATE 10 MG/ML INJ IV ONE (18:44)
[2019-08-07] MEDS ORDERED: DIPHENHYDRAMINE HCL 50 MG/ML VIAL IV ONE (18:44)
[2019-08-07] MEDS ORDERED: MORPHINE SULFATE 10 MG/ML INJ ONE (18:44)
[2019-08-07] MEDS ORDERED: DIPHENHYDRAMINE HCL 50 MG/ML VIAL ONE (18:45)
[2019-08-07] MEDS ORDERED: MEPERIDINE HCL/PF INJ 25 MG/1 ML DISP.SYRIN ONE (19:40)
[2019-08-07] MEDS ORDERED: MEPERIDINE HCL/PF INJ 25 MG/1 ML DISP.SYRIN IM ONE (19:42)
== END 2019-08-07 21:20 | disposition home or self-care (01) ==
LOC: LC 15:46
PROVIDERS: ATTEND Obstetrics & Gynecology
PROC: 4A1HXCZ Monitoring of Products of Conception, Cardiac Rate, External Approach (ICD-10-PCS; principal; 2019-08-07)
DX: O14.93 Unspecified pre-eclampsia, third trimester (principal); Z3A.34 34 weeks gestation of pregnancy
CPT/HCPCS: 36415; 83615; 84156; 84550; 82570; 85027; 80053; 81001; 80307; 59025; J3490 ×3; J1200; J2175; J2270; J2550; 94760

== ENCOUNTER 2019-08-08 12:50 | Outpatient (CLI) | payer MEDICAID ==
[2019-08-08] MEDS ORDERED: RINGERS SOLUTION,LACTATED 1,000 ML IV PRN (13:21)
[2019-08-08] MEDS ORDERED: PROMETHAZINE HCL INJ 25 MG/1 ML VIAL ONE (13:32)
[2019-08-08] MEDS ORDERED: ACETAMINOPHEN 325 MG TABLET ONE (13:32)
[2019-08-08] MEDS ORDERED: ACETAMINOPHEN 325 MG TABLET PO ONE (13:40)
[2019-08-08] MEDS ORDERED: PROMETHAZINE HCL INJ 25 MG/1 ML VIAL IV ONE (13:41)
--- NOTE | 2019-08-08 14:26 | PDOC TRANSFER SUMMARY ---
General Admission Date/PCP: KRUPA WHITAKER MD - Transfer Diagnosis (1) Chronic hypertension affecting Is this a current diagnosis for this admission?: Yes - Transfer Medications Home Medications: Sza083/Iron/Folic/Dha [ Formula-Dha Softgel] 1 each PO DAILY 02/03/19 Aspirin [Aspirin 81 mg Chewable Tablet] 81 mg PO DAILY 05/18/19 Labetalol HCl 100 mg PO BID 07/20/19 Transfer Medications: Current Medications Lactated Ringer's (Lactated Ringers 1000 Ml Iv Soln) 1,000 mls @ 125 mls/hr IV CONTINUOUS PRN PRN Reason: THIS MED IS NOT "PRN" Stop: 09/07/19 13:20 - Allergies Allergies/Adverse Reactions: butalbital [From Fioricet] Allergy (Verified 08/08/19 12:58) Chest tightening ceftriaxone [From Rocephin] Allergy (Verified 08/08/19 12:58) Red Man Syndrome codeine [Codeine] Allergy (Verified 08/08/19 12:58) Difficulty breathing haloperidol [From Haldol] Allergy (Verified 08/08/19 12:58) Anxiety, Increased Heart Rate haloperidol lactate [From Haldol] Allergy (Verified 08/08/19 12:58) Anxiety, Increased Heart Rate magnesium sulfate [Magnesium Sulfate] Allergy (Verified 08/08/19 12:58) Paralysis from chest down ondansetron [From Zofran] Allergy (Verified 08/08/19 12:58) Hives, Blisters prochlorperazine [From Compazine] Allergy (Verified 08/08/19 12:58) hydromorphone HCl [From Dilaudid] Adverse Reaction (Verified 08/08/19 12:58) Renal failure ketorolac tromethamine [From Toradol] Adverse Reaction (Verified 08/08/19 12:58) Difficulty breathing metoclopramide HCl [From Reglan] Adverse Reaction (Verified 08/08/19 12:58) Anxiety, Increased Blood Pressure, Hives tramadol [Tramadol] Adverse Reaction (Verified 08/08/19 12:58) Swelling of Throat Hospital Course Hospital Course: c/o heasdache and RUQ pain with blurred vision Physical Exam Vital Signs: Intake & Output 08/07/19 08/08/19 08/09/19 06:59 06:59 06:59 Weight 74.2 kg General appearance: PRESENT: no acute distress Respiratory exam: PRESENT: clear to auscultation rosey Cardiovascular exam: PRESENT: RRR Plan Discharge Plan: pt is being transferred to [facility] because our NICU is full and pt may have superimposed pre-eclampsia, Dr. Sandoval is accepting physician Time Spent: Greater than 30 Minutes
[2019-08-08] MEDS ORDERED: PENICILLIN G-K 5 MILLION UNIT VIAL ONE (14:29)
[2019-08-08] MEDS ORDERED: BETAMET ACET/BETAMET NA INJ 6 MG/1 ML ONE (14:31)
[2019-08-08] MEDS ORDERED: BETAMET ACET/BETAMET NA INJ 6 MG/1 ML IM ONE (14:42)
[2019-08-08] MEDS ORDERED: PENICILLIN G POTASSIUM 5,000,000 UNIT in DEXTROSE 5%-WATER 100 ML IV SCH (15:00)
--- NOTE | 2019-08-08 16:34 | Non Stress Test Report ---
Non Stress Test Datetime Report Generated by CPN: 08/08/2019 16:34 DEMOGRAPHIC Test Number: 3 EGA NST: 35.1 EGA NST: 35.0 EGA NST: 32.3 INDICATION Indication for Study (NST) Other: IUP at 35.1 CHTN Indication for Study (NST) Other: non-reactive NST Indication for Study (NST) Other: repeat NST VITAL SIGNS Temperature - NST: 98.3 Temperature - NST: 98.7 Pulse - NST: 94 Pulse - NST: 67 RESP - NST: 20 RESP - NST: 18 NBPSYS NST: 134 NBPSYS NST: 118 NBPDIA NST: 84 NBPDIA NST: 81 URINE RESULTS Urine Protein, NST: Positive Urine Blood - NST: Positive MONITORING Monitor Explained: Monitor Explained; Test Explained; Patient Verbalized Understanding Monitor Explained: Monitor Explained; Test Explained; Patient Verbalized Understanding; Other Monitor Explained: Monitor Explained; Test Explained; Patient Verbalized Understanding Time on Monitor: 08/08/2019 15:03 Time on Monitor: 08/07/2019 16:05 Time on Monitor: 07/20/2019 14:34 Time off Monitor: 08/08/2019 16:00 Time off Monitor: 08/07/2019 16:27 Time off Monitor: 07/20/2019 17:22 NST Duration: 57 NST Duration: 22 NST Duration: 168 NST INTERVENTIONS NST Interventions: IV Fluids NST Interventions: PO Hydration; Reposition Patient NST Interventions: None Physician Notified NST: Dr. Mortensen Physician Notified NST: Wilver Serna CNM Physician Notified NST: Patrick Foley CNM BABY A: [id number] BABY A Movement : Present Movement : Present Movement : Present Contraction Frequency : None Contraction Frequency : 0 Contraction Frequency : 0 FHR Baseline : 145 FHR Baseline : 145 FHR Baseline : 140 Accelerations : 15X15 Accelerations : 15X15 Accelerations : 15X15 Decelerations : None Decelerations : None Decelerations : None Variability : Minimal - Undetectable to <=5bpm Variability : Moderate 6-25bpm Variability : Moderate 6-25bpm NST Review: Meets Criteria for Reactive NST NST Review: Meets Criteria for Reactive NST NST Review: Meets Criteria for Reactive NST NST Review and Verified By : Jeremy Sultana RN NST Review and Verified By : Elvira Mobley RN NST Results: Reactive NST Results: Reactive NST Results: Reactive NST REPORT Report Trigger: Send Report
== END 2019-08-08 16:20 | disposition short-term general hospital (02) ==
LOC: LC 12:50
PROVIDERS: ATTEND Obstetrics & Gynecology Gynecology
PROC: 4A1HXCZ Monitoring of Products of Conception, Cardiac Rate, External Approach (ICD-10-PCS; principal; 2019-08-08)
DX: O14.93 Unspecified pre-eclampsia, third trimester (principal); Z3A.35 35 weeks gestation of pregnancy
CPT/HCPCS: 59025; J2540; J0702; J2550; 94760

== ENCOUNTER 2019-10-25 07:43 | Emergency (ER) | payer MEDICAID ==
[2019-10-25] MEDS ORDERED: NORMAL SALINE 1000 ML 1,000 ML IV ONE (08:14)
--- NOTE | 2019-10-25 08:16 | ER Document Report ---
ED GI/ - General Chief Complaint: Flank Pain Stated Complaint: FLANK PAIN Time Seen by Provider: 10/25/19 08:05 Primary Care Provider: [facility] [Provider Group] - Follow up in 3-5 days (Call for outpatient follow-up appointment.) MANPREET LUIS PA-C [Primary Care Provider] - Follow up as needed Mode of Arrival: Ambulatory Information source: Patient Notes: 29-year-old female past medical history significant for kidney stones, Crohn's disease, migraines presents to the emergency room complaining of constant sharp spasming pain to her right flank area for the past 2 days. Complains of nausea with vomiting. Decreased urinary output. Has been taking Tylenol without relief. No medications today. TRAVEL OUTSIDE OF THE [place] IN LAST 30 DAYS: No - Related Data Allergies/Adverse Reactions: butalbital [From Fioricet] Allergy (Verified 10/25/19 08:13) Chest tightening ceftriaxone [From Rocephin] Allergy (Verified 10/25/19 08:13) Red Man Syndrome codeine [Codeine] Allergy (Verified 10/25/19 08:13) Difficulty breathing haloperidol [From Haldol] Allergy (Verified 10/25/19 08:13) Anxiety, Increased Heart Rate haloperidol lactate [From Haldol] Allergy (Verified 10/25/19 08:13) Anxiety, Increased Heart Rate magnesium sulfate [Magnesium Sulfate] Allergy (Verified 10/25/19 08:13) Paralysis from chest down ondansetron [From Zofran] Allergy (Verified 10/25/19 08:13) Hives, Blisters prochlorperazine [From Compazine] Allergy (Verified 10/25/19 08:13) hydromorphone HCl [From Dilaudid] Adverse Reaction (Verified 10/25/19 08:13) Renal failure ketorolac tromethamine [From Toradol] Adverse Reaction (Verified 10/25/19 08:13) Difficulty breathing metoclopramide HCl [From Reglan] Adverse Reaction (Verified 10/25/19 08:13) Anxiety, Increased Blood Pressure, Hives tramadol [Tramadol] Adverse Reaction (Verified 10/25/19 08:13) Swelling of Throat Past Medical History - General Information source: Patient - Social History Smoking Status: Current Every Day Smoker Frequency of alcohol use: None Drug Abuse: None Family History: Reviewed & Not Pertinent, CAD, Hyperlipidemia, Hypertension, Mal ignancy, Other Patient has homicidal ideation: No - Past Medical History Cardiac Medical History: Reports: Hx Hypertension - PRECLAMPSIA Denies: Hx Coronary Artery Disease, Hx Heart Attack Pulmonary Medical History: Reports: Hx Bronchitis Denies: Hx Asthma, Hx COPD, Hx Pneumonia, Hx Tuberculosis Neurological Medical History: Reports: Hx Migraine, 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 Denies: Hx Cerebrovascular Accident Renal/ Medical History: Reports: Hx Kidney Stones, Hx Renal Insufficiency. Denies: Hx Peritoneal Dialysis GI Medical History: Reports: Hx Crohn's Disease, Hx Irritable Bowel, Hx Colonoscopy, Hx Endoscopy. Denies: Hx Ulcer Musculoskeletal Medical History: Reports Hx Arthritis, Reports Hx Musculoskeletal Trauma Traumatic Medical History: Reports: Hx Fractures - Feet wrist and fingers Past Surgical History: Reports: Hx Cholecystectomy, Hx Dilation and Curettage - x2, Hx Gynecologic Surgery - D&C x's2, Hx Kidney (Renal Surgery) - Lithotripsy, Hx Orthopedic Surgery - Foot surgery, Other - D&C x3 or maybe 4. Denies: Hx Hy sterectomy, Hx Pacemaker - Immunizations Immunizations up to date: Yes Hx Diphtheria, Pertussis, Tetanus Vaccination: Yes - 2016 Hx Pneumococcal Vaccination: 07/18/12 Review of Systems - Review of Systems Constitutional: No symptoms reported Cardiovascular: No symptoms reported Respiratory: No symptoms reported Gastrointestinal: Nausea, Vomiting Genitourinary: Flank pain, Retention Skin: No symptoms reported Neurological/Psychological: No symptoms reported -: Yes All other systems reviewed and negative Physical Exam - Vital signs Vitals: Temp Pulse Resp BP Pulse Ox 98.4 F 85 18 136/98 H 100 10/25/19 07:46 10/25/19 07:46 10/25/19 07:46 10/25/19 07:46 10/25/19 07:46 - General General appearance: Appears well, Alert In distress: Mild - Respiratory Respiratory status: No respiratory distress Chest status: Nontender Breath sounds: Normal Chest palpation: Normal - Cardiovascular Rhythm: Regular Heart sounds: Normal auscultation Murmur: No - Abdominal Inspection: Normal Distension: No distension Bowel sounds: Normal Tenderness: Nontender Organomegaly: No organomegaly - Back Back: CVA tenderness - Right side. No: Vertebra tenderness - Extremities General upper extremity: Normal inspection, Nontender, Normal color, Normal ROM, Normal temperature General lower extremity: Normal inspection, Nontender, Normal color, Normal ROM, Normal temperature, Normal weight bearing. No: Chapis's sign - Neurological Neuro grossly intact: Yes Cognition: Normal Orientation: AAOx4 [place] Coma Scale Eye Opening: Spontaneous [place] Coma Scale Verbal: Oriented [place] Coma Scale Motor: Obeys Commands Chai Coma Scale Total: 15 Speech: Normal Motor strength normal: LUE, RUE, LLE, RLE Sensory: Normal - Skin Skin Temperature: Warm Skin Moisture: Dry Skin Color: Normal Course - Re-evaluation Re-evalutation: 10/25/19 10:02 Patient is resting comfortably she has been ambulatory to the bathroom without difficulty. Reviewed all test results with patient. Counseled to follow-up with her urologist this week. Push fluids. Medications as prescribed. Patient was given strict return to the emergency room guidelines. Return for any new or worsening symptoms. All questions were answered. Patient verbalized understanding and agrees with plan of care. Presents with findings consistent with acute nephrolithiasis. Urinalysis does show hematuria. Laboratory otherwise unremarkable. Pain was able to be controlled here in the emergency department. Patient is tolerating oral intake. Clinical history is not consistent with an acute abdominal aneurysm or dissection, SC, or pulmonary embolus. Urinalysis does not show findings consistent with an infected stone. Vitals have remained within normal limits. Patient will be discharged with recommendations to follow-up with urology, and return precautions. They are in agreement with this plan and verbalized indications return to emergency department. - Vital Signs Vital signs: Temp Pulse Resp BP Pulse Ox 98.2 F 72 18 166/103 H 100 10/25/19 10:39 10/25/19 10:39 10/25/19 10:39 10/25/19 10:39 10/25/19 10:39 - Laboratory Result Diagrams: 10/25/19 08:25 10/25/19 08:25 Laboratory results interpreted by me: 10/25/19 10/25/19 10/25/19 08:25 08:25 08:37 RDW 16.8 H Total Protein 8.3 H Ur Leukocyte Esterase LARGE H - Diagnostic Test Radiology reviewed: Reports reviewed Discharge - Discharge Clinical Impression: Kidney stone on right side Condition: Stable Disposition: HOME, SELF-CARE Instructions: Kidney Stone ([facility]) Additional Instructions: Your symptoms should improve over the course of the next one week. If you continue to have pain for greater than one week or your pain is not controlled with the medications that you have been sent home with you need to return to the emergency department. Please also return if you develop fever, persistent vomiting, or any other symptoms that are concerning to you. You should take Tylenol every 6 hours as needed for pain.. You are also been sent home with a medication called Flomax to help pass the stone. You've been given Zofran to assist with nausea. Please follow-up with urology in the next 2-3 days. Prescriptions: Tamsulosin HCl [Flomax 0.4 mg Cap.sr] 0.4 mg PO DAILY #7 cap.sr.24h Oxycodone HCl/Acetaminophen [Percocet 5-325 mg Tablet] 1 tab PO Q4H PRN #12 tablet PRN Reason: Referrals: MANPREET LUIS PA-C [Primary Care Provider] - Follow up as needed [facility] [Provider Group] - Follow up in 3-5 days (Call for outpatient follow-up appointment.)
[2019-10-25] MEDS ORDERED: PROMETHAZINE HCL INJ 25 MG/1 ML VIAL IV ONE (08:26)
[2019-10-25 08:39] LABS: ABSOLUTE EOSINOPHILS # (AUTO) 0.1 10^3/uL (0.0-0.6); ABSOLUTE LYMPHOCYTES (AUTO) 1.4 10^3/uL (0.5-4.7); ABSOLUTE MONOCYTES (AUTO) 0.3 10^3/uL (0.1-1.4); ABSOLUTE NEUT (AUTO) 3.3 10^3/uL (1.7-8.2); BASOPHILS % (AUTO) 0.8 % (0-2); EOSINOPHILS % (AUTO) 1.9 % (0-6); HEMATOCRIT 42.5 % (36.0-47.0); HEMOGLOBIN 14.6 g/dL (12.0-15.5); LYMPHOCYTES % (AUTO) 27.9 % (13-45); MEAN CORPUSCULAR HGB CONC 34.2 g/dL (32.0-36.0); MEAN CORPUSCULAR VOLUME 88 fl (80-97); MONOCYTES % (AUTO) 5.6 % (3-13); PLATELET COUNT 241 10^3/uL (150-450); RED BLOOD COUNT 4.85 10^6/uL (3.72-5.28); RED CELL DISTRIBUTION WIDTH 16.8 % (11.5-14.0); SEGMENTED NEUTROPHILS % (AUTO) 63.8 % (42-78); TOTAL CELLS COUNTED % (AUTO) 100 %; WHITE BLOOD COUNT 5.1 10^3/uL (4.0-10.5)
[2019-10-25 08:53] LABS: ALKALINE PHOSPHATASE 70 U/L (38-126); ANION GAP 9 (5-19); ASPARTATE AMINO TRANSFERASE 21 U/L (14-36); BILIRUBIN,TOTAL 0.3 mg/dL (0.2-1.3); BLOOD UREA NITROGEN 12 mg/dL (7-20); CALCIUM 9.9 mg/dL (8.4-10.2); CARBON DIOXIDE 23 mmol/L (22-30); CHLORIDE 107 mmol/L (98-107); GLUCOSE 93 mg/dL (75-110); POTASSIUM 4.8 mmol/L (3.6-5.0); TOTAL PROTEIN 8.3 g/dL (6.3-8.2)
[2019-10-25 08:56] LABS: APPEARANCE,URINE SLIGHTLY-CLOUDY; BILIRUBIN,URINE NEGATIVE (NEGATIVE); COLOR,URINE YELLOW; GLUCOSE, URINE NEGATIVE (NEGATIVE); KETONES,URINE NEGATIVE (NEGATIVE); LEUKOCYTE ESTERASE,URINE LARGE (NEGATIVE); NITRITE,URINE NEGATIVE (NEGATIVE); PROTEIN,URINE NEGATIVE (NEGATIVE); URINE SPECIFIC GRAVITY 1.009; UROBILINOGEN,URINE NEGATIVE mg/dL (<2.0)
[2019-10-25] MEDS ORDERED: MORPHINE SULFATE 10 MG/ML INJ IV ONE ×2 (08:56→10:01)
--- NOTE | 2019-10-25 09:46 | RADIOLOGY REPORT (SQ) ---
EXAM DESCRIPTION: CT ABD/PELVIS NO ORAL OR IV IMAGES COMPLETED DATE/TIME: 10/25/2019 9:15 am REASON FOR STUDY: right flank pain COMPARISON: 12/30/2018 TECHNIQUE: CT scan of the abdomen and pelvis performed without intravenous or oral contrast. Images reviewed with lung, soft tissue, and bone windows. Reconstructed coronal and sagittal MPR images revi ewed. All images stored on PACS. All CT scanners at this facility use dose modulation, iterative reconstruction, and/or weight based d osing when appropriate to reduce radiation dose to as low as reasonably achievable (ALARA). [facility]: Dose Right [facility]: CareDose [facility]: Dose Right [facility]: Teradose 4D [facility]: Smart [employer] RADIATION DOSE: CT Rad equipment meets quality standard of care and radiation dose reduction techniq ues were employed. CTDIvol: 6.4 mGy. DLP: 351 mGy-cm.mGy. LIMITATIONS: None. FINDINGS: LOWER CHEST: No significant findings. No nodules or infiltrates. NON-CONTRASTED LIVER, SPLEEN, ADRENALS: Evaluation limited by lack of IV contrast. No identified sign ificant masses. PANCREAS: No masses. No peripancreatic inflammatory changes. GALLBLADDER: Surgically absent. RIGHT KIDNEY AND URETER: No suspicious masses. Assessment limited by lack of IV contrast. 1 mm ston e in the proximal right ureter image 46. Several slightly larger renal calculi. Mild hydronephrosi s. LEFT KIDNEY AND URETER: No suspicious masses. Assessment limited by lack of IV contrast. Stable sma ll renal calculi. No hydronephrosis or hydroureter. AORTA AND RETROPERITONEUM: No aneurysm. No retroperitoneal masses or adenopathy. BOWEL AND PERITONEAL CAVITY: No obvious masses or inflammatory changes. No free fluid. APPENDIX: Not visualized. PELVIS, BLADDER, AND ABDOMINAL WALL:No abnormal masses. No free fluid. Bladder normal. BONES: No significant findings. OTHER: No other significant finding. IMPRESSION: 1 mm stone proximal right ureter. Mild hydronephrosis. COMMENT: Quality ID # [id number]: Final reports with documentation of one or more dose reduction techniques (e.g., Automated exposure control, adjustment of the mA and/or kV according to patient size, use of iterative reconstruction technique) TECHNICAL DOCUMENTATION: JOB ID: [id number] 2010 [employer]- All Rights Reserved Reading location - IP[facility]workstation name: [email or web address]
[2019-10-25 10:40] VITALS: BP 166/103
== END 2019-10-25 11:18 | disposition home or self-care (01) ==
LOC: ER 07:43
DX: N20.0 Calculus of kidney (principal); R31.9 Hematuria, unspecified; R10.9 Unspecified abdominal pain; R11.2 Nausea with vomiting, unspecified; Z88.8 Allergy status to other drugs, medicaments and biological substances; F17.200 Nicotine dependence, unspecified, uncomplicated; I10 Essential (primary) hypertension
CPT/HCPCS: 96376; 99284; 96361; 96374; 96375; 36415; 83690; 84703; 85025; 80053; 81001; 74176; J2270; J2550; J7030

== ENCOUNTER 2019-11-27 20:10 | Emergency (ER) | payer MEDICAID ==
[2019-11-27] MEDS ORDERED: RINGERS SOLUTION,LACTATED 1,000 ML IV ONE (21:20)
--- NOTE | 2019-11-27 21:22 | ER Document Report ---
ED Medical Screen (RME) - General Chief Complaint: Flank Pain Stated Complaint: RIGHT FLANK PAIN, NAUSEA, VOMITING Time Seen by Provider: 11/27/19 21:15 Primary Care Provider: MANPREET LUIS PA-C [Primary Care Provider] - Follow up as needed Mode of Arrival: Ambulatory Information source: Patient Notes: HPI29;-year-old female presents emergency room complaining of right flank with nausea and vomiting for the past 2 days. States she tried drinking increased fluids and now has had decreased urinary output today. Noticed hematuria today. History of kidney stones. Taking Tylenol without relief. PE: Alert and oriented x3. Mild distress noted. Lungs: Clear to auscultation without rales, rhonchi, wheezes. Heart: Regular rate rhythm without murmurs, rubs, gallops. Positive right CVA tenderness. Negative left CVA tenderness. I have greeted and performed a rapid initial assessment of this patient. A comprehensive ED assessment and evaluation of the patient, analysis of test results and completion of the medical decision making process will be conducted by additional ED providers. I have specifically instructed the patient or family members with the patient to immediately return to any nursing staff should anything change in the patient's condition or with their chief complaint. TRAVEL OUTSIDE OF THE [place] IN LAST 30 DAYS: No - Related Data Allergies/Adverse Reactions: butalbital [From Fioricet] Allergy (Verified 10/25/19 08:13) Chest tightening ceftriaxone [From Rocephin] Allergy (Verified 10/25/19 08:13) Red Man Syndrome codeine [Codeine] Allergy (Verified 10/25/19 08:13) Difficulty breathing haloperidol [From Haldol] Allergy (Verified 10/25/19 08:13) Anxiety, Increased Heart Rate haloperidol lactate [From Haldol] Allergy (Verified 10/25/19 08:13) Anxiety, Increased Heart Rate magnesium sulfate [Magnesium Sulfate] Allergy (Verified 10/25/19 08:13) Paralysis from chest down ondansetron [From Zofran] Allergy (Verified 10/25/19 08:13) Hives, Blisters prochlorperazine [From Compazine] Allergy (Verified 10/25/19 08:13) hydromorphone HCl [From Dilaudid] Adverse Reaction (Verified 10/25/19 08:13) Renal failure ketorolac tromethamine [From Toradol] Adverse Reaction (Verified 10/25/19 08:13) Difficulty breathing metoclopramide HCl [From Reglan] Adverse Reaction (Verified 10/25/19 08:13) Anxiety, Increased Blood Pressure, Hives tramadol [Tramadol] Adverse Reaction (Verified 10/25/19 08:13) Swelling of Throat Past Medical History - Past Medical History Cardiac Medical History: Reports: Hx Hypertension - PRECLAMPSIA Denies: Hx Coronary Artery Disease, Hx Heart Attack Pulmonary Medical History: Reports: Hx Bronchitis Denies: Hx Asthma, Hx COPD, Hx Pneumonia, Hx Tuberculosis Neurological Medical History: Reports: Hx Migraine, 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 Denies: Hx Cerebrovascular Accident Renal/ Medical History: Reports: Hx Kidney Stones, Hx Renal Insufficiency. Denies: Hx Peritoneal Dialysis GI Medical History: Reports: Hx Crohn's Disease, Hx Irritable Bowel, Hx Colonoscopy, Hx Endoscopy. Denies: Hx Ulcer Musculoskeltal Medical History: Reports Hx Arthritis, Reports Hx Musculoskeletal Trauma Traumatic Medical History: Reports: Hx Fractures - Feet wrist and fingers Past Surgical History: Reports: Hx Cholecystectomy, Hx Dilation and Curettage - x2, Hx Gynecologic Surgery - D&C x's2, Hx Kidney (Renal Surgery) - Lithotripsy, Hx Orthopedic Surgery - Foot surgery, Other - D&C x3 or maybe 4. Denies: Hx Hysterectomy, Hx Pacemaker - Immunizations Immunizations up to date: Yes Hx Diphtheria, Pertussis, Tetanus Vaccination: Yes - 2016 Physical Exam - Vital signs Vitals: Temp Pulse Resp BP Pulse Ox 99.1 F 88 18 143/103 H 99 11/27/19 21:10 11/27/19 21:10 11/27/19 21:10 11/27/19 21:10 11/27/19 21:10 Course - Vital Signs Vital signs: Temp Pulse Resp BP Pulse Ox 99.1 F 88 18 143/103 H 99 11/27/19 21:10 11/27/19 21:10 11/27/19 21:10 11/27/19 21:10 11/27/19 21:10 Doctor's Discharge - Discharge Referrals: MANPREET LUIS PA-C [Primary Care Provider] - Follow up as needed
[2019-11-27 22:22] LABS: APPEARANCE,URINE SLIGHTLY-CLOUDY; BILIRUBIN,URINE NEGATIVE (NEGATIVE); COLOR,URINE YELLOW; GLUCOSE, URINE NEGATIVE (NEGATIVE); KETONES,URINE NEGATIVE (NEGATIVE); LEUKOCYTE ESTERASE,URINE MODERATE (NEGATIVE); NITRITE,URINE NEGATIVE (NEGATIVE); PROTEIN,URINE NEGATIVE (NEGATIVE); URINE SPECIFIC GRAVITY 1.015; UROBILINOGEN,URINE NEGATIVE mg/dL (<2.0)
[2019-11-27 22:34] LABS: ALBUMIN 4.9 g/dL (3.5-5.0); ALKALINE PHOSPHATASE 61 U/L (38-126); ANION GAP 8 (5-19); ASPARTATE AMINO TRANSFERASE 23 U/L (14-36); BILIRUBIN,TOTAL 0.3 mg/dL (0.2-1.3); BLOOD UREA NITROGEN 15 mg/dL (7-20); CARBON DIOXIDE 22 mmol/L (22-30); CHLORIDE 106 mmol/L (98-107); GLUCOSE 87 mg/dL (75-110); TOTAL PROTEIN 7.9 g/dL (6.3-8.2)
--- NOTE | 2019-11-27 23:36 | RADIOLOGY REPORT (SQ) ---
EXAM DESCRIPTION: CT ABDOMEN PELVIS WITHOUT IV CONTRAST COMPLETED DATE/TME: 11/27/2019 21:19 CLINICAL HISTORY: 29 years, Female, flank pain COMPARISON: 10/25/2019 CT TECHNIQUE: 290 Images stored on PACS. All CT scanners at this facility use dose modulation, iterative reconstruction, and/or weight based dosing when appropriate to reduce radiation dose to as low as reasonably achievable (ALARA). [facility]: Dose Right [facility]: CareDose [facility]: Dose Right [facility]: Teradose 4D [facility]: [employer] LIMITATIONS: None. FINDINGS: Limited evaluation of the lung bases is unremarkable. Osseous structures are grossly intact. Evaluation of solid visceral organs limited due to lack of IV contrast. As visualized, the liver, spleen, adrenal glands, pancreas are unremarkable. Gallbladder is surgically absent. Multiple nonobstructing renal calculi bilaterally. Suspected cystic change to the right kidney has before. Negative for obstructing calculus or hydronephrosis. Previously described proximal right ureteral stone is no longer present. No gross evidence for bowel obstruction. No free air or free fluid. Normal appendix. Urinary bladder is incompletely distended, limiting its evaluation. Abundant stool in the colon IMPRESSION: Nonobstructing renal calculi bilaterally. No obstructing calculus or hydronephrosis. Abundant stool in the colon. TECHNICAL DOCUMENTATION: Quality ID # [id number]: Final reports with documentation of one or more dose reduction techniques (e.g., Automated exposure control, adjustment of the mA and/or kV according to patient size, use of iterative reconstruction technique) copyright 2011 [employer]- All Rights Reserved
[2019-11-28] MEDS ORDERED: MORPHINE SULFATE 10 MG/ML INJ IV ONE ×2 (01:27→03:02)
[2019-11-28] MEDS ORDERED: PROMETHAZINE HCL INJ 25 MG/1 ML VIAL IV ONE ×2 (01:28→03:03)
[2019-11-28] MEDS ORDERED: DIPHENHYDRAMINE HCL 50 MG/ML VIAL IV ONE (01:28)
[2019-11-28 01:54] LABS: ABSOLUTE EOSINOPHILS # (AUTO) 0.1 10^3/uL (0.0-0.6); ABSOLUTE LYMPHOCYTES (AUTO) 2.2 10^3/uL (0.5-4.7); ABSOLUTE MONOCYTES (AUTO) 0.3 10^3/uL (0.1-1.4); ABSOLUTE NEUT (AUTO) 3.8 10^3/uL (1.7-8.2); BASOPHILS % (AUTO) 0.8 % (0-2); EOSINOPHILS % (AUTO) 1.7 % (0-6); HEMATOCRIT 39.7 % (36.0-47.0); HEMOGLOBIN 13.5 g/dL (12.0-15.5); LYMPHOCYTES % (AUTO) 34.3 % (13-45); MEAN CORPUSCULAR HEMOGLOBIN 30.5 pg (27.0-33.4); MEAN CORPUSCULAR HGB CONC 34.1 g/dL (32.0-36.0); MEAN CORPUSCULAR VOLUME 90 fl (80-97); MONOCYTES % (AUTO) 5.3 % (3-13); PLATELET COUNT 229 10^3/uL (150-450); RED BLOOD COUNT 4.43 10^6/uL (3.72-5.28); RED CELL DISTRIBUTION WIDTH 14.5 % (11.5-14.0); SEGMENTED NEUTROPHILS % (AUTO) 57.9 % (42-78); TOTAL CELLS COUNTED % (AUTO) 100 %; WHITE BLOOD COUNT 6.5 10^3/uL (4.0-10.5)
--- NOTE | 2019-11-28 02:13 | ER Document Report ---
Entered by TOM BEAN SCRIBE 11/28/19 0131 Acting as scribe for:MINESH TEJEDA IV, MD ED GI/ - General Chief Complaint: Flank Pain Stated Complaint: RIGHT FLANK PAIN, NAUSEA, VOMITING Time Seen by Provider: 11/27/19 21:15 Primary Care Provider: MANPREET LUIS PA-C [Primary Care Provider] - Follow up as needed Mode of Arrival: Ambulatory Information source: Patient Notes: This 29 year old female patient with a history of kidney stones and lithotripsy presents to the ED today with complaints of right-sided flank pain with associated nausea/vomiting for the last x2 days. Patient states that she increased her water intake to try to flush the possible kidney stone out, but is now having urinary retention and hematuria. She notes that she took Tylenol without relief. TRAVEL OUTSIDE OF THE [place] IN LAST 30 DAYS: No - Related Data Allergies/Adverse Reactions: butalbital [From Fioricet] Allergy (Verified 11/28/19 01:41) Chest tightening ceftriaxone [From Rocephin] Allergy (Verified 11/28/19 01:41) Red Man Syndrome codeine [Codeine] Allergy (Verified 11/28/19 01:41) Difficulty breathing haloperidol [From Haldol] Allergy (Verified 11/28/19 01:41) Anxiety, Increased Heart Rate haloperidol lactate [From Haldol] Allergy (Verified 11/28/19 01:41) Anxiety, Increased Heart Rate magnesium sulfate [Magnesium Sulfate] Allergy (Verified 11/28/19 01:41) Paralysis from chest down ondansetron [From Zofran] Allergy (Verified 11/28/19 01:41) Hives, Blisters prochlorperazine [From Compazine] Allergy (Verified 11/28/19 01:41) hydromorphone HCl [From Dilaudid] Adverse Reaction (Verified 11/28/19 01:41) Renal failure ketorolac tromethamine [From Toradol] Adverse Reaction (Verified 11/28/19 01:41) Difficulty breathing metoclopramide HCl [From Reglan] Adverse Reaction (Verified 11/28/19 01:41) Anxiety, Increased Blood Pressure, Hives tramadol [Tramadol] Adverse Reaction (Verified 11/28/19 01:41) Swelling of Throat Past Medical History - General Information source: Patient - Social History Smoking Status: Never Smoker Cigarette use (# per day): No Chew tobacco use (# tins/day): No Smoking Education Provided: No Lives with: Family Family History: Reviewed & Not Pertinent, CAD, Hyperlipidemia, Hypertension, Malignancy, Other Patient has suicidal ideation: No Patient has homicidal ideation: No - Past Medical History Cardiac Medical History: Reports: Hx Hypertension - PRECLAMPSIA Pulmonary Medical History: Reports: Hx Bronchitis Neurological Medical History: Reports: Hx Migraine, 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 Renal/ Medical History: Reports: Hx Kidney Stones, Hx Renal Insufficiency GI Medical History: Reports: Hx Crohn's Disease, Hx Irritable Bowel, Hx Colonoscopy, Hx Endoscopy Musculoskeletal Medical History: Reports Hx Arthritis, Reports Hx Musculoskeletal Trauma Traumatic Medical History: Reports: Hx Fractures - Feet wrist and fingers Past Surgical History: Reports: Hx Cholecystectomy, Hx Dilation and Curettage - x2, Hx Kidney (Renal Surgery) - Lithotripsy, Hx Orthopedic Surgery - Foot surgery, Other - Immunizations Immunizations up to date: Yes Hx Diphtheria, Pertussis, Tetanus Vaccination: Yes - 2016 Hx Pneumococcal Vaccination: 07/18/12 Review of Systems - Review of Systems Constitutional: No symptoms reported EENT: No symptoms reported Cardiovascular: No symptoms reported Respiratory: No symptoms reported Gastrointestinal: See HPI, Nausea, Vomiting Genitourinary: See HPI, Hematuria, Retention Female Genitourinary: No symptoms reported Musculoskeletal: No symptoms reported Skin: No symptoms reported Hematologic/Lymphatic: No symptoms reported Neurological/Psychological: No symptoms reported -: Yes All other systems reviewed and negative Physical Exam - Vital signs Vitals: Temp Pulse Resp BP Pulse Ox 99.1 F 88 18 143/103 H 99 11/27/19 21:10 11/27/19 21:10 11/27/19 21:10 11/27/19 21:10 11/27/19 21:10 - General General appearance: Alert In distress: None - HEENT Head: Normocephalic, Atraumatic Eyes: Normal Pupils: PERRL - Respiratory Respiratory status: No respiratory distress Chest status: Nontender Breath sounds: Normal Chest palpation: Normal - Cardiovascular Rhythm: Regular Heart sounds: Normal auscultation Murmur: No Friction rub: No Gallop: None auscultated - Abdominal Inspection: Normal Distension: No distension Bowel sounds: Normal Tenderness: Nontender - Abdomen soft Organomegaly: No organomegaly - Back Back: Normal, Nontender. No: CVA tenderness - Extremities General upper extremity: Normal inspection General lower extremity: Normal inspection - Neurological Neuro grossly intact: Yes Orientation: AAOx4 Chai Coma Scale Eye Opening: Spontaneous Chai Coma Scale Verbal: Oriented Chai Coma Scale Motor: Obeys Commands Chai Coma Scale Total: 15 - Psychological Associated symptoms: Normal affect, Normal mood - Skin Skin Temperature: Warm Skin Moisture: Dry Skin Color: Normal Course - Re-evaluation Re-evalutation: 11/28/19 02:29 Results of ED MSE discussed with patient. All questions were answered prior to discharge. Patient is requesting prescription for Keflex. Patient states she has used this in the past before without difficulty. Given the patient has a mild UTI this MD is willing to prescribe the patient Keflex and give her first dose prior to discharge. Emergency signs and symptoms, reasons to return to the emergency department discussed with patient. - Vital Signs Vital signs: Temp Pulse Resp BP Pulse Ox 99.0 F 70 16 144/105 H 100 11/27/19 23:39 11/27/19 23:39 11/27/19 23:39 11/27/19 23:39 11/27/19 23:39 - Laboratory Result Diagrams: 11/28/19 01:42 11/27/19 22:01 Laboratory results interpreted by me: 11/27/19 11/27/19 11/28/19 22:01 22:01 01:42 RDW 14.5 H Sodium 135.5 L Urine Blood MODERATE H Ur Leukocyte Esterase MODERATE H - Diagnostic Test Radiology reviewed: Reports reviewed Discharge - Discharge Clinical Impression: Acute right flank pain UTI (urinary tract infection) Qualifiers: Urinary tract infection type: site unspecified Hematuria presence: without hematuria Qualified Code(s): N39.0 - Urinary tract infection, site not specified Condition: Stable Disposition: HOME, SELF-CARE Instructions: Urinary Tract Infection ([facility]) Additional Instructions: Flank Pain We weren't able to prove an exact cause for your flank pain. Pain in the flank can be caused by a muscle strain or spasm. Sometimes a kidney stone causes pain, but can't be found on our tests. Infection in the kidney should be evident on a urine test. Early shingles can occasionally cause flank pain, without the rash that proves the diagnosis. On rare occasions, disease of the pancreas, aorta, spleen, or colon can create pain in the flank. At this time, there's no evidence of a dangerous condition, and it seems safe for you to be at home. If the pain goes away and does not come back, no further testing will be needed. If pain persists, or becomes more severe, we may need to repeat some tests or order additional new testing. Blood in the urine, urgency to urinate frequently, and pain that radiates to the groin can indicate a kidney stone. Fever may mean that the pain is due to infection, either of the kidney or the colon (diverticulitis). If your pain is early shingles, you should develop an eruption of blisters in the painful area within a few days. Call the doctor or return if you have pain that is spreading or becoming more severe, pain that does not resolve with time, fever, or any other new symptoms. Urinary Tract Infection Your evaluation indicates that you have a urinary tract infection. This is due to germs growing in the bladder. This is a common problem. This infection usually responds quickly to antibiotics. Your antibiotic should be taken exactly as prescribed. Drink plenty of fluids -- three to four quarts a day. Occasionally, a bladder anesthetic will be prescribed to help stop the feeling of urgency until the antibiotic has a chance to clear the infection. This may cause your urine to be dark orange. Certain urine infections require a culture. If the doctor obtained a culture, the results will be back in two days. You should call to see if a change in treatment is needed. A repeat urinalysis after you finish treatment is often recommended. The physician will let you know if further testing is required. Call the doctor if you develop fever, chills, flank pain, inability to urinate, or blood in the urine. Return to the Emergency Department without delay if any worse. HOME CARE INSTRUCTIONS & INFORMATION: Thank you for choosing us for your [facility] needs. We hope you're satisfied with the care you received. After you leave, you must properly care for your problem and, at the same time, observe its progress. Any condition can change. Some illnesses can change rapidly over hours or days. If your condition worsens, return to the Emergency Department or see your physician promptly. ABOUT YOUR X-RAYS AND EKG'S: If you had an EKG or X-rays taken, they have been read by the Emergency Physician. The X-rays and EKG's will also be read by a Radiologist or Fairing Man within 24 hours. If discrepancies are noted, you will be notified by telephone. Please be certain the ED has a correct telephone number & address where you can be reached. Also, realize that some fractures or abnormalities do not show up on initial X-rays. If your symptoms continue, see your physician. ABOUT YOUR LABORATORY TEST: If you had laboratory tests, the results have been reviewed by the Emergency Physician. Some test results (for example cultures) may not be available for several days. You will be contacted if any test result shows you need additional treatment. Please be certain the ED has a correct telephone number and address where you can be reached. ABOUT YOUR MEDICATIONS: You will receive instructions on how to take your medicine on the prescription label you receive. Additional information may be provided by the Pharmacy. If you have questions afterwards, call the ED for clarification or further instructions. Some prescribed medications may cause drowsiness. Do not perform tasks such as driving a car or operating machinery without consulting your Pharmacist. If you feel you need a refill of pain medication, your condition will need re-evaluation. Please do not call for a refill of any medication. ABOUT YOUR SIGNATURE: Signature of this document acknowledges to followin. Understanding that you received emergency treatment and that you may be released before al medical problems are known or treated. Please be certain the ED has a correct phone number & address where you can be reached. 2. Acknowledgement that you will arrange for follow-up care as recommended. 3. Authorization for the Emergency Physician to provide information to your follow-up Physician in order to maximize your care. AT ANY TIME, IF YOUR SYMPTOMS CHANGE SIGNIFICANTLY OR WORSEN OR YOU DEVELOP NEW SYMPTOMS, RETURN TO THE EMERGENCY DEPARTMENT IMMEDIATELY FOR RE-EVALUATION. OUR GOAL IS TO PROVIDE EXCELLENT MEDICAL CARE! WE HOPE THAT WE HAVE MET YOUR EXPECTATIONS DURING YOUR EMERGENCY DEPARTMENT VISIT AND THAT YOU FEEL YOU HAVE RECEIVED EXCELLENT CARE! Prescriptions: Cephalexin Monohydrate [Keflex 500 mg Capsule] 500 mg PO Q6H 7 Days #28 capsule Referrals: MANPREET LUIS PA-C [Primary Care Provider] - Follow up as needed I personally performed the services described in the documentation, reviewed and edited the documentation which was dictated to the scribe in my presence, and it accurately records my words and actions.
[2019-11-28] MEDS ORDERED: CEPHALEXIN 500 MG CAPSULE PO ONE (02:30)
[2019-11-28 02:59] VITALS: BP 138/93
== END 2019-11-28 03:15 | disposition home or self-care (01) ==
LOC: ER 20:10
DX: N39.0 Urinary tract infection, site not specified (principal); R10.9 Unspecified abdominal pain; R11.2 Nausea with vomiting, unspecified; Z88.8 Allergy status to other drugs, medicaments and biological substances; I10 Essential (primary) hypertension
CPT/HCPCS: 96376; 99284; 96361; 96374; 96375; 36415; 84703; 85025; 80053; 81001; 74176; J1200; J2270; J2550; J7120

== ENCOUNTER 2020-02-26 14:01 | Emergency (ER) | payer MEDICAID ==
[2020-02-26] MEDS ORDERED: PROMETHAZINE HCL 25 MG TABLET PO ONE ×2 (14:14→19:51)
[2020-02-26] MEDS ORDERED: HYDROCODONE/ACETAMINOPHEN 5-325 MG TABLET PO ONE (14:14)
--- NOTE | 2020-02-26 14:18 | ER Document Report ---
ED Medical Screen (RME) - General Chief Complaint: Flank Pain Stated Complaint: ABDOMINAL PAIN/FEVER/NAUSEA/VOIMITING Time Seen by Provider: 02/26/20 14:09 Primary Care Provider: MANPREET LUIS PA-C [Primary Care Provider] - Follow up as needed Mode of Arrival: Ambulatory Information source: Patient Notes: 2-year-old female presents to ED for complaint of right flank pain. She states she does have a history of kidney stones and kidney failure due to sepsis from a kidney stone with infection. She states yesterday her temp was 100.7 took Tylenol today her temp was 99.7 and is already taken Tylenol. She states she does have some kind of like a contraction feeling after she urinates. She states she had the pain about a week ago it was not bad and then it went away and then 2-1/2 days ago it came back and is been much worse. She states is to the point where she can need to balance her son or lifting due to the pain. She states she does smoke 3 to 4 cigarettes a day rarely drinks maybe once or twice a year and does not use any illicit drugs. She states she has had a cholecystectomy. I have ordered blood urine and a renal ultrasound. I will also order 1 Cobb and 1 Phenergan because she states she can take both of those with no problem. I have greeted and performed a rapid initial assessment of this patient. A comprehensive ED assessment and evaluation of the patient, analysis of test results and completion of medical decision making process will be conducted by an additional ED providers. TRAVEL OUTSIDE OF THE [place] IN LAST 30 DAYS: No - Related Data Allergies/Adverse Reactions: butalbital [From Fioricet] Allergy (Verified 11/28/19 01:41) Chest tightening ceftriaxone [From Rocephin] Allergy (Verified 11/28/19 01:41) Red Man Syndrome codeine [Codeine] Allergy (Verified 11/28/19 01:41) Difficulty breathing haloperidol [From Haldol] Allergy (Verified 11/28/19 01:41) Anxiety, Increased Heart Rate haloperidol lactate [From Haldol] Allergy (Verified 11/28/19 01:41) Anxiety, Increased Heart Rate magnesium sulfate [Magnesium Sulfate] Allergy (Verified 11/28/19 01:41) Paralysis from chest down ondansetron [From Zofran] Allergy (Verified 11/28/19 01:41) Hives, Blisters prochlorperazine [From Compazine] Allergy (Verified 11/28/19 01:41) hydromorphone HCl [From Dilaudid] Adverse Reaction (Verified 11/28/19 01:41) Renal failure ketorolac tromethamine [From Toradol] Adverse Reaction (Verified 11/28/19 01:41) Difficulty breathing metoclopramide HCl [From Reglan] Adverse Reaction (Verified 11/28/19 01:41) Anxiety, Increased Blood Pressure, Hives tramadol [Tramadol] Adverse Reaction (Verified 11/28/19 01:41) Swelling of Throat Past Medical History - Past Medical History Cardiac Medical History: Reports: Hx Hypertension - PRECLAMPSIA Denies: Hx Coronary Artery Disease, Hx Heart Attack Pulmonary Medical History: Reports: Hx Bronchitis Denies: Hx Asthma, Hx COPD, Hx Pneumonia, Hx Tuberculosis Neurological Medical History: Reports: Hx Migraine, 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 Denies: Hx Cerebrovascular Accident Renal/ Medical History: Reports: Hx Kidney Stones, Hx Renal Insufficiency. Denies: Hx Peritoneal Dialysis GI Medical History: Reports: Hx Crohn's Disease, Hx Irritable Bowel, Hx Colonoscopy, Hx Endoscopy. Denies: Hx Ulcer Musculoskeltal Medical History: Reports Hx Arthritis, Reports Hx Musculoskeletal Trauma Traumatic Medical History: Reports: Hx Fractures - Feet wrist and fingers Past Surgical History: Reports: Hx Cholecystectomy, Hx Dilation and Curettage - x2, Hx Gynecologic Surgery - D&C x's2, Hx Kidney (Renal Surgery) - Lithotripsy, Hx Orthopedic Surgery - Foot surgery, Other. Denies: Hx Hysterectomy, Hx Pacemaker - Immunizations Immunizations up to date: Yes Hx Diphtheria, Pertussis, Tetanus Vaccination: Yes - 2016 Physical Exam - Vital signs Vitals: Temp Pulse Resp BP Pulse Ox 98.9 F 106 H 18 148/93 H 100 02/26/20 14:04 02/26/20 14:04 02/26/20 14:04 02/26/20 14:04 02/26/20 14:04 Course - Vital Signs Vital signs: Temp Pulse Resp BP Pulse Ox 98.9 F 106 H 18 148/93 H 100 02/26/20 14:04 02/26/20 14:04 02/26/20 14:04 02/26/20 14:04 02/26/20 14:04 Doctor's Discharge - Discharge Referrals: MANPREET LUIS PA-C [Primary Care Provider] - Follow up as needed
--- NOTE | 2020-02-26 15:57 | RADIOLOGY REPORT (SQ) ---
EXAM DESCRIPTION: U/S RETROPERITON (RENAL/AORTA) IMAGES COMPLETED DATE/TIME: 02/26/2020 3:37 pm REASON FOR STUDY: right flank pain hx stones and failure COMPARISON: CT abdomen pelvis 11/27/2019, 10/25/2019 Renal ultrasound 06/30/2019 TECHNIQUE: Dynamic and static grayscale images acquired of the kidneys and bladder and recorded on P ACS. Additional selected color Doppler and spectral images recorded. LIMITATIONS: None. FINDINGS: RIGHT KIDNEY: Right kidney is 10 cm in length. Normal cortical thickness and echogenicity . No hydronephrosis. There is a 2 cm left lower pole and 1.5 cm left lower pole renal cortical cyst. Tiny intrarenal nonobstructive kidney stones are present. LEFT KIDNEY: Left kidney is 10 cm in length. Normal cortical thickness and echogenicity. No hydron ephrosis. No left renal cysts or masses. 9 mm shadowing lower pole intrarenal nonobstructive stone. BLADDER: Decompressed, not well seen OTHER FINDINGS: No other significant finding. IMPRESSION: No hydronephrosis. Bilateral intrarenal nonobstructive calculi. TECHNICAL DOCUMENTATION: JOB ID: [id number] [employer]- All Rights Reserved Reading location - IP/workstation name: [email or web address]
[2020-02-26 16:05] LABS: APPEARANCE,URINE SLIGHTLY-CLOUDY; BILIRUBIN,URINE NEGATIVE (NEGATIVE); COLOR,URINE YELLOW; GLUCOSE, URINE NEGATIVE (NEGATIVE); KETONES,URINE NEGATIVE (NEGATIVE); LEUKOCYTE ESTERASE,URINE MODERATE (NEGATIVE); NITRITE,URINE NEGATIVE (NEGATIVE); PROTEIN,URINE NEGATIVE (NEGATIVE); URINE SPECIFIC GRAVITY 1.016; UROBILINOGEN,URINE NEGATIVE mg/dL (<2.0)
[2020-02-26 18:14] LABS: ABSOLUTE BASOPHILS # (AUTO) 0.1 10^3/uL (0.0-0.2); ABSOLUTE EOSINOPHILS # (AUTO) 0.2 10^3/uL (0.0-0.6); ABSOLUTE LYMPHOCYTES (AUTO) 2.1 10^3/uL (0.5-4.7); ABSOLUTE MONOCYTES (AUTO) 0.4 10^3/uL (0.1-1.4); ABSOLUTE NEUT (AUTO) 5.1 10^3/uL (1.7-8.2); BASOPHILS % (AUTO) 0.6 % (0-2); EOSINOPHILS % (AUTO) 2.3 % (0-6); HEMATOCRIT 43.2 % (36.0-47.0); HEMOGLOBIN 15.1 g/dL (12.0-15.5); LYMPHOCYTES % (AUTO) 26.7 % (13-45); MEAN CORPUSCULAR HGB CONC 34.9 g/dL (32.0-36.0); MEAN CORPUSCULAR VOLUME 89 fl (80-97); MONOCYTES % (AUTO) 4.8 % (3-13); PLATELET COUNT 235 10^3/uL (150-450); RED BLOOD COUNT 4.86 10^6/uL (3.72-5.28); RED CELL DISTRIBUTION WIDTH 13.6 % (11.5-14.0); SEGMENTED NEUTROPHILS % (AUTO) 65.6 % (42-78); TOTAL CELLS COUNTED % (AUTO) 100 %; WHITE BLOOD COUNT 7.8 10^3/uL (4.0-10.5)
[2020-02-26 18:49] LABS: ALBUMIN 4.9 g/dL (3.5-5.0); ALKALINE PHOSPHATASE 60 U/L (38-126); ANION GAP 11 (5-19); ASPARTATE AMINO TRANSFERASE 17 U/L (14-36); BILIRUBIN,DIRECT 0.2 mg/dL (0.0-0.4); BILIRUBIN,TOTAL 0.4 mg/dL (0.2-1.3); BLOOD UREA NITROGEN 12 mg/dL (7-20); CALCIUM 9.7 mg/dL (8.4-10.2); CARBON DIOXIDE 20 mmol/L (22-30); CHLORIDE 108 mmol/L (98-107); GLUCOSE 105 mg/dL (75-110); POTASSIUM 3.9 mmol/L (3.6-5.0); TOTAL PROTEIN 7.9 g/dL (6.3-8.2)
[2020-02-26] MEDS ORDERED: MORPHINE SULFATE 10 MG/ML INJ IV ONE (19:51)
[2020-02-26] MEDS ORDERED: SULFAMETHOXAZOLE/TRIMETHOPRIM 800-160 MG TABLET PO ONE (19:54)
[2020-02-26] MEDS ORDERED: MORPHINE SULFATE 10 MG/ML INJ IM ONE (19:58)
--- NOTE | 2020-02-26 20:11 | ER Document Report ---
ED General - General Chief Complaint: Flank Pain Stated Complaint: ABDOMINAL PAIN/FEVER/NAUSEA/VOIMITING Time Seen by Provider: 02/26/20 14:09 Primary Care Provider: MANPREET LUIS PA-C [[employer]GER] - Follow up as needed Mode of Arrival: Ambulatory Notes: Patient is a 29-year-old white female with a history of sepsis, migraine headaches and kidney stones who reports 18 previous lithotripsies who presents to the emergency department the chief complaint of right flank pain. She states this began about a week ago and she thought it was a kidney stone. She tried taking Tylenol and waiting it out. She states it never got any better. She states she was concerned because in the past she is developed sepsis with kidney stones. She states she is very well versed in stones and feels this is exactly what this is. She says she is had multiple CAT scans in the past. She denies any urinary complaints or vaginal discharge. Admits to pain in the right abdomen and right flank and some in the right back. Denies any fever, chills or night sweats. TRAVEL OUTSIDE OF THE [place] IN LAST 30 DAYS: No - Related Data Allergies/Adverse Reactions: butalbital [From Fioricet] Allergy (Verified 11/28/19 01:41) Chest tightening ceftriaxone [From Rocephin] Allergy (Verified 11/28/19:41) Red Man Syndrome codeine [Codeine] Allergy (Verified 11/28/19 01:41) Difficulty breathing haloperidol [From Haldol] Allergy (Verified 11/28/19 01:41) Anxiety, Increased Heart Rate haloperidol lactate [From Haldol] Allergy (Verified 11/28/19:41) Anxiety, Increased Heart Rate magnesium sulfate [Magnesium Sulfate] Allergy (Verified 11/28/19 01:41) Paralysis from chest down ondansetron [From Zofran] Allergy (Verified 11/28/19 01:41) Hives, Blisters prochlorperazine [From Compazine] Allergy (Verified 11/28/19:41) hydromorphone HCl [From Dilaudid] Adverse Reaction (Verified 11/28/19 01:41) Renal failure ketorolac tromethamine [From Toradol] Adverse Reaction (Verified 11/28/19 01:41) Difficulty breathing metoclopramide HCl [From Reglan] Adverse Reaction (Verified 11/28/19 01:41) Anxiety, Increased Blood Pressure, Hives tramadol [Tramadol] Adverse Reaction (Verified 11/28/19 01:41) Swelling of Throat Past Medical History - General Information source: Patient - Social History Smoking Status: Current Every Day Smoker Family History: Reviewed & Not Pertinent, CAD, Hyperlipidemia, Hypertension, Malignancy, Other - Past Medical History Cardiac Medical History: Reports: Hx Hypertension - PRECLAMPSIA Denies: Hx Coronary Artery Disease, Hx Heart Attack Pulmonary Medical History: Reports: Hx Bronchitis Denies: Hx Asthma, Hx COPD, Hx Pneumonia, Hx Tuberculosis Neurological Medical History: Reports: Hx Migraine, 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 Denies: Hx Cerebrovascular Accident Renal/ Medical History: Reports: Hx Kidney Stones, Hx Renal Insufficiency. Denies: Hx Peritoneal Dialysis GI Medical History: Reports: Hx Crohn's Disease, Hx Irritable Bowel, Hx Colonoscopy, Hx Endoscopy. Denies: Hx Ulcer Musculoskeletal Medical History: Reports Hx Arthritis, Reports Hx Musculoskeletal Trauma Traumatic Medical History: Reports: Hx Fractures - Feet wrist and fingers Past Surgical History: Reports: Hx Cholecystectomy, Hx Dilation and Curettage - x2, Hx Gynecologic Surgery - D&C x's2, Hx Kidney (Renal Surgery) - Lithotripsy, Hx Orthopedic Surgery - Foot surgery, Other. Denies: Hx Hysterectomy, Hx Pacemaker - Immunizations Immunizations up to date: Yes Hx Diphtheria, Pertussis, Tetanus Vaccination: Yes - 2016 Hx Pneumococcal Vaccination: 07/18/12 Review of Systems - Review of Systems Constitutional: denies: Fever EENT: denies: Nose congestion Cardiovascular: denies: Orthopnea Respiratory: denies: Hemoptysis Gastrointestinal: denies: Poor fluid intake Genitourinary: denies: Pain Female Genitourinary: denies: Post menopausal Musculoskeletal: denies: Joint swelling Skin: denies: Change in hair/nails Hematologic/Lymphatic: denies: Blood clots Neurological/Psychological: denies: Gait changes Physical Exam - Vital signs Vitals: Temp Pulse Resp BP Pulse Ox 98.9 F 106 H 18 148/93 H 100 02/26/20 14:04 02/26/20 14:04 02/26/20 14:04 02/26/20 14:04 02/26/20 14:04 - General General appearance: Appears well, Alert In distress: None - Respiratory Respiratory status: No respiratory distress Chest status: Nontender Breath sounds: Normal Chest palpation: Normal - Cardiovascular Rhythm: Regular Heart sounds: Normal auscultation - Abdominal Inspection: Normal Distension: No distension Bowel sounds: Normal Tenderness: Other - Tender along the course of the right flank/right ureter Organomegaly: No organomegaly - Back Back: CVA tenderness - Right-sided - Neurological Neuro grossly intact: Yes Cognition: Normal Orientation: AAOx4 - Psychological Associated symptoms: Normal affect, Normal mood - Skin Skin Temperature: Warm Skin Moisture: Dry Skin Color: Normal Course - Re-evaluation Re-evalutation: 02/26/20 22:03 Reevaluation at this time, patient is resting comfortably in the room. Ultrasound showing no hydronephrosis and a contracted bladder with multiple stones in the bilateral kidneys largest of which at 9 mm. Patient's pain is well controlled with the fentanyl and nausea with Phenergan. Will send home with a to go pack of Keene for tonight as the pharmacies are closed. Prescriptions given for Keene, Phenergan and Flomax for tomorrow. Counseled the patient at length regarding the importance of outpatient follow-up with her urologist as soon as possible. Advised that she return here or any ER immediately with any new, persistent or worsening symptoms. She verbalized understood and agreed. - Vital Signs Vital signs: Temp Pulse Resp BP Pulse Ox 98.6 F 76 18 139/107 H 100 02/26/20 18:52 02/26/20 18:52 02/26/20 18:52 02/26/20 18:52 02/26/20 18:52 - Laboratory Result Diagrams: 02/26/20 18:02 02/26/20 18:02 Laboratory results interpreted by me: 02/26/20 02/26/20 15:15 18:02 Chloride 108 H Carbon Dioxide 20 L Urine Blood SMALL H Ur Leukocyte Esterase MODERATE H Discharge - Discharge Clinical Impression: Renal colic, Nephrolithiasis UTI (urinary tract infection) Qualifiers: Urinary tract infection type: site unspecified Hematuria presence: with hematuria Qualified Code(s): N39.0 - Urinary tract infection, site not specified; R31.9 - Hematuria, unspecified Condition: Stable Disposition: HOME, SELF-CARE Instructions: Urinary Tract Infection ([facility]), Oral Narcotic Medication ([facility]) Additional Instructions: Please follow-up with your urologist as soon as possible for continued outpatient care management. Please return here or any ER immediately with any new, persistent or worsening symptoms. Prescriptions: Tamsulosin HCl [Flomax 0.4 mg Cap.sr] 0.4 mg PO DAILY #7 cap.sr.24h Hydrocodone/Acetaminophen [Keene 10-325 Tablet] 1 each PO Q6 PRN #12 tablet PRN Reason: Promethazine HCl [Phenergan 25 mg Tablet] 25 mg PO Q6 PRN #20 tablet PRN Reason: Referrals: MANPREET LUIS PA-C [PHYSIC[employer] MANAGER] - Follow up as needed
[2020-02-26] MEDS ORDERED: FENTANYL CITRATE INJ/PF 100 MCG/2 ML AMPUL IM ONE (21:15)
[2020-02-26] MEDS ORDERED: TAMSULOSIN HCL 0.4 MG CAP.SR.24H PO ONE (22:05)
[2020-02-26] MEDS ORDERED: HYDROCODONE/ACETAMINOPHEN 5-325 MG (6 TAB/ER DISP) PO PRN (22:05)
[2020-02-26 22:19] VITALS: BP 130/97
== END 2020-02-26 22:24 | disposition home or self-care (01) ==
LOC: ER 14:01
DX: N39.0 Urinary tract infection, site not specified (principal); R31.9 Hematuria, unspecified; N20.0 Calculus of kidney; R10.9 Unspecified abdominal pain; R11.2 Nausea with vomiting, unspecified; R50.9 Fever, unspecified
CPT/HCPCS: 99284; 96372; 36415; 87086; 84703; 85025; 80053; 81001; 76770; J3010; J2270; J3490 ×3

== ENCOUNTER 2020-03-02 10:28 | Emergency (ER) | payer MEDICAID ==
[2020-03-02] MEDS ORDERED: MORPHINE SULFATE 10 MG/ML INJ IV ONE ×2 (10:53→17:00)
[2020-03-02] MEDS ORDERED: DIPHENHYDRAMINE HCL 50 MG/ML VIAL IV ONE ×2 (10:53→16:30)
[2020-03-02] MEDS ORDERED: PROMETHAZINE HCL INJ 50 MG/1 ML VIAL IM ONE ×2 (10:54→16:30)
--- NOTE | 2020-03-02 10:56 | ER Document Report ---
ED Medical Screen (RME) - General Stated Complaint: FLANK PAIN Time Seen by Provider: 03/02/20 10:48 TRAVEL OUTSIDE OF THE [place] IN LAST 30 DAYS: No - HPI Notes: 03/02/20 10:54 29-year-old female to the emergency department with past medical history of kidney stones with complaints of persistent and worsening right flank pain that is been going on for approximately 1 week. She was seen on Saturday here and diagnosed with a kidney stone. She states it was measuring at 9 mm. She states she did not have any hydronephrosis at that time. She was placed on antibiotics and pain medicine. She states that the pain medicine has not been controlling her pain. However, what made her most concerned and decided to come back to the emergency department today is that she has been having difficulty urinating since last night. She states she can only get a couple of drops of urine when she really is pushing. She states that her pain has gotten worse because of this. She states she has been drinking fluids. She does admit to nausea. She states that 2 days ago she had a temperature of 100.6. She states she was given antibiotics on Saturday. She states she has been trying to take this. I performed a brief medical screening exam on the patient determined that the patient needs further evaluation and management by main side provider. I have placed initial orders to help expedite care. - Related Data Allergies/Adverse Reactions: butalbital [From Fioricet] Allergy (Verified 03/02/20 10:56) Chest tightening ceftriaxone [From Rocephin] Allergy (Verified 03/02/20 10:56) Red Man Syndrome codeine [Codeine] Allergy (Verified 03/02/20 10:56) Difficulty breathing haloperidol [From Haldol] Allergy (Verified 03/02/20 10:56) Anxiety, Increased Heart Rate haloperidol lactate [From Haldol] Allergy (Verified 03/02/20 10:56) Anxiety, Increased Heart Rate magnesium sulfate [Magnesium Sulfate] Allergy (Verified 03/02/20 10:56) Paralysis from chest down ondansetron [From Zofran] Allergy (Verified 03/02/20 10:56) Hives, Blisters prochlorperazine [From Compazine] Allergy (Verified 03/02/20 10:56) hydromorphone HCl [From Dilaudid] Adverse Reaction (Verified 10/14/20 10:56) Renal failure ketorolac tromethamine [From Toradol] Adverse Reaction (Verified 03/02/20 10:56) Difficulty breathing metoclopramide HCl [From Reglan] Adverse Reaction (Verified 03/02/20 10:56) Anxiety, Increased Blood Pressure, Hives tramadol [Tramadol] Adverse Reaction (Verified 03/02/20 10:56) Swelling of Throat Past Medical History - Past Medical History Cardiac Medical History: Reports: Hx Hypertension - PRECLAMPSIA Denies: Hx Coronary Artery Disease, Hx Heart Attack Pulmonary Medical History: Reports: Hx Bronchitis Denies: Hx Asthma, Hx COPD, Hx Pneumonia, Hx Tuberculosis Neurological Medical History: Reports: Hx Migraine, 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 Denies: Hx Cerebrovascular Accident Renal/ Medical History: Reports: Hx Kidney Stones, Hx Renal Insufficiency. Denies: Hx Peritoneal Dialysis GI Medical History: Reports: Hx Crohn's Disease, Hx Irritable Bowel, Hx Colonoscopy, Hx Endoscopy. Denies: Hx Ulcer Musculoskeltal Medical History: Reports Hx Arthritis, Reports Hx Musculoskeletal Trauma Traumatic Medical History: Reports: Hx Fractures - Feet wrist and fingers Past Surgical History: Reports: Hx Cholecystectomy, Hx Dilation and Curettage - x2, Hx Gynecologic Surgery - D&C x's2, Hx Kidney (Renal Surgery) - Lithotripsy, Hx Orthopedic Surgery - Foot surgery, Other. Denies: Hx Hysterectomy, Hx Pacemaker - Immunizations Immunizations up to date: Yes Hx Diphtheria, Pertussis, Tetanus Vaccination: Yes - 2016 Physical Exam - Vital signs Vitals: Temp Pulse Resp BP Pulse Ox 98.1 F 93 20 145/103 H 99 03/02/20 10:33 03/02/20 10:33 03/02/20 10:33 03/02/20 10:33 03/02/20 10:33 Course - Vital Signs Vital signs: Temp Pulse Resp BP Pulse Ox 98.1 F 93 20 145/103 H 99 03/02/20 10:33 03/02/20 10:33 03/02/20 10:33 03/02/20 10:33 03/02/20 10:33
[2020-03-02 11:55] LABS: ABSOLUTE EOSINOPHILS # (AUTO) 0.1 10^3/uL (0.0-0.6); ABSOLUTE LYMPHOCYTES (AUTO) 1.4 10^3/uL (0.5-4.7); ABSOLUTE MONOCYTES (AUTO) 0.3 10^3/uL (0.1-1.4); ABSOLUTE NEUT (AUTO) 5.2 10^3/uL (1.7-8.2); BASOPHILS % (AUTO) 0.6 % (0-2); EOSINOPHILS % (AUTO) 1.2 % (0-6); HEMATOCRIT 43.6 % (36.0-47.0); HEMOGLOBIN 15.2 g/dL (12.0-15.5); LYMPHOCYTES % (AUTO) 20.6 % (13-45); MEAN CORPUSCULAR HEMOGLOBIN 31.1 pg (27.0-33.4); MEAN CORPUSCULAR HGB CONC 34.7 g/dL (32.0-36.0); MEAN CORPUSCULAR VOLUME 89 fl (80-97); MONOCYTES % (AUTO) 4.3 % (3-13); PLATELET COUNT 227 10^3/uL (150-450); RED BLOOD COUNT 4.88 10^6/uL (3.72-5.28); RED CELL DISTRIBUTION WIDTH 13.4 % (11.5-14.0); SEGMENTED NEUTROPHILS % (AUTO) 73.3 % (42-78); TOTAL CELLS COUNTED % (AUTO) 100 %
[2020-03-02 12:03] LABS: APPEARANCE,URINE CLEAR; BILIRUBIN,URINE NEGATIVE (NEGATIVE); COLOR,URINE STRAW; GLUCOSE, URINE NEGATIVE (NEGATIVE); KETONES,URINE NEGATIVE (NEGATIVE); PROTEIN,URINE NEGATIVE (NEGATIVE); URINE SPECIFIC GRAVITY 1.005; UROBILINOGEN,URINE NEGATIVE mg/dL (<2.0)
[2020-03-02 12:07] LABS: ALBUMIN 4.9 g/dL (3.5-5.0); ALKALINE PHOSPHATASE 64 U/L (38-126); ANION GAP 15 (5-19); ASPARTATE AMINO TRANSFERASE 22 U/L (14-36); BILIRUBIN,DIRECT 0.2 mg/dL (0.0-0.4); BILIRUBIN,TOTAL 0.5 mg/dL (0.2-1.3); BLOOD UREA NITROGEN 10 mg/dL (7-20); CALCIUM 9.8 mg/dL (8.4-10.2); CARBON DIOXIDE 19 mmol/L (22-30); CHLORIDE 105 mmol/L (98-107); GLUCOSE 89 mg/dL (75-110); POTASSIUM 4.5 mmol/L (3.6-5.0); TOTAL PROTEIN 7.8 g/dL (6.3-8.2)
--- NOTE | 2020-03-02 12:51 | RADIOLOGY REPORT (SQ) ---
EXAM DESCRIPTION: CT ABD/PELVIS NO ORAL OR IV IMAGES COMPLETED DATE/TIME: 03/02/2020 12:04 pm REASON FOR STUDY: flank pain, difficulty urinating COMPARISON: 11/27/2019 TECHNIQUE: CT scan of the abdomen and pelvis performed without intravenous or oral contrast. Images reviewed with lung, soft tissue, and bone windows. Reconstructed coronal and sagittal MPR images revi ewed. All images stored on PACS. All CT scanners at this facility use dose modulation, iterative reconstruction, and/or weight based d osing when appropriate to reduce radiation dose to as low as reasonably achievable (ALARA). [facility]: Dose Right [facility]: CareDose [facility]: Dose Right [facility]: Teradose 4D [facility]: [employer] RADIATION DOSE: CT Rad equipment meets quality standard of care and radiation dose reduction techniq ues were employed. CTDIvol: 5.6 mGy. DLP: 301 mGy-cm.mGy. LIMITATIONS: None. FINDINGS: LOWER CHEST: Small pericardial effusion new from prior study. This could represent perica rdial thickening as well. Diameter is approximately 5 to 6 mm. NON-CONTRASTED LIVER, SPLEEN, ADRENALS: Evaluation limited by lack of IV contrast. No identified sign ificant masses. PANCREAS: No masses. No peripancreatic inflammatory changes. GALLBLADDER: Surgically absent. RIGHT KIDNEY AND URETER: Persistent hypoattenuating lesions in the right kidney most consistent with cyst. Small nonobstructing right renal calculi. No hydronephrosis or hydroureter. LEFT KIDNEY AND URETER: No suspicious masses. Assessment limited by lack of IV contrast. Small nono bstructing left renal calculi. No hydronephrosis or hydroureter. AORTA AND RETROPERITONEUM: No aneurysm. No retroperitoneal masses or adenopathy. BOWEL AND PERITONEAL CAVITY: No obvious masses or inflammatory changes. No free fluid. APPENDIX: Not visualized. No inflammation in the right lower quadrant. PELVIS, BLADDER, AND ABDOMINAL WALL:Small left adnexal lesion most likely ovarian cyst. BONES: No significant findings. OTHER: No other significant finding. IMPRESSION: 1. Small pericardial effusion and/or pericardial thickening new from prior study. Large st diameter is 5 mm. 2. Small left adnexal lesion most likely ovarian cyst. COMMENT: Quality ID # [id number]: Final reports with documentation of one or more dose reduction techniques (e.g., Automated exposure control, adjustment of the mA and/or kV according to patient size, use of iterative reconstruction technique) TECHNICAL DOCUMENTATION: JOB ID: [id number] 2010 [employer]- All Rights Reserved Reading location - IP/workstation name: [email or web address]
--- NOTE | 2020-03-02 13:46 | ER Document Report ---
ED GI/ - General Chief Complaint: Urinary Problem Stated Complaint: FLANK PAIN Time Seen by Provider: 03/02/20 13:25 Primary Care Provider: [facility] [Provider Group] - Follow up tomorrow [facility] [Provider Group] - Follow up in 3-5 days TAMMY GARCIA MD [NO LOCAL MD] - Follow up tomorrow Mode of Arrival: Ambulatory Information source: Patient Notes: This is a 29-year-old female presenting today with flank pain and right lower quadrant abdominal pain. The patient has a history of kidney stones and sees urology, Dr. Garcia with [facility]. the pain started weeks ago but last Saturday she came in to the ED for evaluation. She was diagnosed with a 9 mm kidney stone in the right ureter and prescribed Mar[place], Bactrim, Flomax, and Phenergan. These medications did not relieve her symptoms. She came in today because she could not pee last night and this morning resulting in only a couple dribbles when she urinated. She rates her pain as an 8-1/2 to 9 out of 10 and is steady in nature. She reports fevers in the 100.4 range last week, no fever today. Pt reports nausea, last vomiting episode was yesterday. TRAVEL OUTSIDE OF THE [place] IN LAST 30 DAYS: No - HPI Patient complains to provider of: Abdominal pain, Flank pain Onset: Last week Timing/Duration: Gradual Quality of pain: Sharp Severity at maximum: Severe Severity in ED: Severe Location: RLQ, Right flank Associated symptoms: Fever, Nausea, Urinary retention. denies: Blood in emesis, Blood in stool, Chills, Constipation, Diarrhea, Dysuria, Hematuria, Loss of appetite - Related Data Allergies/Adverse Reactions: butalbital [From Fioricet] Allergy (Verified 03/02/20 10:56) Chest tightening ceftriaxone [From Rocephin] Allergy (Verified 03/02/20 10:56) Red Man Syndrome codeine [Codeine] Allergy (Verified 03/02/20 10:56) Difficulty breathing haloperidol [From Haldol] Allergy (Verified 03/02/20 10:56) Anxiety, Increased Heart Rate haloperidol lactate [From Haldol] Allergy (Verified 03/02/20 10:56) Anxiety, Increased Heart Rate magnesium sulfate [Magnesium Sulfate] Allergy (Verified 03/02/20 10:56) Paralysis from chest down ondansetron [From Zofran] Allergy (Verified 03/02/20 10:56) Hives, Blisters prochlorperazine [From Compazine] Allergy (Verified 03/02/20 10:56) hydromorphone HCl [From Dilaudid] Adverse Reaction (Verified 03/02/20 10:56) Renal failure ketorolac tromethamine [From Toradol] Adverse Reaction (Verified 03/02/20 10:56) Difficulty breathing metoclopramide HCl [From Reglan] Adverse Reaction (Verified 03/02/20 10:56) Anxiety, Increased Blood Pressure, Hives tramadol [Tramadol] Adverse Reaction (Verified 03/02/20 10:56) Swelling of Throat Past Medical History - Social History Smoking Status: Current Every Day Smoker Frequency of alcohol use: None Drug Abuse: None Occupation: none Family History: Reviewed & Not Pertinent, CAD, Hyperlipidemia, Hypertension, Malignancy, Other Patient has suicidal ideation: No Patient has homicidal ideation: No Pulmonary Medical History: Reports: Hx Bronchitis EENT Medical History: Reports: None Neurological Medical History: Reports: Hx Migraine, 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 Denies: Hx Cerebrovascular Accident Endocrine Medical History: Reports: None Renal/ Medical History: Reports: Hx Kidney Stones, Hx Renal Insufficiency. Denies: Hx Peritoneal Dialysis Malignancy Medical History: Reports: None GI Medical History: Reports: Hx Crohn's Disease, Hx Irritable Bowel, Hx Colonoscopy, Hx Endoscopy. Denies: Hx Ulcer Musculoskeletal Medical History: Reports Hx Arthritis, Reports Hx Musculoskeletal Trauma Psychiatric Medical History: Reports: None Traumatic Medical History: Reports: Hx Fractures - Feet wrist and fingers Infectious Medical History: Reports: None Past Surgical History: Reports: Hx Cholecystectomy, Hx Dilation and Curettage - x2, Hx Gynecologic Surgery - D&C x's2, Hx Kidney (Renal Surgery) - Lithotripsy, Hx Orthopedic Surgery - Foot surgery, Other. Denies: Hx Hysterectomy, Hx Pacemaker - Immunizations Immunizations up to date: Yes Hx Diphtheria, Pertussis, Tetanus Vaccination: Yes - 2016 Hx Pneumococcal Vaccination: 07/18/12 Review of Systems - Review of Systems Constitutional: Fever - 1 week ago EENT: No symptoms reported Cardiovascular: No symptoms reported Respiratory: No symptoms reported Gastrointestinal: Abdominal pain, Nausea, Vomiting - yesterday. denies: Diarrhea Genitourinary: Flank pain, Retention Female Genitourinary: No symptoms reported Musculoskeletal: No symptoms reported Skin: No symptoms reported Hematologic/Lymphatic: No symptoms reported Neurological/Psychological: No symptoms reported Physical Exam - Vital signs Vitals: Temp Pulse Resp BP Pulse Ox 98.1 F 93 20 145/103 H 99 03/02/20 10:33 03/02/20 10:33 03/02/20 10:33 03/02/20 10:33 03/02/20 10:33 - General General appearance: Appears well, Alert In distress: Mild - HEENT Head: Normocephalic Eyes: Normal Conjunctiva: Normal Cornea: Normal Pupils: PERRL Mouth/Lips: Normal Mucous membranes: Normal - Respiratory Breath sounds: Normal - Cardiovascular Heart sounds: S1 appreciated, S2 appreciated Murmur: No - Abdominal Distension: No distension Tenderness: Tender - Back Back: CVA tenderness - right - Neurological Cognition: Normal Orientation: AAOx4 Speech: Normal - Psychological Associated symptoms: Normal affect, Normal mood - Skin Skin Temperature: Warm Skin Moisture: Dry Skin Color: Normal Course - Re-evaluation Re-evalutation: 03/02/20 13:45 Patient's test positive, will add on quantitative hCG test as well as ultrasound for further evaluation of patient's symptoms. 03/02/20 13:58 Patient advised of positive test. Patient states she has not been sexually active for 2 months. Patient had a negative test at her previous ER visit that was 5 days ago. 03/02/20 16:44 On repeat exam patient had right upper quadrant tenderness to palpation that radiated down to the right lower quadrant. 03/02/20 19:15 Patient states that she was able to void with some effort. Patient states that she feels as though her symptoms are attributed to her likely passing a recent kidney stone. Patient states that she feels as though a kidney stone is in her bladder bouncing around tricking her bladder into thinking he is passing a kidney stone making it difficult for her to void normally. Patient states she is had the symptoms when she passed kidney stones in the past. Patient advised that it does not appear that she has passed a recent kidney stone. Patient advised of large stool burden noted on CT images that coincides with area of patient's discomfort. Patient has recently been on narcotics for her pain symptoms. Patient advised that narcotics can constipate and worsen symptoms. Patient also advised that constipation can make it difficult to urinate. Offer ed patient a laxative, patient declined stating that she has had daily bowel movements. Patient advised that if she is unable to void that she would need to return for a catheterization if she cannot void after 8 hours. Patient declines any Conley catheter at this time. Patient advised of positive test. Patient advised that no intrauterine was noted on ultrasound although it is not likely to see an intrauterine with her quantitative hCG test at 15. Patient advised that she will need to have repeat blood work as well as additional ultrasound at a later date to further evaluate her status. Patient encouraged to see her primary doctor for referral to her urologist for further evaluation of her urinary hesitancy symptoms as well as referral to an KIDNEY PULLER to establish care. Patient was also advised of incidental finding of thickening about the heart wall noted on CT scan. Patient was given a copy of her CT scan and encouraged to see her primary doctor so that they can further evaluate this incidental finding. Patient without any chest pain symptoms any dyspnea or shortness of breath. Attempted consultation with on-call KIDNEY PULLER to discuss patient's recent radiation exposure. Dr. Groves who is on-call for KIDNEY PULLER is currently in a delivery so awaiting return call at this time. 03/02/20 19:[address]NEY PULLER [address] Groves who states that patient should follow-up with an KIDNEY PULLER provider for further evaluation of current . Dr. Groves agrees with plan for outpatient repeat quantitative hCG testing. Patient was advised of need to establish with a KIDNEY PULLER for further evaluation of her current status. Patient encouraged to avoid any additional radiation exposure during this current . Patient states that she is not too concerned at this time as there was nothing noted on ultrasound. Patient states she will become concerned when there is actually a heartbeat. Patient states that she has had 2 previous chemical terminations in the past. - Vital Signs Vital signs: Temp Pulse Resp BP Pulse Ox 99.2 F 73 14 147/109 H 100 03/02/20 20:21 03/02/20 20:21 03/02/20 20:21 03/02/20 20:21 03/02/20 20:21 - Laboratory Result Diagrams: 03/02/20 11:15 10/14/20 11:15 Laboratory results interpreted by me: 03/02/20 03/02/20 03/02/20 11:15 11:15 11:30 Carbon Dioxide 19 L Serum HCG, Qual POSITIVE H Beta HCG, Quant Urine Blood SMALL H 03/02/20 17:10 Carbon Dioxide Serum HCG, Qual Beta HCG, Quant 15.20 H Urine Blood 03/02/20 19:03 Labs- All tests 24 hr 03/02/20 03/02/20 03/02/20 11:15 11:15 11:15 WBC 7.0 RBC 4.88 Hgb 15.2 Hct 43.6 MCV 89 MCH 31.1 MCHC 34.7 RDW 13.4 Plt Count 227 Lymph % (Auto) 20.6 [place] % (Auto) 4.3 Eos % (Auto) 1.2 Baso % (Auto) 0.6 Absolute Neuts (auto) 5.2 Absolute Lymphs (auto) 1.4 Absolute Monos (auto) 0.3 Absolute Eos (auto) 0.1 Absolute Basos (auto) 0.0 Seg Neutrophils % 73.3 Sodium 138.7 Potassium 4.5 Chloride 105 Carbon Dioxide 19 L Anion Gap 15 BUN 10 Creatinine 0.67 Est GFR ( Amer) > 60 Est GFR (MDRD) Non-Af > 60 Glucose 89 Calcium 9.8 Total Bilirubin 0.5 Direct Bilirubin 0.2 Neonat Total Bilirubin Not Reportable Neonat Direct Bilirubin Not Reportable Neonat Indirect Bili Not Reportable AST 22 ALT 19 Alkaline Phosphatase 64 Total Protein 7.8 Albumin 4.9 Serum HCG, Qual POSITIVE H Beta HCG, Quant Total Beta HCG Urine Color Urine Appearance Urine pH Ur Specific [place] Urine Protein Urine Glucose (UA) Urine Ketones Urine Blood Urine Nitrite (Reflex) Urine Bilirubin Urine Urobilinogen Leukocyte Esterase Rfl Urine RBC (Auto) U Hyaline Cast (Auto) Urine WBC (Reflex) Squamous Epi Cells Auto Urine Mucus (Auto) Urine Ascorbic Acid 03/02/20 03/02/20 11:30 17:10 WBC RBC Hgb Hct MCV MCH MCHC RDW Plt Count Lymph % (Auto) [place] % (Auto) Eos % (Auto) Baso % (Auto) Absolute Neuts (auto) Absolute Lymphs (auto) Absolute Monos (auto) Absolute Eos (auto) Absolute Basos (auto) Seg Neutrophils % Sodium Potassium Chloride Carbon Dioxide Anion Gap BUN Creatinine Est GFR ( Amer) Est GFR (MDRD) Non-Af Glucose Calcium Total Bilirubin Direct Bilirubin Neonat Total Bilirubin Neonat Direct Bilirubin Neonat Indirect Bili AST ALT Alkaline Phosphatase Total Protein Albumin Serum HCG, Qual Beta HCG, Quant 15.20 H Total Beta HCG POSITIVE Urine Color STRAW Urine Appearance CLEAR Urine pH 7.0 Ur Specific [place] 1.005 Urine Protein NEGATIVE Urine Glucose (UA) NEGATIVE Urine Ketones NEGATIVE Urine Blood SMALL H Urine Nitrite (Reflex) NEGATIVE Urine Bilirubin NEGATIVE Urine Urobilinogen NEGATIVE Leukocyte Esterase Rfl NEGATIVE Urine RBC (Auto) 1 U Hyaline Cast (Auto) 1 Urine WBC (Reflex) 1 Squamous Epi Cells Auto <1 Urine Mucus (Auto) RARE Urine Ascorbic Acid NEGATIVE - Diagnostic Test Radiology reviewed: Image reviewed, Reports reviewed Discharge - Discharge Clinical Impression: test positive, Urinary hesitancy Abdominal pain Qualifiers: Abdominal location: unspecified location Qualified Code(s): R10.9 - Unspecified abdominal pain Condition: Stable Disposition: HOME, SELF-CARE Instructions: Abdominal Pain ([facility]), Antinausea Medication ([facility]), Ectopic Precaution ([facility]) Additional Instructions: Return immediately for any new or worsening symptoms Followup with your primary care provider, call tomorrow to make a followup appointment Your test was positive today. Follow-up with KIDNEY PULLER to establish care. Return to the lab in 48 hours for repeat blood test, your primary doctor or the KIDNEY PULLER can follow up with this finding. You will need a repeat ultrasound to further evaluate the status. If you are unable to void after 8 hours, return to the emergency department as she may need a catheterization to help empty her bladder. Follow-up with your urologist for further evaluation of your urinary symptoms. Your CT scan showed an abnormal thickening around your heart, your primary doctor can follow this up and make referrals as needed to cardiology for further evaluation of this incidental finding. Prescriptions: Promethazine HCl [Phenergan 25 mg Tablet] 25 mg PO Q6H PRN #10 tablet PRN Reason: Forms: Follow-Up Laboratory Testing Referrals: [facility] [Provider Group] - Follow up tomorrow [facility] [Provider Group] - Follow up in 3-5 days TAMMY GARCIA MD [NO LOCAL MD] - Follow up tomorrow
[2020-03-02] MEDS ORDERED: NORMAL SALINE 1000 ML 1,000 ML IV ONE (17:16)
--- NOTE | 2020-03-02 18:00 | RADIOLOGY REPORT (SQ) ---
EXAM DESCRIPTION: U/S OB TRANSVAGINAL W/O DOP IMAGES COMPLETED DATE/TIME: 03/02/2020 5:44 pm REASON FOR STUDY: RLQ pain COMPARISON: 02/07/2019 TECHNIQUE: Transvaginal static and realtime grayscale images acquired of the pelvis. Additional paulino cted spectral and color Doppler images recorded. All images stored on PACs. BHCG: Pending. CLINICAL DATES: 4 weeks LIMITATIONS: None. FINDINGS: UTERUS: No visualized intrauterine . RIGHT ADNEXA: Normal ovary with normal vascular flow. No adnexal free fluid. No adnexal masses. LEFT ADNEXA: Normal ovary with normal vascular flow. No adnexal free fluid. No adnexal masses. FREE FLUID: Small amount of cul-de-sac free fluid. OTHER: No other significant finding. IMPRESSION: NO VISUALIZED INTRA- OR EXTRAUTERINE . ECTOPIC CANNOT BE EXCLUDED. FOLLOW-UP ULTRASOUND AND SERIAL BHCG LEVELS STRONGLY RECOMMENDED TO ACCURATELY ASSESS STATU S. TECHNICAL DOCUMENTATION: JOB ID: [id number] [place]-72 2010 [employer]- All Rights Reserved Reading location - IP/workstation name: [email or web address]
[2020-03-02 20:24] VITALS: BP 147/109
== END 2020-03-02 20:24 | disposition home or self-care (01) ==
LOC: ER 10:28
DX: R10.31 Right lower quadrant pain (principal); R39.11 Hesitancy of micturition; R50.9 Fever, unspecified; R11.2 Nausea with vomiting, unspecified; F17.200 Nicotine dependence, unspecified, uncomplicated; Z32.01 Encounter for pregnancy test, result positive; Z87.442 Personal history of urinary calculi
CPT/HCPCS: 99285; 96361; 96374; 96375; 36415; 84702; 84703; 85025; 80053; 81001; 76817; 74176; J1200; J2270; J2550; J7030

== ENCOUNTER 2020-03-21 09:11 | Emergency (ER) | payer MEDICAID ==
[2020-03-21] MEDS ORDERED: ACETAMINOPHEN 325 MG TABLET PO ONE (09:55)
[2020-03-21] MEDS ORDERED: PROMETHAZINE HCL 25 MG TABLET PO ONE (09:55)
--- NOTE | 2020-03-21 09:58 | ER Document Report ---
ED GI/ - General Stated Complaint: VAGINAL BLEEDING,HEADACHE Time Seen by Provider: 03/21/20 09:23 Primary Care Provider: [facility] [Provider Group] - Follow up tomorrow MOMO CERVANTES NP [Primary Care Provider] - Follow up as needed Mode of Arrival: Ambulatory Information source: Patient Notes: Patient presents G7, P3 complaining of vaginal bleeding that started last night. Patient complains of some mild headache pain and lower pelvic cramping. Patient reports nausea and vomiting x3 episodes. Patient denies any concerns about STI. Patient denies any urinary symptoms. TRAVEL OUTSIDE OF THE [place] IN LAST 30 DAYS: No - HPI Patient complains to provider of: , Vaginal bleeding, Vomiting Onset: Yesterday Timing/Duration: Gradual Quality of pain: Cramping Pain Level: 4 Location: Pelvis Vaginal bleeding (Compared to normal period): Heavier Menstrual period history: Sexual history: Active Associated symptoms: Nausea, Vomiting. denies: Diarrhea, Dizzy, Dysuria, Fever, Loss of appetite, Urinary hesitancy, Urinary frequency, Urinary retention Exacerbated by: Denies Relieved by: Denies Similar symptoms previously: Yes Recently seen / treated by doctor: No - Related Data Allergies/Adverse Reactions: butalbital [From Fioricet] Allergy (Verified 03/02/20 10:56) Chest tightening ceftriaxone [From Rocephin] Allergy (Verified 03/02/20 10:56) Red Man Syndrome codeine [Codeine] Allergy (Verified 03/02/20 10:56) Difficulty breathing haloperidol [From Haldol] Allergy (Verified 03/02/20 10:56) Anxiety, Increased Heart Rate haloperidol lactate [From Haldol] Allergy (Verified 03/02/20 10:56) Anxiety, Increased Heart Rate magnesium sulfate [Magnesium Sulfate] Allergy (Verified 03/02/20 10:56) Paralysis from chest down ondansetron [From Zofran] Allergy (Verified 03/02/20 10:56) Hives, Blisters prochlorperazine [From Compazine] Allergy (Verified 03/02/20 10:56) hydromorphone HCl [From Dilaudid] Adverse Reaction (Verified 03/02/20 10:56) Renal failure ketorolac tromethamine [From Toradol] Adverse Reaction (Verified 03/02/20 10:56) Difficulty breathing metoclopramide HCl [From Reglan] Adverse Reaction (Verified 03/02/20 10:56) Anxiety, Increased Blood Pressure, Hives tramadol [Tramadol] Adverse Reaction (Verified 03/02/20 10:56) Swelling of Throat Past Medical History - General Information source: Patient - Social History Smoking Status: Current Every Day Smoker Frequency of alcohol use: None Drug Abuse: None Occupation: None Lives with: Family Family History: Reviewed & Not Pertinent, CAD, Hyperlipidemia, Hypertension, Malignancy, Other - Past Medical History Cardiac Medical History: Reports: Hx Hypertension - PRECLAMPSIA Denies: Hx Coronary Artery Disease, Hx Heart Attack Pulmonary Medical History: Reports: Hx Bronchitis Denies: Hx Asthma, Hx COPD, Hx Pneumonia, Hx Tuberculosis Neurological Medical History: Reports: Hx Migraine, Hx Seizures - epileptic migr aines October 2018. Denies: Hx Cerebrovascular Accident Renal/ Medical History: Reports: Hx Kidney Stones, Hx Renal Insufficiency. Denies: Hx Peritoneal Dialysis GI Medical History: Reports: Hx Crohn's Disease, Hx Irritable Bowel, Hx Colonoscopy, Hx Endoscopy. Denies: Hx Ulcer Musculoskeletal Medical History: Reports Hx Arthritis, Reports Hx Musculoskeletal Trauma Traumatic Medical History: Reports: Hx Fractures - Feet wrist and fingers Past Surgical History: Reports: Hx Cholecystectomy, Hx Dilation and Curettage - x2, Hx Gynecologic Surgery - D&C x's2, Hx Kidney (Renal Surgery) - Lithotripsy, Hx Orthopedic Surgery - Foot surgery, Other - Immunizations Immunizations up to date: Yes Hx Diphtheria, Pertussis, Tetanus Vaccination: Yes - 2016 Hx Pneumococcal Vaccination: 07/18/12 Review of Systems - Review of Systems Constitutional: No symptoms reported. denies: Fever EENT: No symptoms reported Cardiovascular: No symptoms reported. denies: Chest pain, Dizziness, Lightheaded Respiratory: No symptoms reported. denies: Cough Gastrointestinal: Abdominal pain, Nausea, Vomiting. denies: Diarrhea Genitourinary: No symptoms reported. denies: Dysuria Female Genitourinary: , Vaginal bleeding. denies: Vaginal discharge Musculoskeletal: No symptoms reported. denies: Back pain Skin: No symptoms reported Hematologic/Lymphatic: No symptoms reported Neurological/Psychological: Headaches. denies: Confusion, Weakness Physical Exam - Vital signs Vitals: Temp Pulse Resp BP Pulse Ox 97.6 F 82 18 141/90 H 100 03/21/20 09:27 03/21/20 09:27 03/21/20 09:27 03/21/20 09:27 03/21/20 09:27 - Notes Notes: PHYSICAL EXAMINATION: GENERAL: Well-appearing and in no acute distress. HEAD: Atraumatic, normocephalic. EYES: sclera anicteric, conjunctiva are normal. ENT: nares patent. Moist mucous membranes. NECK: Normal range of motion, supple without lymphadenopathy LUNGS: CTAB and equal. No wheezes rales or rhonchi. HEART: Regular rate and rhythm without murmurs ABDOMEN: Soft, lower pelvic tenderness, normal bowel sounds, no guarding. EXTREMITIES: Normal range of motion, no pitting edema. No cyanosis. BACK: No CVA tenderness NEUROLOGICAL: Cranial nerves grossly intact. Normal speech. Normal gait. PSYCH: Normal mood, normal affect. SKIN: Warm, Dry, normal turgor, no rashes or lesions noted - Genitourinary External exam: Normal Speculum exam: Cervix closed Vaginal bleeding: Mild Notes: While amount of old appearing blood in vaginal vault, PCT [facility] Course - Re-evaluation Re-evalutation: 03/21/20 14:20 Patient with minimal vaginal bleeding on examination, patient does complain of some lower pelvic cramping. Patient with a subchorionic bleed noted on ultrasound with an intrauterine . Patient's blood type is B+ after reviewing patient's previous records. Patient encouraged to follow-up with her INSURANCE ADJUSTOR for further evaluation. Patient encouraged to manage her pain symptoms with Tylenol at this time. The patient presents with headache without signs of RN CARDIAC REHAB bleed, stroke, infection, or other serious etiology. The patient is neurologically intact. Given the extremely low risk of these diagnoses further testing and evaluation for these possibilities does not appear to be indicated at this time. The patient has been instructed to return if the symptoms worsen or change in any way. 03/21/20 19:08 - Vital Signs Vital signs: Temp Pulse Resp BP Pulse Ox 98.0 F 80 17 132/76 H 98 03/21/20 14:25 03/21/20 14:25 03/21/20 14:25 03/21/20 14:25 03/21/20 14:25 - Laboratory Result Diagrams: 03/21/20 12:50 03/21/20 10:12 Laboratory results interpreted by me: 03/21/20 10:12 Carbon Dioxide 21 L BUN 6 L Beta HCG, Quant 27114.00 H Labs- All tests 24 hr 03/21/20 03/21/20 03/21/20 10:12 10:12 12:50 WBC Cancelled 5.6 RBC Cancelled 4.83 Hgb Cancelled 15.2 Hct Cancelled 43.3 MCV Cancelled 90 MCH Cancelled 31.4 MCHC Cancelled 35.1 RDW Cancelled 13.9 Plt Count Cancelled 221 Lymph % (Auto) Cancelled 25.2 [place] % (Auto) Cancelled 6.6 Eos % (Auto) Cancelled 1.8 Baso % (Auto) Cancelled 1.2 Absolute Neuts (auto) Cancelled 3.6 Absolute Lymphs (auto) Cancelled 1.4 Absolute Monos (auto) Cancelled 0.4 Absolute Eos (auto) Cancelled 0.1 Absolute Basos (auto) Cancelled 0.1 Seg Neutrophils % Cancelled 65.2 Platelet Estimate Cancelled Sodium 139.7 Potassium 3.9 Chloride 104 Carbon Dioxide 21 L Anion Gap 15 BUN 6 L Creatinine 0.58 Est GFR ( Amer) > 60 Est GFR (MDRD) Non-Af > 60 Glucose 85 Calcium 9.7 Total Bilirubin 0.6 Direct Bilirubin 0.0 Neonat Total Bilirubin Not Reportable Neonat Direct Bilirubin Not Reportable Neonat Indirect Bili Not Reportable AST 20 ALT 18 Alkaline Phosphatase 60 Total Protein 8.1 Albumin 5.0 Beta HCG, Quant 90482.00 H Total Beta HCG POSITIVE Slides for Path Review Cancelled - Diagnostic Test Radiology reviewed: Reports reviewed Discharge - Discharge Clinical Impression: Vaginal bleeding during , Nausea Subchorionic bleed Qualifiers: Fetus number: single or unspecified fetus Trimester: first trimester Qualified Code(s): O41.8X10 - Other specified disorders of amniotic fluid and membranes, first trimester, not applicable or unspecified Condition: Stable Disposition: HOME, SELF-CARE Instructions: Bleeding During Early ([facility]), Nausea or Vomiting, Nonspecific ([facility]) Additional Instructions: Return immediately for any new or worsening symptoms Followup with your primary care provider, call tomorrow to make a followup appointment Take Tylenol [id number] as needed for pain relief. Referrals: MOMO CERVANTES NP [Primary Care Provider] - Follow up as needed [facility] [Provider Group] - Follow up tomorrow
[2020-03-21 10:47] LABS: ALKALINE PHOSPHATASE 60 U/L (38-126); ANION GAP 15 (5-19); ASPARTATE AMINO TRANSFERASE 20 U/L (14-36); BILIRUBIN,TOTAL 0.6 mg/dL (0.2-1.3); BLOOD UREA NITROGEN 6 mg/dL (7-20); CALCIUM 9.7 mg/dL (8.4-10.2); CARBON DIOXIDE 21 mmol/L (22-30); CHLORIDE 104 mmol/L (98-107); GLUCOSE 85 mg/dL (75-110); POTASSIUM 3.9 mmol/L (3.6-5.0); TOTAL PROTEIN 8.1 g/dL (6.3-8.2)
[2020-03-21] MEDS ORDERED: DIPHENHYDRAMINE HCL 50 MG CAPSULE PO ONE (11:17)
[2020-03-21] MEDS ORDERED: NORMAL SALINE 1000 ML 1,000 ML IV ONE (11:45)
--- NOTE | 2020-03-21 12:34 | RADIOLOGY REPORT (SQ) ---
EXAM DESCRIPTION: U/S OB TRANSVAGINAL W/O DOP IMAGES COMPLETED DATE/TIME: 03/21/2020 11:23 am REASON FOR STUDY: vag bleeding COMPARISON: 03/02/2020 TECHNIQUE: Transvaginal static and realtime grayscale images acquired of the pelvis. Additional paulino cted spectral and color Doppler images recorded. All images stored on PACs. bHCG: Pending. CLINICAL DATES: Not Available. LIMITATIONS: None. FINDINGS: FETUS: Single Living intrauterine . ULTRASOUND EGA: 5 weeks 6 days ULTRASOUND LAST: 11/15/2020 EFW: Not applicable less than 20 weeks. CRL: 0.3 cm FHR: 113 beats per minute. SURVEY: Too early to assess. AMNIOTIC FLUID: Adequate amount. PLACENTA: Not yet developed due to early gestation. SUBCHORIONIC BLEED: Yes SIZE OF BLEED: 15 x 11 x 5 mm UTERUS: There appears to be an arcuate uterus. CERVICAL LENGTH: 2.3 cm. Closed. RIGHT ADNEXA: Normal ovary with normal vascular flow. There appears to be a small amount of fluid in the right fallopian tube. No adnexal free fluid. No adnexal masses. LEFT ADNEXA: Normal ovary with normal vascular flow. 19 mm corpus luteum. No adnexal free fluid. No adnexal masses. FREE FLUID: None. OTHER: No other significant finding. IMPRESSION: Living intrauterine . Findings as described. EGA 5 weeks 6 days Trimester of : First trimester - 0 to 13 weeks. TECHNICAL DOCUMENTATION: JOB ID: [id number] 2010 [employer]- All Rights Reserved rev-10/04 Reading location - IP/workstation name: [email or web address]
[2020-03-21 13:04] LABS: ABSOLUTE BASOPHILS # (AUTO) 0.1 10^3/uL (0.0-0.2); ABSOLUTE EOSINOPHILS # (AUTO) 0.1 10^3/uL (0.0-0.6); ABSOLUTE LYMPHOCYTES (AUTO) 1.4 10^3/uL (0.5-4.7); ABSOLUTE MONOCYTES (AUTO) 0.4 10^3/uL (0.1-1.4); ABSOLUTE NEUT (AUTO) 3.6 10^3/uL (1.7-8.2); BASOPHILS % (AUTO) 1.2 % (0-2); EOSINOPHILS % (AUTO) 1.8 % (0-6); HEMATOCRIT 43.3 % (36.0-47.0); HEMOGLOBIN 15.2 g/dL (12.0-15.5); LYMPHOCYTES % (AUTO) 25.2 % (13-45); MEAN CORPUSCULAR HEMOGLOBIN 31.4 pg (27.0-33.4); MEAN CORPUSCULAR HGB CONC 35.1 g/dL (32.0-36.0); MEAN CORPUSCULAR VOLUME 90 fl (80-97); MONOCYTES % (AUTO) 6.6 % (3-13); PLATELET COUNT 221 10^3/uL (150-450); RED BLOOD COUNT 4.83 10^6/uL (3.72-5.28); RED CELL DISTRIBUTION WIDTH 13.9 % (11.5-14.0); SEGMENTED NEUTROPHILS % (AUTO) 65.2 % (42-78); TOTAL CELLS COUNTED % (AUTO) 100 %; WHITE BLOOD COUNT 5.6 10^3/uL (4.0-10.5)
[2020-03-21 14:26] VITALS: BP 132/76
== END 2020-03-21 14:51 | disposition home or self-care (01) ==
LOC: ER 09:11
DX: O41.8X10 Other specified disorders of amniotic fluid and membranes, first trimester, not applicable or unspecified (principal); O99.331 Smoking (tobacco) complicating pregnancy, first trimester; Z87.442 Personal history of urinary calculi
CPT/HCPCS: 99285; 96360; 36415; 84702; 85025; 80053; 76817; J3490 ×2; J7030

== ENCOUNTER 2020-03-26 11:22 | Emergency (ER) | payer MEDICAID ==
[2020-03-26] MEDS ORDERED: NORMAL SALINE 1000 ML 1,000 ML IV ONE ×2 (11:55→17:33)
[2020-03-26] MEDS ORDERED: DIPHENHYDRAMINE HCL 50 MG/ML VIAL IV ONE ×2 (11:55→15:00)
--- NOTE | 2020-03-26 12:06 | ER Document Report ---
ED General - General Chief Complaint: Vaginal Bleeding Stated Complaint: VAGINAL BLEEDING/NAUSEA/VOMITING/HEADACHE/FEVER Time Seen by Provider: 03/26/20 11:46 Primary Care Provider: JOAQUIN ART MD [NO LOCAL MD] - Follow up as needed MOMO CERVANTES NP [Primary Care Provider] - Follow up as needed AVINASH OMALLEY MD [CONVERSION] - Follow up as needed LAMINE OMALLEY MD [ACTIVE STAFF] - 03/28/20 (repeat hcg and ultrasound ) TRAVEL OUTSIDE OF THE [place] IN LAST 30 DAYS: No - HPI Notes: 29-year-old female with a history of migraines presents to the emergency room today for evaluation of vaginal bleeding after she had a surgical termination of her on March 23, 2020. Since that time she states she has been going through 3 sanitary pads a day and having vaginal clotting. Patient reports today she is having a right-sided migraine, feels similar to her previous migraines. She has tried Tylenol without relief. Patient states that she has follow-up with a neurologist and [place] [facility] [place] used to be on amitriptyline and Topamax but they did discontinue this. Patient denies any blurred vision double vision loss of vision. She does report that she feels weak and dizzy, reports some nausea and vomiting along with her vaginal bleeding. Patient states she called her PRIMARY CARE PROVIDER, [facility] to make them aware of her vaginal bleeding, they advised to have her follow-up in the emergency room. - Related Data Allergies/Adverse Reactions: butalbital [From Fioricet] Allergy (Verified 03/02/20 10:56) Chest tightening ceftriaxone [From Rocephin] Allergy (Verified 03/02/20 10:56) Red Man Syndrome codeine [Codeine] Allergy (Verified 03/02/20 10:56) Difficulty breathing haloperidol [From Haldol] Allergy (Verified 03/02/20 10:56) Anxiety, Increased Heart Rate haloperidol lactate [From Haldol] Allergy (Verified 03/02/20 10:56) Anxiety, Increased Heart Rate magnesium sulfate [Magnesium Sulfate] Allergy (Verified 03/02/20 10:56) Paralysis from chest down ondansetron [From Zofran] Allergy (Verified 03/02/20 10:56) Hives, Blisters prochlorperazine [From Compazine] Allergy (Verified 03/02/20 10:56) hydromorphone HCl [From Dilaudid] Adverse Reaction (Verified 03/02/20 10:56) Renal failure ketorolac tromethamine [From Toradol] Adverse Reaction (Verified 03/02/20 10:56) Difficulty breathing metoclopramide HCl [From Reglan] Adverse Reaction (Verified 03/02/20 10:56) Anxiety, Increased Blood Pressure, Hives tramadol [Tramadol] Adverse Reaction (Verified 03/02/20 10:56) Swelling of Throat Past Medical History - General Information source: Patient - Social History Smoking Status: Smoker,Current Status Unk Family History: Reviewed & Not Pertinent, CAD, Hyperlipidemia, Hypertension, Malignancy, Other - Past Medical History Cardiac Medical History: Reports: Hx Hypertension - PRECLAMPSIA Denies: Hx Coronary Artery Disease, Hx Heart Attack Pulmonary Medical History: Reports: Hx Bronchitis Denies: Hx Asthma, Hx COPD, Hx Pneumonia, Hx Tuberculosis Neurological Medical History: Reports: Hx Migraine, 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 Denies: Hx Cerebrovascular Accident Renal/ Medical History: Reports: Hx Kidney Stones, Hx Renal Insufficiency. Denies: Hx Peritoneal Dialysis GI Medical History: Reports: Hx Crohn's Disease, Hx Irritable Bowel, Hx Colonoscopy, Hx Endoscopy. Denies: Hx Ulcer Musculoskeletal Medical History: Reports Hx Arthritis, Reports Hx Musculoskel etal Trauma Traumatic Medical History: Reports: Hx Fractures - Feet wrist and fingers Past Surgical History: Reports: Hx Cholecystectomy, Hx Dilation and Curettage - x2, Hx Gynecologic Surgery - D&C x's2, Hx Kidney (Renal Surgery) - Lithotripsy, Hx Orthopedic Surgery - Foot surgery, Other. Denies: Hx Hysterectomy, Hx Pacemaker - Immunizations Immunizations up to date: Yes Hx Diphtheria, Pertussis, Tetanus Vaccination: Yes - 2016 Hx Pneumococcal Vaccination: 07/18/12 Review of Systems - Review of Systems Constitutional: No symptoms reported EENT: No symptoms reported Cardiovascular: No symptoms reported Respiratory: No symptoms reported Gastrointestinal: No symptoms reported Genitourinary: See HPI Female Genitourinary: No symptoms reported Musculoskeletal: No symptoms reported Skin: No symptoms reported Hematologic/Lymphatic: No symptoms reported Neurological/Psychological: See HPI Physical Exam - Vital signs Vitals: Temp Pulse Resp BP Pulse Ox 98.7 F 89 16 137/60 H 100 11/07/20 11:26 03/26/20 11:26 03/26/20 11:26 03/26/20 11:26 03/26/20 11:26 - Notes Notes: MEDICATIONS: I agree with the patient medications as charted by the RN. ALLERGIES: I agree with the allergies as charted by the RN. PAST MEDICAL HISTORY/PAST SURGICAL HISTORY: Reviewed and agree as charted by RN. SOCIAL HISTORY: Reviewed and agree as charted by RN. FAMILY HISTORY: No significant familial comorbid conditions directly related to patient complaint EXAM: Reviewed vital signs as charted by RN. PHYSICAL EXAMINATION: reviewed vital signs by RN GENERAL: Well-appearing, well-nourished and in no acute distress. HEAD: Atraumatic, normocephalic. EYES: Pupils equal round and reactive to light, extraocular movements intact, conjunctiva are normal. ENT: Nares patent, oropharynx clear without exudates. Moist mucous membranes. NECK: Normal range of motion, supple without lymphadenopathy LUNGS: Breath sounds clear to auscultation bilaterally and equal. No wheezes rales or rhonchi. HEART: Regular rate and rhythm without murmurs ABDOMEN: Soft, nontender, nondistended abdomen. No guarding, no rebound. No m asses appreciated. Female : External genitalia without erythema, exudate or discharge. Vaginal va ult is without discharge. Cervix is of normal color without lesion. Uterus is noted to be of normal size and nontender. No cervical motion tenderness is seen. No masses are palpated. Scant blood in the vaginal vault without clots, os closed, no adnexal tenderness or mass Musculoskeletal: Normal range of motion, no pitting or edema. No cyanosis. NEUROLOGICAL: PERRLA, EOMI. Full motor and sensory function throughout. [employer] + 2 equal bilaterally in BUE. Tongue midline. No pronator drift. No ataxia. Neck with APROM. Raises eyebrows. Strength is 5 out of 5 in bilateral upper and lower extremities equally.Speaks in full sentences. No weakness on one side. Romberg gait steady able to walk straight line. Able to recall 5 objects. PSYCH: Normal mood, normal affect. SKIN: Warm, Dry, normal turgor, no rashes or lesions noted. Course - Re-evaluation Re-evalutation: 03/26/20 18:15 Afebrile vital stable no distress. Nurses notes reviewed. CBC negative for leukocytosis or anemia, CMP negative for hepatic or renal dysfunction, serum hCG 2087. Transvaginal ultrasound negative for any acute findings. GC pending. Wet mount pending. Patient receiving IV fluids. Urinalysis shows leuk esterase, proteinuria and hematuria, urine culture pending. Will treat for UTI with Macrobid 100 mg twice daily for 5 days. To follow-up with [employer] in the next 48 hours for repeat hCG. Advised pelvic rest. If she is going through more than 2 pads an hour return to the emergency room. She states her headache does feel much better after IV fluids, Phenergan, Decadron and Benadryl. After performing a Medical Screening Examination, I estimate there is LOW risk for ACUTE APPENDICITIS, BOWEL OBSTRUCTION, ACUTE CHOLECYSTITIS, PERFORATED DIVERTICULITIS, INCARCERATED HERNIA, PANCREATITIS, PELVIC INFLAMMATORY DISEASE, PERFORATED ULCER, ECTOPIC , or TUBO- OVARIAN ABSCESS, thus I consider the discharge disposition reasonable. Also, there is no evidence or peritonitis, sepsis, or toxicity. I have reevaluated this patient multiple times and no significant life threatening changes are noted. The patient and I have discussed the diagnosis and risks, and we agree with discharging home with close follow-up with the understanding that symptoms and presentations can change. We also discussed returning to the Emergency Department immediately if new or worsening symptoms occur. We have discussed the symptoms which are most concerning (e.g., bloody stool, fever, changing or worsening pain, vomiting) that necessitate immediate return. - Vital Signs Vital signs: Temp Pulse Resp BP Pulse Ox 98.7 F 89 16 137/60 H 100 03/26/20 11:26 03/26/20 11:26 03/26/20 11:26 03/26/20 11:26 03/26/20 11:26 - Laboratory Result Diagrams: 03/26/20 12:24 03/26/20 12:24 Laboratory results interpreted by me: 03/26/20 03/26/20 12:24 12:24 Beta HCG, Quant 2087.10 H Urine Protein 100 H Urine Blood LARGE H Ur Leukocyte Esterase MODERATE H Discharge - Discharge Clinical Impression: Elevated serum hCG, Vaginal bleeding, Migraine, UTI (urinary tract infection) Condition: Stable Disposition: HOME, SELF-CARE Instructions: Intravenous (IV) Fluids ([facility]), Nitrofurantoin ([facility]), Urinary Tract Infection ([facility]) Additional Instructions: Your labs today were normal. Your serum hCG was 2086 Prescriptions: Nitrofurantoin Monohyd/M-Cryst [Macrobid 100 mg Capsule] 100 mg PO BID #10 cap Referrals: MOMO CERVANTES, [employer] [Primary Care Provider] - Follow up as needed AVINASH OMALLEY MD [CONVERSION] - Follow up as needed LAMINE OMALLEY MD [ACTIVE STAFF] - 03/28/20 (repeat hcg and ultrasound ) JOAQUIN ART MD [NO LOCAL MD] - Follow up as needed
[2020-03-26 12:47] LABS: ABSOLUTE LYMPHOCYTES (AUTO) 1.1 10^3/uL (0.5-4.7); ABSOLUTE MONOCYTES (AUTO) 0.3 10^3/uL (0.1-1.4); ABSOLUTE NEUT (AUTO) 3.8 10^3/uL (1.7-8.2); BASOPHILS % (AUTO) 0.5 % (0-2); EOSINOPHILS % (AUTO) 0.7 % (0-6); HEMATOCRIT 39.5 % (36.0-47.0); HEMOGLOBIN 13.7 g/dL (12.0-15.5); LYMPHOCYTES % (AUTO) 19.9 % (13-45); MEAN CORPUSCULAR HEMOGLOBIN 31.4 pg (27.0-33.4); MEAN CORPUSCULAR HGB CONC 34.6 g/dL (32.0-36.0); MEAN CORPUSCULAR VOLUME 91 fl (80-97); MONOCYTES % (AUTO) 6.5 % (3-13); PLATELET COUNT 195 10^3/uL (150-450); RED BLOOD COUNT 4.36 10^6/uL (3.72-5.28); RED CELL DISTRIBUTION WIDTH 13.3 % (11.5-14.0); SEGMENTED NEUTROPHILS % (AUTO) 72.4 % (42-78); TOTAL CELLS COUNTED % (AUTO) 100 %; WHITE BLOOD COUNT 5.3 10^3/uL (4.0-10.5)
[2020-03-26 12:49] LABS: APPEARANCE,URINE CLOUDY; BILIRUBIN,URINE NEGATIVE (NEGATIVE); COLOR,URINE YELLOW; GLUCOSE, URINE NEGATIVE (NEGATIVE); KETONES,URINE NEGATIVE (NEGATIVE); LEUKOCYTE ESTERASE,URINE MODERATE (NEGATIVE); NITRITE,URINE NEGATIVE (NEGATIVE); PROTEIN,URINE 100 mg/dL (NEGATIVE); URINE SPECIFIC GRAVITY 1.015; UROBILINOGEN,URINE NEGATIVE mg/dL (<2.0)
[2020-03-26 13:03] LABS: ALBUMIN 4.6 g/dL (3.5-5.0); ALKALINE PHOSPHATASE 59 U/L (38-126); ANION GAP 11 (5-19); ASPARTATE AMINO TRANSFERASE 19 U/L (14-36); BILIRUBIN,DIRECT 0.1 mg/dL (0.0-0.4); BILIRUBIN,TOTAL 0.4 mg/dL (0.2-1.3); BLOOD UREA NITROGEN 7 mg/dL (7-20); CALCIUM 9.6 mg/dL (8.4-10.2); CARBON DIOXIDE 24 mmol/L (22-30); CHLORIDE 105 mmol/L (98-107); GLUCOSE 81 mg/dL (75-110); POTASSIUM 3.7 mmol/L (3.6-5.0); TOTAL PROTEIN 7.4 g/dL (6.3-8.2)
--- NOTE | 2020-03-26 14:15 | RADIOLOGY REPORT (SQ) ---
EXAM DESCRIPTION: U/S OB TRANSVAG W/DOPPLER IMAGES COMPLETED DATE/TIME: 03/26/2020 2:02 pm REASON FOR STUDY: vag bleed x3, surgical x3d ago COMPARISON: None. TECHNIQUE: Transvaginal static and realtime grayscale images acquired of the pelvis. Additional paulino cted spectral and color Doppler images recorded. All images stored on PACs. CLINICAL AGE: Recent BHC,087 LIMITATIONS: None. FINDINGS: UTERUS: No visualized intrauterine . RIGHT ADNEXA: Normal ovary with normal vascular flow. No adnexal free fluid. Dominant follicle measure 1.8 cm. LEFT ADNEXA: Normal ovary with normal vascular flow. No adnexal free fluid. No adnexal masses. FREE FLUID: Trace OTHER: No other significant finding. IMPRESSION: NO VISUALIZED INTRA- OR EXTRAUTERINE . bHCG LEVEL TOO LOW TO EXPECT VISUALIZATION OF . Prior beta HCG 07856. Terminated . FOLLOW-UP ULTRASOUND AND SERIAL BHCG LEVELS STRONGLY RECOMMENDED TO ACCURATELY ASSESS STATU S. TECHNICAL DOCUMENTATION: JOB ID: [id number] 2010 [employer]- All Rights Reserved Reading location - IP/workstation name: [email or web address]
[2020-03-26] MEDS ORDERED: DEXAMETHASONE SOD PHOSPHATE INJ 4 MG/1 ML VIAL IV ONE (15:31)
[2020-03-26] MEDS ORDERED: PROMETHAZINE HCL INJ 25 MG/1 ML VIAL IV ONE (17:44)
[2020-03-26 18:51] LABS: EPITHELIALS (WET MOUNT) 3+ EPITHELIALS SEEN; RBCS (WET MOUNT) 3+ RBCS SEEN; T.VAGINALIS (WET MOUNT) NO TRICHOMONAS SEEN; WBCS (WET MOUNT) NO WBCS SEEN; YEAST (WET MOUNT) NO YEAST SEEN
[2020-03-26 19:06] VITALS: BP 132/83
[2020-03-26 20:21] LABS: CHLAM PCR NOT DETECTED (NOT DETECT)
== END 2020-03-26 19:22 | disposition home or self-care (01) ==
LOC: ER 11:22
DX: O04.6 Delayed or excessive hemorrhage following (induced) termination of pregnancy (principal); G43.909 Migraine, unspecified, not intractable, without status migrainosus; R89.1 Abnormal level of hormones in specimens from other organs, systems and tissues; N39.0 Urinary tract infection, site not specified; R11.2 Nausea with vomiting, unspecified; R50.9 Fever, unspecified; R53.1 Weakness; R42 Dizziness and giddiness; Z88.8 Allergy status to other drugs, medicaments and biological substances; Z79.899 Other long term (current) drug therapy; F17.200 Nicotine dependence, unspecified, uncomplicated; I10 Essential (primary) hypertension
CPT/HCPCS: 99285; 96361; 96374; 96375; 36415; 87086; 87210; 84702; 85025; 87088; 80053; 81001; 87186; 87491; 87591; 76817; 93976; J1100; J1200; J2550; J7030